=== PATIENT | male | born 1960 | race Caucasian/White ===

== ENCOUNTER 2023-02-25 14:40 | Outpatient (OUT) | payer BC, SELFPAY ==
[2023-02-25 14:55] LABS: Basophils Percent Auto 0.4 % (0.2-2.0); Eosinophils Absolute Auto 0.1 10^3/uL (0.0-0.7); Hematocrit 38.4 % (42.0-54.0); Hemoglobin 13.4 g/dL (14.0-18.0); Immature Granulocytes Abs Auto 0.02 10^3/uL (0.00-0.03); Immature Granulocytes Pct Auto 0.3 % (0.0-0.5); Lymphocytes Absolute Auto 2.6 10^3/uL (1.2-3.8); Lymphocytes Percent Auto 33.2 % (20.5-60.0); Mean Corpuscular HGB Conc 34.9 g/dL (29.9-35.2); Mean Corpuscular Hemoglobin 30.4 pg (25.9-34.0); Mean Corpuscular Volume 87.1 fL (80.0-94.0); Mean Platelet Volume 9.8 fL (9.5-13.5); Monocytes Absolute Auto 0.6 10^3/uL (0.3-0.8); Monocytes Percent Auto 7.7 % (1.7-12.0); Neutrophils Absolute Auto 4.5 10^3/uL (1.4-6.5); Neutrophils Percent Auto 57.4 % (43.0-75.0); Platelet Count 202 10^3/uL (150-450); Red Blood Count 4.41 10^6/uL (4.70-6.10); Red Cell Distribution Width 13.2 % (11.0-15.0); White Blood Count 7.9 10^3/uL (4.0-11.0)
[2023-02-25 15:13] LABS: Alanine Aminotransferase 26 U/L (16-63); Albumin Globulin Ratio 1.4; Albumin Level 4.3 g/dL (3.4-5.0); Alkaline Phosphatase 99 U/L (46-116); Anion Gap 13.1; Aspartate Amino Transferase 18 U/L (15-37); BUN Creatinine Ratio 13.5; Bilirubin Total 0.6 mg/dL (0.2-1.0); Calcium 8.6 mg/dL (8.5-10.1); Carbon Dioxide 29.2 mmol/L (21.0-32.0); Chloride 105 mmol/L (98-107); Estimated GFR (African America >60 (>=60); Estimated GFR (Non-African Ame 50 (>=60); Glucose 93 mg/dL (74-106); Potassium 4.3 mmol/L (3.5-5.1); Sodium 143 mmol/L (136-145); Total Protein 7.3 g/dL (6.4-8.2)
[2023-02-25 15:32] LABS: Erythrocyte Sedimentation Rate 10 mm/hr (<=20)
== END 2023-02-25 14:41 | disposition home or self-care (01) ==
PROVIDERS: PCP Family Medicine
DX: M05.79 Rheumatoid arthritis with rheumatoid factor of multiple sites without organ or systems involvement (principal); M15.0 Primary generalized (osteo)arthritis; Z79.899 Other long term (current) drug therapy
CPT/HCPCS: 36415; 80053; 85025; 85652

== ENCOUNTER 2023-03-01 14:40 | Outpatient (OUT) | payer BC, SELFPAY ==
--- NOTE | 2023-03-01 14:48 | XR_ITS ---
The [address] [address] Patient Name: DARLEEN GOODMAN MRN: [id number] date: 1960 Sex: M Assigned Patient Location: [facility] Current Patient Location: Accession/Order Number: [id number] Exam Date: 03/01/2023 14:58 Report Date: 03/02/2023 05:18 At the request of: NON-STAFF PHYSICIAN Procedure: XR knee LT 4V PROCEDURE: XR knee LT 4V HISTORY: Knee Pain ; chronic left knee pain; prior knee surgery COMPARISON: XR knee left 07/29/2018 FINDINGS: BONES:Small degenerative osteophytes along the articular margins of all 3 compartments. No fracture, dislocation, or significant joint space narrowing. SOFT TISSUES:Calcium deposition within the lateral meniscus. Small focus of heterotopic bone formation cephalad to the patella; likely sequela of remote injury. EFFUSION:None visible. OTHER: Negative. XR/XR knee LT 4V IMPRESSION: 1. No acute bone abnormality. 2. Stable mild-moderate degenerative joint disease. Electronically authenticated by: ZHANNA ARMENDARIZ Date: 03/02/2023 05:18
== END 2023-03-01 14:41 | disposition home or self-care (01) ==
LOC: RAD 14:41
PROVIDERS: PCP Family Medicine
DX: M25.562 Pain in left knee (principal)
CPT/HCPCS: 73564

== ENCOUNTER 2023-04-21 14:37 | Outpatient (OUT) | payer BC, SELFPAY ==
[2023-04-21 15:03] LABS: Basophils Percent Auto 0.4 % (0.2-2.0); Eosinophils Absolute Auto 0.1 10^3/uL (0.0-0.7); Eosinophils Percent Auto 1.4 % (0.9-7.0); Hemoglobin 13.1 g/dL (14.0-18.0); Immature Granulocytes Abs Auto 0.02 10^3/uL (0.00-0.03); Immature Granulocytes Pct Auto 0.3 % (0.0-0.5); Lymphocytes Absolute Auto 2.6 10^3/uL (1.2-3.8); Lymphocytes Percent Auto 36.3 % (20.5-60.0); Mean Corpuscular HGB Conc 33.6 g/dL (29.9-35.2); Mean Corpuscular Hemoglobin 30.2 pg (25.9-34.0); Mean Corpuscular Volume 89.9 fL (80.0-94.0); Mean Platelet Volume 10.2 fL (9.5-13.5); Monocytes Absolute Auto 0.7 10^3/uL (0.3-0.8); Neutrophils Absolute Auto 3.8 10^3/uL (1.4-6.5); Neutrophils Percent Auto 52.6 % (43.0-75.0); Platelet Count 207 10^3/uL (150-450); Red Blood Count 4.34 10^6/uL (4.70-6.10); Red Cell Distribution Width 13.3 % (11.0-15.0); White Blood Count 7.2 10^3/uL (4.0-11.0)
[2023-04-21 15:15] LABS: Alanine Aminotransferase 26 U/L (16-63); Albumin Globulin Ratio 1.2; Albumin Level 4.1 g/dL (3.4-5.0); Alkaline Phosphatase 102 U/L (46-116); Anion Gap 12.5; Aspartate Amino Transferase 19 U/L (15-37); BUN Creatinine Ratio 17.7; Bilirubin Total 0.4 mg/dL (0.2-1.0); Calcium 9.1 mg/dL (8.5-10.1); Carbon Dioxide 27.8 mmol/L (21.0-32.0); Chloride 102 mmol/L (98-107); Estimated GFR (African America >60 (>=60); Estimated GFR (Non-African Ame 55 (>=60); Globulin 3.3 g/dL; Glucose 78 mg/dL (74-106); Potassium 4.3 mmol/L (3.5-5.1); Sodium 138 mmol/L (136-145); Total Protein 7.4 g/dL (6.4-8.2)
[2023-04-21 15:18] LABS: Erythrocyte Sedimentation Rate 22 mm/hr (<=20)
== END 2023-04-21 14:38 | disposition home or self-care (01) ==
PROVIDERS: PCP Family Medicine
DX: M05.79 Rheumatoid arthritis with rheumatoid factor of multiple sites without organ or systems involvement (principal); M15.0 Primary generalized (osteo)arthritis; Z79.899 Other long term (current) drug therapy
CPT/HCPCS: 36415; 80053; 85025; 85652

== ENCOUNTER 2023-10-04 14:41 | Outpatient (OUT) | payer OTHER, SELFPAY ==
[2023-10-04 15:08] LABS: Basophils Percent Auto 0.3 % (0.2-2.0); Eosinophils Absolute Auto 0.1 10^3/uL (0.0-0.7); Eosinophils Percent Auto 0.8 % (0.9-7.0); Hematocrit 41.5 % (42.0-54.0); Hemoglobin 13.8 g/dL (14.0-18.0); Immature Granulocytes Abs Auto 0.02 10^3/uL (0.00-0.03); Immature Granulocytes Pct Auto 0.2 % (0.0-0.5); Lymphocytes Absolute Auto 2.7 10^3/uL (1.2-3.8); Lymphocytes Percent Auto 29.4 % (20.5-60.0); Mean Corpuscular HGB Conc 33.3 g/dL (29.9-35.2); Mean Corpuscular Hemoglobin 29.7 pg (25.9-34.0); Mean Corpuscular Volume 89.4 fL (80.0-94.0); Monocytes Absolute Auto 0.7 10^3/uL (0.3-0.8); Monocytes Percent Auto 7.5 % (1.7-12.0); Neutrophils Absolute Auto 5.7 10^3/uL (1.4-6.5); Neutrophils Percent Auto 61.8 % (43.0-75.0); Platelet Count 228 10^3/uL (150-450); Red Blood Count 4.64 10^6/uL (4.70-6.10); Red Cell Distribution Width 13.3 % (11.0-15.0); White Blood Count 9.2 10^3/uL (4.0-11.0)
[2023-10-04 15:14] LABS: Erythrocyte Sedimentation Rate 9 mm/hr (<=20)
[2023-10-04 15:30] LABS: Alanine Aminotransferase 36 U/L (16-63); Albumin Globulin Ratio 1.3; Albumin Level 4.2 g/dL (3.4-5.0); Alkaline Phosphatase 92 U/L (46-116); Anion Gap 12.3; Aspartate Amino Transferase 22 U/L (15-37); BUN Creatinine Ratio 13.3; Bilirubin Total 0.6 mg/dL (0.2-1.0); Calcium 8.9 mg/dL (8.5-10.1); Chloride 102 mmol/L (98-107); Estimated GFR (African America 57 (>=60); Estimated GFR (Non-African Ame 47 (>=60); Globulin 3.2 g/dL; Glucose 88 mg/dL (74-106); Potassium 4.3 mmol/L (3.5-5.1); Sodium 138 mmol/L (136-145); Total Protein 7.4 g/dL (6.4-8.2)
== END 2023-10-04 14:42 | disposition home or self-care (01) ==
LOC: LAB 14:43
PROVIDERS: PCP Family Medicine; Visit Provider Internal Medicine Rheumatology
DX: M05.79 Rheumatoid arthritis with rheumatoid factor of multiple sites without organ or systems involvement (principal); M15.0 Primary generalized (osteo)arthritis; Z79.899 Other long term (current) drug therapy
CPT/HCPCS: 36415; 80053; 85025; 85652

== ENCOUNTER 2023-11-24 06:56 | Outpatient (OUT) | payer OTHER, SELFPAY ==
[2023-11-24 07:43] LABS: Basophils Percent Auto 0.2 % (0.2-2.0); Eosinophils Absolute Auto 0.1 10^3/uL (0.0-0.7); Hematocrit 40.6 % (42.0-54.0); Hemoglobin 13.6 g/dL (14.0-18.0); Immature Granulocytes Abs Auto 0.04 10^3/uL (0.00-0.03); Immature Granulocytes Pct Auto 0.5 % (0.0-0.5); Lymphocytes Absolute Auto 2.5 10^3/uL (1.2-3.8); Mean Corpuscular HGB Conc 33.5 g/dL (29.9-35.2); Mean Corpuscular Hemoglobin 30.2 pg (25.9-34.0); Mean Platelet Volume 10.3 fL (9.5-13.5); Monocytes Absolute Auto 0.7 10^3/uL (0.3-0.8); Monocytes Percent Auto 7.9 % (1.7-12.0); Neutrophils Absolute Auto 5.1 10^3/uL (1.4-6.5); Neutrophils Percent Auto 60.4 % (43.0-75.0); Platelet Count 198 10^3/uL (150-450); Red Blood Count 4.51 10^6/uL (4.70-6.10); Red Cell Distribution Width 13.4 % (11.0-15.0); White Blood Count 8.4 10^3/uL (4.0-11.0)
[2023-11-24 07:50] LABS: Alanine Aminotransferase 36 U/L (16-63); Albumin Globulin Ratio 1.1; Albumin Level 3.9 g/dL (3.4-5.0); Alkaline Phosphatase 99 U/L (46-116); Anion Gap 13.4; Aspartate Amino Transferase 22 U/L (15-37); BUN Creatinine Ratio 16.5; Bilirubin Total 0.8 mg/dL (0.2-1.0); Calcium 9.3 mg/dL (8.5-10.1); Carbon Dioxide 28.2 mmol/L (21.0-32.0); Chloride 103 mmol/L (98-107); Chol HDL Ratio 2.6; Cholesterol 98 mg/dL (<=200); Estimated GFR (African America >60 (>=60); Estimated GFR (Non-African Ame >60 (>=60); Globulin 3.4 g/dL; Glucose 90 mg/dL (74-106); HDL Cholesterol 37 mg/dL (40-60); Potassium 4.6 mmol/L (3.5-5.1); Sodium 140 mmol/L (136-145); Total Protein 7.3 g/dL (6.4-8.2); Triglycerides 105 mg/dL (<=150)
[2023-11-24 08:07] LABS: Prostate Specific Antigen Dx 1.08 ng/mL (<=4.00)
== END 2023-11-24 06:57 | disposition home or self-care (01) ==
LOC: LAB 06:58
PROVIDERS: PCP Family Medicine; Visit Provider Family Medicine
DX: Z00.00 Encounter for general adult medical examination without abnormal findings (principal); E78.5 Hyperlipidemia, unspecified; R73.09 Other abnormal glucose; I10 Essential (primary) hypertension; R35.1 Nocturia
CPT/HCPCS: 36415; 80053; 80061; 84153; 85025

== ENCOUNTER 2024-04-25 09:59 | Outpatient (OUT) | payer OTHER, SELFPAY ==
--- OUTSIDE RECORDS SUMMARY | 2024-04-25 10:16 | XMS_ITS | CCD ---
Author Organization [facility] CliniSyut Care Team Providers Care Power Generating Plant Operator Name Role Phone Shashank Head Unavailable Cassi Willams Unavailable OCTAVIO, DR LITTLE Admitting Unavailable OCTAVIO, DR LITTLE Attending Unavailable ULISES, DR REED Primary Care Unavailable OCTAVIO, DR LITTLE Consulting Unavailable ULISES, DR REED Primary Care Unavailable NGHIA, DR LAMINE Croft Admitting Unavailable NGHIA, DR LAMINE Croft Attending Unavailable AGRAWAL, DR LAMINE Croft Consulting Unavailable HEATHER, KATIE Consulting Unavailable MISC, DR ROBBINS Admitting Unavailable MISC, DR ROBBINS Attending Unavailable ULISES, DR REED Primary Care Unavailable MISC, DR ROBBINS Consulting Unavailable OCTAVIO, DR LITTLE Admitting Unavailable OCTAVIO, DR LITTLE Attending Unavailable ULISES, DR REED Primary Care Unavailable OCTAVIO, DR LITTLE Consulting Unavailable OCTAVIO, DR LITTLE Admitting Unavailable CUNNINGHAM, DR LITTLE Attending Unavailable ULISES, DR REED Primary Care Unavailable OCTAVIO, DR LITTLE Consulting Unavailable MD Chino Moses Attending Unavailab MD Chino Lockhart Admitting Unavailab le ULISES, RUGEN M Primary Care Unavailable LEEANNAJEREMIAS TINOCO Referring Unavailable ULISES, RUGEN M Primary Care Unavailable LEEANNAJEREMIAS Attending Unavailable JEREMIAS DURÁN Referring Unavailable ULISES, RUGEN M Primary Care Unavailable LEEANNAJEREMIAS Referring Unavailable ULISES, RUGEN M Primary Care Unavailable LEEANNAJEREMIAS TINOCO Attending Unavailable JEREMIAS DURÁN Referring Unavailable ULISES, RUGEN M Primary Care Unavailable LEEANNAJEREMIAS Admitting Unavailable JEREMIAS DURÁN Attending Unavailable JEREMIAS DURÁN Referring Unavailable PASQUALE VALDIVIA Attending Unavailable ULISES, RUGEN M Primary Care Unavailable TIM MARTINEZ Attending Unavailable TIM MARTINEZ Referring Unavailable TIM MARTINEZ Attending Unavailable TIM MARTINEZ Attending Unavailable TIM MARTINEZ Referring Unavailable JEREMIAS DURÁN Attending Unavailable JEREMIAS DURÁN Attending Unavailable DEREK MONTGOMERY Attending Unavailable DEREK MONTGOMERY Attending Unavailable SIMONE CORADO Attending Unavailable JEREMIAS DURÁN Attending Unavailable Allergies Allergy Classification Reported Allergen(s) Allergy Type Date of Onset Reaction(s) Facility (1 source) No Known Medication Allergies; Translations: [No Known Medication Allergies] Propensity to adverse reactions to drug (disorder) [facility] Repository Medications Current Medications Medication Drug Class(es) Dates Sig (Normalized) Sig (Original) ascorbic acid 4700 mg / polyethylene glycol 3350 011457 mg / potassium chloride 1015 mg / sodium ascorbate 5900 mg / sodium chloride 2690 mg / sodium sulfate 7500 mg powder for oral solution (2 sources) Osmotic Laxative, Vitamin C Start: 4 Aspirin (6 sources) Platelet Aggregation Inhibitor, Nonsteroidal Anti-inflammatory Drug Aspirin Active atorvastatin 40 mg oral tablet (6 sources) HMG-CoA Reductase Inhibitor take 1 tablet by mouth every twenty-four hours Lipitor 40 MG 1 cap(s) orally qd Active benzonatate 100 mg oral capsule (2 sources) Non-narcotic Antitussive Start: 2 take 1 capsule by mouth every eight hours Tessalon Perles 100 MG 1 capsule as needed Orally Three times a day for 7 days Jun, Active clopidogrel 75 mg oral tablet (6 sources) P2Y12 Platelet Inhibitor take 1 tablet by mouth every twenty-four hours Plavix 75 MG 1 tablet Orally Once a day Active Hydroxychloroquine (4 sources) Antimalarial, Antirheumatic Agent Hydroxychloroquine Sulfate Active methylPREDNISolone 4 mg oral tablet (3 sources) Corticosteroid Start: 2 methylPREDNISolone 4 MG as directed Orally for daily dose take half with breakfast, half with dinner for 6 days PRN Jun, Active Metoprolol (6 sources) beta-Adrenergic Alondra Metoprolol Succinate Active omeprazole 40 mg delayed release oral capsule (1 source) Proton Pump Inhibitor Start: 3 Omeprazole 40 MG 1 capsule 30 minutes before morning meal and evening meal Orally twice a day for 30 days Oct, Active pantoprazole 40 mg delayed release oral tablet (6 sources) Proton Pump Inhibitor take 1 tablet by mouth every twelve hours Pantoprazole Sodium 40 MG 1 cap(s) orally TWICE A DAY for 30 days Active take 1 tablet by darnell th every twenty-four hours Pantoprazole Sodium 40 MG 1 cap(s) orall y qd Active rOPINIRole (6 sources) Nonergot Dopamine Agonist Requip Active Problems Active Problems Problem Classification Problem Date Documented Date Episodic/Chronic Abdominal pain (7 sources) Abdominal pain; Translations: [Unspecified abdominal pain] Onset: 01-28-20 Resolved : 01-28-20 Episodic Chronic kidney disease (1 source) Chronic kidney disease; Translations: [Chronic kidney disease, stage 3a] Onset: 11-24-19 Coronary atherosclerosis and other heart disease (3 sources) Atherosclerotic heart disease of [place] coronary artery without angina pectoris; Translations: [Old myocardial infarction] Onset: 03-30-20 Chronic Disorders of lipid metabolism (1 source) Pure hypercholesterolemia, unspecified; Translations: [PURE HYPERCHOLESTEROLEMIA UNSPEC] Onset: 03-30-20 Chronic Esophageal disorders (2 sources) Gastroesophageal reflux disease; Translations: [Gastro-esophageal reflux disease without esophagitis] Chronic Essential hypertension (2 sources) Essential (primary) hypertension; Translations: [ESSENTIAL PRIMARY HYPERTENSION] Onset: 03-30-20 Chronic Influenza (1 source) Influenza due to other identified influenza virus with other respiratory manifestations Episodic Mood disorders (1 source) Major depressive disorder, single episode, unspecified; Translations: [KYLER DEPRESS D/O SINGLE EPIS UNS] Onset: 03-30-20 Chronic Osteoarthritis (2 sources) Primary generalized (osteo)arthritis; Translations: [Unspecified osteoarthritis, unspecified site] Onset: 06-26-20 Chronic Other aftercare (1 source) Other watermaster (current) drug therapy; Translations: [OTH VP BUSINESS DEVELOPMENT CURRENT DRUG THERAPY] Onset: 10-30-19 23 Episodic Other disorders of stomach and duodenum (4 sources) Indigestion; Translations: [Functional dyspepsia] Episodic Other disorders of stomach and duodenum (3 sources) Functional dyspepsia Episodic Other gastrointestinal disorders (2 sources) Swollen abdomen; Translations: [Abdominal distension (gaseous)] Episodic Other gastrointestinal disorders (6 sources) Epigastric fullness; Translations: [Other specified symptoms and signs involving the digestive system and abdomen] Episodic Other gastrointestinal disorders (4 sources) Flatulence, eructation and gas pain; Translations: [Abdominal distension (gaseous)] Episodic Residual codes; unclassified (6 sources) Early satiety; Translations: [Early satiety] Episodic Rheumatoid arthritis and related disease (8 sources) Rheumatoid arthritis with rheumatoid factor of multiple sites without organ or systems involvement; Translations: [Rheumatoid arthritis, unspecified] Onset: 06-21-20 Chronic Unclassified (1 source) meniscal tear Onset: 12-21-19 Past or Other Problems Problem Classification Problem Date Documented Da te Episodic/Chronic Calculus of urinary tract (1 source) Personal history of urinary calculi; Translations: [PERSONAL HISTORY OF URINARY CALCULI] Onset: 03-30-2022 Episodic Disorders of teeth and jaw (1 source) Periapical abscess without sinus; Translations: [PERIAPICAL ABSCESS WITHOUT SINUS] Onset: 03-30-2022 Episodic Other aftercare (1 source) alf (current) use of aspirin; Translations: [DETENTION CURRENT USE OF ASPIRIN] Onset: 03-30-2022 Episodic Other gastrointestinal disorders (1 source) Abdominal distension (gaseous) Onset: 01-27-2022 Resolved: 01-27-2022 Episodic Other gastrointestinal disorders (1 source) Other specified symptoms and signs involving the digestive system and abdomen Onset: 01-27-2022 Resolved: 01-27-2022 Episodic Other skin disorders (3 sources) Localized swelling, mass and lump, head; Translations: [LOCALIZED SWELLING MASS AND LUMP HEAD] Onset: 03-27-2022 Episodic Residual codes; unclassified (1 source) Early satiety Onset: 01-27-2022 Resolved: 01-27-2022 Episodic Screening and history of mental health and substance abuse codes (1 source) Personal history of nicotine dependence; Translations: [PERSONAL HISTORY OF NICOTINE DEPEND] Onset: 03-30-2022 Episodic Unclassified (1 source) Cough R05.9 Results Test Name Value Interpretation Reference Range Facility BASIC METABOLIC PANLon 11-23 Anion gap [Moles/Vol] 8 mmol/L Normal 5-15 [facility] Comment on above: Performed By: #### P INR, 07683-7 #### [facility] ([id number]) [address] [place] [address], [place] [address] #### 718-7, BMP #### [facility] ([id number]) [address] [place] [address], [address] [place] [address] Calcium [Mass/Vol] 9.4 mg/dL Normal 8.5-10.5 [facility] Comment on above: Performed By: #### P INR, 38285-9 #### [facility] ([id number]) [address] [place] [address] #### 718-7, BMP #### [facility] ([id number]) [address], [address] [place] [address] Chloride [Moles/Vol] 102 mmol/L Normal 98-109 [facility] Comment on above: Performed By: #### P INR, 25882-5 #### [facility] ([id number]) [address] [place] [address] #### 718-7, BMP #### [facility] ([id number]) [address], [address] [place] [address] CO2 [Moles/Vol] 29 mmol/L Normal 22-32 [facility] Comment on above: Performed By: #### P INR, 34911-0 #### [facility] ([id number]) [address] [place] [address] #### 718-7, BMP #### [facility] ([id number]) [address], [address] [place] [address] Creatinine [Mass/Vol] 1.17 mg/dL Normal 0.60-1.30 [facility] Comment on above: Result Comment: METH OD TRACEABLE TO IDMS STANDARD Performed By: #### P INR, 72867-8 #### [facility] ([id number]) [address] [place] [address] #### 718-7, BMP #### [facility] ([id number]) [address], [address] [place] [address] GFR/1.73 sq M.predicted among non-blacks MDRD (S/P/Bld) [Vol rate/Area] 69 mL/min/{1.73_m2} Normal >59 [facility] Comment on above: Result Comment: Reported eGFR is based on the CKD-EPI 2020 equation that does not use a race coefficient. Performed By: #### P INR, 78272-4 #### [facility] ([id number]) [address] [place] [address] #### 718-7, BMP #### [facility] ([id number]) [address], [address] [place] [address] Glucose [Mass/Vol] 92 mg/dL Normal 65-99 [facility] Comment on above: Performed By: #### P INR, 80740-6 #### [facility] ([id number]) [address] [place] [address] #### 718-7, BMP #### [facility] ([id number]) [address], [address] [place] [address] Potassium [Moles/Vol] 4.1 mmol/L Normal 3.5-5.0 [facility] Comment on above: Performed By: #### P INR, 59985-8 #### [facility] ([id number]) [address] [place] [address] #### 718-7, BMP #### [facility] ([id number]) [address], [address] [place] [address] Sodium [Moles/Vol] 139 mmol/L Normal 134-146 [facility] Comment on above: Performed By: #### P INR, 98967-0 #### [facility] ([id number]) [address] [place] [address] #### 718-7, BMP #### [facility] ([id number]) [address], [address] [place] [address] Urea nitrogen [Mass/Vol] 24 mg/dL Normal 5-27 [facility] Comment on above: Performed By: #### P INR, 70943-5 #### [facility] ([id number]) [address] [place] [address] #### 718-7, BMP #### [facility] ([id number]) [address], [address] [place] [address] HEMOGLOBINon 11-24-2023 Hemoglobin (Bld) [Mass/Vol] 14.0 g/dL Normal 13.0-17.0 [facility] Comment on above: Performed By: #### P INR, 37986-7 #### [facility] ([id number]) [address] [place] [address] #### 718-7, BMP #### [facility] ([id number]) [address], [address] [place] [address] PROTIME AND INRon 11-24-2023 INR Coag (PPP) [Relative time] 1.0 {INR} Normal 0.8-1.1 [facility] Comment on above: Performed By: #### P INR, 62426-5 #### [facility] ([id number]) [address] [place] [address] #### 718-7, BMP #### [facility] ([id number]) [address], [address] [place] [address] PT Coag (PPP) [Time] 11.5 s Normal 9.8-13.2 [facility] Comment on above: Result Comment: NEW REFERENCE RANGE Performed By: #### P INR, 79308-6 #### [facility] ([id number]) [address] [place] [address] #### 718-7, BMP #### [facility] ([id number]) [address], [address] [place] [address] XR CHEST 2 VWSon 11-24-2023 XR CHEST 2 VWS XR CHEST 2 VWS History: [Hypertension. Preoperative] Frontal and lateral chest radiographs demonstrate [that the heart, mediastinum, bryn, and lungs are grossly unremarkable. There is no pneumothorax or obvious pleural effusion.] Impression: [Unremarkable chest radiographs, unchanged since 06/21/2016.] Finalized by Stuart Gaitan MD on 11/24/2023 5:33 PM Normal [facility] aPTT Coag (PPP) [Time]on aPTT Coag (Bld) [Time] 34 s Normal 26-37 [facility] Comment on above: Result Comment: NEW REFERENCE RANGE Performed By: #### P INR, 04053-8 #### [facility] ([id number]) [address] [place] [address], [place] [address] #### 718-7, BMP #### [facility] ([id number]) [address], [address] [place] [address] [facility]NEE LEFT WO IV CONTRAST Exam: MR KNEE LEFT WO IV CONTRAST History: Knee pain. History of medial meniscal repair in 1972. Technique: Multiplanar multisequence MRI of the knee was performed without contrast. Comparison: Radiographs September 27, 2023 Findings: Quadriceps and patellar tendons are intact. Small joint effusion. Thickening and hyperintense intrasubstance signal of the anterior root ligament and posterior cruciate ligament compatible with mild mucoid degeneration. The medial collateral ligament, lateral collateral ligament, and popliteus are intact. Diminutive size of the body of the medial meniscus and abnormal signal throughout the medial meniscus compatible with postsurgical changes of partial meniscectomy and complex tearing. Horizontal tear of the body through posterior horn of the lateral meniscus. Diffuse cartilage loss of the medial compartment with several high-grade partial-thickness cartilage defects. Tiny full-thickness cartilage defects of the outer medial tibial plateau with mild subcortical bone marrow edema. Diffuse cartilage abnormality of the patella including of areas of full-thickness cartilage loss resulting in subcortical cyst formation and subcortical bone marrow edema of the median patellar ridge and lateral patellar facet. Popliteal fossa structures are intact. No Solis cyst. IMPRESSION: Complex tearing of the medial meniscus. Horizontal tear of the body through posterior horn of the lateral meniscus. Osteoarthritis most significant involving the patellofemoral compartment. ELECTRONICALLY SIGNED BY: Darleen Haney, DO Normal Not Available Comment on above: Order Comment: MRI L T knee w/o at [facility]. Orbits if needed. Please contact pt to schedule. Coding Summaryon 01-13-2023 Coding Summary HTMLBase 64 MogarvwbAXe1hOf+PGhl YWQ+EW1WMMGcN15xkOXw nT7cX3PBHEzXZutxXXBT CZyZCyVeuiEaCS0srPLs ZXJu IC8+AU9gFIYsGjtgkZRg k5L4tDC0U33rsj2sUSgp sKL8FIRySgFlatzju6of oBd7CTabNuobVoGr WUMpwD97DMK4kC40Pm78 xHRgnRPgx0jwzUg4MgFy KNDxRLL6hIyqGQtgh5Ol VHGjM72pfUNol0G8 IGNvbGxhcHNlOyBlbXB0 zB0yHUfczvlvb1wmdcqk Owd1fs93eNMsn5Y0lXN8 B4NtloW7NNSamSXq PtzyfAKVjD7jnamgd3mj ueknXyRrESZyKOz7AEk6 FBUkxRbmSjCmUB38CVP7 EYHwwbFsA1SuDIAz rIzdFtZ1q1M2Lt5DU4BJ PotsN9GQPWLQSSrddRV+ UI44pt56H4HlQptvBkz2 GJTbDJY8uIL2zJ3w TWQrZUmqp5T9eUO5Z1Gy lmCybi3gw3arIRHwJIdy T62twUCnf2V0CXKuhHB0 WOJebDaoRwKkxA03 Oyc+NRUxcMclt0ZmBrfz q7psj4lnkUl7RbyeFCSs qkHfeJjtPJS4p0TlGh9g PGEnoLD2gDP9mS9z KkDkBsZ0VJpiZ910JwIs gFLoXbroJ89kZ7IdoFN+ WMNgMgu5PRNgsGxeYQ2o Q2OfSGGrtvydjJFl wEqrEZ6xLXDrusigMHVw gE0oJUHdJ2t6MiOsNfW5 DRolV9WlRZHxlsojYi77 iS7gBsCuJtK7STse D7HzyjZ8WQXpxXBoBSyp WDS5F42pt7E0LZTiLJGe BBL3wQB4xQ7iwBrflxqx bGVmdDsgdmVydGlj AKwtCCesF476LXTrqCqy PkNvZGluZyBEYXRlOiAg MDYvMjkvMjAyMzwvdGQ+ ZKVeUKQ0nHwlTJTa iXYrIQacIk8ggCqesIhu VO0zWEQangcbYYCyfS6u KZRxtFAvpNhxWJ0sUCVo sumxy818WrUlHMS4 KQRxnZNlV6WewG7pVqJw LGRtJBRkC4KtnWEvIVjx R875RAgtUkJ7GYKhmgJl D4FtDAPybHzyXdJ2 z8R3Df4Vs8LwkffyP1Nj mKYzXyOjIhhnFXc0H7Ab PjwvdHI+MH47YMJuVP75 NLx7ASW4aFykXXuu AXVdW5NfqC6oDvVgRTWm ZGRkOyc+PHRhYmxlIHdp ZHRoPScxMDAlJyBzdHls ZG5fRh9eDTPqKIQb rSbkmKGbToCpe2esGYOv XPizRU4gcSgoW0OwhWN6 FNEhk6n9Zc11G05sE1Iz dXA+HWOsgYH2qGQ5 tF0nZoNvWnI4VPepI892 DyVmxBEyNccqv1ogy0lm wQz1ZsB4KAYsxyOhmByr GRW8p5DcVn78U91l IHdpZHRoPSIxNSUiIHZh zYdczu0scP5hBa0+PGNv vGH5nYT1rF6cYaPyMtQ5 IVbjK748IoFgtLAy Awcft1kvw9ldvYw4TeBm MEKfeeWmzSehQBL6e4Zd By03Q2ZtjCwuj5HaFvk2 wi31tBXak2C5uEY5 X6ZhDOOflcyzcJUwwSdc GY6yNKHcxtucMABajD6s KIOyD2r3FjIeTxM4QIxw O7SshgU3ESJzbEMq JZOhgXLOaB6xrgjvj2vt myizChKeYDZwAGr2YSv6 RUNnrVvhRvPiBLU5PqA0 XEL0yUPrtC9khCqp olzgtQ9wOsh+QDJ7jBMo jWLNIB2jMdlifRP+PHRk YBF9rLewGHbqNQZdzY0v YOXaV7h8CdOtWnF1 RMzjV1NxyxB6AVOerZEi YXEnqMMRuB4brmoab3vr vkeaGnGtWVNaXLb4WEq3 LWFsaWduOiBsZWZ0 MtS4JYW2sKGthW6teNxa lialrD0jAgi+QmlydGgg PSY2GYy6R5ZoVle3EBHn bWxzFQ6acQMqHWzt Cy9mkFuowQvdMR4iSROm qbhyy943FdJxo1jmJYCx kZJdGSmbCDK8M25ll0K9 XGWjNXIpHWX5wYW8 vX9fpTuekymaqQCueBai adCyuTvzFCrnGJvzL711 HARecUxiEdDdFZs4K6Bt Imn6IBOafDbeFI9a qGQbQVorTe8luJjubCpb LA5hVJHorycfz040WoFg z8fhDSCkmKYuPDigZMK6 U73ar7T0BSCtGHCd OQQ3gKX7qB1zaDnlytbd bGVmdDsgdmVydGljYWwt LKjlN181PYDozBalIqAb rFz9W8ChUgu6NSVe uWgaAO8fgICxSGotAy3y vBwdwUhqBZ9aSVLlzlwc d932QaTiw2jeYEEzeGTm UAlfIZM9F81ya1W4 EAKaTRYiLIP9hAS6pZ8h bGlnbjogbGVmdDsgdmVy hRqrAIfpPAxpU045UBPn cDsnPlBhdGllbnQg CDzgYYo3P3SbJuhmtMM+ FG52GFSyAW03wPDdpTAp v6xaoRr6YuAnMKZtYUW1 fAojTMolw3CnJLDx X65bmCCfq1H8IIBahPgk jIYwVwTmzIH8qU6lKPnv ajowy1ykkdsqNqpkc1hx hw08kN36B41ePPpd ZHRoPSIzMCUiIHZhbGln ln4iaQ6hBi7+PGNvbCB3 jPF9iE6yUWEsJyQ7XKhw C886SqOdaEQtJllf u8ggc7dehOf5PoU8FCUy rxNkaPmuLHV6b3UgFr20 F09kLYgzGRQnMPFmPDVr BQFkiVombo0ruO3k Ii8+UBVydME0iBH7aV2x YwQlHeR1PKmwH960QlLz cNJzWnrfR38fX3BdsOW+ KRTbNaf5AKRfmAyv GN9taMMgVHpqAl7xYEP9 AtMgMjJkBBabG4QmEJQh sfhulvmglYH6KMNnOWRf jA42Hj6baWvwPFMy uKRMdA3wvdzyz4atpxxl WbXaNTMhGSz5YCc5CKFn fPboVlNrNIB3RbK4NKV9 hJKbzR3nsCwlrgtk wA6rF8AoXUCvpaepBi11 aQ8lBqFnFcD1ZGpiTsd+ HyAQPatGF6JlZoLhGHBI MmYANOTYRP14NC71 zGLgl9X0fAK0S4HjLYGq jvdzguqwwAH8OKUkAGFk xV18vCFqYHduBe6kt0B7 a719ELEhIVAjcS65 Hg9zkLcyEJZzqHMGnD0c mzyfe6etiducJaHdOYRe AFd0LZb0YCOdhUmjVwEz YEP1FqO7SYI6hGSc cJ9beKnozfstaT0oJac+ DXLeGKqgQAv6DIggcZS+ QKWxYAF1zUtjQMsmMCDi rN9lQIDtT5h2OrPb VqY2ZQvcD4QrEIQiwcqn Sf95aM0kBbPmNnI7BAft P2AuyhI2XWZxoBZhOFtz BIP5S58go3I3IWXs ZGHwSIM6uRG1xE8lsFiy bjogbGVmdDsgdmVydGlj YWxjRKikA791SKTunDdz FfH1XTsbPXYyDM85 ZM52qWNfi7S6vZD6F7Lx DFMxtoaqsujedZO0PLJg OVIrbY19qUKjFBwvSv1z e4D4l431RKYfZAMj fC31Ob2nsQtaGGTinNSS jP4akyugk2ekjqfvUbYz BQUeCMn6BFu9VXZdxSix SrQfBXT3ElM7TOS7 xFPzyB3abQiqrgezkV2p Oyc+TUFMRTwvdGQ+PHRk FXS7dEwxYOhiHLEqdI5j EXUoC8g8XaUfMlS4 EJzpC9YzPATfetdsOq14 eW7aYaAnGjO5PEfdH5Fm jwN7NHNvwHCqXPtoQDK8 O52yb1C6HAQtFEWs FXM1yKH9bQ2vpAugjtkf bGVmdDsgdmVydGljYWwt NCbhA003QEMszKedItRo HGRyZB5xcSygsCW+ LR27be35U2BkYbztMdh9 EAZkLXA3hMS9lB1pMRBy JTfrx6B6zNY6Y1MwhnJx lu0oc6gkJOOiGGfb L76gmDXcw5V2FOBtcZL1 EPDxtBlwJxLmmI93Bgc+ XFBctEpfe9QqEbcco9kw q2vetKp7VvSlHWOu onUmlBzqXWQ7b4QiVi32 A93qIOyiRNLrJDZfUAUu NLRoxFdqyf2qhW3dXk5+ XUPbaZJ4zCF3xO9u TeKeTtO9YYuqH643XfYz qWLxTormo7vue4gmoDt8 IjIwJSIgdmFsaWduPSJ0 z9IkPq64W3RhlDtd q2MdJvn5bt65fSUzk2S2 fXS1L1IsWXXnpkweyFJo vBjgNA6yNSLgclofUVGu cR3aTTKaC8t4FiXb WyQ1OYaeT2XglnC8GAHx nUHbCAFsyPBAjD3ifmnk m6gfugntVbZrDZYqCKo1 DKr5MCYeyGnqMgQl EPL3GfB9EHO9yFQbnV4v vLzhnkaxaF7tTdl+UGh5 r8cxzSArAF0sdPB1QX36 OS53oZUvw3I2bEE3 N2PhQQTlbbheallnlCJ3 VNQuJGRneD79Ng5dqMqr Ir2cSCPmMEM7AKEtiNYx J9GscS2bDwEgLJLh KRMwG3RhgUEbNNmoX225 EYckViS4JAYapnGgS3Wl MVJofSftVpQ1o5V9Lu3P MO99QS88ON28kGSo s2Z3nGC8Y0SgUZKeaptk xkcgpME5VUAdFEPyfK02 Lf1ejTueCz7cLLLlOEM5 UYWdeSYnH0EadT6j ErBrLDXcJPVwO2VxiZGw EZveA630ZVfmYlD7MPId nsSoC7VkEEUwmSmbQcL5 c9M4Tw4RBe67WJ66 UP23cXVro5I9dOE1N9Ys MVNlmgdndxxrxBJ6BAVu EEJbqX88Mc2vcWnrYe2l FMWuPOO2RIYmmTGt A2DceN0lIlXiOKHpAIWa U6GqxPZyIZrjT408RDea QrB8UKHfkfVyD2MoDXZb qBpzYcN5r9A6Fs8N NVpacsk5L5IfGozkiWV+ PL01PEUpPP93dKYrtFTe u8phaBy4JoUyTVMzZLK2 uWijOQjoo7FmNZWn Y29 (more content not included)... Normal [facility] C Urineon 01-10-2023 C Urine Urine Culture ordered as a result of parameters set on specific urine dip and urine microsopic results. <10,000 cfu/ml Normal [facility] Comment on above: Performed By: #### 1 [id number], [id number] #### [facility] (DEFAULT) [address] [place] [address] .Auto Diff 1on 01-08-2023 Auto [place] % 3 % Normal -12 [facility] Comment on above: Performed By: #### 1 [id number], [id number], [id number], [id number], [id number] ####[facility] (DEFAULT)[address] [place] [address] 25692 Baso Abs# 0.1 x10 Normal 0.0-0.2 [facility] Comment on above: Performed By: #### 1 [id number], [id number], [id number], [id number], [id number] ####[facility] (DEFAULT)[address] [place] [address] 69361 Basophils/100 WBC (Bld) 0.7 % Normal 0.2-2.0 [facility] Comment on above: Performed By: #### 1 [id number], [id number], [id number], [id number], [id number] ####[facility] (DEFAULT)[address] [place] [address] 60162 Eos Abs# 0.0 x10 Normal 0.0-0.4 [facility] Comment on above: Performed By: #### 1 [id number], [id number], [id number], [id number], [id number] ####[facility] (DEFAULT)[address] [place] [address] 58519 Eosinophils/100 WBC (Bld) 0.2 % Low 0.9-4.0 [facility] Comment on above: Performed By: #### 1 [id number], [id number], [id number], [id number], [id number] ####[facility] (DEFAULT)[address] [place] [address] 80832 Lymph Abs# 1.1 x10 Low 1.3-2.9 [facility] Comment on above: Performed By: #### 1 [id number], [id number], [id number], [id number], [id number] ####[facility] (DEFAULT)[address] [place] [address] 22683 Lymphocytes/100 WBC (Bld) 9 % Low 14-48 [facility] Comment on above: Performed By: #### 1 [id number], [id number], [id number], [id number], [id number] ####[facility] (DEFAULT)[address] [place] [address]1594 [place] Abs# 0.4 x10 Normal 0.0-0.8 [facility] Comment on above: Performed By: #### 1 [id number], [id number], [id number], [id number], [id number] ####[facility] (DEFAULT)[address] [place] [address] 67687 Neut Abs# 11.1 x10 High 1.5-9.2 [facility] Comment on above: Performed By: #### 1 [id number], [id number], [id number], [id number], [id number] ####[facility] (DEFAULT)[address] [place] [address] Neutrophils/100 WBC (Bld) 87 % Normal 44-88 [facility] Comment on above: Performed By: #### 1 [id number], [id number], [id number], [id number], [id number] ####[facility] (DEFAULT)[address] [place] [address] CBC w/ Auto Diffon 3 Erythrocyte distribution width (RBC) [Ratio] 13.4 % Normal 11.5-15.0 [facility] Comment on above: Performed By: #### 1 [id number], [id number], [id number], 2304030, [id number] ####[facility] (DEFAULT)[address] [place] [address] Hematocrit (Bld) [Volume fraction] 41.4 % Normal 34.8-51.9 [facility] Comment on above: Performed By: #### 1 [id number], [id number], [id number], 8247910, 5383447 ####[facility] (DEFAULT)[address] [place] [address] Hemoglobin (Bld) [Mass/Vol] 14.2 g/dL Normal 11.8-17.7 [facility] Comment on above: Performed By: #### 1 [id number], [id number], [id number], [id number], [id number] ####[facility] (DEFAULT)[address] [place] [address] Man Diff? Auto Invalid Interpretation Code [facility] Comment on above: Performed By: #### 1 [id number], [id number], [id number], [id number], [id number] ####[facility] (DEFAULT)[address] [place] [address] MCH (RBC) [Entitic mass] 30 pg Normal 24-34 [facility] Comment on above: Performed By: #### 1 [id number], [id number], [id number], 6599644, 4795335 ####[facility] (DEFAULT)[address] [place] [address]51 MCHC (RBC) [Mass/Vol] 34 g/dL Normal 26-37 [facility] Comment on above: Performed By: #### 1 [id number], [id number], [id number], 3525356, 8234764 ####[facility] (DEFAULT)[address] [place] [address] MCV (RBC) [Entitic vol] 88 fL Normal 81-100 [facility] Comment on above: Performed By: #### 1 [id number], [id number], [id number], 0898957, 9485408 ####[facility] (DEFAULT)[address] [place] [address] Platelet 182 x10 Normal 138-427 [facility] Comment on above: Performed By: #### 1 [id number], [id number], [id number], 3081278, 4312692 ####[facility] (DEFAULT)[address] [place] [address] Platelet mean volume (Bld) [Entitic vol] 8.5 fL Normal 6.3-10.2 [facility] Comment on above: Performed By: #### 1 [id number], [id number], [id number], 8018780, 6237580 ####[facility] (DEFAULT)[address] [place] [address] RBC 4.69 x10 Normal 3.70-5.30 [facility] Comment on above: Performed By: #### 1 [id number], [id number], [id number], 8071207, 2593358 ####[facility] (DEFAULT)[address] [place] [address] WBC 12.7 x10 High 3.5-10.5 [facility] Comment on above: Performed By: #### 1 [id number], [id number], [id number], 7126435, 6576877 ####[facility] (DEFAULT)[address] [place] [address] CMP Standardon 01-08-2023 eGFR Non AA 55 mL/min/1.73m2 Invalid Interpretation Code [facility] Comment on above: Performed By: #### 1 [id number], [id number], [id number], 9539489, 8424662 ####[facility] (DEFAULT)[address] [place] [address]47[address] eGFR AA >60 Invalid Interpretation Code [facility] Comment on above: Performed By: #### 1 [id number], [id number], [id number], 4625264, 7104061 ####[facility] (DEFAULT)[address] [place] [address] Albumin [Mass/Vol] 4.5 g/dL Normal 3.5-5.0 [facility] Comment on above: Performed By: #### 1 8052686, [id number], [id number], 0910918, 8763507 ####[facility] (DEFAULT)[address] [place] [address]89 Albumin/Globulin [Mass ratio] 1.5 {ratio} Normal 1.4-2.6 [facility] Comment on above: Performed By: #### 1 6602348, [id number], [id number], 9241355, 2400897 ####[facility] (DEFAULT)[address] [place] [address]8867 Alk Phos 81 IU/L Normal 32-91 [facility] Comment on above: Performed By: #### 1 [id number], [id number], [id number], 6620587, 5749109 ####[facility] (DEFAULT)[address] [place] [address]15 ALT [Catalytic activity/Vol] 21.0 U/L Normal 17.0-63.0 [facility] Comment on above: Performed By: #### 1 3354253, [id number], [id number], 9363618, 3957908 ####[facility] (DEFAULT)[address] [place] [address] Anion gap [Moles/Vol] 16.6 mmol/L Normal 5.0-19.0 [facility] Comment on above: Performed By: #### 1 7377813, [id number], [id number], 0371641, 2874787 ####[facility] (DEFAULT)[address] [place] [address] 01066 AST [Catalytic activity/Vol] 23 U/L Normal 15-41 [facility] Comment on above: Performed By: #### 1 6530905, 7208321532, 4951429364, 4235194, 4608736 ####[facility] (DEFAULT)[address] [place] [address] Bili Total 0.9 mg/dL Normal 0.3-1.2 [facility] Comment on above: Performed By: #### 1 5214478, [id number], 5957948214, 3338652, 0262894 ####[facility] (DEFAULT)[address] [place] [address]4555 Calcium [Mass/Vol] 9.6 mg/dL Normal 8.9-10.3 [facility] Comment on above: Performed By: #### 1 2356760, [id number], 7727701607, 6102910, 8460701 ####[facility] (DEFAULT)[address] [place] [address]95 Chloride [Moles/Vol] 103 mmol/L Normal 101-111 [facility] Comment on above: Performed By: #### 1 4322697, [id number], 6199752773, 2250598, 7014815 ####[facility] (DEFAULT)[address] [place] [address] 43193 CO2 [Moles/Vol] 26 mmol/L Normal 21-32 [facility] Comment on above: Performed By: #### 1 5671888, [id number], 0110849892, 0500226, 1492854 ####[facility] (DEFAULT)[address] [place] [address]696 Creatinine [Mass/Vol] 1.30 mg/dL Normal 0.90-1.30 [facility] Comment on above: Performed By: #### 1 2742075, 8136615341, 1093135678, 0113185, 3494835 ####[facility] (DEFAULT)[address] [place] [address] 15537 Globulin (S) [Mass/Vol] 2.9 g/dL Normal 1.5-4.3 [facility] Comment on above: Performed By: #### 1 2227553, 5339573741, 1288586508, 4065502, 2727612 ####[facility] (DEFAULT)[address] [place] [address]5734 Glucose [Mass/Vol] 115.0 mg/dL Normal 74.0-118.0 [facility] Comment on above: Performed By: #### 1 6326082, [id number], 3163513153, 2945961, 9517831 ####[facility] (DEFAULT)[address] [place] [address] 84448 Osmolality 283 mOsm/L Invalid Interpretation Code [facility] Comment on above: Performed By: #### 1 6828205, [id number], 5453183490, 1527737, 7817484 ####[facility] (DEFAULT)[address] [place] [address]3838 Potassium [Moles/Vol] 4.6 mmol/L Normal 3.6-5.1 [facility] Comment on above: Performed By: #### 1 6368561, [id number], 9802574302, 2253642, 0187363 ####[facility] (DEFAULT)[address] [place] [address] 95180 Protein [Mass/Vol] 7.4 g/dL Normal 6.5-8.1 [facility] Comment on above: Performed By: #### 1 4467592, 5896157174, 4204409933, 6367400, 9907128 ####[facility] (DEFAULT)[address] [place] [address] 57231 Sodium [Moles/Vol] 141.0 mmol/L Normal 136.0-144.0 [facility] Comment on above: Performed By: #### 1 4834099, 1108976266, 4747360357, 9940273, 0131012 ####[facility] (DEFAULT)[address] [place] [address] 85496 Urea nitrogen [Mass/Vol] 16 mg/dL Normal 8-26 [facility] Comment on above: Performed By: #### 1 7313750, [id number], 5022011130, 3121458, 6891536 ####[facility] (DEFAULT)[address] [place] [address] Urea nitrogen/Creatini ne [Mass ratio] 12.3 mg/mg Normal 4.6-16.2 [facility] Comment on above: Performed By: #### 1 8786382, 3198524439, 5741756293, 2690392, 7384343 ####[facility] (DEFAULT)[address] [place] [address] CT Abdomen/Pelvis w/o Contra ston 01-08-2023 CT Abdomen/Pelvis w/o Contrast _CLINICAL HISTORY: Abdominal and flank pain COMPARISON: [date] TECHNIQUE: CT image of the abdomen and pelvis were obtained and formatted as contiguous axial images from the domes of the diaphragm to the symphysis pubis. Sagittal and coronal reconstructions were also obtained. FINDINGS: Lungs: Lung bases are clear. Liver: [Normal in size, shape, and attenuation.] Bile ducts: [Normal in caliber.] Gallbladder: Surgically absent. Pancreas: [Normal without masses, cysts, ductal dilation or calcification.] Spleen: [Normal in size without masses or calcifications.] [No splenules.] Kidneys: [Normal in size.] Right kidney shows calculi in mid pole measuring up to 2 mm. Mild right pelvocaliectasis. Mild right perinephric fat stranding. Left kidney shows calculi in mid and lower pole, largest measuring 5 mm. No left pelvocaliectasis. Mild left perinephric fat stranding. Adrenals: [Normal] Small bowel: [Normal in caliber.] Appendix: [Normal] Colon: [Normal in caliber.] Remote sigmoid colon resection. Peritoneum: [No ascites, free air, or fluid collections.] Vessels: [Aorta normal in course and caliber.] Lymph nodes: Retroperitoneal: [No enlarged retroperitoneal lymph nodes.] Mesenteric: [No enlarged mesenteric lymph nodes.] Pelvic: [No enlarged pelvic nodes.] Ureters: Mild dilatation right ureter to level of right ureterovesical junction where 2.2 mm calculus is identified. Left ureter normal in course and caliber no left ureteral calcification. Bladder: [No wall thickening.] Partially decompressed. Prostate: Enlarged with transverse diameter 5.7 cm Abdominal wall: [1.8 cm fat-containing periumbilical anterior abdominal wall defect. Bones: [No bone lesions.] [No degenerative changes.] [No postoperative changes.] Impression: Right renal calculi with mild right hydronephrosis and right hydroureter, with 2.2 mm calculus right ureterovesical junction. Nonobstructing left renal calculi. Cholecystectomy. Remote sigmoid colon resection. All CT scans at this facility's dose modulation,iterative reconstruction, and/or weight-based dosing when appropriate to reduce radiation dose to as low as reasonably achievable. Final Signed (Electronic Signature): Chapito Mckeon MD 01/08/23 11:11 a Technologist: BAO Logan [facility] ED Clinical Summaryon 2022 ED Clinical Summary [facility] - Emergency Department [address] [place], [place] [id number] ED Clinical Summary PERSON INFORMATION Name: DARLEEN GOODMAN Age: 63 Years Sex: MALE : 1960 MRN: Acct#: Visit Reason: Urinary retention; Flank pain; Nausea and vomiting; VOMITING, ABD PAIN Arrival: 01/08/2023 09:11:18 Discharge: 01/08/2023 12:38:00 LOS: 000 03:27 Check In: 01/08/2023 09:11:18 Checkout:01/08/2023 12:38:00 Address: [address] [place] [address] PCP: DEREK MONTGOMERY MD PROVIDER INFORMATION Provider Role Assigned Unassigned Chino Moses ED Provider 01/08/2023 09:13:34 Ramon Ayon RN ED Nurse 01/08/2023 09:14:56 VITALS INFORMATION Vital Sign Triage Latest Temperature Tympanic Temperature Temporal Artery Pulse Rate 52 bpm 51 bpm O2 Sat 100 % 94 % Respiratory Rate 22 br/min 16 br/min Blood Pressure /77 mmHg /77 mmHg MEDICAL INFORMATION Medications Given: Medication Dose Route Sodium Chloride 0.9% intravenous solution 1,000 mL 1000 mL Initial Volume 500 mL/hr IV Left Lower Arm ondansetron (!-Zofran) 4 mg IV Push HYDROmorphone (Dilaudid) 1 mg IV Push ketorolac 30 mg IV Push HYDROmorphone (Dilaudid) 0.5 mg IV Push Allergy Information: No Known Medication Allergies PHYSICIAN DOCUMENTATION DISCHARGE INFORMATION: Discharge Disposition: Home Discharge Location: Home PATIENT EDUCATION INFORMATION Instructions: Kidney Stones, Ooqe-sj-Byud Follow-Up: With: Address: When: Roland Carrington [address] [place] [address] [place] [address] Business (1) Within 3 to 5 days With: Address: When: DEREK MONTGOMERY [address] [place] [address] [place], [place] [id number] Business (1) Within 3 to 5 days DIAGNOSIS: Ureteral calculus, right Patient Understands: Yes - Patient/family/careg iver verbalizes understanding of instructions given Comment: [facility] ED Note - Physicianon 2022 ED Note - Physician Patient: DARLEEN GODOMAN Jr Age: 63 years Sex: MALE : 1960 Associated Diagnoses: Ureteral calculus, right Author: Chino Moses Basic Information Time seen: Date & time 01/08/2023 09:20:00. History of Present Illness Patient presents with right flank pain that migrates to his right lower abdomen. Onset of his symptoms were within the last couple hours. He notes some mild nausea. Denies chest pain or shortness of breath. Does note a remote history of kidney stones. Denies any fever or chills. Notes some urinary retention. Review of Systems Constitutional symptoms: No fever, no chills. Respiratory symptoms: No shortness of breath, no cough. Cardiovascular symptoms: No chest pain, no palpitations. Gastrointestinal symptoms: Abdominal pain, severe, right flank. Genitourinary symptoms: Mild urinary retention, No dysuria, Allergy/immunologic symptoms: No recurrent infections, no impaired immunity. Health Status Allergies: No active allergies have been recorded.. Past Medical/ Family/ Social History Medical history: No active or resolved past medical history items have been selected or recorded.. Surgical history: No active procedure history items have been selected or recorded.. Family history: No family history items have been selected or recorded.. Social history: Social & Psychosocial Habits No Data Available . Problem list: No qualifying data available . Physical Examination General: Alert, moderate distress. Cardiovascular: Regular rate and rhythm, Normal peripheral perfusion. Respiratory: Lungs are clear to auscultation, respirations are non-labored. Gastrointestinal: Soft, Right flank pain. No rebound tenderness to the abdomen otherwise. Genitourinary: No tenderness, normal external genitalia. Back: Nontender, Normal range of motion, Normal alignment, no step-offs. Neurological: Alert and oriented to person, place, time, and situation, No focal neurological deficit observed. Psychiatric: Cooperative, appropriate mood & affect. Medical Decision Making Orders On arrival the patient came in he appeared to be in moderate to severe distress. He noted right flank pain with some migration to the right lower abdomen. Did note some nausea. His vital signs were stable he was slightly hypertensive. EKG at the bedside did not show any acute ST elevation, or axis deviation to suggest an acute RI. An IV was started saline bolus was provided. Patient was given a milligram of Dilaudid, and 4 mg of Zofran. He had some mild improvement in his pain around 7 out of 10. He was given 30 mg of Toradol for his pain and his pain did improve significantly. Labs were reviewed there is no significant metabolic derangement no significant renal compromise. Urinalysis showed trace leukocytes but no other identifiers that would suggest UTI. CT of the abdomen and pelvis without contrast did show a 2.2 mm calculus at the right ureterovesical junction with some mild right hydronephrosis. There was a nonobstructing left renal calculi. Patient was provided some additional Dilaudid 0.5 mg IV and his pain improved he was monitored for any secondary issues none developed. The patient has access to a urologist in the [facility] and I recommended further follow-up with him. I will provide the patient [place], and Flomax. I recommended that he strain his urine. Care instructions were discussed with the patient prior to discharge and he voiced understanding. Impression and Plan Diagnosis Ureteral calculus, right ([id number] N20.1, Discharge, Medical) Plan Condition: Improved. Disposition: Discharged: Time 01/08/2023 12:03:00, to home. Prescriptions: Launch prescriptions Pharmacy: acetaminophen-hydroc odone 300 mg-5 mg oral tablet (Discontinue): 1 tab(s), PO, q6hr, PRN: for pain, 12 tab(s), 0 Refill(s) acetaminophen-hydroc odone 325 mg-5 mg oral tablet (Prescribe): 1 tab(s), PO, q6hr, PRN: as needed for pain, 12 tab(s), 0 Refill(s), Launch Meds List Medications reviewed.. Patient was given the following educational materials: Kidney Stones, Ilxt-ph-Faec, Kidney Stones, Heqf-ow-Wwtp. Follow up with: DEREK MONTGOMERY Within 3 to 5 days; Roland Carrington Within 3 to 5 days. Counseled: Patient, Regarding diagnosis, Regarding diagnostic results, Regarding treatment plan, Regarding prescription, Patient indicated understanding of instructions. [Electronically Signed on: 01/08/2023 15:13 EDT] Chino Moses MD [Verified on: 01/08/2023 15:13 EDT] Chino Moses MD Normal [facility] ED Patient Summaryon 023 ED Patient Summary [facility] - Emergency Department [address] [place], [place] [id number] PATIENT DISCHARGE INSTRUCTIONS Patient Information Name: DARLEEN GOODMAN Age: 63 Years Date of : 1960 Reason For Visit: Urinary retention; Flank pain; Nausea and vomiting; VOMITING, ABD PAIN Arrival Time: 01/08/2023 09:11:18 Primary Care Physician: DEREK MONTGOMERY MD Attending Physician: Chino Moses Comment: Visit Diagnosis: Diagnoses This Visit Flank pain ([id number]) Nausea and vomiting ([id number]) Ureteral calculus, right (N20.1) Urinary retention ([id number]) The Pharmacy at [facility] is open Tuesday through Tuesday from 9A to 6P and Tuesday and Tuesday from 9A to 5P Prescription Information: If you have been given a prescription for narcotics, seek immediate medical attention if you have any difficulty breathing or any sudden status changes such as confusion and sleepiness. If you or anyone you know is experiencing suicidal thoughts, mental health, alcohol and/or drug addiction problems; contact the [facility] 07/02 Crisis Hotline -Text 4HOPE to 283070. If you received any narcotics, sedation, or any other medication that causes drowsiness for the next 24 hours, unless otherwise directed: ? Do not drive a car. ? Do not operate machinery such as power tools, lawn mowers, drills, sewing machines, or stoves ? Avoid alcoholic beverages and drugs for allergies, nerves, or sleep ? Do not make important personal or business decisions or sign any legal documents With: Address: When: Roland Carrington [address] [place] [address] Business (1) Within 3 to 5 days With: Address: When: DEREK MONTGOMERY [address] [place] [address] Business (1) Within 3 to 5 days Medication Information: The exam and treatment you received today in the [facility] Emergency Department were for an urgent problem and are not intended as complete care. It is important for you to follow up with a doctor, nurse practitioner, or physician?s delivery driver assistant for ongoing care. If your symptoms become worse or you do not improve as expected and you are unable to reach your usual health care provider, you should return to the Emergency Department, we are available 24 hours a day. For those patients who have received Radiology results, the interpretation of your X-ray as given to you by our Emergency Department physician is only a preliminary report. The Radiologist will review your films and if there is a change in the diagnosis you will be notified by phone. Please make sure you have provided a working phone number so we can reach you if necessary. In the event that you had a lab culture while you were a patient in the Emergency Department, you will be notified by phone if there is a need to change your antibiotic. Please make sure you have provided a working phone number so we can reach you if necessary. [facility] Emergency Department has provided you with a complete list of medications post discharge. Please inform your machine bander and cellophaner/provider of your visit and for further instruction on these medications. Any specific questions regarding your chronic medications and dosages should be discussed with your primary care physician(s) and/or pharmacist. New Medications [id number], [address] [place], [place] [id number], [phone] acetaminophen-hydroc odone (acetaminophen-hydro codone 300 mg-5 mg oral tablet) 1 tab(s) Oral Every 6 hours as needed for pain. Refills: 0. tamsulosin (Flomax 0.4 mg oral capsule) 1 cap(s) Oral every day. Refills: 0. No Longer Take the Following Medications traMADol 25 Milligram. Additional medications on your home medication list not specifically addressed. Please contact the ordering physician if you have questions about these medications. aspirin (Aspirin 81 Chewtab) 81 Milligram every day. atorvastatin (atorvastatin 40 mg oral tablet) 1 tab(s) Oral every day. clopidogrel (clopidogrel 75 mg oral tablet) 1 tab(s) Oral every day. hydroxychloroquine (hydroxychloroquine 200 mg oral tablet) 2 tab(s) Oral every day. metoprolol (Metoprolol Tartrate 50 mg oral tablet) 1 tab(s) Oral 2 times a day. omeprazole (omeprazole 40 mg oral delayed release capsule) 1 cap(s) Oral every day. rOPINIRole (rOPINIRole 0.5 mg oral tablet) 1 tab(s) Oral 3 times a day. Visit Information Allergies: Substance Reaction Symptoms Type Comments No Known Medication Allergies Drug Vital Signs: Vitals and Measurements this Visit (last charted value for your 01/08/2023 visit) Vital Signs This Visit Temperature Oral: 36.8 DegC Peripheral Pulse Rate: 51 bpm Respiratory Rate: 16 br/min Systolic Blood Pressure: 129 mmHg Diastolic Blood Pressure: 70 mmHg SpO2: 94 % Oxygen Therapy: Room air Measurements This Visit Height/Length (more content not included)... Normal [facility] Extra Blueon 01-08-2023 Tube Collected Yes Invalid Interpretation Code [facility] Comment on above: Performed By: #### 1 [id number], [id number] ####[facility] (DEFAULT)[address] [place] [address] Lipaseon 01-08-2023 Lipase Level 33.0 IU/L Normal 22.0-51.0 [facility] Comment on above: Performed By: #### 1 [id number], [id number], [id number], 4446723, [id number] ####[facility] (DEFAULT)[address] [place] [address] Progress Note - Nurseon 12-17 Progress Note - Nurse Patient arrives to ER with complaint of right sided flank pain. Rates pain 04/26. Believes he has a kidney stone [Electronically Signed on: 01/08/2023 09:51 EDT] Ramon Ayon RN [Verified on: 01/08/2023 09:51 EDT] Ramon Ayon RN Normal [facility] TnI HSon 01-08-2023 Troponin I High Sensitivity 5.0 pg/mL Normal <=20.0 [facility] Comment on above: Performed By: #### 1 [id number], [id number], [id number], 5359988, [id number] ####[facility] (DEFAULT)[address] [place] [address]30[address] UA Xneyt6vi 01-08-2023 UA Bacteria Trace [facility] Comment on above: Order Comment: Urina lysis Microscopic order added on by [employer] Expert Rules system. Performed By: #### 1 [id number], [id number], [id number] #### [facility] (DEFAULT) [address] [place] [address] UA RBC 5-10 Normal [facility] Comment on above: Order Comment: Urina lysis Microscopic order added on by [employer] Expert Rules system. Performed By: #### 1 [id number], [id number], [id number] #### [facility] (DEFAULT) [address] [place] [address] UA Squam Epi Few Normal [facility] Comment on above: Order Comment: Urina lysis Microscopic order added on by [employer] Expert Rules system. Performed By: #### 1 [id number], [id number], [id number] #### [facility] (DEFAULT) [address] [place] [address] UA WBC 3-5 [facility] Comment on above: Order Comment: Urina lysis Microscopic order added on by [employer] Expert Rules system. Performed By: #### 1 [id number], [id number], [id number] #### [facility] (DEFAULT) [address] [place] [address] UA w Culture if Ind Standard on 01-08-2023 Breakpoint UA [facility] Comment on above: Performed By: #### 1 [id number], [id number], [id number] #### [facility] (DEFAULT) [address] [place] [address] Color (U) Yellow [facility] Comment on above: Performed By: #### 1 [id number], [id number], [id number] #### [facility] (DEFAULT) [address] [place] [address] Culture? Indicated Invalid Interpretation Code [facility] Comment on above: Result Comment: Resu lt created by rule GL_MAGR_ADD_UA_CULT Result created by rule GL_MAGR_ADD_UA_CULT Result created by rule GL_MAGR_ADD_UA_CULT1 Result created by rule GL_MAGR_ADD_UA_CULT Performed By: #### 1 [id number], [id number], [id number] #### [facility] (DEFAULT) [address] [place] [address] Glucose (U) [Mass/Vol] Negative [facility] Comment on above: Performed By: #### 1 [id number] #### [facility] (DEFAULT) [address] [place] [address] Ketones Ql (U) Negative [facility] Comment on above: Performed By: #### 1 [id number] #### [facility] (DEFAULT) [address] [place] [address] Micro? Indicated Invalid Interpretation Code [facility] Comment on above: Result Comment: Resu lt created by rule GL_MAGR_ADD_UA_MICRO Performed By: #### 1 [id number] #### [facility] (DEFAULT) [address] [place] [address] UA Bilirubin Negative Normal [facility] Comment on above: Performed By: #### 1 [id number] #### [facility] (DEFAULT) [address] [place] [address] UA Blood MODERATE Abnormal NEGATIVE [facility] Comment on above: Performed By: #### 1 [id number] #### [facility] (DEFAULT) [address] [place] [address] UA Clarity CLEAR Normal CLEAR [facility] Comment on above: Performed By: #### 1 [id number] #### [facility] (DEFAULT) [address] [place] [address] UA Leuk Est Negative Normal NEGATIVE [facility] Comment on above: Performed By: #### 1 [id number], [id number] #### [facility] (DEFAULT) [address] [place] [address]182 UA Nitrite Negative Normal NEGATIVE [facility] Comment on above: Performed By: #### 1 [id number] #### [facility] (DEFAULT) [address] [place] [address] 80084 UA pH 7.0 Normal 5-8 [facility] Comment on above: Performed By: #### 1 [id number] #### [facility] (DEFAULT) [address] [place] [address]8867 UA Protein TRACE Abnormal NEGATIVE [facility] Comment on above: Performed By: #### 1 [id number] #### [facility] (DEFAULT) [address] [place] [address]8023 UA Spec Grav 1.025 Normal 1.001-1.035 [facility] Comment on above: Performed By: #### 1 [id number] #### [facility] (DEFAULT) [address] [place] [address] UA Urobilinogen 0.2 mg/dL Normal 0.2-1.0 [facility] Comment on above: Performed By: #### 1 [id number] #### [facility] (DEFAULT) [address] [place] [address] Urine Source Clean Catch Normal [facility] Comment on above: Performed By: #### 1 [id number], [id number] #### [facility] (DEFAULT) [address] [place] [address] CBC AUTO DIFFon 10-21-2022 BASO # 0.0 103/ul Normal 0.0-0.1 [facility] Comment on above: Performed By: #### C BC #### [facility] [address] [place] [address] Dr. Irma Erazo Basophils/100 WBC (Bld) 0.2 % Normal 0.2-2.0 [facility] Comment on above: Performed By: #### C BC #### [facility] [address] [place] [address] Dr. Irma Erazo EO # 0.1 103/ul Normal 0.0-0.7 [facility] Comment on above: Performed By: #### C BC #### [facility] [address] [place] [address] Dr. Irma Erazo Eosinophils/100 WBC (Bld) 0.7 % Critically low 0.9-7.0 [facility] Comment on above: Performed By: #### C BC #### [facility] [address] [place] [address] Dr. Irma Erazo Erythrocyte distribution width (RBC) [Ratio] 13.5 % Normal 11.0-15.0 [facility] Comment on above: Performed By: #### C BC #### [facility] [address] [place] [address] Dr. Irma Erazo Hematocrit (Bld) [Volume fraction] 39.6 % Critically low 42.0-54.0 [facility] Comment on above: Performed By: #### C BC #### [facility] [address] [place] [address] Dr. Irma Erazo Hemoglobin (Bld) [Mass/Vol] 13.6 g/dL Critically low 14.0-18.0 [facility] Comment on above: Performed By: #### C BC #### [facility] [address] [place] [address] Dr. Irma Erazo IG # 0.04 10e3/ul Critically high 0.00-0.03 [facility] Comment on above: Performed By: #### C BC #### [facility] [address] [place] [address] Dr. Irma Erazo IG % 0.4 % Normal 0.0-0.5 [facility] Comment on above: Performed By: #### C BC #### [facility] [address] [place] [address] Dr. Irma Erazo LYMPH # 2.5 103/ul Normal 1.2-3.8 [facility] Comment on above: Performed By: #### C BC #### [facility] [address] [place] [address] Dr. Irma Erazo Lymphocytes/100 WBC (Bld) 25.9 % Normal 20.5-60.0 [facility] Comment on above: Performed By: #### C BC #### [facility] [address] [place] [address] Dr. Irma Erazo MANUAL DIFF REQ NO Normal [facility] Comment on above: Performed By: #### C BC #### [facility] [address] [place] [address] Dr. Irma Erazo MCH (RBC) [Entitic mass] 30.2 pg Normal 25.9-34.0 [facility] Comment on above: Performed By: #### C BC #### [facility] [address] [place] [address] Dr. Irma Erazo MCHC (RBC) [Mass/Vol] 34.3 g/dL Normal 29.9-35.2 [facility] Comment on above: Performed By: #### C BC #### [facility] [address] [place] [address] Dr. Irma Erazo MCV (RBC) [Entitic vol] 88.0 fL Normal 80.0-94.0 [facility] Comment on above: Performed By: #### C BC #### [facility] [address] [place] [address] Dr. Irma Erazo MONO # 0.7 103/ul Normal 0.3-0.8 [facility] Comment on above: Performed By: #### C BC #### [facility] [address] [place] [address] Dr. Irma Erazo Monocytes/100 WBC (Bld) 7.1 % Normal 1.7-12.0 [facility] Comment on above: Performed By: #### C BC #### [facility] [address] [place] [address] Dr. Irma Erazo NEUT # 6.3 103/ul Normal 1.4-6.5 [facility] Comment on above: Performed By: #### C BC #### [facility] [address] [place] [address] Dr. Irma Erazo Neutrophils/100 WBC (Bld) 65.7 % Normal 43.0-75.0 [facility] Comment on above: Performed By: #### C BC #### [facility] [address] [place] [address] Dr. Irma Erazo Platelet mean volume (Bld) [Entitic vol] 10.2 fL Normal 9.5-13.5 [facility] Comment on above: Performed By: #### C BC #### [facility] [address] [place] [address] Dr. Irma Erazo PLT 201 103/ul Normal 150-450 [facility] Comment on above: Performed By: #### C BC #### [facility] [address] [place] [address] Dr. Irma Erazo RBC 4.50 106/ul Critically low 4.70-6.10 [facility] Comment on above: Performed By: #### C BC #### [facility] [address] [place] [address] Dr. Irma Erazo WBC 9.6 103/ul Normal 4.0-11.0 [facility] Comment on above: Performed By: #### C BC #### [facility] [address] [place] [address] Dr. Irma Erazo PROF 14(COMP METB)on 023 Albumin [Mass/Vol] 4.2 g/dL Normal 3.4-5.0 [facility] Comment on above: Performed By: #### S EDR #### [facility] [address] [place] [address] Dr. Irma Erazo Albumin/Globulin [Mass ratio] 1.3 {ratio} Normal [facility] Comment on above: Performed By: #### S EDR #### [facility] [address] [place] [address] Dr. Irma Erazo ALP [Catalytic activity/Vol] 87 U/L Normal 46-116 [facility] Comment on above: Performed By: #### S EDR #### [facility] [address] [place] [address] Dr. Irma Erazo ALT [Catalytic activity/Vol] 29 U/L Normal 16-63 [facility] Comment on above: Performed By: #### S EDR #### [facility] [address] [place] [address] Dr. Irma Erazo Anion gap [Moles/Vol] 9.8 mmol/L Normal [facility] Comment on above: Performed By: #### S EDR #### [facility] [address] [place] [address] Dr. Irma Erazo AST [Catalytic activity/Vol] 18 U/L Normal 15-37 [facility] Comment on above: Performed By: #### S EDR #### [facility] [address] [place] [address] Dr. Irma Erazo Bilirubin [Mass/Vol] 0.9 mg/dL Normal 0.2-1.0 [facility] Comment on above: Performed By: #### S EDR #### [facility] [address] [address] [address] Irma Erazo Calcium [Mass/Vol] 9.0 mg/dL Normal 8.5-10.1 [facility] Comment on above: Performed By: #### S EDR #### [facility] [address] [address] [address] Irma Erazo Chloride [Moles/Vol] 105 mmol/L Normal 98-107 [facility] Comment on above: Performed By: #### S EDR #### [facility] [address] [address] [address] Irma Erazo CO2 [Moles/Vol] 27.7 mmol/L Normal 21.0-32.0 [facility] Comment on above: Performed By: #### S EDR #### [facility] [address] [place] [address] Dr. Irma Erazo Creatinine [Mass/Vol] 1.22 mg/dL Normal 0.70-1.30 [facility] Comment on above: Performed By: #### S EDR #### [facility] [address] [address] [address] Iram Erazo EGFR-AF MOSOTHO >60 Normal >=60 [facility] Comment on above: Performed By: #### S EDR #### [facility] [address] [address] [address] Irma Erazo EGFR-NON AF MOSOTHO 60 mL/min/1.73m2 Normal >=60 [facility] Comment on above: Performed By: #### S EDR #### [facility] [address] [address] [address] Irma Erazo Globulin (S) [Mass/Vol] 3.3 g/dL Normal [facility] Comment on above: Performed By: #### S EDR #### [facility] [address] [address] [address] Irma Erazo Glucose [Mass/Vol] 116 mg/dL Critically high 74-106 [facility] Comment on above: Performed By: #### S EDR #### [facility] [address] [address] [address] Irma Erazo Potassium [Moles/Vol] 4.5 mmol/L Normal 3.5-5.1 [facility] Comment on above: Performed By: #### S EDR #### [facility] [address] [address] [address] Irma Erazo Protein [Mass/Vol] 7.5 g/dL Normal 6.4-8.2 [facility] Comment on above: Performed By: #### S EDR #### [facility] [address] [address] [address] Irma Erazo Sodium [Moles/Vol] 138 mmol/L Normal 136-145 [facility] Comment on above: Performed By: #### S EDR #### [facility] [address] [place] [address] Dr. Irma Erazo Urea nitrogen [Mass/Vol] 20.0 mg/dL Critically high 7.0-18.0 [facility] Comment on above: Performed By: #### S EDR #### [facility] [address] [address] [address] Irma Erazo Urea nitrogen/Creatini ne [Mass ratio] 16.4 mg/mg Normal [facility] Comment on above: Performed By: #### S EDR #### [facility] [address] [address] [address] Irma Erazo SED RATE [facility] 2022 SED RATE 6 mm/hr Normal <=20 [facility] Comment on above: Performed By: #### S EDR #### [facility] [address] [address] [address] Irma Erazo COVID/FLU/RSV RT-PCRon 07-16 SARS-CoV-2 (COVID-19) RNA LUCIEN+probe Ql (Unsp spec) Negative [employer] Other COVID/FLU/RSV RT-PCR Positive [employer] Other COVID/FLU/RSV RT-PCR Negative [employer] Other CBC AUTO DIFFon 06-21-2022 BASO # 0.1 103/ul Normal 0.0-0.1 [facility] Comment on above: Performed By: #### C BC #### [facility] [address] [address] [address] Irma Erazo Basophils/100 WBC (Bld) 0.6 % Normal 0.2-2.0 [facility] Comment on above: Performed By: #### C BC #### [facility] [address] [address] [address] Irma Erazo EO # 0.1 103/ul Normal 0.0-0.7 [facility] Comment on above: Performed By: #### C BC #### [facility] [address] [place] [address] Dr. Irma Erazo Eosinophils/100 WBC (Bld) 0.7 % Critically low 0.9-7.0 [facility] Comment on above: Performed By: #### C BC #### [facility] [address] [place] [address] Dr. Irma Erazo Erythrocyte distribution width (RBC) [Ratio] 13.4 % Normal 11.0-15.0 [facility] Comment on above: Performed By: #### C BC #### [facility] [address] [place] [address] Dr. Irma Erazo Hematocrit (Bld) [Volume fraction] 39.2 % Critically low 42.0-54.0 [facility] Comment on above: Performed By: #### C BC #### [facility] [address] [place] [address] Dr. Irma Erazo Hemoglobin (Bld) [Mass/Vol] 13.8 g/dL Critically low 14.0-18.0 [facility] Comment on above: Performed By: #### C BC #### [facility] [address] [place] [address] Dr. Irma Erazo IG # 0.03 10e3/ul Normal 0.00-0.03 [facility] Comment on above: Performed By: #### C BC #### [facility] [address] [place] [address] Dr. Irma Erazo IG % 0.3 % Normal 0.0-0.5 [facility] Comment on above: Performed By: #### C BC #### [facility] [address] [place] [address] Dr. Irma Erazo LYMPH # 2.4 103/ul Normal 1.2-3.8 [facility] Comment on above: Performed By: #### C BC #### [facility] [address] [place] [address] Dr. Irma Erazo Lymphocytes/100 WBC (Bld) 27.5 % Normal 20.5-60.0 [facility] Comment on above: Performed By: #### C BC #### [facility] [address] [place] [address] Dr. Irma Erazo MANUAL DIFF REQ NO Normal [facility] Comment on above: Performed By: #### C BC #### [facility] [address] [place] [address] Dr. Irma Erazo MCH (RBC) [Entitic mass] 30.6 pg Normal 25.9-34.0 [facility] Comment on above: Performed By: #### C BC #### [facility] [address] [place] [address] Dr. Irma Erazo MCHC (RBC) [Mass/Vol] 35.2 g/dL Normal 29.9-35.2 [facility] Comment on above: Performed By: #### C BC #### [facility] [address] [place] [address] Dr. Irma Erazo MCV (RBC) [Entitic vol] 86.9 fL Normal 80.0-94.0 [facility] Comment on above: Performed By: #### C BC #### [facility] [address] [place] [address] Dr. Irma Erazo MONO # 0.6 103/ul Normal 0.3-0.8 [facility] Comment on above: Performed By: #### C BC #### [facility] [address] [place], [place] [id number] Dr. Irma Erazo Monocytes/100 WBC (Bld) 7.2 % Normal 1.7-12.0 [facility] Comment on above: Performed By: #### C BC #### [facility] [address] [place] [address] Dr. Irma Erazo NEUT # 5.6 103/ul Normal 1.4-6.5 [facility] Comment on above: Performed By: #### C BC #### [facility] [address] [place] [address] Dr. Irma Erazo Neutrophils/100 WBC (Bld) 63.7 % Normal 43.0-75.0 [facility] Comment on above: Performed By: #### C BC #### [facility] [address] [place] [address] Dr. Irma Erazo Platelet mean volume (Bld) [Entitic vol] 10.0 fL Normal 9.5-13.5 [facility] Comment on above: Performed By: #### C BC #### [facility] [address] [place] [address] Dr. Irma Erazo PLT 211 103/ul Normal 150-450 [facility] Comment on above: Performed By: #### C BC #### [facility] [address] [place] [address] Dr. Irma Erazo RBC 4.51 106/ul Critically low 4.70-6.10 [facility] Comment on above: Performed By: #### C BC #### [facility] [address] [place] [address] Dr. Irma Erazo WBC 8.8 103/ul Normal 4.0-11.0 [facility] Comment on above: Performed By: #### C BC #### [facility] [address] [place] [address] Dr. Irma Erazo PROF 14(COMP METB)on 022 Albumin [Mass/Vol] 4.0 g/dL Normal 3.4-5.0 [facility] Comment on above: Performed By: #### S EDR #### [facility] [address] [place], [place] [id number] Dr. Irma Erazo Albumin/Globulin [Mass ratio] 1.2 {ratio} Normal [facility] Comment on above: Performed By: #### S EDR #### [facility] [address] [place] [address] Dr. Irma Erazo ALP [Catalytic activity/Vol] 96 U/L Normal 46-116 [facility] Comment on above: Performed By: #### S EDR #### [facility] [address] [place] [address] Dr. Irma Erazo ALT [Catalytic activity/Vol] 22 U/L Normal 16-63 [facility] Comment on above: Performed By: #### S EDR #### [facility] [address] [place] [address] Dr. Irma Erazo Anion gap [Moles/Vol] 12.1 mmol/L Normal [facility] Comment on above: Performed By: #### S EDR #### [facility] [address] [place] [address] Dr. Irma Erazo AST [Catalytic activity/Vol] 15 U/L Normal 15-37 [facility] Comment on above: Performed By: #### S EDR #### [facility] [address] [place] [address] Dr. Irma Erazo Bilirubin [Mass/Vol] 0.3 mg/dL Normal 0.2-1.0 [facility] Comment on above: Performed By: #### S EDR #### [facility] [address] [place] [address] Dr. Irma Erazo Calcium [Mass/Vol] 8.7 mg/dL Normal 8.5-10.1 [facility] Comment on above: Performed By: #### S EDR #### [facility] [address] [place] [address] Dr. Irma Erazo Chloride [Moles/Vol] 105 mmol/L Normal 98-107 [facility] Comment on above: Performed By: #### S EDR #### [facility] [address] [place] [address] Dr. Irma Erazo CO2 [Moles/Vol] 26.2 mmol/L Normal 21.0-32.0 [facility] Comment on above: Performed By: #### S EDR #### [facility] [address] [place] [address] Dr. Irma Erazo Creatinine [Mass/Vol] 1.26 mg/dL Normal 0.70-1.30 [facility] Comment on above: Performed By: #### S EDR #### [facility] [address] [address] [address] Irma Erazo EGFR-AF MOSOTHO >60 Normal >=60 [facility] Comment on above: Performed By: #### S EDR #### [facility] [address] [address] [address] Irma Erazo EGFR-NON AF MOSOTHO 58 mL/min/1.73m2 Critically low >=60 [facility] Comment on above: Performed By: #### S EDR #### [facility] [address] [place] [address] Dr. Irma Erazo Globulin (S) [Mass/Vol] 3.3 g/dL Normal [facility] Comment on above: Performed By: #### S EDR #### [facility] [address] [place] [address] Dr. Irma rEazo Glucose [Mass/Vol] 93 mg/dL Normal 74-106 [facility] Comment on above: Performed By: #### S EDR #### [facility] [address] [place] [address] Dr. Irma Erazo Potassium [Moles/Vol] 4.3 mmol/L Normal 3.5-5.1 [facility] Comment on above: Performed By: #### S EDR #### [facility] [address] [place] [address] Dr. Irma Erazo Protein [Mass/Vol] 7.3 g/dL Normal 6.4-8.2 [facility] Comment on above: Performed By: #### S EDR #### [facility] [address] [place] [address] Dr. Irma Erazo Sodium [Moles/Vol] 139 mmol/L Normal 136-145 [facility] Comment on above: Performed By: #### S EDR #### [facility] [address] [place] [address] Dr. Irma Erazo Urea nitrogen [Mass/Vol] 17.0 mg/dL Normal 7.0-18.0 [facility] Comment on above: Performed By: #### S EDR #### [facility] [address] [place] [address] Dr. Irma Erazo Urea nitrogen/Creatini ne [Mass ratio] 13.5 mg/mg Normal [facility] Comment on above: Performed By: #### S EDR #### [facility] [address] [place] [address] Dr. Irma Erazo [facility] SED RATE 15 mm/hr Normal <=20 [facility] Comment on above: Performed By: #### S EDR #### [facility] [address] [place] [address] Dr. Irma Erazo AMYLASEon 03-27-2022 Amylase [Catalytic activity/Vol] 72 U/L Normal 25-115 [facility] Comment on above: Performed By: #### S EDR #### [facility] [address] [place] [address] Dr. Irma Erazo CBC AUTO DIFFon 03-27-2022 BASO # 0.0 103/ul Normal 0.0-0.1 [facility] Comment on above: Performed By: #### C BC #### [facility] [address] [place] [address] Dr. Irma Erazo Basophils/100 WBC (Bld) 0.2 % Normal 0.2-2.0 [facility] Comment on above: Performed By: #### C BC #### [facility] [address] [place] [address] Dr. Irma Erazo EO # 0.1 103/ul Normal 0.0-0.7 [facility] Comment on above: Performed By: #### C BC #### [facility] [address] [place] [address] Dr. Irma Erazo Eosinophils/100 WBC (Bld) 0.7 % Critically low 0.9-7.0 [facility] Comment on above: Performed By: #### C BC #### [facility] [address] [place] [address] Dr. Irma Erazo Erythrocyte distribution width (RBC) [Ratio] 13.1 % Normal 11.0-15.0 [facility] Comment on above: Performed By: #### C BC #### [facility] [address] [place] [address] Dr. Irma Erazo Hematocrit (Bld) [Volume fraction] 40.7 % Critically low 42.0-54.0 [facility] Comment on above: Performed By: #### C BC #### [facility] [address] [place] [address] Dr. Irma Erazo Hemoglobin (Bld) [Mass/Vol] 13.8 g/dL Critically low 14.0-18.0 [facility] Comment on above: Performed By: #### C BC #### [facility] [address] [place] [address] Dr. Irma Erazo IG # 0.04 10e3/ul Critically high 0.00-0.03 [facility] Comment on above: Performed By: #### C BC #### [facility] [address] [place] [address] Dr. Irma Erazo IG % 0.3 % Normal 0.0-0.5 [facility] Comment on above: Performed By: #### C BC #### [facility] [address] [place] [address] Dr. Irma Erazo LYMPH # 2.0 103/ul Normal 1.2-3.8 [facility] Comment on above: Performed By: #### C BC #### [facility] [address] [place] [address] Dr. Irma Erazo Lymphocytes/100 WBC (Bld) 16.0 % Critically low 20.5-60.0 [facility] Comment on above: Performed By: #### C BC #### [facility] [address] [place] [address] Dr. Irma Earzo MANUAL DIFF REQ NO Normal [facility] Comment on above: Performed By: #### C BC #### [facility] [address] [place] [address] Dr. Irma Erazo MCH (RBC) [Entitic mass] 29.9 pg Normal 25.9-34.0 [facility] Comment on above: Performed By: #### C BC #### [facility] [address] [place] [address] Dr. Irma Erazo MCHC (RBC) [Mass/Vol] 33.9 g/dL Normal 29.9-35.2 [facility] Comment on above: Performed By: #### C BC #### [facility] [address] [place] [address] Dr. Irma Erazo MCV (RBC) [Entitic vol] 88.3 fL Normal 80.0-94.0 [facility] Comment on above: Performed By: #### C BC #### [facility] [address] [place] [address] Dr. Irma rEazo MONO # 0.7 103/ul Normal 0.3-0.8 [facility] Comment on above: Performed By: #### C BC #### [facility] [address] [place] [address] Dr. Irma Erazo Monocytes/100 WBC (Bld) 6.0 % Normal 1.7-12.0 [facility] Comment on above: Performed By: #### C BC #### [facility] [address] [place] [address] Dr. Irma [place]o NEUT # 9.5 103/ul Critically high 1.4-6.5 [facility] Comment on above: Performed By: #### C BC #### [facility] [address] [place] [address] Dr. Irma Erazo Neutrophils/100 WBC (Bld) 76.8 % Critically high 43.0-75.0 [facility] Comment on above: Performed By: #### C BC #### [facility] [address] [place] [address] Dr. Irma Erazo Platelet mean volume (Bld) [Entitic vol] 9.8 fL Normal 9.5-13.5 [facility] Comment on above: Performed By: #### C BC #### [facility] [address] [place], [place] [address] Dr. Irma Erazo PLT 211 103/ul Normal 150-450 [facility] Comment on above: Performed By: #### C BC #### [facility] [address] [place], [place] [address] Dr. Irma Erazo RBC 4.61 106/ul Critically low 4.70-6.10 [facility] Comment on above: Performed By: #### C BC #### [facility] [address] [place], [place] [address] Dr. Irma Erazo WBC 12.3 103/ul Critically high 4.0-11.0 [facility] Comment on above: Performed By: #### C BC #### [facility] [address] [place], [place] [address] FACIAL BONES W CONon 03-18 CT FACIAL BONES W CON EXAMINATION: CT FACIAL BONES W CON CLINICAL INDICATION: Facial swelling. TECHNIQUE: Axial CT images of the maxillofacial bones were obtained. Images were then reconstructed in the coronal plane using source data. There was no intravenous contrast administered. Automated dose lowering techniques and/or adjustment according to patient size were utilized for this examination. COMPARISON: None at the time of this dictation. FINDINGS: The presence of dental amalgam causes streak artifact that obscures portions of the mandible and maxilla and the soft tissues of the oral cavity and oropharynx thus limiting evaluation in these regions. There is moderate soft tissue swelling and edema with thickening of the right platysma muscle noted along the right mandibular region. There is a periapical lucency noted overlying the right mandibular arch involving the posterior molars measuring 6.8 mm. There is a focal cortical dehiscence anteriorly measuring approximately 2 mm. Anterior to the focal cortical dehiscence there is a 4 x 11 mm small subperiosteal abscess visualized. There are no acute fractures of the maxillofacial bones, mandible, or imaged portions of the skull base and temporal bones. There is no mandibular subluxation or dislocation. The paranasal sinuses, mastoid air cells, and middle ear cavities are clear. Imaged portions of the brain show no evidence for pathologic enhancement. IMPRESSION: 1. Periapical lucency noted overlying the right mandibular arch involving the posterior molars measuring 6.8 mm. There is a focal cortical dehiscence noted anteriorly measuring approximately 2 mm with a small subperiosteal abscess visualized measuring 4 x 11 mm. Moderate soft tissue swelling and edema visualized with thickening of the right platysma muscle along the right mandibular region. 2. No acute maxillofacial fracture visualized. Electronically authenticated by: KATIE ROMERO Date: 2022-03-27 05:39 Normal [facility] CULTURE BLOODon 03-27-2022 Microscopic examination of blood, culture Culture Observations: NO GROWTH AT 5 DAYS. Normal [facility] Comment on above: Performed By: #### S EDR #### [facility] [address] [place] [address] Dr. Irma Erazo Microscopic examination of blood, culture Culture Observations: NO GROWTH AT 5 DAYS. Normal [facility] Comment on above: Performed By: #### S EDR #### [facility] [address] [place] [address] Dr. Irma Erazo PROF 14(COMP METB)on 022 Albumin [Mass/Vol] 4.2 g/dL Normal 3.4-5.0 [facility] Comment on above: Performed By: #### C MP #### [facility] [address] [place] [address] Dr. Irma Erazo Albumin/Globulin [Mass ratio] 1.2 {ratio} Normal [facility] Comment on above: Performed By: #### C MP #### [facility] [address] [place] [address] Dr. Irma Erazo ALP [Catalytic activity/Vol] 110 U/L Normal 46-116 [facility] Comment on above: Performed By: #### C MP #### [facility] [address] [place] [address] Dr. Irma Erazo ALT [Catalytic activity/Vol] 31 U/L Normal 16-63 [facility] Comment on above: Performed By: #### C MP #### [facility] [address] [place] [address] Dr. Irma Erazo Anion gap [Moles/Vol] 9.7 mmol/L Normal [facility] Comment on above: Performed By: #### C MP #### [facility] [address] [place] [address] Dr. Irma Erazo AST [Catalytic activity/Vol] 17 U/L Normal 15-37 [facility] Comment on above: Performed By: #### C MP #### [facility] [address] [place] [address] [address] Irma Erazo Bilirubin [Mass/Vol] 0.6 mg/dL Normal 0.2-1.0 [facility] Comment on above: Performed By: #### C MP #### [facility] [address] [place] [address] [address] Irma Erazo Calcium [Mass/Vol] 8.8 mg/dL Normal 8.5-10.1 [facility] Comment on above: Performed By: #### C MP #### [facility] [address] [place] [address] Dr. Irma Erazo Chloride [Moles/Vol] 103 mmol/L Normal 98-107 [facility] Comment on above: Performed By: #### C MP #### [facility] [address] [place] [address] [address] Irma Erazo CO2 [Moles/Vol] 25.4 mmol/L Normal 21.0-32.0 [facility] Comment on above: Performed By: #### C MP #### [facility] [address] [place] [address] [address] Irma Erazo Creatinine [Mass/Vol] 1.29 mg/dL Normal 0.70-1.30 [facility] Comment on above: Performed By: #### C MP #### [facility] [address] [place] [address] [address] Irma Erazo EGFR-AF MOSOTHO >60 Normal >=60 [facility] Comment on above: Performed By: #### C MP #### [facility] [address] [place] [address] Dr. Irma Erazo EGFR-NON AF MOSOTHO 56 mL/min/1.73m2 Critically low >=60 [facility] Comment on above: Performed By: #### C MP #### [facility] [address] [place] [address] [address] Irma Erazo Globulin (S) [Mass/Vol] 3.4 g/dL Normal [facility] Comment on above: Performed By: #### C MP #### [facility] [address] [address] [address] Irma Erazo Glucose [Mass/Vol] 119 mg/dL Critically high 74-106 [facility] Comment on above: Performed By: #### C MP #### [facility] [address] [address] [address] Irma Erazo Potassium [Moles/Vol] 4.1 mmol/L Normal 3.5-5.1 [facility] Comment on above: Performed By: #### C MP #### [facility] [address] [place] [address] Dr. Irma Erazo Protein [Mass/Vol] 7.6 g/dL Normal 6.4-8.2 [facility] Comment on above: Performed By: #### C MP #### [facility] [address] [place] [address] Dr. Irma Erazo Sodium [Moles/Vol] 134 mmol/L Critically low 136-145 [facility] Comment on above: Performed By: #### C MP #### [facility] [address] [place] [address] Dr. Irma Erazo Urea nitrogen [Mass/Vol] 15.0 mg/dL Normal 7.0-18.0 [facility] Comment on above: Performed By: #### C MP #### [facility] [address] [place] [address] Dr. Irma Erazo Urea nitrogen/Creatini ne [Mass ratio] 11.6 mg/mg Normal [facility] Comment on above: Performed By: #### C MP #### [facility] [address] [place] [address] Dr. Irma Erazo CBC AUTO DIFFon 02-19-2022 BASO # 0.0 103/ul Normal 0.0-0.1 [facility] Comment on above: Performed By: #### C BC #### [facility] [address] [place] [address] [address] rIma Erazo Basophils/100 WBC (Bld) 0.3 % Normal 0.2-2.0 [facility] Comment on above: Performed By: #### C BC #### [facility] [address] [place] [address] Dr. Irma Erazo EO # 0.1 103/ul Normal 0.0-0.7 [facility] Comment on above: Performed By: #### C BC #### [facility] [address] [place] [address] Dr. Irma Erazo Eosinophils/100 WBC (Bld) 0.5 % Critically low 0.9-7.0 [facility] Comment on above: Performed By: #### C BC #### [facility] [address] [place] [address] Dr. Irma Erazo Erythrocyte distribution width (RBC) [Ratio] 13.2 % Normal 11.0-15.0 [facility] Comment on above: Performed By: #### C BC #### [facility] [address] [place] [address] Dr. Irma Erazo Hematocrit (Bld) [Volume fraction] 41.4 % Critically low 42.0-54.0 [facility] Comment on above: Performed By: #### C BC #### [facility] [address] [place] [address] Dr. Irma Erazo Hemoglobin (Bld) [Mass/Vol] 14.3 g/dL Normal 14.0-18.0 [facility] Comment on above: Performed By: #### C BC #### [facility] [address] [place] [address] Dr. Irma Erazo IG # 0.05 10e3/ul Critically high 0.00-0.03 [facility] Comment on above: Performed By: #### C BC #### [facility] [address] [place] [address] Dr. Irma Erazo IG % 0.4 % Normal 0.0-0.5 [facility] Comment on above: Performed By: #### C BC #### [facility] [address] [place] [address] Dr. Irma Erazo LYMPH # 2.4 103/ul Normal 1.2-3.8 [facility] Comment on above: Performed By: #### C BC #### [facility] [address] [place] [address] Dr. Irma Erazo Lymphocytes/100 WBC (Bld) 18.6 % Critically low 20.5-60.0 [facility] Comment on above: Performed By: #### C BC #### [facility] [address] [place] [address] Dr. Irma Erazo MANUAL DIFF REQ NO Normal [facility] Comment on above: Performed By: #### C BC #### [facility] [address] [place] [address] Dr. Iram Erazo MCH (RBC) [Entitic mass] 30.4 pg Normal 25.9-34.0 [facility] Comment on above: Performed By: #### C BC #### [facility] [address] [place] [address] Dr. Irma Erazo MCHC (RBC) [Mass/Vol] 34.5 g/dL Normal 29.9-35.2 [facility] Comment on above: Performed By: #### C BC #### [facility] [address] [place] [address] Dr. Irma Erazo MCV (RBC) [Entitic vol] 88.1 fL Normal 80.0-94.0 [facility] Comment on above: Performed By: #### C BC #### [facility] [address] [place] [address] Dr. Irma Erazo MONO # 1.2 103/ul Critically high 0.3-0.8 [facility] Comment on above: Performed By: #### C BC #### [facility] [address] [place] [address] Dr. Irma Erazo Monocytes/100 WBC (Bld) 9.3 % Normal 1.7-12.0 [facility] Comment on above: Performed By: #### C BC #### [facility] [address] [place] [address] [address] Irma Erazo NEUT # 9.0 103/ul Critically high 1.4-6.5 [facility] Comment on above: Performed By: #### C BC #### [facility] [address] [address] [address] Irma Erazo Neutrophils/100 WBC (Bld) 70.9 % Normal 43.0-75.0 [facility] Comment on above: Performed By: #### C BC #### [facility] [address] [address] [address] Irma Erazo Platelet mean volume (Bld) [Entitic vol] 9.6 fL Normal 9.5-13.5 [facility] Comment on above: Performed By: #### C BC #### [facility] [address] [place] [address] Dr. Irma Erazo PLT 233 103/ul Normal 150-450 [facility] Comment on above: Performed By: #### C BC #### [facility] [address] [address] [address] Irma Erazo RBC 4.70 106/ul Normal 4.70-6.10 [facility] Comment on above: Performed By: #### C BC #### [facility] [address] [address] [address] Irma Erazo WBC 12.8 103/ul Critically high 4.0-11.0 [facility] Comment on above: Performed By: #### C BC #### [facility] [address] [address] [address] Irma Erazo PROF 14(COMP METB)on 022 Albumin [Mass/Vol] 3.8 g/dL Normal 3.4-5.0 [facility] Comment on above: Performed By: #### C MP #### [facility] [address] [place] [address] Dr. Irma Erazo Albumin/Globulin [Mass ratio] 1.0 {ratio} Normal [facility] Comment on above: Performed By: #### C MP #### [facility] [address] [address] [address] Irma Erazo ALP [Catalytic activity/Vol] 132 U/L Critically high 46-116 [facility] Comment on above: Performed By: #### C MP #### [facility] [address] [place] [address] Dr. Irma Erazo ALT [Catalytic activity/Vol] 26 U/L Normal 16-63 [facility] Comment on above: Performed By: #### C MP #### [facility] [address] [place] [address] Dr. Irma Erazo Anion gap [Moles/Vol] 12.2 mmol/L Normal [facility] Comment on above: Performed By: #### C MP #### [facility] [address] [place] [address] Dr. Irma Erazo AST [Catalytic activity/Vol] 16 U/L Normal 15-37 [facility] Comment on above: Performed By: #### C MP #### [facility] [address] [place] [address] Dr. Irma Erazo Bilirubin [Mass/Vol] 0.7 mg/dL Normal 0.2-1.0 [facility] Comment on above: Performed By: #### C MP #### [facility] [address] [place] [address] Dr. Irma Erazo Calcium [Mass/Vol] 9.1 mg/dL Normal 8.5-10.1 [facility] Comment on above: Performed By: #### C MP #### [facility] [address] [place] [address] Dr. Irma Erazo Chloride [Moles/Vol] 102 mmol/L Normal 98-107 [facility] Comment on above: Performed By: #### C MP #### [facility] [address] [place] [address] Dr. Irma Erazo CO2 [Moles/Vol] 29.6 mmol/L Normal 21.0-32.0 [facility] Comment on above: Performed By: #### C MP #### [facility] [address] [place] [address] Dr. Irma Erazo Creatinine [Mass/Vol] 1.44 mg/dL Critically high 0.70-1.30 [facility] Comment on above: Performed By: #### C MP #### [facility] [address] [address] [address] Irma Erazo EGFR-AF MOSOTHO 60 mL/min/1.73m2 Normal >=60 [facility] Comment on above: Performed By: #### C MP #### [facility] [address] [address] [address] Irma Erazo EGFR-NON AF MOSOTHO 49 mL/min/1.73m2 Critically low >=60 [facility] Comment on above: Performed By: #### C MP #### [facility] [address] [place] [address] Dr. Irma Erazo Globulin (S) [Mass/Vol] 3.9 g/dL Normal [facility] Comment on above: Performed By: #### C MP #### [facility] [address] [address] [address] Irma Erazo Glucose [Mass/Vol] 81 mg/dL Normal 74-106 [facility] Comment on above: Performed By: #### C MP #### [facility] [address] [address] [address] Irma Erazo Potassium [Moles/Vol] 4.8 mmol/L Normal 3.5-5.1 [facility] Comment on above: Performed By: #### C MP #### [facility] [address] [address] [address] Irma Erazo Protein [Mass/Vol] 7.7 g/dL Normal 6.4-8.2 [facility] Comment on above: Performed By: #### C MP #### [facility] [address] [address] [address] Iram Erazo Sodium [Moles/Vol] 139 mmol/L Normal 136-145 [facility] Comment on above: Performed By: #### C MP #### [facility] [address] [address] [address] Irma Erazo Urea nitrogen [Mass/Vol] 19.0 mg/dL Critically high 7.0-18.0 [facility] Comment on above: Performed By: #### C MP #### [facility] [address] [place] [address] Dr. Irma Erazo Urea nitrogen/Creatini ne [Mass ratio] 13.2 mg/mg Normal [facility] Comment on above: Performed By: #### C MP #### [facility] [address] [address] [address] Irma Erazo SED RATE [facility] 2021 SED RATE 35 mm/hr Critically high <=20 [facility] Comment on above: Performed By: #### S EDR #### [facility] [address] [place] [address] Dr. Irma Irvin 02-11-2022 L Specimen: [id number] Received: 02/11/22 Status: SILVANO Ramirez Num: [id number] Spec Type: Surgical Subm Dr: Shashank Head MD Tissues: A Small Intestine - Biopsy/Polyp (SMALL BOWEL BX) Procedures: HE Stain/2, Gross/Micro L4 Age/ Patient Sex Location Account Attending Physician Darleen Goodman JR /M [id number] Shashank Head MD SPEC NUM: [id number] RECD: 02/11/22 STATUS: SILVANO RAMIREZ NUM: [id number] AUBRIE: 02/11/[address] [facility] [address]: Shashank Head MD ENTERED: 02/11/[address] [facility] [address]: YISEL TYPE: Surgical DEPT: S ENTERED BY: [id number] RECV BY: [id number] ORDERED: HE Stain/2, Gross/Micro L4 ORDERED: HE Stain/2, Gross/Micro L4 Pathological Diagnosis Small intestine, biopsy: - Small intestinal mucosa showing no specific pathologic changes - Preserved villous and crypt architecture - Negative for active inflammation Clinical Information Abdominal pain, rule out celiac Gross Description Received in 10% neutral buffered formalin, labeled with the patient's name, number and small bowel biopsy, rule out celiac are two fragments of soft tissue each measuring 0.3 cm. Entirely submitted in one cassette labeled A1. (LG/JS) Microscopic Description Two glass slides with H E stained material have been examined. The microscopic findings support the above pathologic diagnosis. [id number] Specimen: [id number] Received: 02/11/22 Status: SILVANO Ramirez Num: [id number] Spec Type: Surgical Subm Dr: Shashank Head MD Tissues: A Small Intestine - Biopsy/Polyp (SMALL BOWEL BX) Procedures: HE Stain/2, Gross/Micro L4 Patient: Darleen Goodman JR [id number] (Continued) Signed (signature on file) Adeline Hennessy MD 02/12/221851 Normal [facility] COVID[facility]19 [facility] [place] SARS-CoV-2 (COVID-19) RNA LUCIEN+probe Ql (Unsp spec) Negative Normal Negative [facility] Comment on above: Order Comment: Healt hcare Worker?: N Result Comment: Testing for SARS-CoV-2 by RT-PCR This test was developed and its performance characteristics determined by [employer] and validated at the [facility]. This test has not been FDA cleared or approved. This test has been authorized by FDA under an Emergency Use Authorization (EUA). This test has been validated in accordance with the FDA's Guidance Document (Policy for Diagnostics Testing in Laboratories Certified to Perform High Complexity Testing under CLIA prior to Emergency Use Authorization for Coronavirus Disease-2019 during the Public Health Emergency) issued on October 18, 2019. This test is only authorized for the duration of time the declaration that circumstances exist justifying the authorization of the emergency use of in vitro diagnostic tests for detection of SARS-CoV-2 virus and/or diagnosis of COVID-19 infection under section 564(b)(1) of the Act, 21 U.S.C. 360bbb-3(b)(1), unless the authorization is terminated or revoked sooner. PERFORMED BY: [place] [address] PATHOLOGIST WIRE M[employer] KNITTER ADELINE HENNESSY M.D. Performed By: #### C OVID 19 [facility] #### [address] CBC AUTO DIFFon 12-18-2021 BASO # 0.0 103/ul Normal 0.0-0.1 [facility] Comment on above: Performed By: #### S EDR #### [facility] [address] [place] [address] Dr. Irma Erazo Basophils/100 WBC (Bld) 0.4 % Normal 0.2-2.0 [facility] Comment on above: Performed By: #### S EDR #### [facility] [address] [place] [address] Dr. Irma Erazo EO # 0.1 103/ul Normal 0.0-0.7 [facility] Comment on above: Performed By: #### S EDR #### [facility] [address] [place] [address] Dr. Irma Erazo Eosinophils/100 WBC (Bld) 1.3 % Normal 0.9-7.0 [facility] Comment on above: Performed By: #### S EDR #### [facility] [address] [place] [address] Dr. Irma Erazo Erythrocyte distribution width (RBC) [Ratio] 13.6 % Normal 11.0-15.0 [facility] Comment on above: Performed By: #### S EDR #### [facility] [address] [place] [address] Dr. Irma Erazo Hematocrit (Bld) [Volume fraction] 39.3 % Critically low 42.0-54.0 [facility] Comment on above: Performed By: #### S EDR #### [facility] [address] [place] [address] Dr. Irma Erazo Hemoglobin (Bld) [Mass/Vol] 13.5 g/dL Critically low 14.0-18.0 [facility] Comment on above: Performed By: #### S EDR #### [facility] [address] [place] [address] Dr. Irma Erazo IG # 0.01 10e3/ul Normal 0.00-0.03 [facility] Comment on above: Performed By: #### S EDR #### [facility] [address] [place] [address] Dr. Irma Erazo IG % 0.1 % Normal 0.0-0.5 [facility] Comment on above: Performed By: #### S EDR #### [facility] [address] [place] [address] Dr. Irma Erazo LYMPH # 2.5 103/ul Normal 1.2-3.8 [facility] Comment on above: Performed By: #### S EDR #### [facility] [address] [place] [address] Dr. Irma Erazo Lymphocytes/100 WBC (Bld) 31.1 % Normal 20.5-60.0 [facility] Comment on above: Performed By: #### S EDR #### [facility] [address] [place] [address] Dr. Irma Erazo MANUAL DIFF REQ NO Normal [facility] Comment on above: Performed By: #### S EDR #### [facility] [address] [place] [address] Dr. Irma Erazo MCH (RBC) [Entitic mass] 30.3 pg Normal 25.9-34.0 [facility] Comment on above: Performed By: #### S EDR #### [facility] [address] [place] [address] Dr. Irma Erazo MCHC (RBC) [Mass/Vol] 34.4 g/dL Normal 29.9-35.2 [facility] Comment on above: Performed By: #### S EDR #### [facility] [address] [place] [address] Dr. Irma Erazo MCV (RBC) [Entitic vol] 88.3 fL Normal 80.0-94.0 [facility] Comment on above: Performed By: #### S EDR #### [facility] [address] [place] [address] Dr. Irma Erazo MONO # 0.7 103/ul Normal 0.3-0.8 [facility] Comment on above: Performed By: #### S EDR #### [facility] [address] [place] [address] Dr. Irma Erazo Monocytes/100 WBC (Bld) 8.7 % Normal 1.7-12.0 [facility] Comment on above: Performed By: #### S EDR #### [facility] [address] [place] [address] Dr. Irma Erazo NEUT # 4.6 103/ul Normal 1.4-6.5 [facility] Comment on above: Performed By: #### S EDR #### [facility] [address] [place] [address] Dr. Irma Erazo Neutrophils/100 WBC (Bld) 58.4 % Normal 43.0-75.0 [facility] Comment on above: Performed By: #### S EDR #### [facility] [address] [place] [address] Dr. Irma Erazo Platelet mean volume (Bld) [Entitic vol] 10.3 fL Normal 9.5-13.5 [facility] Comment on above: Performed By: #### S EDR #### [facility] [address] [place] [address] Dr. Irma Erazo PLT 175 103/ul Normal 150-450 [facility] Comment on above: Performed By: #### S EDR #### [facility] [address] [address] [address] Irma Erazo RBC 4.45 106/ul Critically low 4.70-6.10 [facility] Comment on above: Performed By: #### S EDR #### [facility] [address] [address] [address] Irma Erazo WBC 7.9 103/ul Normal 4.0-11.0 [facility] Comment on above: Performed By: #### S EDR #### [facility] [address] [address] [address] Irma Erazo PROF 14(COMP METB)on 022 Albumin [Mass/Vol] 4.2 g/dL Normal 3.4-5.0 [facility] Comment on above: Performed By: #### C MP #### [facility] [address] [place] [address] Dr. Irma Erazo Albumin/Globulin [Mass ratio] 1.3 {ratio} Normal [facility] Comment on above: Performed By: #### C MP #### [facility] [address] [address] [address] Irma Erazo ALP [Catalytic activity/Vol] 85 U/L Normal 46-116 [facility] Comment on above: Performed By: #### C MP #### [facility] [address] [address] [address] Irma Erazo ALT [Catalytic activity/Vol] 36 U/L Normal 16-63 [facility] Comment on above: Performed By: #### C MP #### [facility] [address] [address] [address] Irma Erazo Anion gap [Moles/Vol] 11.0 mmol/L Normal [facility] Comment on above: Performed By: #### C MP #### [facility] [address] [place] [address] Dr. Irma Erazo AST [Catalytic activity/Vol] 21 U/L Normal 15-37 [facility] Comment on above: Performed By: #### C MP #### [facility] [address] [address] [address] Irma Erazo Bilirubin [Mass/Vol] 0.8 mg/dL Normal 0.2-1.0 [facility] Comment on above: Performed By: #### C MP #### [facility] [address] [address] [address] Irma Erazo Calcium [Mass/Vol] 8.8 mg/dL Normal 8.5-10.1 [facility] Comment on above: Performed By: #### C MP #### [facility] [address] [address] [address] Irma Erazo Chloride [Moles/Vol] 103 mmol/L Normal 98-107 [facility] Comment on above: Performed By: #### C MP #### [facility] [address] [address] [address] Irma Erazo CO2 [Moles/Vol] 28.6 mmol/L Normal 21.0-32.0 [facility] Comment on above: Performed By: #### C MP #### [facility] [address] [address] [address] Irma Erazo Creatinine [Mass/Vol] 1.47 mg/dL Critically high 0.70-1.30 [facility] Comment on above: Performed By: #### C MP #### [facility] [address] [address] [address] Irma Erazo EGFR-AF MOSOTHO 59 mL/min/1.73m2 Critically low >=60 [facility] Comment on above: Performed By: #### C MP #### [facility] [address] [address] [address] Irma Erazo EGFR-NON AF [place]OT[place] 48 mL/min/1.73m2 Critically low >=60 [facility] Comment on above: Performed By: #### C MP #### [facility] [address] [address] [address] Irma Erazo Globulin (S) [Mass/Vol] 3.2 g/dL Normal [facility] Comment on above: Performed By: #### C MP #### [facility] [address] [address] [address] Irma Erazo Glucose [Mass/Vol] 101 mg/dL Normal 74-106 [facility] Comment on above: Performed By: #### C MP #### [facility] [address] [address] [address] Irma Erazo Potassium [Moles/Vol] 4.6 mmol/L Normal 3.5-5.1 [facility] Comment on above: Performed By: #### C MP #### [facility] [address] [address] [address] Irma Erazo Protein [Mass/Vol] 7.4 g/dL Normal 6.4-8.2 [facility] Comment on above: Performed By: #### C MP #### [facility] [address] [address] [address] Irma Erazo Sodium [Moles/Vol] 138 mmol/L Normal 136-145 [facility] Comment on above: Performed By: #### C MP #### [facility] [address] [address] [address] Irma Erazo Urea nitrogen [Mass/Vol] 20.0 mg/dL Critically high 7.0-18.0 [facility] Comment on above: Performed By: #### C MP #### [facility] [address] [address] [address] Irma Erazo Urea nitrogen/Creatini ne [Mass ratio] 13.6 mg/mg Normal [facility] Comment on above: Performed By: #### C MP #### [facility] [address] [address] [address] [facility] 2 mm/hr Normal <=20 [facility] Comment on above: Performed By: #### S EDR #### [facility] [address] [address] [address] Irma Erazo XR Abdomen 2 Viewson 022 XR Abdomen 2 Views HISTORY: Chronic bloating, lower quadrant/abdominal pain FINDINGS: Moderate proximal ascending colon stool. Air filled non-distended small and large bowel throughout the remainder of the abdomen and pelvis. No mass effect or free air. No biliary stones. Bilateral pelvic densities, presumed surgical clips and left low hemipelvic phleboliths. IMPRESSION: 1. Ascending colon stool, no obstruction. If symptoms persist following appropriate medical management, CT imaging maybe of assistance. Report reported and signed by Alonzo Navas on 10/19/2021 0832 Normal [facility] [employer] [facility] Specialist Vital Signs Date Time Vital Sign Value Performing Clinician Facility 10-21-2022 15:30-0400 Body height 170.18 cm Shashank Head Other [facility] Other 10-21-2022 15:30-0400 Body mass index (BMI) [Ratio] 28.35 kg/m2 Shashank Head Other [facility] Other 10-21-2022 15:30-0400 Body weight 82.1 kg Shashank Head Other [facility] Other 10-21-2022 15:30-0400 Diastolic blood pressure 76 mm[Hg] Shashank Head Other [facility] Other 10-21-2022 15:30-0400 Systolic blood pressure 134 mm[Hg] Shashank Head Other [facility] Other 07-16-2022 16:00-0500 Body height 170.18 cm Cassi Willams Other [facility] Other 07-16-2022 16:00-0500 Body mass index (BMI) [Ratio] 28.19 kg/m2 Cassi Willams Other [facility] Other 07-16-2022 16:00-0500 Body temperature 97.8 [degF] Cassi Willams Other [facility] Other 07-16-2022 16:00-0500 Body weight 81.65 kg Cassi Willams Other [facility] Other 07-16-2022 16:00-0500 Respiratory rate 18 /min Cassi Willams Other [facility] Other 07-16-2022 16:00-0500 SaO2% (BldA) [Mass fraction] 98 % Cassi Willams Other [facility] Other 04-21-2022 16:30-0400 Body weight 81.65 kg Shashank Head Other [facility] Other 01-27-2022 16:00-0400 Body weight 84.82 kg Shashank Ditty Other [facility] Other Encounters Encounter Date Encounter Type Care Provider Facility Start: 01-03-2024 End: 01-03-2024 ambulatory JEREMIAS Villatoro LEEANNA Not Available Start: 12-26-2023 End: 12-26-2023 ambulatory SIMONE CORADO Not Available Start: 12-21-2023 End: 12-21-2023 Evaluation and management of inpatient PASQUALE Dunham [facility] Start: 12-21-2023 End: 12-21-2023 Evaluation and management of inpatient [facility] Start: 12-01-2023 End: 12-01-2023 ambulatory RUGZARI M ULISES Not Available Start: 11-24-2023 End: 11-24-2023 ambulatory [facility] Start: 11-24-2023 Encounter for other preprocedural examination [facility] Start: 11-22-2023 End: 11-22-2023 ambulatory RUGEN M ULISES Not Available Start: 11-08-2023 End: 11-08-2023 ambulatory JEREMIAS DURÁN Not Available Start: 10-31-2023 End: 10-31-2023 ambulatory TIM Oneal MATRINEZ Not Available Start: 10-25-2023 End: 10-25-2023 ambulatory TIM Oneal JUAN Not Available Start: 10-11-2023 End: 10-11-2023 ambulatory TIM Oneal MARTINEZ Not Available Start: 09-27-2023 End: 09-27-2023 ambulatory TIM Oneal MARTINEZ Not Available Start: 01-08-2023 End: 01-08-2023 Emergency department patient visit MD Chino Moses Facility:[facility] Start: 10-21-2022 Patient encounter procedure Shashank Head [facility] Start: 10-21-2022 End: 10-22-[address] ROBBINS [facility] Other Start: 09-14-2022 End: 09-14-2022 ambulatory Shashank Head Other [facility] Other Start: 09-14-2022 Telephone encounter Shashank Head [facility] Start: 07-16-2022 End: 07-16-2022 ambulatory Cassi Willams Other [facility] Other Start: 07-16-2022 Office outpatient vi sit 25 minutes Cassi Willams [facility] Start: 06-21-2022 End: 06-22-[address] SIDNEY CUNNINGHAM Facility:[facility] Start: 04-21-2022 End: 04-21-2022 ambulatory Shashank Head Other [facility] Other Start: 04-21-2022 Patient encounter procedure Shashank Head [facility] Start: 03-27-2022 End: 03-27-[address] DEREK MONTGOMERY Facility:[facility] Start: 02-19-2022 End: 02-20-[address] SIDNEY CUNNINGHAM Facility:[facility] Start: 02-11-2022 End: 02-11-2022 ambulatory Shashank Head Other [facility] Other Start: 02-11-2022 Telephone encounter Shashank Head [facility] Start: 01-27-2022 End: 01-27-2022 ambulatory Shashank Head Other [facility] Other Start: 01-27-2022 [facility] visit new patient Shashank Head [facility] Start: 12-18-2021 End: 12-19-[address] SIDNEY CUNNINGHAM Facility: Payers Date Payer Category Payer Medicare [id number] 1961 [facility] [id number] 1960 Unknown [id number] 2.16.84 0.1.606908.3.579.2.593 1960 Unknown [id number] 2.16.84 0.1.565456.3.579.2.593 1958 Unknown [id number] 2.16.84 0.1.181404.3.579.2.593 1958 Unknown [id number] 2.16.84 0.1.747523.3.579.2.593 1958 Unknown [id number] 2.16.84 0.1.602191.3.579.2.593 1958 Unknown [id number] 2.16.8 40.1.856050.3.579.2.718 1958 Unknown [id number] 2.16.8 40.1.153375.3.579.2.1286 1958 Unknown [id number] 2.16.8 40.1.069064.3.579.2.1286 1958 Unknown [id number] 2.16.8 40.1.255028.3.579.2.1286 1958 Unknown [id number] 2.16.8 40.1.092570.3.579.2.1286 1958 Unknown [id number] 2.16.8 40.1.943961.3.579.2.1286 1958 Unknown [id number] 2.16.8 40.1.589884.3.579.2.1286 1958 Unknown [id number] 2.16.8 40.1.168077.3.579.2.1286 1958 Unknown [id number] 2.16.84 0.1.904491.3.579.2.1259 1958 Unknown [id number] 2.16.84 0.1.163706.3.579.2.1258 1958 Unknown [id number] 2.16.84 0.1.735768.3.579.2.9 1958 Unknown [id number] 2.16.84 0.1.367129.3.579.2.1258 1958 Unknown [id number] 2.16.84 0.1.247888.3.579.2.1259 1958 Unknown [id number] 2.16.84 0.1.637390.3.579.2.1258 1958 Unknown [id number] 2.16.84 0.1.121864.3.579.2.1259 1958 Unknown [id number] 2.16.84 0.1.310396.3.579.2.125 1958 Unknown [id number] 2.16.84 0.1.722376.3.579.2.1259 1958 Unknown [id number] 2.16.84 0.1.325336.3.579.2.1258 1958 Unknown [id number] 2.16.84 0.1.797777.3.579.2.1259 Blue Cross Blue Shield [id number] 2.16.840.1.764782.19 Social History Date Type Detail Facility Sex Assigned At [facility] Other Clinical Notes 11-04-2021 to 01-08-2023 Note Date & Type Note Facility 01-08-2023 Note Education Materials Urology Kidney Stones Kidney stones are rock-like masses that form inside of the kidneys. Kidneys are organs that make pee (urine). A kidney stone may move into other parts of the urinary tract, including: ? The tubes that connect the kidneys to the bladder (ureters). ? The bladder. ? The tube that carries urine out of the body (urethra). Kidney stones can cause very bad pain and can block the flow of pee. The stone usually leaves your body (passes) through your pee. You may need to have a doctor take out the stone. What are the causes? Kidney stones may be caused by: ? A condition in which certain glands make too much parathyroid hormone (primary hyperparathyroidism). ? A buildup of a type of crystals in the bladder made of a chemical called uric acid. The body makes uric acid when you eat certain foods. ? Narrowing (stricture) of one or both of the ureters. ? A kidney blockage that you were born with. ? Past surgery on the kidney or the ureters, such as gastric bypass surgery. What increases the risk? You are more likely to develop this condition if: ? You have had a kidney stone in the past. ? You have a family history of kidney stones. ? You do not drink enough water. ? You eat a diet that is high in protein, salt (sodium), or sugar. ? You are overweight or very overweight (obese). What are the signs or symptoms? Symptoms of a kidney stone may include: ? Pain in the side of the belly, right below the ribs (flank pain). Pain usually spreads (radiates) to the groin. ? Needing to pee often or right away (urgently). ? Pain when going pee (urinating). ? Blood in your pee (hematuria). ? Feeling like you may vomit (nauseous). ? Vomiting. ? Fever and chills. How is this treated? Treatment depends on the size, location, and makeup of the kidney stones. The stones will often pass out of the body through peeing. You may need to: ? Drink more fluid to help pass the stone. In some cases, you may be given fluids through an IV tube put into one of your veins at the hospital. ? Take medicine for pain. ? Make changes in your diet to help keep kidney stones from coming back. Sometimes, medical procedures are needed to remove a kidney stone. This may involve: ? A procedure to break up kidney stones using a beam of light (laser) or shock waves. ? Surgery to remove the kidney stones. Follow these instructions at home: Medicines ? Take [id number] and prescription medicines only as told by your doctor. ? Ask your doctor if the medicine prescribed to you requires you to avoid driving or using heavy machinery. Eating and drinking ? Drink enough fluid to keep your pee pale yellow. You may be told to drink at least 8?10 glasses of water each day. This will help you pass the stone. ? If told by your doctor, change your diet. This may include: ? Limiting how much salt you eat. ? Eating more fruits and vegetables. ? Limiting how much meat, poultry, fish, and eggs you eat. ? Follow instructions from your doctor about eating or drinking restrictions. General instructions ? Collect pee samples as told by your doctor. You may need to collect a pee sample: ? 24 hours after a stone comes out. ? 8?12 weeks after a stone comes out, and every 6?12 months after that. ? Strain your pee every time you pee (urinate), for as long as told. Use the strainer that your doctor recommends. ? Do not throw out the stone. Keep it so that it can be tested by your doctor. ? Keep all follow-up visits as told by your doctor. This is important. You may need follow-up tests. How is this prevented? To prevent another kidney stone: ? Drink enough fluid to keep your pee pale yellow. This is the best way to prevent kidney stones. ? Eat healthy foods. ? Avoid certain foods as told by your doctor. You may be told to eat less protein. ? Stay at a healthy weight. Where to find more information ? National Kidney Foundation (NKF): www.kidney.org ? U[employer] Care [employer] (UCF): www.urologyhealth.org Contact a doctor if: ? You have pain that gets worse or does not get better with medicine. Get help right away if: ? You have a fever or chills. ? You get very bad pain. ? You get new pain in your belly (abdomen). ? You pass out (faint). ? You cannot pee. Summary ? Kidney stones are rock-like masses that form inside of the kidneys. ? Kidney stones can cause very bad pain and can block the flow of pee. ? The stones will often pass out of the body through peeing. ? Drink enough fluid to keep your pee pale yellow. This information is not intended to replace advice given to you by your health care provider. Make sure you discuss any questions you have with your health care provider. Document Revised: 03/08/2022 Document Reviewed: 03/08/2022 [employer] Patient Education ? 2022 [employer]. [facility] 10-21-2022 Evaluation note Encounter Date Diagnosis Assessment Notes Oct, Dyspepsia (ICD-10 - K30) Oct, GERD (gastroesopha geal reflux disease) (ICD-10 - K21.9) Stop Pantoprazole Start Omeprazole 40mg twice daily, 30 min ac Follow up 3 months [facility] Other 02-28-2023 Evaluation note* Encounter Date Diagnosis Assessment Notes Treatment Notes Treatment Clinical Notes Aug, Dyspepsia (ICD-10 - K30) [facility] Other 12-30-2022 Evaluation note* Encounter Date Diagnosis Assessment Notes Treatment Notes Treatment Clinical Notes Jun, Cough (ICD-10 - R05.9) Jun, Influenza A (ICD-10 - J10.1) Advised patient that Influenza A PCR test was positive, COVID/Influenza B/RSV PCR test negative. Will send in rx of steroid and Tessalon Perles to use as directed. Patient out of window for Tamiflu medication. Encouraged supportive care, including Tylenol as needed for body aches/fever, increase fluids and rest, use of cool mist humidifier. Follow-up with PCP to advise of positive result and further management need. Advised to stay home from work/activities until fever free for 24 hours without use of antipyretic. Immediate eval if respiratory distress, SOB, difficulty breathing, severe headache and neck pain/stiffness, rash, abdominal pain, N/V, poor PO intake, dehydration, lethargy, or if any new or concerning symptoms arise. Patient verbalizes understanding and is agreeable to treatment plan. Patient left in stable condition [facility] Other 10-05-2022 Evaluation note* Encounter Date Diagnosis Assessment Notes Treatment Notes Treatment Clinical Notes Apr, Dyspepsia (ICD-10 - K30) PATIENT STATES HE IS DOING WELL AT THIS TIME. WE WILL CONTINUE ON THE MEDICATION AT THIS TIME. [facility] Other 07-13-2022 Evaluation note* Encounter Date Diagnosis Assessment Notes Treatment Notes Treatment Clinical Notes Jan, Abdominal pain (ICD-10 - R10.9) Jan, Bloating (ICD-10 - R14.0) WILL PROCEED WITH EGD AT THIS TIME. Jan, Abdominal fullness (ICD-10 - R19.8) IS NOT ABLE TO EAT A LOT DUE TO BLOATING FEELING. Jan, Early satiety (ICD-10 - R68.81) [facility] Other 04-20-2022 NoteHISTORY: Abdominal pain, bloating, constipation, diarrhea PROCEDURE: [employer]. Following oral contrast administration, pre and post-intravenous contrast helical images, 5 mm slice thickness, were performed through the abdomen and pelvis. Delayed imaging through the kidneys was also performed. 100 cc of Isovue 300 was administered. FINDINGS: Diffuse hepatic fatty infiltration. Smooth hepatic contour. Normal size. No intrahepatic mass or biliary ductal dilatation. Cholecystectomy clips. Normal pancreas. No mass or inflammation. Unremarkable lung bases. Normal gastric volume, no obvious ulceration or neighboring inflammation. Normal splenic volume. Unremarkable adrenal glands. Unremarkable kidneys, collecting systems and bladder. Normal volume of colon stool. Proximal sigmoid surgical material. No neighboring mass or inflammation. Mild proximal descending colon diverticulosis. No aortic aneurysm. Prominent common iliac arterial calcifications, multifocal stenosis suggested. IMPRESSION: 1. No intra abdominal inflammation. 2. Diffuse hepatic fatty infiltration. Report reported and signed by Alonzo Navas on 11/04/2021 [id number] SpecialistEvaluation noteNo InformationN[employer] Other [employer] general Narrative - Reported* Type Description Date Surgical History colon resection Surgical History gall bladder [facility] Other History general Narrative - Reported* Type Description Date Medical History Hypertension Medical History myocardial infarction multiple Surgical History colon resection Surgical History gall bladder Surgical History heart stent Surgical History heart catheterization [facility] Other Reason for visit NarrativePATIENT HERE AT THE REQUEST OF DR. MONTGOMERY FOR EVALUATION & TREATMENT OF ABDOMINAL PAIN, Abdominalxray and CT obtained from [facility] and scanned in chart., PATIENT STATES THAT HE HAS HAD THIS FOR ALONG TIME AND SEEMS FROM TIME TO TAKE FOOD IN TO WHEN IT LEAVES NOT RIGHT. PATIENT DOES HAVE BLOATING, FEELS LIKE FOOD SITS IN ESOPHAGUS. PATIENT STOOLS ALTERNATE FROM HARD STOOLS TO DIARRHEA.[facility] Other Summary Purpose Family History No Family History Records FoundNo Family History Records FoundNo Family History Records FoundNo Family History Records FoundNo Family History Records FoundNo Family History Records Found Advance Directives No Advanced Directives Records FoundNo Advanced Directives Records FoundNo Advanced Directives Records FoundNo Advanced Directives Records FoundNo Advanced Directives Records FoundNo Advanced Directives Records Found Additional Source Comments (unrecognized sect ion and content) No Status Records FoundNo Status Records FoundNo Status Records FoundNo Status Records FoundNo Status Records FoundNo Status Records Found INFORMATION SOURCE (unrecogn ized section and content) DATE CREATED AUTHOR 11/06/2021 [facility] dical Specialist DATE CREATED AUTHOR AUTHOR'S ORGANIZ ATION 02/18/2022 [facility] DATE CREATED AUTHOR AUTHOR'S ORGANIZ ATION 10/30/2022 [facility] DATE CREATED AUTHOR AUTHOR'S ORGANIZ ATION 02/19/2023 [facility] DATE CREATED AUTHOR AUTHOR'S ORGANIZ ATION 12/22/2023 [facility] DATE CREATED AUTHOR AUTHOR'S ORGANIZ ATION 01/04/2024 [facility] dical Specialists EPIC REASON FOR VISIT (unrecogniz ed section and content) 10-12 week follow upPT HERE FOR 10-12 WEEK FOLLOW UP EGD., PATIENT STATES HE DOES HAVE A LITTLE BLOATING BUT NOT LIKE IT WAS PATIENT STATES THE INCREASE OF 2 A DAY PANTOPRAZOLE HAS SEEMED TO HELP.SORE THRAOT COUGH CONGESTIONRefillsPATIENT HERE FOR 6 MONTH FOLLOW UP FOR RECORDS PERTAINING TO PATIENTS WHO ARE OR HAVE BEEN ENROLLED IN A CHEMICAL DEPENDENCY/SUBSTANCEABUSE PROGRAM, SOME INFORMATION MAY BE OMITTED. This clinical summary was aggregated from multiple sources. Caution should be exercised in using it in the provision of clinical care. This summary normalizes information from multiple sources, and as a consequence, information in this document may materially change the coding, format and clinical context of patient data. In addition, data may be omitted in some cases. CLINICAL DECISIONS SHOULD BE BASED ON THE PRIMARY CLINICAL RECORDS. [facility] [facility]. provides no warranty or guarantee of the accuracy or completeness of information in this document.
[2024-04-25 10:25] LABS: Basophils Percent Auto 0.4 % (0.2-2.0); Eosinophils Absolute Auto 0.1 10^3/uL (0.0-0.7); Eosinophils Percent Auto 0.8 % (0.9-7.0); Hematocrit 41.5 % (42.0-54.0); Immature Granulocytes Abs Auto 0.04 10^3/uL (0.00-0.03); Immature Granulocytes Pct Auto 0.5 % (0.0-0.5); Lymphocytes Absolute Auto 1.8 10^3/uL (1.2-3.8); Lymphocytes Percent Auto 24.5 % (20.5-60.0); Mean Corpuscular HGB Conc 33.7 g/dL (29.9-35.2); Mean Corpuscular Hemoglobin 30.1 pg (25.9-34.0); Mean Corpuscular Volume 89.2 fL (80.0-94.0); Mean Platelet Volume 9.6 fL (9.5-13.5); Monocytes Absolute Auto 0.6 10^3/uL (0.3-0.8); Monocytes Percent Auto 8.4 % (1.7-12.0); Neutrophils Absolute Auto 4.8 10^3/uL (1.4-6.5); Neutrophils Percent Auto 65.4 % (43.0-75.0); Platelet Count 242 10^3/uL (150-450); Red Blood Count 4.65 10^6/uL (4.70-6.10); Red Cell Distribution Width 13.2 % (11.0-15.0); White Blood Count 7.3 10^3/uL (4.0-11.0)
[2024-04-25 10:52] LABS: Alanine Aminotransferase 36 U/L (16-63); Albumin Level 3.6 g/dL (3.4-5.0); Alkaline Phosphatase 127 U/L (46-116); Anion Gap 11.3; Aspartate Amino Transferase 20 U/L (15-37); BUN Creatinine Ratio 8.4; Bilirubin Total 0.5 mg/dL (0.2-1.0); Calcium 9.4 mg/dL (8.5-10.1); Carbon Dioxide 26.5 mmol/L (21.0-32.0); Chloride 102 mmol/L (98-107); Estimated GFR (African America 60 (>=60 mL/min/1.73m^2); Estimated GFR (Non-African Ame 49 (>=60 mL/min/1.73m^2); Globulin 3.5 g/dL; Glucose 90 mg/dL (74-106); Potassium 4.8 mmol/L (3.5-5.1); Sodium 135 mmol/L (136-145); Total Protein 7.1 g/dL (6.4-8.2)
== END 2024-04-25 10:00 | disposition home or self-care (01) ==
LOC: LAB 10:01
PROVIDERS: PCP Family Medicine; Visit Provider Internal Medicine Rheumatology
DX: M05.79 Rheumatoid arthritis with rheumatoid factor of multiple sites without organ or systems involvement (principal); M15.0 Primary generalized (osteo)arthritis; Z79.899 Other long term (current) drug therapy
CPT/HCPCS: 36415; 80053; 85025; 85652

== ENCOUNTER 2024-10-01 09:58 | Outpatient (OUT) | payer OTHER, SELFPAY ==
[2024-10-01 10:23] LABS: Basophils Percent Auto 0.4 % (0.2-2.0); Eosinophils Absolute Auto 0.2 10^3/uL (0.0-0.7); Eosinophils Percent Auto 1.9 % (0.9-7.0); Hematocrit 43.3 % (42.0-54.0); Immature Granulocytes Abs Auto 0.02 10^3/uL (0.00-0.03); Immature Granulocytes Pct Auto 0.2 % (0.0-0.5); Lymphocytes Absolute Auto 2.3 10^3/uL (1.2-3.8); Lymphocytes Percent Auto 28.6 % (20.5-60.0); Mean Corpuscular HGB Conc 34.6 g/dL (29.9-35.2); Mean Corpuscular Volume 86.6 fL (80.0-94.0); Mean Platelet Volume 9.6 fL (9.5-13.5); Monocytes Absolute Auto 0.6 10^3/uL (0.3-0.8); Monocytes Percent Auto 6.8 % (1.7-12.0); Neutrophils Percent Auto 62.1 % (43.0-75.0); Platelet Count 221 10^3/uL (150-450); Red Cell Distribution Width 13.5 % (11.0-15.0); White Blood Count 8.1 10^3/uL (4.0-11.0)
--- OUTSIDE RECORDS SUMMARY | 2024-10-01 10:25 | XMS_ITS | CCD ---
Author Organization [facility] CliniSywy Care Team Providers Care Physician Office Rep Name Role Phone Shashank Head Unavailable Cassi [...] LITTLE Consulting Unavailable MD Chino Moses Attending UnavailMD Chino Cortez Admitting Unavailab jcarlos ULISES, RUGEN M Primary Care Unavailable LEEANNAJEREMIAS Referring Unavailable ULISES, RUGEN M Primary Care Unavailable LEEANNAJEREMIAS Attending Unavailable JEREMIAS LAU Referring Unavailable ULISES, RUGEN M Primary Care Unavailable LEEANNAJEREMIAS Referring Unavailable ULISES, RUGEN M Primary Care Unavailable LEEANNAJEREMIAS Attending Unavailable JEREMIAS LAU Referring Unavailable ULISES, RUGEN M Primary Care Unavailable LEEANNAJEREMIAS Admitting Unavailable JEREMIAS LAU Attending Unavailable JEREMIAS LAU Referring Unavailable PASQUALE VALDIVIA Attending Unavailable ULISES, RUGEN M Primary Care Unavailable TIM MARTINEZ Attending Unavailable TIM MARTINEZ Referring Unavailable TIM MARTINEZ Attending Unavailable TIM MARTINEZ Attending Unavailable TIM MARTINEZ Referring Unavailable JEREMIAS LAU Attending Unavailable JEREMIAS LAU Attending Unavailable WALDO MONTGOMERY Attending Unavailable WALDO MONTGOMERY Attending Unavailable SIMONE CORADO Attending Unavailable JEREMIAS LAU Attending Unavailable Waldo Montgomery MD Primary Care Provider [phone] Waldo Montgomery MD Unavailable Shashank Head Attending Unavailable Shashank Head Admitting Unavailable Waldo Montgomery Primary Care Unavailable Waldo Montgomery MD Primary Care Provider Allergies Allergy Classification Reported Allergen(s) Allergy Type Date of Onset Reaction(s) Facility (1 source) No Known Medication Allergies; Translations: [No Known Medication Allergies] Propensity to adverse reactions to drug (disorder) Repository Medications Current Medications Medication Drug Class(es) Dates Sig (Normalized) Sig (Original) ascorbic acid 4700 mg / polyethylene glycol 3350 [id number] mg / potassium chloride 1015 mg / sodium ascorbate 5900 mg / sodium chloride 2690 mg / sodium sulfate 7500 mg powder for oral solution (2 sources) Osmotic Laxative, Vitamin C Start: 05-22-2014 aspirin 325 mg oral tablet (8 sources) Platelet Aggregation Inhibitor, Nonsteroidal Anti-inflammatory Drug aspirin 325 MG tablet 1 (one) time each day at the same time Active take 1 tablet by mouth in the mo rning aspirin 325 mg EC tablet Take 1 tablet (325 mg total) by mouth in the morning. Active Aspirin Active atorvastatin 40 mg oral tablet (8 sources) HMG-CoA Reductase Inhibitor Start: 08-23-2023 take 1 tablet by mouth once daily atorvastatin (Lipitor) 40 MG tablet Indications: Essential hypertension (CMS/HCC) take 1 tablet by mouth once daily 100 tablet 3 08/23/2023 Active benzonatate 100 mg oral capsule (2 sources) Non-narcotic Antitussive Start: 07-16-2022 take 1 capsule by mouth every eight hours Tessalon Perles 100 MG 1 capsule as needed Orally Three times a day for 7 days Jun, Active clopidogrel 75 mg oral tablet (8 sources) P2Y12 Platelet Inhibitor Start: 03-13-2024 take 1 tablet by mouth once daily clopidogrel (Plavix) 75 MG tablet Indications: Hyperlipidemia, unspecified hyperlipidemia type (CMS/HCC) Take 1 tablet (75 mg) by mouth Daily 100 tablet 3 03/13/2024 Active take 1 tablet by mouth in the mo rning clopidogreL (PLAVIX) 75 mg tablet Take 1 tablet (75 mg total) by mouth in the morning. Active colchicine 0.6 mg oral tablet (1 source) Start: 12-26-2023 End: 12-25-2024 take 2 tablets by mouth once, then take 1 tablet by mouth every hour colchicine 0.6 MG tablet Indications: Acute gout of left knee, unspecified cause 1.2mg po once then 0.6 mg 1 hour later 3 tablet 12/26/2023 12/25/2024 Active hydroxychloroquine sulfate 200 mg oral tablet (6 sources) Antimalarial, Antirheumatic Agent Start: 03-13-2024 take 1 tablet by mouth in the morning hydroxychloroquine (Plaquenil) 200 MG tablet Indications: Hyperlipidemia, unspecified hyperlipidemia type (CMS/HCC) Take 1 tablet (200 mg) by mouth in the morning and 1 tablet (200 mg) before bedtime. 90 tablet 1 03/13/2024 Active take 1 tablet by darnell th in the morning, then take 1 tablet by mouth at bedtime hydroxychloroquine (PLAQUENIL) 200 mg ta blet Take 1 tablet (200 mg total) by mouth in the morning and 1 tablet (200 mg total) before bedtime. Active Hydroxychloroqui ne Sulfate Active methylPREDNISolone 4 mg oral tablet (3 sources) Corticosteroid Start: 07-16-2022 methylPREDNISolone 4 MG as directed Orally for daily dose take half with breakfast, half with dinner for 6 days PRN Jun, Active metoprolol tartrate 50 mg oral tablet (8 sources) beta-Adrenergic Alondra Start: 04-20-2023 take 1 tablet by mouth in the morning metoprolol tartrate (Lopressor) 50 MG tablet Indications: Essential hypertension (CMS/HCC) Take 1 tablet (50 mg) by mouth in the morning and 1 tablet (50 mg) before bedtime. Take with food.. 200 tablet 3 04/20/2023 Active Metoprolol Succi nena Active omeprazole 40 mg delayed release oral capsule (3 sources) Proton Pump Inhibitor Start: 10-21-2022 Omeprazo le 40 MG 1 capsule 30 minutes before morning meal and evening meal Orally twice a day for 30 days Oct, Active omeprazole (PriL OSEC) [address] capsule 1 (one) time if needed Active omeprazole (PriL OSEC) 20 mg capsule Take 1 capsule (20 mg total) by mouth as needed. Active pantoprazole 40 mg delayed release oral tablet (6 sources) Proton Pump Inhibitor take 1 tablet by mouth every twelve hours Pantoprazole Sodium 40 MG 1 cap(s) orally TWICE A DAY for 30 days Active take 1 tablet by darnell th every twenty-four hours Pantoprazole Sodium 40 MG 1 cap(s) orall y qd Active predniSONE 5 mg oral tablet (2 sources) Start: 02-23-2023 take 1-2 tablets by mouth once daily predniSONE (Deltasone) 5 MG tablet TAKE 1 TO 2 TABLETS BY MOUTH ONCE DAILY IF NEEDED FOR RA FLARE 02/23/2023 Active rOPINIRole 0.5 mg oral tablet (8 sources) Nonergot Dopamine Agonist Start: 12-09-2023 rOPINIRole (Requip) 0.5 MG tablet Indications: Restless Leg Syndrome Take 1-2 tablets (0.5-1 mg) by mouth See administration instructions Take 1 tablet every morning and 1-2 tablets at bedtime 90 tablet 5 12/09/2023 Active take 2 tablets by mouth once george ly rOPINIRole (REQUIP) 5 mg tablet Take 2 tablets (10 mg total) by mouth nightly. Active Requip Active Problems Active Problems Problem Classification Problem Date Documented Da te Episodic/Chronic Abdominal pain (7 sources) Abdominal pain; Translations: [Unspecified abdominal pain] Onset: 2 Resolved: 2 Episodic Chronic kidney disease (2 sources) Chronic kidney disease stage 3A ; Translations: [Chronic kidney disease, stage 3a (HCC)] Onset: 3 11-22-2023 Chronic Chronic kidney disease (1 source) Chronic kidney disease; Translations: [Chronic kidney disease, stage 3a] Onset: 4 Coronary atherosclerosis and other heart disease (6 sources) Atherosclerotic heart disease of [place] coronary artery without angina pectoris; Translations: [Old myocardial infarction] Onset: 2 02-16-2023 Chronic Deficiency and other anemia (1 source) Anemia of chronic disease; Translations: [Anemia in other chronic diseases classified elsewhere] Onset: 3 02-16-2023 Chronic Disorders of lipid metabolism (2 sources) Pure hypercholesterolemia, unspecified; Translations: [Hyperlipidemia] Onset: 2 02-16-2023 Chronic Esophageal disorders (2 sources) Gastroesophageal reflux disease; Translations: [Gastro-esophageal reflux disease without esophagitis] Chronic Essential hypertension (4 sources) Essential (primary) hypertension; Translations: [Benign essential hypertension] Onset: 2 11-22-2023 Chronic Hypertension with complications and secondary hypertension (1 source) Hypertensive urgency ; Translations: [Hypertensive urgency] Onset: 3 02-16-2023 Chronic Influenza (1 source) Influenza due to other identified influenza virus with other respiratory manifestations Episodic Joint disorders and dislocations; trauma-related (1 source) Articular cartilage disorder of shoulder region; Translations: [Other articular cartilage disorders, right shoulder] Onset: 3 02-16-2023 Chronic Mood disorders (1 source) Major depressive disorder, single episode, unspecified; Translations: [KYLER DEPRESS D/O SINGLE EPIS UNS] Onset: 2 Chronic Osteoarthritis (2 sources) Primary generalized (osteo)arthritis; Translations: [Unspecified osteoarthritis, unspecified site] Onset: 2 Chronic Other aftercare (1 source) Other termite technician (current) drug therapy; Translations: [OTH [facility] CURRENT DRUG THERAPY] Onset: 3 Episodic Other disorders of stomach and duodenum [...] gas pain; Translations: [Abdominal distension (gaseous)] Episodic Other hereditary and degenerative nervous system conditions (1 source) Restless legs; Translations: [Restless legs syndrome] Onset: 3 02-16-2023 Chronic Other screening for suspected conditions (not mental disorders or infectious disease) (1 source) Encounter for screening for malignant neoplasm of colon; Translations: [Encounter for screening for malignant neoplasm of colon] Onset: 4 Episodic Residual codes; unclassified (6 sources) Early satiety; Translations: [Early satiety] Episodic Rheumatoid arthritis and related disease (10 sources) Rheumatoid arthritis with rheumatoid factor of multiple sites without organ or systems involvement; Translations: [Rheumatoid arthritis, unspecified] Onset: 2 Chronic Unclassified (1 source) meniscal tear Onset: 4 Past or Other Problems Problem Classification Problem Date Documented Da te Episodic/Chronic Calculus of urinary tract (1 source) Personal history of urinary calculi; Translations: [PERSONAL HISTORY OF URINARY CALCULI] Onset: 03-30-2022 Episodic Disorders of teeth and jaw (1 source) Periapical abscess without sinus; Translations: [PERIAPICAL ABSCESS WITHOUT SINUS] Onset: 03-30-2022 Episodic Other aftercare (1 source) skilled nursing (current) use of aspirin; Translations: [ALUMINUM SIDING INSTALLER CURRENT USE OF ASPIRIN] Onset: 03-30-2022 Episodic Other connective tissue disease (1 source) Tear of right rotator cuff; Translations: [Unspecified rotator cuff tear or rupture of right shoulder, not specified as traumatic] Onset: 02-16-2023 02-16-2023 Episodic Other connective tissue disease (1 source) Muscle pain; Translations: [Myalgia, unspecified site] Onset: 04-27-2023 04-27-2023 Episodic Other gastrointestinal disorders (1 source) Abdominal [...] Test Name Value Interpretation Reference Range Facility Drug Screen,Urineon 06-27-20 Amphetamine Screen,Urine Negative Normal Negative [facility] Comment on above: Performed By: #### U RDS #### [address] Barbiturate Screen,Urine Negative Normal Negative [facility] Comment on above: Performed By: #### U RDS #### [address] Benzodiazepines Screen,Urine Negative Normal Negative [facility] Comment on above: Performed By: #### U RDS #### [address] Cannabinoid Screen,Urine Positive High Negative [facility] Comment on above: Result Comment: Thes e are unconfirmed results and should not be used for legal purposes. Drug Cut-Off Concentration: AMPH 1000 ng/mL JOSÉ 200 ng/mL CHRISTIANO 200 ng/mL COCM 300 ng/mL OP 300 ng/mL PCP 25 ng/mL THC 20 ng/mL PERFORMED BY: [place] [address] PATHOLOGIST UPPER CUTTER MACHINE DEMARIO ESCOBEDO M.D. Performed By: #### U RDS #### [address] Cocaine Screen,Urine Negative Normal Negative [facility] Comment on above: Performed By: #### U RDS #### [address] Opiate Screen,Urine Negative Normal Negative [facility] Comment on above: Performed By: #### U RDS #### [address] Phencyclidine Screen,Urine Negative Normal Negative [facility] Comment on above: Performed By: #### U RDS #### [address] ALL CBC WITH AUTO DIFFon BASOPHILS ABSOLUTE AUTO 0.0 [facility] Basophils/100 WBC (Bld) 0.4 % 0.2 - 2.0 % [facility] Eosinophils/100 WBC (Bld) 0.8 % Low 0.9 - 7.0 % [facility] Erythrocyte distribution width (RBC) [Ratio] 13.2 % 11.0 - 15.0 % [facility] Hematocrit (Bld) [Volume fraction] 41.5 % Low 42.0 - 54.0 % [facility] Hemoglobin (Bld) [Mass/Vol] 14.0 g/dL 14.0 - 18.0 g/dL [facility] IMMATURE GRANULOCYTES ABS AUTO 0.04 High [facility] Immature granulocytes/100 WBC (Bld) 0.5 % 0.0 - 0.5 % [facility] Interpretation and review of laboratory results [facility] LYMPHOCYTES ABSOLUTE AUTO 1.8 [facility] Lymphocytes/100 WBC (Bld) 24.5 % 20.5 - 60.0 % [facility] MCH (RBC) [Entitic mass] 30.1 pg 25.9 - 34.0 pg [facility] MCHC (RBC) [Mass/Vol] 33.7 g/dL 29.9 - 35.2 g/dL [facility] MCV (RBC) [Entitic vol] 89.2 fL 80.0 - 94.0 fL [facility] MONOCYTES ABSOLUTE AUTO 0.6 [facility] Monocytes/100 WBC (Bld) 8.4 % 1.7 - 12.0 % [facility] NEUTROPHILS ABSOLUTE AUTO 4.8 [facility] Neutrophils/100 WBC (Bld) 65.4 % 43.0 - 75.0 % [facility] Platelet mean volume (Bld) [Entitic vol] 9.6 fL 9.5 - 13.5 fL [facility] TBH EO # 0.1 [facility] PLT 242 [facility] TB RBC 4.65 Low [facility] TB WBC 7.3 [facility] APTTon 11-24-2023 aPTT Coag (PPP) [Time] 34 s [facility] Comment on above: NEW REFERENCE RANGE BASIC METABOLIC PANLon 11-23 Anion gap [Moles/Vol] 8 mmol/L Normal 5-15 [facility] Comment on above: Performed By: #### P INR, 19834-2 #### [facility] ([id number]) [address] [place] [address], [place] [address] #### 718-7, [facility] #### [facility] ([id number]) [address], [address] [place] [address] Calcium [Mass/Vol] 9.4 mg/dL Normal 8.5-10.5 [facility] Comment on above: Performed By: #### P INR, 43435-8 #### [facility] ([id number]) [address] [place] [address] #### 718-7, BMP #### [facility] ([id number]) [address], [address] [place] [address] Chloride [Moles/Vol] 102 mmol/L Normal 98-109 [facility] Comment on above: Performed By: #### P INR, 64107-9 #### [facility] ([id number]) [address] [place] [address] #### 718-7, BMP #### [facility] ([id number]) [address], [address] [place] [address] CO2 [Moles/Vol] 29 mmol/L Normal 22-32 [facility] Comment on above: Performed By: #### P INR, 27199-2 #### [facility] ([id number]) [address] [place] [address] #### 718-7, BMP #### [facility] ([id number]) [address], [address] [place] [address] Creatinine [Mass/Vol] 1.17 mg/dL Normal 0.60-1.30 [facility] Comment on above: Result Comment: METH OD TRACEABLE TO IDMS STANDARD Performed By: #### P INR, 88759-0 #### [facility] ([id number]) [address] [place] [address] #### 718-7, BMP #### [facility] ([id number]) [address], [address] [place] [address] GFR/1.73 sq M.predicted among non-blacks MDRD (S/P/Bld) [Vol rate/Area] 69 mL/min/{1.73_m2} Normal >59 [facility] Comment on above: Result Comment: Reported eGFR is based on the CKD-EPI 2020 equation that does not use a race coefficient. Performed By: #### P INR, 01904-4 #### [facility] ([id number]) [address] [place] [address] #### 718-7, BMP #### [facility] ([id number]) [address] [place] [address] Glucose [Mass/Vol] 92 mg/dL Normal 65-99 [facility] Comment on above: Performed By: #### P INR, 32355-2 #### [facility] ([id number]) [address] [place] [address] #### 718-7, BMP #### [facility] ([id number]) [address], [address] [place] [address] Potassium [Moles/Vol] 4.1 mmol/L Normal 3.5-5.0 [facility] Comment on above: Performed By: #### P INR, 29618-2 #### [facility] ([id number]) [address] [place] [address] #### 718-7, BMP #### [facility] ([id number]) [address], [address] [place] [address] Sodium [Moles/Vol] 139 mmol/L Normal 134-146 [facility] Comment on above: Performed By: #### P INR, 32668-0 #### [facility] ([id number]) [address] [place] [address] #### 718-7, BMP #### [facility] ([id number]) [address], [address] [place] [address] Urea nitrogen [Mass/Vol] 24 mg/dL Normal 5-27 [facility] Comment on above: Performed By: #### P INR, 71814-0 #### [facility] ([id number]) [address] [place] [address], [place] [address] #### 718-7, BMP #### [facility] ([id number]) [address] [facility] [place] [address] Basic Metabolic Panelon Anion gap [Moles/Vol] 8 mmol/L 5 - 15 mmol/L [facility] Calcium [Mass/Vol] 9.4 mg/dL 8.5 - 10. 5 mg/dL [facility] Chloride [Moles/Vol] 102 mmol/L 98 - 109 mmol/L [facility] CO2 [Moles/Vol] 29 mmol/L 22 - 32 mmol/L [facility] Creatinine [Mass/Vol] 1.17 mg/dL 0.60 - 1.30 mg/dL [facility] Comment on above: METHOD TRACEABLE TO IDOH STANDARD eGFR (CKD-EPI)non-race dependent 69 - PINF [facility] Comment on above: Reported eGFR is based on the CKD-EPI 2020 equation that does not use a race coefficient. Glucose [Mass/Vol] 92 mg/dL 65 - 99 mg/dL [facility] Potassium [Moles/Vol] 4.1 mmol/L 3.5 - 5.0 mmol/L [facility] Sodium [Moles/Vol] 139 mmol/L 134 - 146 mmol/L [facility] Urea nitrogen [Mass/Vol] 24 mg/dL 5 - 27 mg/dL [facility] ECG 12 leadon 11-24-2023 TRACEMASTERVUE [facility] HEMOGLOBINon 11-24-2023 Hemoglobin (Bld) [Mass/Vol] 14.0 g/dL Normal 13.0-17.0 [facility] Comment on above: Performed By: #### P INR, 81663-1 #### [facility] ([id number]) [address] [place] [address] #### 718-7, BMP #### [facility] ([id number]) [address], [address] [place] [address] Hemoglobinon 11-24-2023 Hemoglobin (Bld) [Mass/Vol] 14.0 g/dL 13.0 - 17.0 g/dL [facility] Hemoglobin (Bld) [Mass/Vol]o n 11-24-2023 [facility] No Panel Informationon 11-23 [facility] PROTIME AND INRon 11-24-2023 INR Coag (PPP) [Relative time] 1.0 {INR} Normal 0.8-1.1 [facility] Comment on above: Performed By: #### P INR, 56080-4 #### [facility] ([id number]) [address] [place] [address] #### 718-7, BMP #### [facility] ([id number]) [address], [address] [place] [address] PT Coag (PPP) [Time] 11.5 s Normal 9.8-13.2 [facility] Comment on above: Result Comment: NEW REFERENCE RANGE Performed By: #### P INR, 00201-5 #### [facility] ([id number]) [address] [place] [address] #### 718-7, BMP #### [facility] ([id number]) [address], [address] [place] [address] Protime & INRon 11-24-2023 INR Coag (PPP) [Relative time] 1.0 {INR} [facility] Coag (PPP) [Time] 11.5 s [facility] Comment on above: NEW REFERENCE RANGE XR CHEST 2 VWSon 11-24-2023 XR CHEST 2 VWS XR CHEST 2 VWS History: [Hypertension. Preoperative] Frontal and lateral chest radiographs demonstrate [that the heart, mediastinum, bryn, and lungs are grossly unremarkable. There is no pneumothorax or obvious pleural effusion.] Impression: [Unremarkable chest radiographs, unchanged since 06/21/2016.] 7 Finalized by Stuart Gaitan MD on 11/24/2023 5:33 PM Normal [facility] XR Chest PA and Lateralon History: [Hypertension. Preoperative] Frontal and lateral chest radiographs demonstrate [that the heart, mediastinum, bryn, and lungs are grossly unremarkable. There is no pneumothorax or obvious pleural effusion.] Impression: [Unremarkable chest radiographs, unchanged since 06/21/2016.] 7 Finalized by Stuart Gaitan MD on 11/24/2023 5:33 PM SECTRADae Wilkes MD - 11/24/2023 History: [Hypertension. Preoperative] Frontal and lateral chest radiographs demonstrate [that the heart, mediastinum, bryn, and lungs are grossly unremarkable. There is no pneumothorax or obvious pleural effusion.] Impression: [Unremarkable chest radiographs, unchanged since 06/21/2016.] 7 Finalized by Stuart Gaitan MD on 11/24/2023 5:33 PM [facility] Radiology Study observation (narrative) [facility] XR Chest PA and LateralOrder ed By: Dae Gaitan on 11-24-2023 [facility] Work Phone: aPTT Coag (PPP) [Time]on aPTT Coag (Bld) [Time] 34 s Normal 26-37 [facility] Comment on above: Result Comment: NEW REFERENCE RANGE Performed By: #### P INR, 80269-4 #### [facility] ([id number]) [address] [place] [address], [place] [address] #### 718-7, [facility] #### [facility] ([id number]) [address] [place] [address] MR KNEE LEFT WO IV CONTRASTo n 10-31-2023 MR KNEE LEFT WO IV CONTRAST [...] Comment: MRI L T knee w/o at [facility]. Orbits if needed. Please contact pt to schedule. Coding Summaryon 01-13-2023 Coding Summary HTMLBase 64 RlmjbrggVLw0iCn+PGh lYWQ+JU7QKUFkE19tiT GtkX5qT0ZARTeECyfyA LZZCOdYGsYimjUqUH8j aXNjZXJu IC8+PV1kOBUdZupowOM cd4A5yXR8G45eul5lGO leySO2UKQoZyPdrojgo 8jeyZs5CPewGixqXpKg WXToaV30ANC4xO38Aj8 2iHKxmDHvd0qezZc7Oy DjWRPcPQD9xTfaWTldu 7YcEBZyB30wtYUut7V4 IGNvbGxhcHNlOyBlbXB 3sR1oKGgcdnvwp4qnal bfQql4qb78fCUaf7Y8f GV8F6XvocD1JLTunKLb IfzjgDDBhC7lyrgig6g ggtavWdCwNAHsHFw2GN u4JGXotGtfTcTbON96B RF2RPEtfjUgF2CsOLWx cKwxNdS7h1T3Ob0UH5G AEhsjJ2ZFALJXQAfocI Q+AS13xb43W8TjKtuuP yq0BJBmICY1xPC0yB0f OZDzNSvrj9L7eXO2A1E lylMnkk0vl0efDMUjLL fmH19hcHRbf7J2XQXng CS8YXLnhSczVwNpmB20 Oyc+FGNplWgef0CoXyp uh8dpx5khhFz4KhlzLE EqenDlsIpiFXY2l3GeK w4pHOTjuSO6gQJ4eB2z SpMhNlP1EPrwD912FiF tnYLwKslxG50mV0KfsO A+BZExRjz1VWEutIzkL L3eH7VzBUMayxsteFFn fXbqSZ6oTXQyscgnDOF nzF7nJNEsB5x4FmAaZe H9FUniJ4UxLTIskfagQ v67fU0uRnIfEyA4RRgi F9LoukL2XJOejIVeGNg rHBD4W18qv0O8JMUpTD DkFXM6fRD5eG9lcCzyt jogbGVmdDsgdmVydGlj KSfyWLiiV975NNFctLa nPkNvZGluZyBEYXRlOi AgMDYvMjkvMjAyMzwvd GQ+WUYbIJO5cEnkRYMw dAJtVJgeYw0siZvweSt tJD5jZAEsqbdbFIFdaX 1kOTVatVBwnLqqOX1kD YXdtmphj089RgKiIMC6 CFGazOYsJ7UsmZ0wHsW qGIAhZLEgD9HdpYVqPV pcK121QUoiFuB4ISJmz xFfN1DcOEEgkZiiDeJ7 a1D4Ep9Um5MbkyqyY5V fiJHhOrCvWlxvYMt8G5 RkPjwvdHI+IW73STOkQ O52DRn5ZOO5aWuwPMjx GROkM3GdsG7vHcTbGXK kZGRkOyc+PHRhYmxlIH dpZHRoPScxMDAlJyBzd UqkXV7bNz4cNXZvAVFl bKwwsKDeNbTcy7fxRBR cJJejAI9enAknX5AfjQ X1CVHtx1x7Aw21C57fK 3JvdXA+QJUcdQO2tFL5 dJ7oGiZjMiX1DWyyA40 8DdPsoSNrSbeyx6wwy1 dweLe3MrY3MDOyayGfd UfaLHW9s9YtLy28Q53b IHdpZHRoPSIxNSUiIHZ vvUrylc6oqG7uDk2+PG VcfPO5uXX5zB2fPaIeB zS0JZwuH408CpHebHOn Vcatu3kto4isxHz0YaN fJEZrfpSxcPczMWJ4i1 ZaBz23Q3DaxVcsw6UnR bn2bx25iCIor2E9kPS4 R0KuZHSpgohveJBowOn eKW5sXKIsxwheKNAuoR 8fGJUxW3j4OeYfQaE3X CqgT4TxejF3IKKnuMMi YFOrgJDDxK4pagsvi7g xjjppHwVwPZZlRWi2UH d9BFLwkUguQmXyCLZ1Y sN0BMJ7ySCugU8gaOiz dxokuF3aEny+NQD6xMS aaCGTWW9pQrlrsRW+PH AbVLH6eSsyLNtsSIYtm U2rKQNdL5m9GrCgOhY4 YUueK7FaexD5PWAkqKC pMSUmxEOHdE2fsvcax2 dehvdgWoIsAHKuPVr7U Ej9RIChsOjcCxJbMDX2 XwL1ZTC5iYYacS0wrVy iovwivS4qEry+QmlydG brWTY8UFn9Q0GyEco0K SUewEusKJ2aqTFoQVzi Qt6byJcffFznNU5uLFI relnbz581UcJfy5ciEG CvqTLfWVkeGPB5R11oj 6L6SSBdPPKsMGJ9dLV7 cX3vaLsnocpibRYxoAz gdmVydGljYWwtYWxpZ2 26NTZxeLhvUfWtHMw6C 8YmFmr3JOQvkDzyMM8k eZMeJTmkWm1rtQpxqYa xHH6bSYQsdbjiw781Wr Kra4gfXZNgsKBeLJdmG DQ0N88ap8W4SGLfYGSe OBL7zKE0fJ2aeHzysii gbGVmdDsgdmVydGljYW zkPZymK849CXYlsGdvS cCiqSm6B8SaUkg0EUEy mGeuLJ5uxXFlZWupEc9 icAxbhGheGN0rVSGkih mms587QvIgu5xrZZMfa CBaBAjsJHX4Q56dg4L3 ODQbIHAkGEK3kVK7cP0 hbGlnbjogbGVmdDsgdm BcbEpzZPkoRKyfO407Z HRvcDsnPlBhdGllbnQg LEjdPUd1P1WuWnwzkHK +YE70UXNvGU35tJWuoU Ggs1jpgZq6DsUaHXRnX KA6aOhpWXxsa0ZgVDUh Q23heHWjk2H3KIEhmPx lpKRdCnHxoTM0bP8aTR rltxmei0mwsibeMprnr 0ctll16rB40M13oSOim ZHRoPSIzMCUiIHZhbGl egm9jdQ1yGh4+PGNvbC T2kCJ4uX4wIBIiOjG7I EzxQ575PfUsaOGgIgoe l8bhj6ghyFe8FqE0HXB eouRjoZavCIF2j0OqSo 67C25lXXonNFTpCMBoS MMoSALwmMlmho7puB7d Ii8+JGZprAV3qMO1eE9 mIsQvVfU5OLnxG779Zr WpjCBvTnwnE97nQ7Hxj XA+DOKyXxn6KTMswGip RV8edOJeCXtuMm0hFSN 2XmTcTzRyOQktW1GaVG WrrqjactglrDA5XEHaU WIvgS59Fy2qcQdhRAIc eRTTnT1hzquto5oesui qLzCzFDBvVDh4HYe9LH GpsKrtEjXkWLO5RkL0U FV0pQUmoQ7exPnshpki zP9yA8UtAEGyaaupRw1 9pD3cRwJxBeM2INcnHc c+MxCVDxeOO2AtDfUvN VWPIgLLTKQMNZ87AV59 pRIzg8X7uBV8M4CpWAK pvrplarptdBX1MLIvNZ SslO96iHIcUTrgUq7nx 7P8d167YPTkFBOilV26 Uo9ztXujBIJlbYESsY3 fuyvcn0bdnesuJyIdGB VvKWg2HIw3ZEDwzWvuG wDeZMS2WqI9GTJ0iJPf bF8hsMqzbkhtnK4dWwk +YQSeIRupOAl7IBxprA Q+XOIbAKU0zKvbTBbsI HJxlL2kZWSyA5y0XmVp QbA1RStaD6MhTGUdrdh iMe62gP5lWcHjZzA7ZI hbL4NnkkQ5HMSapSWkL TzuBVQ5E13ek7C2BBOm LLCkFCY8rAF0jK2qbBy nbjogbGVmdDsgdmVydG wsQSpoCAcjX694BHTqc HctKpD8XHhuQXYvQL43 OP00eRQbf2I5qPA8Q1T yENQuoowookoxrFO6ER BtTLXqkO04vAOyZSfuT x9br4O7a688YYIbTMBg dC22Gw0rgJzgJQYagYY HwV4awixmh1farifnXj YiMKAmFWe9CUi7ACEdu OwyUoPmOPE6ZzC0RGN6 vTWpwJ0vwApdjtlcmR9 wOyc+TUFMRTwvdGQ+PH QoMWK9pKoyLVklESZuy H6bTAJsZ1g4UqSzOeO8 MOtvT0KrHOMbicifMq9 4iX0dOnWhCgJ0BHwhZ3 IxurH6PTTokXPjSQhaS TV8L57yw9S3IBYqAMUi TDC1sVQ3hJ5yaTfxfve gbGVmdDsgdmVydGljYW uzNNztS428XONiiDtrB tGrULXiAW7rdLvvgDO+ AC62sa47Z1BxDpbjHsh 7IXOdFXB0kMS0kI7hAL HjRZxzt9R5mBN0P4Dsd xPpcz0cd8csBFPcYJhl M18eaJAzy9Y3BXMipZE 7OQEilRvmBgLwnA34Dh c+UGGpyPjmj2VtUfbpt 3yac4rhmGx9XwQiEVJv lvAckSanMBR8o9GcZs3 7G67jSNnoAZReVMHpKC NoQQYbyGwekk8vyB1dM i8+LNInlDW6nZF4iY0q FhSsQxY9JNqgQ350QzB woDWbDmblx5cup5tyjO x5YfHeGEOdjxIanZduL GX9w0TdDp42V2QzpAhc k3ClCes9tr26zMBzx2I 8uKW3D1CbHUBnbghwkH NcyXrzBQ7pYDKsooflQ XAzbO0aYRFaW9k0SkXi PcB8FJvgH5MdvlO6VUJ lcRXfDOHmiISZzY9yvz sio4khycrpUbEmSJQlG Pt4TLx8AWVmpIcvEhYb QAO8WmX5WVX1pRPywU4 ntSyhbrfpkV9mZml+UG s6i0jscLBmSL4gyKW5I I57PC29lMMtc6N4uMQ0 W9UyRYLnopojfefbvCY 7UAUdZAIvrT97On9xsF fwEz8mUFZgULK6XUYav LVjK1PnaJ9gNwTkBEWy GCHvK7VbbFZqLXlxW93 7HAcrEqQ3AMXediIlN8 JxXVNasDkmUdF0d6R3J i3HQB09LG85EQ29yBUh x8G4sJK4F3UmXAByjzn wbwslvUT6THWwAYUwwB 96Lj9hpOiuWi0dQBBqW BZ7CAGfaVZaC0AysG1h AnXoSBTqTPYxP7KrtMU xHVncZ313IYnyLfI2DB SrbbXrB1HlBLOekArkC kC5i8X1Dy5NNi46SW06 WC25lCQyj4P5qSU3Y7H tWPIjdkfiwkncwEC6SI WqENMzrL61Xb4kiRykU s3hABNvQKR3LPScsFLs F9BlvR8eGvLnGLVoKKR cV4GxjMDwYFcyW210TA hcEmR4SHUlkpDhB2DpZ NQinUulOlS1z1H7Ak1Z HKgmgix1I8XfNjquyVK +QU78QUKbUZ17dFDetX Fqj7taxSd3VmGdKPNeD ZY0uPrwSBplz1GxJQTb Y29 (more content not included)... [facility] C Urineon 01-10-2023 C Urine Urine Culture ordered as a result of parameters set on specific urine dip and urine microsopic results. <10,000 cfu/ml [facility] Comment on above: Performed By: #### 1 [id number], [id number], [id number] #### [facility] (DEFAULT) [address] [place] [address] .Auto Diff 01-08-2023 Auto [place] % 3 % Normal 1-12 [facility] Comment on above: Performed By: #### 1 [id number], [id number], 8509822504, 0491846, 6381679 ####[facility] (DEFAULT)[address] [place] [address] Baso Abs# 0.1 x10 Normal 0.0-0.2 [facility] Comment on above: Performed By: #### 1 5597732, 1986283095, 3805894972, 5377470, 2196607 ####[facility] (DEFAULT)[address] [place] [address] Basophils/100 WBC (Bld) 0.7 % Normal 0.2-2.0 [facility] Comment on above: Performed By: #### 1 8746033, 7022446912, 4510547648, 7260750, 9003109 ####[facility] (DEFAULT)[address] [place] [address] Eos Abs# 0.0 x10 Normal 0.0-0.4 [facility] Comment on above: Performed By: #### 1 0345772, 0873418114, 3379289970, 0410519, 5025519 ####[facility] (DEFAULT)[address] [place] [address] Eosinophils/100 WBC (Bld) 0.2 % Low 0.9-4.0 [facility] Comment on above: Performed By: #### 1 2831097, 3727209471, 2038559936, 6885531, 7115977 ####[facility] (DEFAULT)[address] [place] [address] Lymph Abs# 1.1 x10 Low 1.3-2.9 [facility] Comment on above: Performed By: #### 1 3126578, 4932440969, 4524507334, 1289743, 5078297 ####[facility] (DEFAULT)[address] [place] [address] Lymphocytes/100 WBC (Bld) 9 % Low 14-48 [facility] Comment on above: Performed By: #### 1 7134544, 6333838159, 4363851678, 1265348, 8090409 ####[facility] (DEFAULT)[address] [place] [address] [place] Abs# 0.4 x10 Normal 0.0-0.8 [facility] Comment on above: Performed By: #### 1 3215300, 0265654852, 6680211375, 3565359, 6666085 ####[facility] (DEFAULT)[address] [place] [address] Neut Abs# 11.1 x10 High 1.5-9.2 [facility] Comment on above: Performed By: #### 1 3108417, 7743340412, 8762160825, 7122777, 3072573 ####[facility] (DEFAULT)[address] [place] [address] Neutrophils/100 WBC (Bld) 87 % Normal 44-88 [facility] Comment on above: Performed By: #### 1 6676415, 7563572025, 8090823202, 6872853, 0720713 ####[facility] (DEFAULT)[address] [place] [address] CBC w/ Auto Diffon 3 Erythrocyte distribution width (RBC) [Ratio] 13.4 % Normal 11.5-15.0 [facility] Comment on above: Performed By: #### 1 9749494, 2111107025, 7828971859, 2900122, 2483340 ####[facility] (DEFAULT)[address] [place] [address] Hematocrit (Bld) [Volume fraction] 41.4 % Normal 34.8-51.9 [facility] Comment on above: Performed By: #### 1 7628997, 4170880904, 5761283395, 9267427, 4646754 ####[facility] (DEFAULT)[address] [place] [address] 61608 Hemoglobin (Bld) [Mass/Vol] 14.2 g/dL Normal 11.8-17.7 [facility] Comment on above: Performed By: #### 1 6319448, 5585917416, 0567538790, 1229329, 4328246 ####[facility] (DEFAULT)[address] [place] [address] Man Diff? Auto Invalid Interpretation Code Comment on above: Performed By: #### 1 3501988, 1979824628, 0806691203, 0868488, 1935864 ####[facility] (DEFAULT)[address] [place] [address] 26751 MCH (RBC) [Entitic mass] 30 pg Normal 24-34 [facility] Comment on above: Performed By: #### 1 3916428, 0519549490, 8438843180, 1068478, 9615604 ####[facility] (DEFAULT)[address] [place] [address] 00397 MCHC (RBC) [Mass/Vol] 34 g/dL Normal 26-37 [facility] Comment on above: Performed By: #### 1 6303322, 9519646419, 4959305993, 4434534, 4999335 ####[facility] (DEFAULT)[address] [place] [address] 66779 MCV (RBC) [Entitic vol] 88 fL Normal 81-100 [facility] Comment on above: Performed By: #### 1 7781427, 8236880481, 9907338737, 8631461, 6683801 ####[facility] (DEFAULT)[address] [place] [address] 88442 Platelet 182 x10 Normal 138-427 [facility] Comment on above: Performed By: #### 1 7219457, 6596231994, 7534082244, 6786655, 1818731 ####[facility] (DEFAULT)[address] [place] [address] 05138 Platelet mean volume (Bld) [Entitic vol] 8.5 fL Normal 6.3-10.2 [facility] Comment on above: Performed By: #### 1 4806745, 7430176621, 0117364107, 6266056, 8216560 ####[facility] (DEFAULT)[address] [place] [address] RBC 4.69 x10 Normal 3.70-5.30 [facility] Comment on above: Performed By: #### 1 6082394, 7876939834, 0004215549, 6574638, 2749922 ####[facility] (DEFAULT)[address] [place] [address] WBC 12.7 x10 High 3.5-10.5 [facility] Comment on above: Performed By: #### 1 7173002, 6790805845, 4871440428, 6542481, 1432763 ####[facility] (DEFAULT)[address] [place] [address] Standardon 01-08-2023 eGFR Non AA 55 mL/min/1.73m2 Invalid Interpretation Code Comment on above: Performed By: #### 1 5341285, 0194371230, 4525993955, 6502672, 8271323 ####[facility] (DEFAULT)[address] [place] [address] eGFR AA >60 Invalid Interpretation Code Comment on above: Performed By: #### 1 6784501, 3521563537, 0706539061, 9173456, 0787377 ####[facility] (DEFAULT)[address] [place] [address] 83973 Albumin [Mass/Vol] 4.5 g/dL Normal 3.5-5.0 [facility] Comment on above: Performed By: #### 1 3421838, 6238229853, 7310642934, 6196199, 9421808 ####[facility] (DEFAULT)[address] [place] [address] 59606 Albumin/Globulin [Mass ratio] 1.5 {ratio} Normal 1.4-2.6 [facility] Comment on above: Performed By: #### 1 1534264, 5894056273, 3959914084, 8354167, 4397072 ####[facility] (DEFAULT)[address] [place] [address] 45993 Alk Phos 81 IU/L Normal 32-91 [facility] Comment on above: Performed By: #### 1 4471204, 4368832502, 3188837302, 4743822, 3247058 ####[facility] (DEFAULT)[address] [place] [address] 22217 ALT [Catalytic activity/Vol] 21.0 U/L Normal 17.0-63.0 [facility] Comment on above: Performed By: #### 1 4244232, 8636743925, 9793534683, 7547693, 5237463 ####[facility] (DEFAULT)[address] [place] [address] 53179 Anion gap [Moles/Vol] 16.6 mmol/L Normal 5.0-19.0 [facility] Comment on above: Performed By: #### 1 4758277, 0849053760, 4220002601, 9428039, 7815225 ####[facility] (DEFAULT)[address] [place] [address] 31854 AST [Catalytic activity/Vol] 23 U/L Normal 15-41 [facility] Comment on above: Performed By: #### 1 6681112, 7676501820, 0739803370, 1171322, 4886437 ####[facility] (DEFAULT)[address] [place] [address] 17011 Bili Total 0.9 mg/dL Normal 0.3-1.2 [facility] Comment on above: Performed By: #### 1 1502393, 9779869408, 5416678597, 1996615, 6136464 ####[facility] (DEFAULT)[address] [place] [address] 33443 Calcium [Mass/Vol] 9.6 mg/dL Normal 8.9-10.3 [facility] Comment on above: Performed By: #### 1 7713392, 9857682090, 0691184949, 2792755, 3060091 ####[facility] (DEFAULT)[address] [place] [address] 16213 [place] [Moles/Vol] 103 mmol/L Normal 101-111 [facility] Comment on above: Performed By: #### 1 9504335, 9398902065, 4449531247, 6598106, 8630795 ####[facility] (DEFAULT)[address] [place] [address] 99893 CO2 [Moles/Vol] 26 mmol/L Normal 21-32 Comment on above: Performed By: #### 1 8911682, 6698527095, 9796312949, 7025966, 0546020 ####[facility] (DEFAULT)[address] [place] [address] 82490 Creatinine [Mass/Vol] 1.30 mg/dL Normal 0.90-1.30 [facility] Comment on above: Performed By: #### 1 9057250, 3189106276, 3621434835, 7501138, 2899424 ####[facility] (DEFAULT)[address] [place] [address] 16484 Globulin (S) [Mass/Vol] 2.9 g/dL Normal 1.5-4.3 [facility] Comment on above: Performed By: #### 1 6887102, 9359514633, 3097498576, 7235300, 2867601 ####[facility] (DEFAULT)[address] [place] [address] 60846 Glucose [Mass/Vol] 115.0 mg/dL Normal 74.0-118.0 [facility] Comment on above: Performed By: #### 1 4000323, 1268266422, 7725027995, 3012724, 6764807 ####[facility] (DEFAULT)[address] [place] [address] 66621 Osmolality 283 mOsm/L Invalid Interpretation Code Comment on above: Performed By: #### 1 4422636, 9515474750, 8097427779, 5220664, 2970356 ####[facility] (DEFAULT)[address] [place] [address] 91340 Potassium [Moles/Vol] 4.6 mmol/L Normal 3.6-5.1 [facility] Comment on above: Performed By: #### 1 8577733, 1950696774, 4856668124, 7417015, 1502046 ####[facility] (DEFAULT)[address] [place] [address] 01174 Protein [Mass/Vol] 7.4 g/dL Normal 6.5-8.1 [facility] Comment on above: Performed By: #### 1 5617288, 9847453214, 5094625641, 5391836, 8286589 ####[facility] (DEFAULT)[address] [place] [address] 49533 Sodium [Moles/Vol] 141.0 mmol/L Normal 136.0-144.0 [facility] Comment on above: Performed By: #### 1 3744587, 7323669898, 7899542543, 7993455, 8426692 ####[facility] (DEFAULT)[address] [place] [address] 05273 Urea nitrogen [Mass/Vol] 16 mg/dL Normal 8-26 [facility] Comment on above: Performed By: #### 1 7585624, 7244773094, 2114601445, 7140168, 1872426 ####[facility] (DEFAULT)[address] [place] [address] 67561 Urea nitrogen/Creatinine [Mass ratio] 12.3 mg/mg Normal 4.6-16.2 [facility] Comment on above: Performed By: #### 1 2883648, 6474301739, 8139375913, 9261417, 5664836 ####[facility] (DEFAULT)[address] [place] [address] Abdomen/Pelvis w/o Contra hola 01-08-2023 CT Abdomen/Pelvis w/o Contrast _CLINICAL HISTORY: [...] All CT scans at this facility's dose modulation,iterativ e reconstruction, and/or weight-based dosing when appropriate to reduce radiation dose to as low as reasonably achievable. Final Signed (Electronic Signature): Chapito Mckeon MD 01/08/23 11:11 a Technologist: [facility] ED Clinical Summaryon 2022 ED Clinical Summary - Emergency Department [address] [place] [address] ED Clinical Summary PERSON INFORMATION Name: DARLEEN GOODMAN Age: 63 Years Sex: MALE : 1960 MRN: Acct#: Visit Reason: Urinary retention; Flank pain; Nausea and vomiting; VOMITING, ABD PAIN Arrival: 01/08/2023 09:11:18 Discharge: 01/08/2023 12:38:00 LOS: 000 03:27 Check In: 01/08/2023 09:11:18 Checkout:01/08/2023 12:38:00 Address: [address] [place] [address] PCP: WALDO MONTGOMERY MD PROVIDER INFORMATION Provider Role Assigned [...] Home PATIENT EDUCATION INFORMATION Instructions: Kidney Stones, Uwif-bm-Mnvl Follow-Up: With: Address: When: Roland aCrrington [address] [place], [place] [id number] [facility] (1) Within 3 to 5 days With: Address: When: WALDO MONTGOMERY [address] [place], [place] [address] [facility] () Within 3 to 5 days DIAGNOSIS: Ureteral calculus, right Patient Understands: Yes - Patient/family/patient care secretary verbalizes understanding of instructions given Comment: [facility] ED Note - Physicianon 2022 ED Note - Physician Patient: DARLEEN GOODMAN Jr Age: 63 years Sex: MALE : [...] or axis deviation to suggest an acute PA. An IV was started saline bolus was [...] has access to a urologist in the [facility] and I recommended further follow-up with him. I will provide the patient Sophia, and Flomax. I recommended that he strain his urine. Care instructions were discussed with the patient prior to discharge and he voiced understanding. Impression and Plan Diagnosis Ureteral calculus, right ([id number] N20.1, Discharge, Medical) Plan Condition: Improved. Disposition: Discharged: Time 01/08/2023 12:03:00, to home. Prescriptions: Launch prescriptions Pharmacy: acetaminophen-hydro codone 300 mg-5 mg oral tablet (Discontinue): 1 tab(s), PO, q6hr, PRN: for pain, 12 tab(s), 0 Refill(s) acetaminophen-hydro codone 325 mg-5 mg oral tablet (Prescribe): 1 tab(s), PO, q6hr, PRN: as needed for pain, 12 tab(s), 0 Refill(s), Launch Meds List Medications reviewed.. Patient was given the following educational materials: Kidney Stones, Hhie-th-Hcsy, Kidney Stones, Syiw-an-Tgfw. Follow up with: WALDO MONTGOMERY Within 3 to 5 days; Roland Carrington Within 3 to 5 days. Counseled: Patient, Regarding diagnosis, Regarding diagnostic results, Regarding treatment plan, Regarding prescription, Patient indicated understanding of instructions. [Electronically Signed on: 01/08/2023 15:13 EDT] __ Chino Moses MD [Verified on: 01/08/2023 15:13 EDT] __ Chino Moses MD Normal ED Patient Summaryon 023 ED Patient Summary - Emergency Department [address] [place] [address] PATIENT DISCHARGE INSTRUCTIONS Patient Information Name: DARLEEN GOODMAN Age: 63 Years Date of : 1960 Reason For Visit: Urinary retention; Flank pain; Nausea and vomiting; VOMITING, ABD PAIN Arrival Time: 01/08/2023 09:11:18 Primary Care Physician: WALDO MONTGOMERY MD Attending Physician: Chino Moses Comment: Visit Diagnosis: Diagnoses This Visit Flank pain ([id number]) Nausea and vomiting ([id number]) Ureteral calculus, right (N20.1) Urinary retention ([id number]) The Pharmacy at [facility] is open Tuesday through Tuesday from 9A [...] alcohol and/or drug addiction problems; contact the [facility] 07/02 Crisis Hotline -Text [id number] [phone]. If you received any narcotics, sedation, or [...] legal documents With: Address: When: Roland Carrington [address] [place] [address] [place] [address] Business (1) Within 3 to 5 days With: Address: When: WALDO MONTGOMERY [address] [place] [address] Business (1) Within 3 to 5 days Medication Information: The exam and treatment you received today in the [facility] Emergency Department were for an urgent problem and are not intended as complete care. It is important for you to follow up with a doctor, nurse practitioner, or physician?s construction project assistant for ongoing care. If your symptoms [...] so we can reach you if necessary. Emergency Department has provided you with a complete list of medications post discharge. Please inform your primary school teacher librarian/provider of your visit and for further instruction on these medications. Any specific questions regarding your chronic medications and dosages should be discussed with your primary care physician(s) and/or pharmacist. New Medications [id number], [address] [place], [place] [id number], [phone] acetaminophen-hydro codone (acetaminophen-hydr ocodone 300 mg-5 mg oral tablet) 1 tab(s) [...] Visit Height/Length (more content not included)... Normal Extra Blueon 01-08-2023 Tube Collected Yes Invalid Interpretation Code Comment on above: Performed By: #### 1 [id number], [id number] ####[facility] (DEFAULT)[address] [place] [address] Lipaseon 01-08-2023 Lipase Level 33.0 IU/L Normal 22.0-51.0 [facility] Comment on above: Performed By: #### 1 [id number], [id number], 4426470386, 7488932, 6691068 ####[facility] (DEFAULT)[address] [place] [address] 68274 Progress Note - Nurseon 12-17 Progress Note - Nurse Patient arrives to ER with complaint of right sided flank pain. Rates pain 04/26. Believes he has a kidney stone [Electronically Signed on: 01/08/2023 09:51 EDT] __ Ramon Ayon RN [Verified on: 01/08/2023 09:51 EDT] __ Ramon Ayon RN Normal TnI HSon 01-08-2023 Troponin I High Sensitivity 5.0 pg/mL Normal <=20.0 [facility] Comment on above: Performed By: #### 1 9783968, [id number], 2397392044, 6126531, 8651553 ####[facility] (DEFAULT)[address] [place] [address] UA Iplvy9be 01-08-2023 UA Bacteria Trace Normal [facility] Comment on above: Order Comment: Urina lysis Microscopic order added on by [employer] Expert Rules system. Performed By: #### 1 [id number], 0959085, [id number] #### [facility] (DEFAULT) [address] [place] [address] UA RBC 5-10 Normal [facility] Comment on above: Order Comment: Urina lysis Microscopic order added on by [employer] system. Performed By: #### 1 [id number] #### [facility] (DEFAULT) [address] [place] [address] UA Squam Epi Few [facility] Comment on above: Order Comment: Urina lysis Microscopic order added on by [employer] system. Performed By: #### 1 [id number], [id number] #### [facility] (DEFAULT) [address] [place] [address] UA WBC 3-5 [facility] Comment on above: Order Comment: Urina lysis Microscopic order added on by [employer] Rules system. Performed By: #### 1 [id number], [id number] #### [facility] (DEFAULT) [address] [place] [address] UA w Culture if Ind Standard on 01-08-2023 Breakpoint UA [facility] Comment on above: Performed By: #### 1 [id number] #### [facility] (DEFAULT) [address] [place] [address] 41920 Color (U) Yellow [facility] Comment on above: Performed By: #### 1 [id number], [id number] #### [facility] (DEFAULT) [address] [place] [address] 92852 Culture? Indicated Invalid Interpretation Code Comment on above: Result Comment: Resu lt created by rule GL_MAGR_ADD_UA_CULT Result created by rule GL_MAGR_ADD_UA_CULT Result created by rule GL_MAGR_ADD_UA_CULT1 Result created by rule GL_MAGR_ADD_UA_CULT Performed By: #### 1 [id number] #### [facility] (DEFAULT) [address] [place] [address] 14378 Glucose (U) [Mass/Vol] Negative [facility] Comment on above: Performed By: #### 1 [id number], [id number], [id number] #### [facility] (DEFAULT) [address] [place] [address] 45977 Ketones Ql (U) Negative [facility] Comment on above: Performed By: #### 1 [id number], [id number] #### [facility] (DEFAULT) [address] [place] [address] 09728 Micro? Indicated Invalid Interpretation Code Comment on above: Result Comment: Resu lt created by rule GL_MAGR_ADD_UA_MICRO Performed By: #### 1 [id number], [id number], [id number] #### [facility] (DEFAULT) [address] [place] [address] 46244 UA Bilirubin Negative [facility] Comment on above: Performed By: #### 1 [id number], [id number], [id number] #### [facility] (DEFAULT) [address] [place] [address] 49506 UA Blood MODERATE Abnormal NEGATIVE [facility] Comment on above: Performed By: #### 1 [id number], [id number] #### [facility] (DEFAULT) [address] [place] [address]999 UA Clarity CLEAR Normal CLEAR [facility] Comment on above: Performed By: #### 1 [id number], [id number], [id number] #### [facility] (DEFAULT) [address] [place] [address] 05753 UA Leuk Est Negative Normal NEGATIVE [facility] Comment on above: Performed By: #### 1 [id number], [id number], [id number] #### [facility] (DEFAULT) [address] [place] [address] 32397 UA Nitrite Negative Normal NEGATIVE [facility] Comment on above: Performed By: #### 1 [id number], [id number], [id number] #### [facility] (DEFAULT) [address] [place] [address] 38004 UA pH 7.0 Normal 5-8 [facility] Comment on above: Performed By: #### 1 [id number] #### [facility] (DEFAULT) [address] [place] [address] [id number] UA Protein TRACE Abnormal NEGATIVE [facility] Comment on above: Performed By: #### 1 [id number] #### [facility] (DEFAULT) [address] [place] [address] [id number] UA Spec Grav 1.025 Normal 1.001-1.035 [facility] Mark nava Comment on above: Performed By: #### 1 [id number] #### [facility] (DEFAULT) [address] [place] [address] [id number] UA Urobilinogen 0.2 mg/dL Normal 0.2-1.0 Comment on above: Performed By: #### 1 [id number] #### [facility] (DEFAULT) [address] [place] [address] [id number] Urine Source Clean Catch Normal [facility] spital Comment on above: Performed By: #### 1 [id number] #### [facility] (DEFAULT) [address] [place] [address] CBC AUTO DIFFon 10-21-2022 BASO # 0.0 103/ul Normal 0.0-0.1 [facility] Comment on above: Performed By: #### C BC #### [facility] [address] [address] [address] Irma Erazo Basophils/100 WBC (Bld) 0.2 % Normal 0.2-2.0 [facility] Comment on above: Performed By: #### C BC #### [facility] [address] [address] [address] Irma Erazo EO # 0.1 103/ul Normal 0.0-0.7 [facility] Comment on above: Performed By: #### C BC #### [facility] [address] [address] [address] Irma Erazo Eosinophils/100 WBC (Bld) 0.7 % Critically low 0.9-7.0 [facility] Comment on above: Performed By: #### C BC #### [facility] [address] [address] [address] Irma Erazo Erythrocyte distribution width (RBC) [Ratio] 13.5 % Normal 11.0-15.0 [facility] Comment on above: Performed By: #### C BC #### [facility] [address] [address] [address] Irma Erazo Hematocrit (Bld) [Volume fraction] 39.6 % Critically low 42.0-54.0 [facility] Comment on above: Performed By: #### C BC #### [facility] [address] [address] [address] Irma Erazo Hemoglobin (Bld) [Mass/Vol] 13.6 g/dL Critically low 14.0-18.0 [facility] Comment on above: Performed By: #### C BC #### [facility] [address] [address] [address] Irma Erazo IG # 0.04 10e3/ul Critically high 0.00-0.03 [facility] Comment on above: Performed By: #### C BC #### [facility] [address] [place] [address] Dr. Irma Erazo IG % 0.4 % Normal 0.0-0.5 [facility] Comment on above: Performed By: #### C BC #### [facility] [address] [place] [address] Dr. Irma Erazo LYMPH # 2.5 103/ul Normal 1.2-3.8 [facility] Comment on above: Performed By: #### C BC #### [facility] [address] [place] [address] Dr. Irma Erazo Lymphocytes/100 WBC (Bld) 25.9 % Normal 20.5-60.0 [facility] Comment on above: Performed By: #### C BC #### [facility] [address] [place] [address] Dr. Irma Erazo MANUAL DIFF REQ NO Normal [facility] Comment on above: Performed By: #### C BC #### [facility] [address] [place] [address] Dr. Irma Erazo MCH (RBC) [Entitic mass] 30.2 pg Normal 25.9-34.0 [facility] Comment on above: Performed By: #### C BC #### [facility] [address] [place] [address] Dr. Irma Erazo MCHC (RBC) [Mass/Vol] 34.3 g/dL Normal 29.9-35.2 [facility] Comment on above: Performed By: #### C BC #### [facility] [address] [place] [address] Dr. Irma Erazo MCV (RBC) [Entitic vol] 88.0 fL Normal 80.0-94.0 [facility] Comment on above: Performed By: #### C BC #### [facility] [address] [place] [address] Dr. Irma Erazo MONO # 0.7 103/ul Normal 0.3-0.8 [facility] Comment on above: Performed By: #### C BC #### [facility] [address] [place] [address] Dr. Irma Erazo Monocytes/100 WBC (Bld) 7.1 % Normal 1.7-12.0 [facility] Comment on above: Performed By: #### C BC #### [facility] [address] [place] [address] Dr. Irma Erazo NEUT # 6.3 103/ul Normal 1.4-6.5 [facility] Comment on above: Performed By: #### C BC #### [facility] [address] [place] [address] Dr. Irma Erazo Neutrophils/100 WBC (Bld) 65.7 % Normal 43.0-75.0 [facility] Comment on above: Performed By: #### C BC #### [facility] [address] [place] [address] Dr. Irma Erazo Platelet mean volume (Bld) [Entitic vol] 10.2 fL Normal 9.5-13.5 [facility] Comment on above: Performed By: #### C BC #### [facility] [address] [place] [address] Dr. Irma Erazo PLT 201 103/ul Normal 150-450 [facility] Comment on above: Performed By: #### C BC #### [facility] [address] [place] [address] Dr. Irma Erazo RBC 4.50 106/ul Critically low 4.70-6.10 [facility] Comment on above: Performed By: #### C BC #### [facility] [address] [place] [address] Dr. Irma Erazo WBC 9.6 103/ul Normal 4.0-11.0 [facility] Comment on above: Performed By: #### C BC #### [facility] [address] [place] [address] Dr. Irma Erazo PROF 14(COMP METB)on 023 Albumin [Mass/Vol] 4.2 g/dL Normal 3.4-5.0 [facility] Comment on above: Performed By: #### S EDR #### [facility] [address] [address] [address] Irma Erazo Albumin/Globulin [Mass ratio] 1.3 {ratio} Normal [facility] Comment on above: Performed By: #### S EDR #### [facility] [address] [address] [address] Irma Erazo ALP [Catalytic activity/Vol] 87 U/L Normal 46-116 [facility] Comment on above: Performed By: #### S EDR #### [facility] [address] [address] [address] Irma Erazo ALT [Catalytic activity/Vol] 29 U/L Normal 16-63 [facility] Comment on above: Performed By: #### S EDR #### [facility] [address] [place] [address] Dr. Irma Erazo Anion gap [Moles/Vol] 9.8 mmol/L Normal [facility] Comment on above: Performed By: #### S EDR #### [facility] [address] [place] [address] Dr. Irma Erazo AST [Catalytic activity/Vol] 18 U/L Normal 15-37 [facility] Comment on above: Performed By: #### S EDR #### [facility] [address] [place] [address] Dr. Irma Erazo Bilirubin [Mass/Vol] 0.9 mg/dL Normal 0.2-1.0 [facility] Comment on above: Performed By: #### S EDR #### [facility] [address] [place] [address] Dr. Irma Erazo Calcium [Mass/Vol] 9.0 mg/dL Normal 8.5-10.1 [facility] Comment on above: Performed By: #### S EDR #### [facility] [address] [place] [address] Dr. Irma Erazo Chloride [Moles/Vol] 105 mmol/L Normal 98-107 [facility] Comment on above: Performed By: #### S EDR #### [facility] [address] [address] [address] Irma Erazo CO2 [Moles/Vol] 27.7 mmol/L Normal 21.0-32.0 [facility] Comment on above: Performed By: #### S EDR #### [facility] [address] [address] [address] Irma Erazo Creatinine [Mass/Vol] 1.22 mg/dL Normal 0.70-1.30 [facility] Comment on above: Performed By: #### S EDR #### [facility] [address] [address] [address] Irma Erazo EGFR-AF PANAMANIAN >60 Normal >=60 [facility] Comment on above: Performed By: #### S EDR #### [facility] [address] [address] [address] Irma Erazo EGFR-NON AF PANAMANIAN 60 mL/min/1.73m2 Normal >=60 [facility] Comment on above: Performed By: #### S EDR #### [facility] [address] [address] [address] Irma Erazo Globulin (S) [Mass/Vol] 3.3 g/dL Normal [facility] Comment on above: Performed By: #### S EDR #### [facility] [address] [address] [address] Irma Erazo Glucose [Mass/Vol] 116 mg/dL Critically high 74-106 [facility] Comment on above: Performed By: #### S EDR #### [facility] [address] [address] [address] Irma Erazo Potassium [Moles/Vol] 4.5 mmol/L Normal 3.5-5.1 [facility] Comment on above: Performed By: #### S EDR #### [facility] [address] [address] [address] Irma Erazo Protein [Mass/Vol] 7.5 g/dL Normal 6.4-8.2 [facility] Comment on above: Performed By: #### S EDR #### [facility] [address] [address] [address] Irma Erazo Sodium [Moles/Vol] 138 mmol/L Normal 136-145 [facility] Comment on above: Performed By: #### S EDR #### [facility] [address] [address] [address] Irma Erazo Urea nitrogen [Mass/Vol] 20.0 mg/dL Critically high 7.0-18.0 [facility] Comment on above: Performed By: #### S EDR #### [facility] [address] [place] [address] Dr. Irma Erazo Urea nitrogen/Creatinine [Mass ratio] 16.4 mg/mg Normal [facility] Comment on above: Performed By: #### S EDR #### [facility] [address] [place] [address] Dr. Ir[facility] mm/hr Normal <=20 [facility] Comment on above: Performed By: #### S EDR #### [facility] [address] [place] [address] Dr. Irma Erazo COVID/FLU/RSV RT-PCRon 07-16 SARS-CoV-2 (COVID-19) RNA LUCIEN+probe Ql (Unsp spec) Negative [facility] Other COVID/FLU/RSV RT-PCR Positive [facility] Other COVID/FLU/RSV RT-PCR Negative [facility] Other CBC AUTO DIFFon 06-21-2022 BASO # 0.1 103/ul Normal 0.0-0.1 [facility] Comment on above: Performed By: #### C BC #### [facility] [address] [place] [address] Dr. Irma Erazo Basophils/100 WBC (Bld) 0.6 % Normal 0.2-2.0 [facility] Comment on above: Performed By: #### C BC #### [facility] [address] [place] [address] Dr. Irma Erazo EO # 0.1 103/ul Normal 0.0-0.7 [facility] Comment on above: Performed By: #### C BC #### [facility] [address] [place] [address] Dr. Irma Erazo Eosinophils/100 WBC (Bld) 0.7 % Critically low 0.9-7.0 [facility] Comment on above: Performed By: #### C BC #### [facility] [address] [place] [address] Dr. Irma Erazo Erythrocyte distribution width (RBC) [Ratio] 13.4 % Normal 11.0-15.0 [facility] Comment on above: Performed By: #### C BC #### [facility] [address] [place] [address] Dr. Irma Erazo Hematocrit (Bld) [Volume fraction] 39.2 % Critically low 42.0-54.0 [facility] Comment on above: Performed By: #### C BC #### [facility] [address] [place] [address] Dr. Irma Erazo Hemoglobin (Bld) [Mass/Vol] 13.8 g/dL Critically low 14.0-18.0 [facility] Comment on above: Performed By: #### C BC #### [facility] [address] [place] [address] Dr. Irma Erazo IG # 0.03 10e3/ul Normal 0.00-0.03 [facility] Comment on above: Performed By: #### C BC #### [facility] [address] [place] [address] Dr. Irma Erazo IG % 0.3 % Normal 0.0-0.5 [facility] Comment on above: Performed By: #### C BC #### [facility] [address] [place] [address] Dr. Irma Erazo LYMPH # 2.4 103/ul Normal 1.2-3.8 [facility] Comment on above: Performed By: #### C BC #### [facility] [address] [place] [address] Dr. Irma Erazo Lymphocytes/100 WBC (Bld) 27.5 % Normal 20.5-60.0 [facility] Comment on above: Performed By: #### C BC #### [facility] [address] [place] [address] Dr. Irma Erazo MANUAL DIFF REQ NO Normal [facility] Comment on above: Performed By: #### C BC #### [facility] [address] [place] [address] Dr. Irma Erazo MCH (RBC) [Entitic mass] 30.6 pg Normal 25.9-34.0 [facility] Comment on above: Performed By: #### C BC #### [facility] [address] [place] [address] Dr. Irma Erazo MCHC (RBC) [Mass/Vol] 35.2 g/dL Normal 29.9-35.2 [facility] Comment on above: Performed By: #### C BC #### [facility] [address] [place] [address] Dr. Irma Erazo MCV (RBC) [Entitic vol] 86.9 fL Normal 80.0-94.0 [facility] Comment on above: Performed By: #### C BC #### [facility] [address] [place] [address] Dr. Irma Erazo MONO # 0.6 103/ul Normal 0.3-0.8 [facility] Comment on above: Performed By: #### C BC #### [facility] [address] [place] [address] Dr. Irma Erazo Monocytes/100 WBC (Bld) 7.2 % Normal 1.7-12.0 [facility] Comment on above: Performed By: #### C BC #### [facility] [address] [place] [address] Dr. Irma Erazo NEUT # 5.6 103/ul Normal 1.4-6.5 [facility] Comment on above: Performed By: #### C BC #### [facility] [address] [place] [address] Dr. Irma Erazo Neutrophils/100 WBC (Bld) 63.7 % Normal 43.0-75.0 [facility] Comment on above: Performed By: #### C BC #### [facility] [address] [address] [address] Irma Erazo Platelet mean volume (Bld) [Entitic vol] 10.0 fL Normal 9.5-13.5 [facility] Comment on above: Performed By: #### C BC #### [facility] [address] [place] [address] Dr. Irma Erazo PLT 211 103/ul Normal 150-450 [facility] Comment on above: Performed By: #### C BC #### [facility] [address] [place] [address] Dr. Irma Erazo RBC 4.51 106/ul Critically low 4.70-6.10 [facility] Comment on above: Performed By: #### C BC #### [facility] [address] [place] [address] Dr. Irma Erazo WBC 8.8 103/ul Normal 4.0-11.0 [facility] Comment on above: Performed By: #### C BC #### [facility] [address] [place] [address] Dr. Irma Erazo PROF 14(COMP METB)on 022 Albumin [Mass/Vol] 4.0 g/dL Normal 3.4-5.0 [facility] Comment on above: Performed By: #### S EDR #### [facility] [address] [place] [address] Dr. Irma Erazo Albumin/Globulin [Mass ratio] 1.2 {ratio} Normal [facility] Comment on above: Performed By: #### S EDR #### [facility] [address] [place] [address] Dr. Irma Erazo ALP [Catalytic activity/Vol] 96 U/L Normal 46-116 [facility] Comment on above: Performed By: #### S EDR #### [facility] [address] [place] [address] Dr. Irma Erazo ALT [Catalytic activity/Vol] 22 U/L Normal 16-63 [facility] Comment on above: Performed By: #### S EDR #### [facility] [address] [address] [address] Irma Erazo Anion gap [Moles/Vol] 12.1 mmol/L Normal [facility] Comment on above: Performed By: #### S EDR #### [facility] [address] [address] [address] Irma Erazo AST [Catalytic activity/Vol] 15 U/L Normal 15-37 [facility] Comment on above: Performed By: #### S EDR #### [facility] [address] [address] [address] Irma Erazo Bilirubin [Mass/Vol] 0.3 mg/dL Normal 0.2-1.0 [facility] Comment on above: Performed By: #### S EDR #### [facility] [address] [place] [address] Dr. Irma Erazo Calcium [Mass/Vol] 8.7 mg/dL Normal 8.5-10.1 [facility] Comment on above: Performed By: #### S EDR #### [facility] [address] [place] [address] Dr. Irma Erazo Chloride [Moles/Vol] 105 mmol/L Normal 98-107 [facility] Comment on above: Performed By: #### S EDR #### [facility] [address] [place] [address] Dr. Irma Erazo CO2 [Moles/Vol] 26.2 mmol/L Normal 21.0-32.0 [facility] Comment on above: Performed By: #### S EDR #### [facility] [address] [place] [address] Dr. Irma Erazo Creatinine [Mass/Vol] 1.26 mg/dL Normal 0.70-1.30 [facility] Comment on above: Performed By: #### S EDR #### [facility] [address] [address] [address] Irma Erazo EGFR-AF PANAMANIAN >60 Normal >=60 [facility] Comment on above: Performed By: #### S EDR #### [facility] [address] [address] [address] Irma Erazo EGFR-NON AF PANAMANIAN 58 mL/min/1.73m2 Critically low >=60 [facility] Comment on above: Performed By: #### S EDR #### [facility] [address] [address] [address] Irma Erazo Globulin (S) [Mass/Vol] 3.3 g/dL Normal [facility] Comment on above: Performed By: #### S EDR #### [facility] [address] [address] [address] Irma Erazo Glucose [Mass/Vol] 93 mg/dL Normal 74-106 [facility] Comment on above: Performed By: #### S EDR #### [facility] [address] [address] [address] Irma Erazo Potassium [Moles/Vol] 4.3 mmol/L Normal 3.5-5.1 [facility] Comment on above: Performed By: #### S EDR #### [facility] [address] [address] [address] Irma Erazo Protein [Mass/Vol] 7.3 g/dL Normal 6.4-8.2 [facility] Comment on above: Performed By: #### S EDR #### [facility] [address] [address] [address] Irma Erazo Sodium [Moles/Vol] 139 mmol/L Normal 136-145 [facility] Comment on above: Performed By: #### S EDR #### [facility] [address] [address] [address] Irma Erazo Urea nitrogen [Mass/Vol] 17.0 mg/dL Normal 7.0-18.0 [facility] Comment on above: Performed By: #### S EDR #### [facility] [address] [address] [address] Irma Erazo Urea nitrogen/Creatinine [Mass ratio] 13.5 mg/mg Normal [facility] Comment on above: Performed By: #### S EDR #### [facility] [address] [place] [address] Dr. Irma Erazo SED RATE [facility] 2021 SED RATE 15 mm/hr Normal <=20 [facility] Comment on above: Performed By: #### S EDR #### [facility] [address] [place] [address] Dr. Irma Erazo AMYLASEon 03-27-2022 Amylase [Catalytic activity/Vol] 72 U/L Normal 25-115 [facility] Comment on above: Performed By: #### S EDR #### [facility] [address] [place] [address] Dr. Irma Erazo CBC AUTO DIFFon 03-27-2022 BASO # 0.0 103/ul Normal 0.0-0.1 [facility] Comment on above: Performed By: #### C BC #### [facility] [address] [place] [address] Dr. Irma Erazo Basophils/100 WBC (Bld) 0.2 % Normal 0.2-2.0 [facility] Comment on above: Performed By: #### C BC #### [facility] [address] [place] [address] Dr. Irma Erazo EO # 0.1 103/ul Normal 0.0-0.7 [facility] Comment on above: Performed By: #### C BC #### [facility] [address] [place] [address] Dr. Irma Erazo Eosinophils/100 WBC (Bld) 0.7 % Critically low 0.9-7.0 [facility] Comment on above: Performed By: #### C BC #### [facility] [address] [place] [address] Dr. Irma Erazo Erythrocyte distribution width (RBC) [Ratio] 13.1 % Normal 11.0-15.0 [facility] Comment on above: Performed By: #### C BC #### [facility] [address] [place] [address] Dr. Irma Erazo Hematocrit (Bld) [Volume fraction] 40.7 % Critically low 42.0-54.0 [facility] Comment on above: Performed By: #### C BC #### [facility] [address] [address] [address] Irma Erazo Hemoglobin (Bld) [Mass/Vol] 13.8 g/dL Critically low 14.0-18.0 [facility] Comment on above: Performed By: #### C BC #### [facility] [address] [address] [address] Irma Erazo IG # 0.04 10e3/ul Critically high 0.00-0.03 [facility] Comment on above: Performed By: #### C BC #### [facility] [address] [address] [address] Irma Erazo IG % 0.3 % Normal 0.0-0.5 [facility] Comment on above: Performed By: #### C BC #### [facility] [address] [address] [address] Irma Erazo LYMPH # 2.0 103/ul Normal 1.2-3.8 [facility] Comment on above: Performed By: #### C BC #### [facility] [address] [address] [address] Irma Erazo Lymphocytes/100 WBC (Bld) 16.0 % Critically low 20.5-60.0 [facility] Comment on above: Performed By: #### C BC #### [facility] [address] [address] [address] Irma Erazo MANUAL DIFF REQ NO Normal [facility] Comment on above: Performed By: #### C BC #### [facility] [address] [address] [address] Irma Erazo MCH (RBC) [Entitic mass] 29.9 pg Normal 25.9-34.0 [facility] Comment on above: Performed By: #### C BC #### [facility] [address] [address] [address] Irma Erazo MCHC (RBC) [Mass/Vol] 33.9 g/dL Normal 29.9-35.2 [facility] Comment on above: Performed By: #### C BC #### [facility] [address] [address] [address] Irma Erazo MCV (RBC) [Entitic vol] 88.3 fL Normal 80.0-94.0 [facility] Comment on above: Performed By: #### C BC #### [facility] [address] [address] [address] Irma Erazo MONO # 0.7 103/ul Normal 0.3-0.8 [facility] Comment on above: Performed By: #### C BC #### [facility] [address] [address] [address] Irma Erazo Monocytes/100 WBC (Bld) 6.0 % Normal 1.7-12.0 [facility] Comment on above: Performed By: #### C BC #### [facility] [address] [address] [address] Irma Erazo NEUT # 9.5 103/ul Critically high 1.4-6.5 [facility] Comment on above: Performed By: #### C BC #### [facility] [address] [address] [address] Irma Erazo Neutrophils/100 WBC (Bld) 76.8 % Critically high 43.0-75.0 [facility] Comment on above: Performed By: #### C BC #### [facility] [address] [address] [address] Irma Erazo Platelet mean volume (Bld) [Entitic vol] 9.8 fL Normal 9.5-13.5 [facility] Comment on above: Performed By: #### C BC #### [facility] [address] [address] [address] Irma Erazo PLT 211 103/ul Normal 150-450 [facility] Comment on above: Performed By: #### C BC #### [facility] [address] [address] [address] Irma Erazo RBC 4.61 106/ul Critically low 4.70-6.10 [facility] Comment on above: Performed By: #### C BC #### [facility] [address] [place], [place] [address] Dr. Irma Erazo WBC 12.3 103/ul Critically high 4.0-11.0 [facility] Comment on above: Performed By: #### C #### [facility] [address] [place], [place] [address] FACIAL BONES W [...] KATIE ROMERO Date: 2022-03-27 05:39 Normal [facility] CULTURE BLOODon 03-27-2022 Microscopic examination of blood, culture Culture Observations: NO GROWTH AT 5 DAYS. Normal [facility] Comment on above: Performed By: #### S EDR #### [facility] [address] [address] [address] Irma Erazo Microscopic examination of blood, culture Culture Observations: NO GROWTH AT 5 DAYS. Normal [facility] Comment on above: Performed By: #### S EDR #### [facility] [address] [place] [address] Dr. Imra Erazo PROF 14(COMP METB)on 022 Albumin [Mass/Vol] 4.2 g/dL Normal 3.4-5.0 [facility] Comment on above: Performed By: #### C MP #### [facility] [address] [place] [address] Dr. Irma Erazo Albumin/Globulin [Mass ratio] 1.2 {ratio} Normal [facility] Comment on above: Performed By: #### C MP #### [facility] [address] [place] [address] Dr. Irma Erazo ALP [Catalytic activity/Vol] 110 U/L Normal 46-116 [facility] Comment on above: Performed By: #### C MP #### [facility] [address] [place] [address] Dr. Irma Erazo ALT [Catalytic activity/Vol] 31 U/L Normal 16-63 [facility] Comment on above: Performed By: #### C MP #### [facility] [address] [place] [address] Dr. Irma Erazo Anion gap [Moles/Vol] 9.7 mmol/L Normal [facility] Comment on above: Performed By: #### C MP #### [facility] [address] [place] [address] Dr. Irma Erazo AST [Catalytic activity/Vol] 17 U/L Normal 15-37 [facility] Comment on above: Performed By: #### C MP #### [facility] [address] [place] [address] Dr. Irma Erazo Bilirubin [Mass/Vol] 0.6 mg/dL Normal 0.2-1.0 [facility] Comment on above: Performed By: #### C MP #### [facility] [address] [address] [address] Irma Erazo Calcium [Mass/Vol] 8.8 mg/dL Normal 8.5-10.1 [facility] Comment on above: Performed By: #### C MP #### [facility] [address] [address] [address] Irma Erazo Chloride [Moles/Vol] 103 mmol/L Normal 98-107 [facility] Comment on above: Performed By: #### C MP #### [facility] [address] [address] [address] Irma Erazo CO2 [Moles/Vol] 25.4 mmol/L Normal 21.0-32.0 [facility] Comment on above: Performed By: #### C MP #### [facility] [address] [address] [address] Irma Erazo Creatinine [Mass/Vol] 1.29 mg/dL Normal 0.70-1.30 [facility] Comment on above: Performed By: #### C MP #### [facility] [address] [address] [address] Irma Erazo EGFR-AF PANAMANIAN >60 Normal >=60 [facility] Comment on above: Performed By: #### C MP #### [facility] [address] [address] [address] Irma Erazo EGFR-NON AF PANAMANIAN 56 mL/min/1.73m2 Critically low >=60 [facility] Comment on above: Performed By: #### C MP #### [facility] [address] [address] [address] Irma Erazo Globulin (S) [Mass/Vol] 3.4 g/dL Normal [facility] Comment on above: Performed By: #### C MP #### [facility] [address] [address] [address] Irma Erazo Glucose [Mass/Vol] 119 mg/dL Critically high 74-106 [facility] Comment on above: Performed By: #### C MP #### [facility] [address] [address] [address] Irma Erazo Potassium [Moles/Vol] 4.1 mmol/L Normal 3.5-5.1 [facility] Comment on above: Performed By: #### C MP #### [facility] [address] [place] [address] Dr. Irma Erazo Protein [Mass/Vol] 7.6 g/dL Normal 6.4-8.2 [facility] Comment on above: Performed By: #### C MP #### [facility] [address] [place] [address] Dr. Irma Erazo Sodium [Moles/Vol] 134 mmol/L Critically low 136-145 [facility] Comment on above: Performed By: #### C MP #### [facility] [address] [place] [address] Dr. Irma Erazo Urea nitrogen [Mass/Vol] 15.0 mg/dL Normal 7.0-18.0 [facility] Comment on above: Performed By: #### C MP #### [facility] [address] [place] [address] Dr. Irma Erazo Urea nitrogen/Creatinine [Mass ratio] 11.6 mg/mg Normal [facility] Comment on above: Performed By: #### C MP #### [facility] [address] [place] [address] Dr. Irma Erazo CBC AUTO DIFFon 02-19-2022 BASO # 0.0 103/ul Normal 0.0-0.1 [facility] Comment on above: Performed By: #### C BC #### [facility] [address] [place] [address] Dr. Irma Erazo Basophils/100 WBC (Bld) 0.3 % Normal 0.2-2.0 [facility] Comment on above: Performed By: #### C BC #### [facility] [address] [place] [address] Dr. Irma Erazo EO # 0.1 103/ul Normal 0.0-0.7 [facility] Comment on above: Performed By: #### C BC #### [facility] [address] [place] [address] Dr. Irma Erazo Eosinophils/100 WBC (Bld) 0.5 % Critically low 0.9-7.0 [facility] Comment on above: Performed By: #### C BC #### [facility] [address] [place] [address] Dr. Irma Erazo Erythrocyte distribution width (RBC) [Ratio] 13.2 % Normal 11.0-15.0 [facility] Comment on above: Performed By: #### C BC #### [facility] [address] [place] [address] Dr. Irma Erazo Hematocrit (Bld) [Volume fraction] 41.4 % Critically low 42.0-54.0 [facility] Comment on above: Performed By: #### C BC #### [facility] [address] [place] [address] Dr. Irma Erazo Hemoglobin (Bld) [Mass/Vol] 14.3 g/dL Normal 14.0-18.0 [facility] Comment on above: Performed By: #### C BC #### [facility] [address] [place] [address] Dr. Irma Erazo IG # 0.05 10e3/ul Critically high 0.00-0.03 [facility] Comment on above: Performed By: #### C BC #### [facility] [address] [place] [address] Dr. Irma Erazo IG % 0.4 % Normal 0.0-0.5 [facility] Comment on above: Performed By: #### C BC #### [facility] [address] [place] [address] Dr. Irma Erazo LYMPH # 2.4 103/ul Normal 1.2-3.8 [facility] Comment on above: Performed By: #### C BC #### [facility] [address] [place] [address] Dr. Irma Erazo Lymphocytes/100 WBC (Bld) 18.6 % Critically low 20.5-60.0 [facility] Comment on above: Performed By: #### C BC #### [facility] [address] [place] [address] Dr. Irma Erazo MANUAL DIFF REQ NO Normal [facility] Comment on above: Performed By: #### C BC #### [facility] [address] [place] [address] Dr. Irma Erazo MCH (RBC) [Entitic mass] 30.4 pg Normal 25.9-34.0 [facility] Comment on above: Performed By: #### C BC #### [facility] [address] [place] [address] Dr. Irma Erazo MCHC (RBC) [Mass/Vol] 34.5 g/dL Normal 29.9-35.2 [facility] Comment on above: Performed By: #### C BC #### [facility] [address] [place] [address] Dr. Irma Erazo MCV (RBC) [Entitic vol] 88.1 fL Normal 80.0-94.0 [facility] Comment on above: Performed By: #### C BC #### [facility] [address] [place] [address] Dr. Irma Erazo MONO # 1.2 103/ul Critically high 0.3-0.8 [facility] Comment on above: Performed By: #### C BC #### [facility] [address] [place] [address] Dr. Irma Erazo Monocytes/100 WBC (Bld) 9.3 % Normal 1.7-12.0 [facility] Comment on above: Performed By: #### C BC #### [facility] [address] [place] [address] Dr. Irma Erazo NEUT # 9.0 103/ul Critically high 1.4-6.5 [facility] Comment on above: Performed By: #### C BC #### [facility] [address] [place] [address] Dr. Irma Erazo Neutrophils/100 WBC (Bld) 70.9 % Normal 43.0-75.0 [facility] Comment on above: Performed By: #### C BC #### [facility] [address] [place] [address] Dr. Irma Erazo Platelet mean volume (Bld) [Entitic vol] 9.6 fL Normal 9.5-13.5 [facility] Comment on above: Performed By: #### C BC #### [facility] [address] [place] [address] Dr. Irma Erazo PLT 233 103/ul Normal 150-450 [facility] Comment on above: Performed By: #### C BC #### [facility] [address] [place] [address] Dr. Irma Erazo RBC 4.70 106/ul Normal 4.70-6.10 [facility] Comment on above: Performed By: #### C BC #### [facility] [address] [place] [address] Dr. Irma Erazo WBC 12.8 103/ul Critically high 4.0-11.0 [facility] Comment on above: Performed By: #### C BC #### [facility] [address] [place] [address] Dr. Irma Erazo PROF 14(COMP METB)on 022 Albumin [Mass/Vol] 3.8 g/dL Normal 3.4-5.0 [facility] Comment on above: Performed By: #### C MP #### [facility] [address] [place] [address] Dr. Irma Erazo Albumin/Globulin [Mass ratio] 1.0 {ratio} Normal [facility] Comment on above: Performed By: #### C MP #### [facility] [address] [place] [address] Dr. Irma Erazo ALP [Catalytic activity/Vol] 132 U/L Critically high 46-116 [facility] Comment on above: Performed By: #### C MP #### [facility] [address] [place] [address] Dr. Irma Erazo ALT [Catalytic activity/Vol] 26 U/L Normal 16-63 [facility] Comment on above: Performed By: #### C MP #### [facility] [address] [place] [address] Dr. Irma Erazo Anion gap [Moles/Vol] 12.2 mmol/L Normal [facility] Comment on above: Performed By: #### C MP #### [facility] [address] [address] [address] Irma Erazo AST [Catalytic activity/Vol] 16 U/L Normal 15-37 [facility] Comment on above: Performed By: #### C MP #### [facility] [address] [address] [address] Irma Erazo Bilirubin [Mass/Vol] 0.7 mg/dL Normal 0.2-1.0 [facility] Comment on above: Performed By: #### C MP #### [facility] [address] [address] [address] Irma Erazo Calcium [Mass/Vol] 9.1 mg/dL Normal 8.5-10.1 [facility] Comment on above: Performed By: #### C MP #### [facility] [address] [address] [address] Irma Erazo Chloride [Moles/Vol] 102 mmol/L Normal 98-107 [facility] Comment on above: Performed By: #### C MP #### [facility] [address] [address] [address] Irma Erazo CO2 [Moles/Vol] 29.6 mmol/L Normal 21.0-32.0 [facility] Comment on above: Performed By: #### C MP #### [facility] [address] [address] [address] Irma Erazo Creatinine [Mass/Vol] 1.44 mg/dL Critically high 0.70-1.30 [facility] Comment on above: Performed By: #### C MP #### [facility] [address] [address] [address] Irma Erazo EGFR-AF PANAMANIAN 60 mL/min/1.73m2 Normal >=60 [facility] Comment on above: Performed By: #### C MP #### [facility] [address] [address] [address] Irma Erazo EGFR-NON AF PANAMANIAN 49 mL/min/1.73m2 Critically low >=60 [facility] Comment on above: Performed By: #### C MP #### [facility] [address] [address] [address] Irma Erazo Globulin (S) [Mass/Vol] 3.9 g/dL Normal [facility] Comment on above: Performed By: #### C MP #### [facility] [address] [address] [address] Irma Erazo Glucose [Mass/Vol] 81 mg/dL Normal 74-106 [facility] Comment on above: Performed By: #### C MP #### [facility] [address] [address] [address] Irma Erazo Potassium [Moles/Vol] 4.8 mmol/L Normal 3.5-5.1 [facility] Comment on above: Performed By: #### C MP #### [facility] [address] [address] [address] Irma Erazo Protein [Mass/Vol] 7.7 g/dL Normal 6.4-8.2 [facility] Comment on above: Performed By: #### C MP #### [facility] [address] [address] [address] Irma Erazo Sodium [Moles/Vol] 139 mmol/L Normal 136-145 [facility] Comment on above: Performed By: #### C MP #### [facility] [address] [address] [address] Irma Erazo Urea nitrogen [Mass/Vol] 19.0 mg/dL Critically high 7.0-18.0 [facility] Comment on above: Performed By: #### C MP #### [facility] [address] [address] [address] Irma Erazo Urea nitrogen/Creatinine [Mass ratio] 13.2 mg/mg Normal [facility] Comment on above: Performed By: #### C MP #### [facility] [address] [address] [address] Irma Erazo SED RATE [facility] 2021 SED RATE 35 mm/hr Critically high <=20 [facility] Comment on above: Performed By: #### S EDR #### [facility] [address] [place] [address] Dr. Irma Erazo CBC AUTO DIFFon 12-18-2021 BASO # 0.0 103/ul Normal 0.0-0.1 [facility] Comment on above: Performed By: #### S EDR #### [facility] [address] [place] [address] Dr. Irma Erazo Basophils/100 WBC (Bld) 0.4 % Normal 0.2-2.0 [facility] Comment on above: Performed By: #### S EDR #### [facility] [address] [place] [address] Dr. Irma Erazo EO # 0.1 103/ul Normal 0.0-0.7 [facility] Comment on above: Performed By: #### S EDR #### [facility] [address] [place] [address] Dr. Irma Erazo Eosinophils/100 WBC (Bld) 1.3 % Normal 0.9-7.0 [facility] Comment on above: Performed By: #### S EDR #### [facility] [address] [place] [address] Dr. Irma Erazo Erythrocyte distribution width (RBC) [Ratio] 13.6 % Normal 11.0-15.0 [facility] Comment on above: Performed By: #### S EDR #### [facility] [address] [place] [address] Dr. Irma Erazo Hematocrit (Bld) [Volume fraction] 39.3 % Critically low 42.0-54.0 [facility] Comment on above: Performed By: #### S EDR #### [facility] [address] [place] [address] Dr. Irma Erazo Hemoglobin (Bld) [Mass/Vol] 13.5 g/dL Critically low 14.0-18.0 [facility] Comment on above: Performed By: #### S EDR #### [facility] [address] [place] [address] Dr. Irma Erazo IG # 0.01 10e3/ul Normal 0.00-0.03 [facility] Comment on above: Performed By: #### S EDR #### [facility] [address] [place] [address] Dr. Irma Erazo IG % 0.1 % Normal 0.0-0.5 [facility] Comment on above: Performed By: #### S EDR #### [facility] [address] [place] [address] Dr. Irma Erazo LYMPH # 2.5 103/ul Normal 1.2-3.8 [facility] Comment on above: Performed By: #### S EDR #### [facility] [address] [place] [address] Dr. Irma Erazo Lymphocytes/100 WBC (Bld) 31.1 % Normal 20.5-60.0 [facility] Comment on above: Performed By: #### S EDR #### [facility] [address] [place] [address] Dr. Irma Erazo MANUAL DIFF REQ NO Normal [facility] Comment on above: Performed By: #### S EDR #### [facility] [address] [place] [address] Dr. Irma Erazo MCH (RBC) [Entitic mass] 30.3 pg Normal 25.9-34.0 [facility] Comment on above: Performed By: #### S EDR #### [facility] [address] [place] [address] Dr. Irma Erazo MCHC (RBC) [Mass/Vol] 34.4 g/dL Normal 29.9-35.2 [facility] Comment on above: Performed By: #### S EDR #### [facility] [address] [place] [address] Dr. Irma Erazo MCV (RBC) [Entitic vol] 88.3 fL Normal 80.0-94.0 [facility] Comment on above: Performed By: #### S EDR #### [facility] [address] [place] [address] Dr. Irma Erazo MONO # 0.7 103/ul Normal 0.3-0.8 [facility] Comment on above: Performed By: #### S EDR #### [facility] [address] [place] [address] Dr. Irma Erazo Monocytes/100 WBC (Bld) 8.7 % Normal 1.7-12.0 [facility] Comment on above: Performed By: #### S EDR #### [facility] [address] [place] [address] Dr. Irma Erazo NEUT # 4.6 103/ul Normal 1.4-6.5 [facility] Comment on above: Performed By: #### S EDR #### [facility] [address] [place] [address] Dr. Irma Erazo Neutrophils/100 WBC (Bld) 58.4 % Normal 43.0-75.0 [facility] Comment on above: Performed By: #### S EDR #### [facility] [address] [place] [address] Dr. Irma Erazo Platelet mean volume (Bld) [Entitic vol] 10.3 fL Normal 9.5-13.5 [facility] Comment on above: Performed By: #### S EDR #### [facility] [address] [place] [address] Dr. Irma Erazo PLT 175 103/ul Normal 150-450 [facility] Comment on above: Performed By: #### S EDR #### [facility] [address] [place] [address] Dr. Irma Erazo RBC 4.45 106/ul Critically low 4.70-6.10 [facility] Comment on above: Performed By: #### S EDR #### [facility] [address] [place] [address] Dr. Irma Erazo WBC 7.9 103/ul Normal 4.0-11.0 [facility] Comment on above: Performed By: #### S EDR #### [facility] [address] [place] [address] Dr. Irma Erazo PROF 14(COMP METB)on 022 Albumin [Mass/Vol] 4.2 g/dL Normal 3.4-5.0 [facility] Comment on above: Performed By: #### C MP #### [facility] [address] [place] [address] Dr. Irma Erazo Albumin/Globulin [Mass ratio] 1.3 {ratio} Normal [facility] Comment on above: Performed By: #### C MP #### [facility] [address] [place] [address] Dr. Irma Erazo ALP [Catalytic activity/Vol] 85 U/L Normal 46-116 [facility] Comment on above: Performed By: #### C MP #### [facility] [address] [place] [address] Dr. Irma Erazo ALT [Catalytic activity/Vol] 36 U/L Normal 16-63 [facility] Comment on above: Performed By: #### C MP #### [facility] [address] [place] [address] Dr. Irma Erazo Anion gap [Moles/Vol] 11.0 mmol/L Normal [facility] Comment on above: Performed By: #### C MP #### [facility] [address] [place] [address] Dr. Irma Erazo AST [Catalytic activity/Vol] 21 U/L Normal 15-37 [facility] Comment on above: Performed By: #### C MP #### [facility] [address] [place] [address] Dr. Irma Erazo Bilirubin [Mass/Vol] 0.8 mg/dL Normal 0.2-1.0 [facility] Comment on above: Performed By: #### C MP #### [facility] [address] [place] [address] Dr. Irma Erazo Calcium [Mass/Vol] 8.8 mg/dL Normal 8.5-10.1 [facility] Comment on above: Performed By: #### C MP #### [facility] [address] [place] [address] Dr. Irma Erazo Chloride [Moles/Vol] 103 mmol/L Normal 98-107 [facility] Comment on above: Performed By: #### C MP #### [facility] [address] [address] [address] Irma Erazo CO2 [Moles/Vol] 28.6 mmol/L Normal 21.0-32.0 [facility] Comment on above: Performed By: #### C MP #### [facility] [address] [address] [address] Irma Erazo Creatinine [Mass/Vol] 1.47 mg/dL Critically high 0.70-1.30 [facility] Comment on above: Performed By: #### C MP #### [facility] [address] [address] [address] Irma Erazo EGFR-AF PANAMANIAN 59 mL/min/1.73m2 Critically low >=60 [facility] Comment on above: Performed By: #### C MP #### [facility] [address] [address] [address] Irma Erazo EGFR-NON AF PANAMANIAN 48 mL/min/1.73m2 Critically low >=60 [facility] Comment on above: Performed By: #### C MP #### [facility] [address] [address] [address] Irma Erazo Globulin (S) [Mass/Vol] 3.2 g/dL Normal [facility] Comment on above: Performed By: #### C MP #### [facility] [address] [address] [address] Irma Erazo Glucose [Mass/Vol] 101 mg/dL Normal 74-106 [facility] Comment on above: Performed By: #### C MP #### [facility] [address] [address] [address] Irma Erazo Potassium [Moles/Vol] 4.6 mmol/L Normal 3.5-5.1 [facility] Comment on above: Performed By: #### C MP #### [facility] [address] [address] [address] Irma Erazo Protein [Mass/Vol] 7.4 g/dL Normal 6.4-8.2 [facility] Comment on above: Performed By: #### C MP #### [facility] [address] [place], [place] [address] Dr. Irma Erazo Sodium [Moles/Vol] 138 mmol/L Normal 136-145 [facility] Comment on above: Performed By: #### C MP #### [facility] [address] [place], [place] [address] Dr. Irma Erazo Urea nitrogen [Mass/Vol] 20.0 mg/dL Critically high 7.0-18.0 [facility] Comment on above: Performed By: #### C MP #### [facility] [address] [place], [place] [address] Dr. Irma Erazo Urea nitrogen/Creatinine [Mass ratio] 13.6 mg/mg Normal [facility] Comment on above: Performed By: #### C MP #### [facility] [address] [place], [place] [address] Dr. Irma Erazo SED RATE [facility] 2021 SED RATE 2 mm/hr Normal <=20 [facility] Comment on above: Performed By: #### S EDR #### [facility] [address] [place], [place] [address] Dr. Irma Erazo XR Abdomen 2 Viewson [...] by Alonzo Navas on 10/19/[address] [facility] Vital Signs Date Time Vital Sign Value Performing Clinician Facility 11-24-2023 14:29-040 Body height 170.2 cm [facility] [place] 11-24-2023 14:29-0400 Body mass index (BMI) [Ratio] 28.82 kg/m2 P[facility] 2 [facility] [place] 11-24-2023 14:29 Body weight 83.46 kg [facility] 2 [facility] [place] 10-21-2022 15:30-0400 Body height 170.18 cm Shashank Head Other [facility] Other 10-21-2022 15:30-0400 Body mass index (BMI) [Ratio] 28.35 kg/m2 Shashank Head Other [facility] Other 10-21-2022 15:30-0400 Body weight 82.1 kg Shashank Sonido Other [facility] Other 10-21-2022 15:30-0400 Diastolic blood pressure 76 mm[Hg] Shashank Head Other [facility] Other 10-21-2022 15:30-0400 Systolic blood pressure 134 mm[Hg] Shashank Senaenaalvino Other [facility] Other 07-16-2022 16:00-0500 Body height 170.18 cm Cassi Willams Other [facility] Other 07-16-2022 16:00-0500 Body mass index (BMI) [Ratio] 28.19 kg/m2 Cassi Willams Other [facility] Other 07-16-2022 16:00-0500 Body temperature 97.8 [degF] Cassi Willams Other [facility] Other 07-16-2022 16:00-0500 Body weight 81.65 kg Cassi Willams Other [facility] Other 07-16-2022 16:00-0500 Respiratory rate 18 /min Cassi Imer Other [facility] Other 07-16-2022 16:00-0500 SaO2% (BldA) [Mass fraction] 98 % Cassi Willams Other [facility] Other 04-21-2022 16:30-0400 Body weight 81.65 kg Shashank Head Other [facility] Other 01-27-2022 16:00-0400 Body weight 84.82 kg Shashank Head Other [facility] Other Encounters Encounter Date Encounter Type Care Provider Facility Start: 06-27-2024 End: 06-27-2024 ambulatory Shashank Mary Head Facility:[facility] Start: 04-25-2024 End: 04-25-2024 Clinisync Result Encounter Generic External Data Provider [facility] External Department Unsolicited Start: 04-25-2024 End: 04-25-2024 Clinisync Result Encounter Generic External Data Provider [facility] External Department Unsolicited Start: 01-03-2024 End: 01-03-2024 ambulatory JEREMIAS Shauna LEEANNA Not Available Start: 12-26-2023 End: 12-26-2023 ambulatory SIMONE Bowman MAK Not Available Start: 12-21-2023 End: 12-21-2023 Evaluation and management of inpatient PASQUALE VALDIVIA [facility] Start: 12-21-2023 End: 12-21-2023 Evaluation and management of inpatient JEREMIAS Villatoro LEEANNA [facility] Start: 12-01-2023 End: 12-01-2023 ambulatory TASHITESS Dunham ULISES Not Available Start: 12-01-2023 Preoperative state Generic Provider [facility] Start: 11-24-2023 End: 11-24-2023 Patient encounter procedure Pm Pre-Admission Testing 2 [facility] - Pre Admit Comment on above: Preop examination (P rimary Dx); Hypertension, unspecified type; Stage 3a chronic kidney disease (CMS-HCC); Coronary artery disease, unspecified vessel or lesion type, unspecified whether angina present, unspecified whether [place] or transplanted heart Start: 11-24-2023 End: 11-24-2023 Preprocedural examination done [facility] 2 [facility] Start: 11-24-2023 End: 11-24-2023 ambulatory [facility] Start: 11-24-2023 Encounter for other preprocedural examination [facility] Start: 11-22-2023 End: 11-22-2023 ambulatory WALDO MONTGOMERY Not Available Start: 11-22-2023 Patient encounter procedure Generic Provider [facility] Start: 11-08-2023 End: 11-08-2023 ambulatory [facility] Not Available Start: 10-31-2023 End: 10-31-2023 ambulatory TIM MARTINEZ Not Available Start: 10-25-2023 End: 10-25-2023 ambulatory TIM MARTINEZ Not Available Start: 10-11-2023 End: 10-11-2023 ambulatory TIM MARTINEZ Not Available Start: 09-27-2023 End: 09-27-2023 ambulatory TIM MARTINEZ Not Available Start: 01-08-2023 End: 01-08-2023 Emergency department patient visit MD Chino Moses Facility: Start: 10-21-2022 Patient encounter procedure Shashank RAYGO[facility] Start: 10-21-2022 End: 10-22-[address] ROBBINS [facility] 1 Other Start: 09-14-2022 End: 09-14-2022 ambulatory Shashank Head Other [facility] Other Start: 09-14-2022 Telephone encounter Shashank CLEMONS [facility] Start: 07-16-2022 End: 07-16-2022 ambulatory Cassi Willams Other [facility] Other Start: 07-16-2022 Office outpatient vi sit 25 minutes Cassi Willams [facility] [place] Start: 06-21-2022 End: 06-22-[address] SIDNEY CUNNINGHAM Facility:[facility] Start: 04-21-2022 End: 04-21-2022 ambulatory Shashank Head Other [facility] Other Start: 04-21-2022 Patient encounter procedure Shashank Head [facility] Start: 03-27-2022 End: 03-27-[address] WALDO MONTGOMERY Facility:[facility] Start: 02-19-2022 End: 02-20-[address] SIDNEY CUNNINGHAM Facility:[facility] Start: 02-11-2022 End: 02-11-2022 ambulatory Shashank Senaenaalvino Other [facility] Other Start: 02-11-2022 Telephone encounter Shashank Head [facility] Start: 01-27-2022 End: 01-27-2022 ambulatory Shashank Senakelsy Other [facility] Other Start: 01-27-2022 [facility] visit new patient Shashank Head [facility] Start: 12-18-2021 End: 12-19-[address] SIDNEY CUNNINGHAM Facility:[facility] Procedures Date Procedure Procedure Detail Performing Clinician Start: 04-25-2024 ALL CBC WITH AUTO DIFF Generic External Data Provider Start: 02-16-2023 History of placement of stent for coronary artery disease History of heart artery stent Generic Provider Plan of Treatment Date Care Activity Detail Author Start: 11-23-2024 Adult BMI Screening Adult BMI Screen ing [facility] Start: 11-23-2024 Tobacco Screening Tobacco Screening [facility] Start: 11-21-2024 Medicare Annual Wellness (AWV) Medicare Annual Wellness (AWV) [facility] Start: 04-21-2024 Pneumococcal Vaccine : 65+ Years (3 of 3 - PPSV23 or PCV20) Pneumococcal Vaccine: 65+ Years (3 of 3 - PPSV23 or PCV20) [facility] Start: 03-18-2024 Influenza vaccination [facility] Start: 12-21-2023 End: 12-21-2023 Admission to same day surgery center 12/21/2023 10:15 AM EDT - 12/21/2023 11:15 AM EDT Surgery [facility] [address] [place] [address] Jeremias Lau, DO [address] [place] [address] ARTHROSCOPIC MENISCECTOMY KNEE [85390 (CPT )] [facility] - Surgery Comment on above: ARTHROSCOPIC MENISCE CTOMY KNEE [25577 (CPT )] Start: 12-21-2023 End: 12-21-2023 Arthrs knee w/meniscectomy med&lat w/shaving ARTHROSCOPIC MENISCECTOMY KNEE meniscal tear 12/21/2023 10:15 AM EDT [facility] Start: 12-21-2023 Subsequent hospital visit by physician 12/21/2023 10:15 AM EDT Hospital Encounter [facility] [address] [place] [address] Jeremias Lau, DO [address] [facility] [address] [place] [address] [facility] Start: 03-18-2023 COVID-19 Vaccine ( season) COVID-19 Vaccine ( season) [facility] Start: 2023 Fall Risk Screening Fall Risk Screen ing [facility] Start: 1977 DTaP,Tdap and Td Vaccines (1 - Tdap) DTaP,Tdap and Td Vaccines (1 - Tdap) [facility] Start: 01-02-1976 Adult BMI Follow Up Plan Adult BMI Follow Up Plan [facility] Start: 1970 [facility]: [facility] Medicare Annual Wellness Visit Medicare Annual Wellness Visit [facility] Immunizations Immunization Date Immunization Notes Care Provider Fa cili 07-13-2023 zoster vaccine recombinant Generic Provider [facility] 05-03-2023 Influenza, Seasonal, Quadrivalent, Adjuvanted Generic Provider [facility] 05-03-2023 zoster vaccine recombinant Generic Provider [facility] 05-03-2023 influenza virus vacc ine, unspecified formulation [facility] 2 [facility] 05-05-2022 influenza, injectabl e, quadrivalent, preservative free Generic Provider [facility] 06-01-2021 influenza, injectabl e, quadrivalent, preservative free Generic Provider [facility] 03-25-2020 influenza, injectabl e, quadrivalent, preservative free Generic Provider [facility] 04-21-2019 influenza, injectabl e, quadrivalent, preservative free Generic Provider [facility] 04-21-2019 pneumococcal polysaccharide vaccine, 23 valent Generic Provider [facility] 05-11-2018 influenza, injectabl e, quadrivalent, preservative free Generic Provider [facility] 05-11-2018 seasonal influenza, intradermal, preservative free Generic Provider [facility] 04-30-2017 influenza, injectabl e, quadrivalent, preservative free Generic Provider [facility] 04-23-2016 influenza, injectabl e, madin carlos canine kidney, preservative free Generic Provider [facility] 04-23-2016 influenza, injectabl e, quadrivalent, preservative free Generic Provider [facility] 11-26-2015 pneumococcal conjuga te vaccine, 13 valent Generic Provider [facility] 04-23-2013 pneumococcal polysaccharide vaccine, 23 valent Generic Provider [facility] Payers Date Payer Category Payer Self-pay 2023 Unknown [id number] 2023 Medicare [id number] 1961 [facility] [id number] 1958 Unknown [id number] 2.16.84 0.1.112877.3.579.2.593 1958 Unknown [id number] 2.16.84 0.1.109599.3.579.2.593 1958 Unknown [id number] 2.16.84 0.1.001815.3.579.2.593 1958 Unknown [id number] 2.16.84 0.1.039381.3.579.2.593 1958 Unknown [id number] 2.16.84 0.1.643929.3.579.2.593 1958 Unknown [id number] 2.16.8 40.1.623703.3.579.2.718 1958 Unknown [id number] 2.16.8 40.1.870622.3.579.2.1286 1958 Unknown [id number] 2.16.8 40.1.625614.3.579.2.1286 1958 Unknown [id number] 2.16.8 40.1.983308.3.579.2.1286 1958 Unknown [id number] 2.16.8 40.1.859657.3.579.2.1286 1958 Unknown [id number] 2.16.8 40.1.110481.3.579.2.1286 1958 Unknown [id number] 2.16.8 40.1.712947.3.579.2.1286 1958 Unknown [id number] 2.16.8 40.1.524344.3.579.2.1286 1958 Unknown [id number] 2.16.84 0.1.623500.3.579.2.1259 1958 Unknown [id number] 2.16.84 0.1.642938.3.579.2.1259 1958 Unknown [id number] 2.16.84 0.1.331506.3.579.2.1259 1958 Unknown [id number] 2.16.84 0.1.447604.3.579.2.1259 1958 Unknown [id number] 2.16.84 0.1.889076.3.579.2.1259 1958 Unknown [id number] 2.16.84 0.1.525368.3.579.2.1259 1958 Unknown [id number] 2.16.84 0.1.568038.3.579.2.9 1958 Unknown [id number] 2.16.84 0.1.966420.3.579.2.9 1958 Unknown [id number] 2.16.84 0.1.495277.3.579.2.1258 1958 Unknown [id number] 2.16.84 0.1.490562.3.579.2.1258 1958 Unknown [id number] 2.16.84 0.1.979299.3.579.2.1259 [facility] [id number] 2.16.840.1.919889.19 Unknown [id number] 2.16.8 40.1.718927.3.579.2.531 Social History Date Type Detail Facility Start: 08-28-2020 End: 11-15-2023 Sex Assigned At [facility] Start: 11-22-2023 End: 11-24-2023 Tobacco smoking status [facility] Ex-smoker [facility] Start: 04-27-1975 End: 09-08-2011 History of tobacco use Current smoker [facility] Start: 04-27-1975 End: 09-08-2011 History of tobacco use Cigarette Smoker [facility] Start: 08-28-2020 End: 11-22-2023 Cigarettes smoked current (pack per day) - Reported 2.5 [facility] Start: 11-22-2023 End: 11-24-2023 Tobacco use and exposure Smokeless tobacco non-user [facility] Start: 11-24-2023 End: 12-30-2023 Alcoholic beverage intake Lifetime non-drinker (finding) [facility] In a typical week, h ow many times do you talk on the telephone with family, friends, or neighbors? Patient declined [facility] Are you now , , , , never or living with a partner? [facility] How often to you hav e a drink containing alcohol? Never [facility] Do you feel stress - tense, restless, nervous, or anxious, or unable to sleep at night because your mind is troubled all the time - these days [OSQ] Very much [facility] Start: 1960 Sex assigned at Not on file [facility] Clinical Notes 11-04-2021 to 11-24-2023 Patient InstructionsPerioperative Nursing Note - Carmela Galindo RN - 11/24/2023 2:15 PM EDTPerioperative Nursing Note - Carmela Galindo RN - 11/24/2023 2:15 PM EDT Note Date & Type Note Facility 11-24-2023 Instructions Carmela Galindo RN - 11/24/2023 2:15 PM EDT Preoperative Education Checklist- General Surgery date: 12/21/23 Surgery time: 1000 a.m. Arrival time: 0800 a.m. 1. Bring a photo ID and your insurance card with you the day of surgery. You will check in at the main lobby of the [facility]- registration desk is straight ahead as soon as you walk in. Tell them you are here for surgery. 2. If you have a Living Will/Durable Power of Early Childhood Lead Teacher for Health Care that is not on file here, please bring a copy the day of surgery. 3. Please shower/bathe the night before surgery with the provided soap or wipes. Do not shower the morning of surgery- you will do use wipes when you arrive here at the hospital before getting into your surgical gown. Do not shave the area of your procedure for 2 days prior to your surgery. 4. NO powder, lotion, perfume/cologne, aftershave, make-up, deodorant, or hair products after you have bathed. 5. NO nail samoan/acrylic on at least one finger. If you are having a hand, wrist or foot surgery then all nail samoan and artificial/acrylic nails must be removed from that hand or foot. 6. Avoid ALL Aspirin and non-steroidal anti-inflammatory drugs and certain vitamins (Ibuprofen, Advil, Aleve, Excedrin, Meloxicam, Celebrex, fish/krill oil, etc.) for 7 days prior to surgery as instructed by your surgeon and/or your prescribing doctor. Tylenol IS ALLOWED. If you are on Ticlid, Xarelto, Eliquis, Pradaxa, Plavix or Coumadin, please check with your prescribing doctor for instructions for when to stop them. 7. If you use an inhaler, continue to use it routinely. 8. Nothing to eat or drink (not even water, gum, mints, or hard candy!) AFTER midnight prior to your surgery. 9. Take only medications that you are instructed to on the morning of surgery with a TINY SIP OF WATER. 10. Choose a responsible adult that will be able to drive you home when you are discharged from your hospital stay for your surgery and can stay with you in your home for 24 hours after your procedure. You must NOT drive any vehicle or operate any machinery for 24 hours after surgery. 11. When you dress for your appointment, please wear loose fitting clothing that is appropriate to accommodate your surgical area procedure. BRING WITH YOU ANY DEVICES YOU MAY NEED: YASMIN hose, ice machine, sling/swath, brace or special shoe, oversized zip-up or button up shirt, CPAP machine if staying overnight. 12. Do NOT wear jewelry, watches, or any piercings or metal for surgery- leave these valuables and money at home. 13. Do NOT wear contact lenses for surgery- glasses are okay if needed. 14. The anesthesiologist will talk with you the day of surgery and will ask you to sign a Consent Form. 15. Refrain from smoking or any type of tobacco use for at least 8 hours and marijuana for 24 hours prior to arrival for your surgery. 16. If a GREEN BLOOD band is given to you, please bring it with you for the day of surgery. 17. Notify your surgeon if you develop any illness before your surgery. 18. If you are staying overnight, please DO NOT BRING your home medications with you. 19. If you have any questions prior to surgery, please call the Preadmission Testing office at [phone], Mon.-Fri. 7 a.m.-3 p.m. Leave a voicemail if needed. Pre-Surgery Instructions: Medication Instructions aspirin 325 mg EC tablet Stop taking 14 days prior to procedure atorvastatin (LIPITOR) 40 mg tablet Stop taking 0 days prior to procedure clopidogreL (PLAVIX) 75 mg tablet Check with prescribing doctor for instructions hydroxychloroquine (PLAQUENIL) 200 mg tablet Stop taking 0 days prior to procedure metoprolol tartrate (LOPRESSOR) 50 mg tablet Take morning of procedure omeprazole (PriLOSEC) 20 mg capsule Take morning of procedure predniSONE (DELTASONE) 5 mg tablet Stop taking 0 days prior to procedure rOPINIRole (REQUIP) 5 mg tablet Stop taking 0 days prior to procedure How to Avoid an Infection after Your Surgery Your doctor will give you specific instructions, but remember: -ALWAYS wash hands before caring for your incision. -No picking, scratching, or rubbing your incision. -No creams, lotion, powder, rubbing alcohol or hydrogen peroxide on the incision (can harm the tissue and slow healing). -Your doctor will give you specific instructions for what type of dressing you will need and how often it will need changed for infection purposes. -No tight clothing on incision. -Do not allow anyone to touch your incision unless they are cleaning, checking, or redressing it (be sure they wash their hands first). -No contact of your incision with pets; avoid sleeping with pets. -Take full course of antibiotic if prescribed for you after surgery- do not stop unless directed to by your physician. You may also be given an antibiotic prior to your surgery to help prevent surgical site infections. -Eat a healthy and varied diet including proteins, fruits, and vegetables to help promote wound healing and keep blood sugars under control if you are diabetic. -Smoking slows the healing process by decreasing the amount of oxygen in your blood that is needed for tissue healing. Try to avoid or stop smoking if possible. LOOK at your incision each morning and each night to check the progress of healing. Some soreness, numbness, itching and/or mild bruising around the incision is normal. Call your doctor if you notice any of the following: -Increased redness or hardening around the incision area. -Increased pain at the incision site. -Incision feels hot to the touch. -Swelling or pulling apart of the incision edges. -Yellow or green drainage or foul odor coming from the incision. -Bleeding from the incision (apply pressure as needed). -Fever higher than 101 degrees Fahrenheit for more than 4 hours. SHOWERING: Your doctor will give you specific instructions, but remember: -Be careful getting into and out of the shower. -Showers should be quick (5 minutes or less). -Use a clean washcloth to gently wash your incision with soap and water and pat the area dry with a clean towel. -No re-using wash cloths or towels; get a fresh one to clean your incision. -Do not soak in the bathtub, go swimming or use a hot tub (Jacuzzi), or perform activities where your incision is submerged in water or exposed to any fluids or substances until instructed by your doctor. -If your have the sticky strips (steri-strips) over the incision, it is OK to shower with them. Do not remove them. Let them fall off on their own. If you have a question, call your doctor s office. Go to the follow-up appointment with your doctor. documented in this encounter [employer] 11-24-2023 Miscellaneous Notes Preoperative Education Checklist- General Surgery date: 12/21/23 Surgery time: 1000 a.m. Arrival time: 0800 a.m. 1. Bring a photo ID and your insurance card with you the day of surgery. You will check in at the main lobby of the [facility]- registration desk is straight ahead as soon as you walk in. Tell them you are here for surgery. 2. If you have a Living Will/Durable Power of Early Childhood Lead Teacher for Health Care that is not on file here, please bring a copy the day of surgery. 3. Please shower/bathe the night before surgery with the provided soap or wipes. Do not shower the morning of surgery- you will do use wipes when you arrive here at the hospital before getting into your surgical gown. Do not shave the area of your procedure for 2 days prior to your surgery. 4. NO powder, lotion, perfume/cologne, aftershave, make-up, deodorant, or hair products after you have bathed. 5. NO nail samoan/acrylic on at least one finger. If you are having a hand, wrist or foot surgery then all nail samoan and artificial/acrylic nails must be removed from that hand or foot. 6. Avoid ALL Aspirin and non-steroidal anti-inflammatory drugs and certain vitamins (Ibuprofen, Advil, Aleve, Excedrin, Meloxicam, Celebrex, fish/krill oil, etc.) for 7 days prior to surgery as instructed by your surgeon and/or your prescribing doctor. Tylenol IS ALLOWED. If you are on Ticlid, Xarelto, Eliquis, Pradaxa, Plavix or Coumadin, please check with your prescribing doctor for instructions for when to stop them. 7. If you use an inhaler, continue to use it routinely. 8. Nothing to eat or drink (not even water, gum, mints, or hard candy!) AFTER midnight prior to your surgery. 9. Take only medications that you are instructed to on the morning of surgery with a TINY SIP OF WATER. 10. Choose a responsible adult that will be able to drive you home when you are discharged from your hospital stay for your surgery and can stay with you in your home for 24 hours after your procedure. You must NOT drive any vehicle or operate any machinery for 24 hours after surgery. 11. When you dress for your appointment, please wear loose fitting clothing that is appropriate to accommodate your surgical area procedure. BRING WITH YOU ANY DEVICES YOU MAY NEED: YASMIN hose, ice machine, sling/swath, brace or special shoe, oversized zip-up or button up shirt, CPAP machine if staying overnight. 12. Do NOT wear jewelry, watches, or any piercings or metal for surgery- leave these valuables and money at home. 13. Do NOT wear contact lenses for surgery- glasses are okay if needed. 14. The anesthesiologist will talk with you the day of surgery and will ask you to sign a Consent Form. 15. Refrain from smoking or any type of tobacco use for at least 8 hours and marijuana for 24 hours prior to arrival for your surgery. 16. If a GREEN BLOOD band is given to you, please bring it with you for the day of surgery. 17. Notify your surgeon if you develop any illness before your surgery. 18. If you are staying overnight, please DO NOT BRING your home medications with you. 19. If you have any questions prior to surgery, please call the Preadmission Testing office at [phone], Mon.-Fri. 7 a.m.-3 p.m. Leave a voicemail if needed. Pre-Surgery Instructions: Medication Instructions aspirin 325 mg EC tablet Stop taking 14 days prior to procedure atorvastatin (LIPITOR) 40 mg tablet Stop taking 0 days prior to procedure clopidogreL (PLAVIX) 75 mg tablet Check with prescribing doctor for instructions hydroxychloroquine (PLAQUENIL) 200 mg tablet Stop taking 0 days prior to procedure metoprolol tartrate (LOPRESSOR) 50 mg tablet Take morning of procedure omeprazole (PriLOSEC) 20 mg capsule Take morning of procedure predniSONE (DELTASONE) 5 mg tablet Stop taking 0 days prior to procedure rOPINIRole (REQUIP) 5 mg tablet Stop taking 0 days prior to procedure How to Avoid an Infection after Your Surgery Your doctor will give you specific instructions, but remember: -ALWAYS wash hands before caring for your incision. -No picking, scratching, or rubbing your incision. -No creams, lotion, powder, rubbing alcohol or hydrogen peroxide on the incision (can harm the tissue and slow healing). -Your doctor will give you specific instructions for what type of dressing you will need and how often it will need changed for infection purposes. -No tight clothing on incision. -Do not allow anyone to touch your incision unless they are cleaning, checking, or redressing it (be sure they wash their hands first). -No contact of your incision with pets; avoid sleeping with pets. -Take full course of antibiotic if prescribed for you after surgery- do not stop unless directed to by your physician. You may also be given an antibiotic prior to your surgery to help prevent surgical site infections. -Eat a healthy and varied diet including proteins, fruits, and vegetables to help promote wound healing and keep blood sugars under control if you are diabetic. -Smoking slows the healing process by decreasing the amount of oxygen in your blood that is needed for tissue healing. Try to avoid or stop smoking if possible. LOOK at your incision each morning and each night to check the progress of healing. Some soreness, numbness, itching and/or mild bruising around the incision is normal. Call your doctor if you notice any of the following: -Increased redness or hardening around the incision area. -Increased pain at the incision site. -Incision feels hot to the touch. -Swelling or pulling apart of the incision edges. -Yellow or green drainage or foul odor coming from the incision. -Bleeding from the incision (apply pressure as needed). -Fever higher than 101 degrees Fahrenheit for more than 4 hours. SHOWERING: Your doctor will give you specific instructions, but remember: -Be careful getting into and out of the shower. -Showers should be quick (5 minutes or less). -Use a clean washcloth to gently wash your incision with soap and water and pat the area dry with a clean towel. -No re-using wash cloths or towels; get a fresh one to clean your incision. -Do not soak in the bathtub, go swimming or use a hot tub (Jacuzzi), or perform activities where your incision is submerged in water or exposed to any fluids or substances until instructed by your doctor. -If your have the sticky strips (steri-strips) over the incision, it is OK to shower with them. Do not remove them. Let them fall off on their own. If you have a question, call your doctor s office. Go to the follow-up appointment with your doctor. Hibiclens and surgical instructions reviewed. Patient verbalized understanding. documented in this encounter [facility] [place] 11-24-2023 Nurse Note Preoperative Education Checklist- General Surgery date: 12/21/23 Surgery time: 1000 a.m. Arrival time: 0800 a.m. 1. Bring a photo ID and your insurance card with you the day of surgery. You will check in at the main lobby of the [facility]- registration desk is straight ahead as soon as you walk in. Tell them you are here for surgery. 2. If you have a Living Will/Durable Power of Early Childhood Lead Teacher for Health Care that is not on file here, please bring a copy the day of surgery. 3. Please shower/bathe the night before surgery with the provided soap or wipes. Do not shower the morning of surgery- you will do use wipes when you arrive here at the hospital before getting into your surgical gown. Do not shave the area of your procedure for 2 days prior to your surgery. 4. NO powder, lotion, perfume/cologne, aftershave, make-up, deodorant, or hair products after you have bathed. 5. NO nail samoan/acrylic on at least one finger. If you are having a hand, wrist or foot surgery then all nail samoan and artificial/acrylic nails must be removed from that hand or foot. 6. Avoid ALL Aspirin and non-steroidal anti-inflammatory drugs and certain vitamins (Ibuprofen, Advil, Aleve, Excedrin, Meloxicam, Celebrex, fish/krill oil, etc.) for 7 days prior to surgery as instructed by your surgeon and/or your prescribing doctor. Tylenol IS ALLOWED. If you are on Ticlid, Xarelto, Eliquis, Pradaxa, Plavix or Coumadin, please check with your prescribing doctor for instructions for when to stop them. 7. If you use an inhaler, continue to use it routinely. 8. Nothing to eat or drink (not even water, gum, mints, or hard candy!) AFTER midnight prior to your surgery. 9. Take only medications that you are instructed to on the morning of surgery with a TINY SIP OF WATER. 10. Choose a responsible adult that will be able to drive you home when you are discharged from your hospital stay for your surgery and can stay with you in your home for 24 hours after your procedure. You must NOT drive any vehicle or operate any machinery for 24 hours after surgery. 11. When you dress for your appointment, please wear loose fitting clothing that is appropriate to accommodate your surgical area procedure. BRING WITH YOU ANY DEVICES YOU MAY NEED: YASMIN hose, ice machine, sling/swath, brace or special shoe, oversized zip-up or button up shirt, CPAP machine if staying overnight. 12. Do NOT wear jewelry, watches, or any piercings or metal for surgery- leave these valuables and money at home. 13. Do NOT wear contact lenses for surgery- glasses are okay if needed. 14. The anesthesiologist will talk with you the day of surgery and will ask you to sign a Consent Form. 15. Refrain from smoking or any type of tobacco use for at least 8 hours and marijuana for 24 hours prior to arrival for your surgery. 16. If a GREEN BLOOD band is given to you, please bring it with you for the day of surgery. 17. Notify your surgeon if you develop any illness before your surgery. 18. If you are staying overnight, please DO NOT BRING your home medications with you. 19. If you have any questions prior to surgery, please call the P[facility] office at [phone], Mon.-Fri. 7 a.m.-3 p.m. Leave a voicemail if needed. Pre-Surgery Instructions: Medication Instructions aspirin 325 mg EC tablet Stop taking 14 days prior to procedure atorvastatin (LIPITOR) 40 mg tablet Stop taking 0 days prior to procedure clopidogreL (PLAVIX) 75 mg tablet Check with prescribing doctor for instructions hydroxychloroquine (PLAQUENIL) 200 mg tablet Stop taking 0 days prior to procedure metoprolol tartrate (LOPRESSOR) 50 mg tablet Take morning of procedure omeprazole (PriLOSEC) 20 mg capsule Take morning of procedure predniSONE (DELTASONE) 5 mg tablet Stop taking 0 days prior to procedure rOPINIRole (REQUIP) 5 mg tablet Stop taking 0 days prior to procedure How to Avoid an Infection after Your Surgery Your doctor will give you specific instructions, but remember: -ALWAYS wash hands before caring for your incision. -No picking, scratching, or rubbing your incision. -No creams, lotion, powder, rubbing alcohol or hydrogen peroxide on the incision (can harm the tissue and slow healing). -Your doctor will give you specific instructions for what type of dressing you will need and how often it will need changed for infection purposes. -No tight clothing on incision. -Do not allow anyone to touch your incision unless they are cleaning, checking, or redressing it (be sure they wash their hands first). -No contact of your incision with pets; avoid sleeping with pets. -Take full course of antibiotic if prescribed for you after surgery- do not stop unless directed to by your physician. You may also be given an antibiotic prior to your surgery to help prevent surgical site infections. -Eat a healthy and varied diet including proteins, fruits, and vegetables to help promote wound healing and keep blood sugars under control if you are diabetic. -Smoking slows the healing process by decreasing the amount of oxygen in your blood that is needed for tissue healing. Try to avoid or stop smoking if possible. LOOK at your incision each morning and each night to check the progress of healing. Some soreness, numbness, itching and/or mild bruising around the incision is normal. Call your doctor if you notice any of the following: -Increased redness or hardening around the incision area. -Increased pain at the incision site. -Incision feels hot to the touch. -Swelling or pulling apart of the incision edges. -Yellow or green drainage or foul odor coming from the incision. -Bleeding from the incision (apply pressure as needed). -Fever higher than 101 degrees Fahrenheit for more than 4 hours. SHOWERING: Your doctor will give you specific instructions, but remember: -Be careful getting into and out of the shower. -Showers should be quick (5 minutes or less). -Use a clean washcloth to gently wash your incision with soap and water and pat the area dry with a clean towel. -No re-using wash cloths or towels; get a fresh one to clean your incision. -Do not soak in the bathtub, go swimming or use a hot tub (Jacuzzi), or perform activities where your incision is submerged in water or exposed to any fluids or substances until instructed by your doctor. -If your have the sticky strips (steri-strips) over the incision, it is OK to shower with them. Do not remove them. Let them fall off on their own. If you have a question, call your doctor s office. Go to the follow-up appointment with your doctor. [facility] 11-24-2023 Nurse Note Hibiclens and surgical instructions reviewed. Patient verbalized understanding. [facility] 01-08-2023 Note Education Materials Urology Kidney Stones [...] these instructions at home: Medicines ? Take [id number] and prescription medicines only as told by [...] provider. Document Revised: 03/08/2022 Document Reviewed: 03/08/2022 Elsevier Patient Education ? 2022 [employer]. 10-21-2022 Evaluation note Encounter Date Diagnosis Assessment Notes Oct, Dyspepsia (ICD-10 - K30) Oct, GERD (gastroesopha geal reflux disease) (ICD-10 - K21.9) Stop Pantoprazole Start Omeprazole 40mg twice daily, 30 min ac Follow up 3 months [facility] Other 02-28-2023 Evaluation note* Encounter Date Diagnosis Assessment Notes Treatment Notes Treatment Clinical Notes Aug, Dyspepsia (ICD-10 - K30) [facility] Other 12-30-2022 Evaluation note* Encounter Date Diagnosis [...] treatment plan. Patient left in stable condition [facility] Other 10-05-2022 Evaluation note* Encounter Date Diagnosis Assessment Notes Treatment Notes Treatment Clinical Notes Apr, Dyspepsia (ICD-10 - K30) PATIENT STATES HE IS DOING WELL AT THIS TIME. WE WILL CONTINUE ON THE MEDICATION AT THIS TIME. [facility] Other 07-13-2022 Evaluation note* Encounter Date Diagnosis Assessment Notes Treatment Notes Treatment Clinical Notes Jan, Abdominal pain (ICD-10 - R10.9) Jan, Bloating (ICD-10 - R14.0) WILL PROCEED WITH EGD AT THIS TIME. Jan, Abdominal fullness (ICD-10 - R19.8) IS NOT ABLE TO EAT A LOT DUE TO BLOATING FEELING. Jan, Early satiety (ICD-10 - R68.81) [facility] Other 04-20-2022 NoteHISTORY: Abdominal pain, bloating, constipation, diarrhea PROCEDURE: [employer] VCT 64. Following oral contrast administration, pre [...] and signed by Alonzo Navas on 11/04/2021 160[address] [place] [facility] SpecialistEvaluation noteNo InformationNort Cued Other Evaluation note* Diagnosis Preop examination- Primary Unspecified pre-operative examination Hypertension, unspecified type Stage 3a chronic kidney disease (CMS-HCC) Coronary artery disease, unspecified vessel or lesion type, unspecified whether angina present, unspecified whether [place] or transplanted heart Preop examination Unspecified pre-operative examination Hypertension, unspecified type Preop examination Unspecified pre-operative examination Hypertension, unspecified type Stage 3a chronic kidney disease (CMS-HCC) Coronary artery disease, unspecified vessel or lesion type, unspecified whether angina present, unspecified whether [place] or transplanted heart documented [facility] - [facility]* Type Description Date Surgical History colon resection Surgical History gall bladder [facility] Other History general Narrative - Reported* Type Description Date Medical History Hypertension Medical History myocardial infarction multiple Surgical History colon resection Surgical History gall bladder Surgical History heart stent Surgical History heart catheterization [facility] Other Reason for visit NarrativePATIENT HERE AT THE REQUEST OF DR. MONTGOMERY FOR EVALUATION & TREATMENT OF ABDOMINAL PAIN, Abdominalxray and CT obtained from [employer] and scanned in chart., PATIENT STATES THAT HE HAS HAD THIS FOR ALONG TIME AND SEEMS FROM TIME TO TAKE FOOD IN TO WHEN IT LEAVES NOT RIGHT. PATIENT DOES HAVE BLOATING, FEELS LIKE FOOD SITS IN ESOPHAGUS. PATIENT STOOLS ALTERNATE FROM HARD STOOLS TO DIARRHEA.[facility] Other Summary Purpose Family History No Family History Records FoundNo Family History Records FoundNo Family History Records FoundNo Family History Records FoundNo Family History Records FoundNo Family History Records Found Advance Directives No Advanced Directives Records FoundNo Advanced Directives Records FoundNo Advanced Directives Records FoundNo Advanced Directives Records FoundNo Advanced Directives Records FoundNo Advanced Directives Records Found Reason for Referral Specialty Diagnoses / Procedures Referred By George munoz Referred To Contact Diagnoses Preop examination Hypertension, unspecified type Procedures ECG 12 lead Jeremias Lau, [address] [facility] [address] [place] [address] Referral ID Status Reason Start Date Expiration Date V isits Requested Visits Authorized [id number] Pending Review 11/21/2023 11/20/2024 1 1 Additional Source Comments (unrecognized sect ion and content) No Status Records FoundNo Status Records FoundNo Status Records FoundNo Status Records FoundNo Status Records FoundNo Status Records Found INFORMATION SOURCE (unrecogn ized section and content) DATE CREATED AUTHOR 11/06/2021 [facility] DATE CREATED AUTHOR AUTHOR'S ORGANIZ ATION 10/30/2022 [facility] DATE CREATED AUTHOR AUTHOR'S ORGANIZ ATION 02/19/2023 [facility] DATE CREATED AUTHOR AUTHOR'S ORGANIZ ATION 12/22/2023 [facility] DATE CREATED AUTHOR AUTHOR'S ORGANIZ ATION 01/04/2024 [facility] EPIC DATE CREATED AUTHOR AUTHOR'S ORGANIZ ATION 07/07/2024 [facility] REASON FOR VISIT (unrecogniz ed section and content) 10-12 week follow upPT HERE FOR 10-12 WEEK FOLLOW UP EGD., PATIENT STATES HE DOES HAVE A LITTLE BLOATING BUT NOT LIKE IT WAS PATIENT STATES THE INCREASE OF 2 A DAY PANTOPRAZOLE HAS SEEMED TO HELP.SORE THRAOT COUGH CONGESTIONRefillsPATIENT HERE FOR 6 MONTH FOLLOW UP Care Teams (unrecognized sec tion and content) Physician Office Rep Relationship Specialty Start Date End Date Waldo Montgomery MD [address] [facility] [address] [place] [address] PCP - General Family Medicine 11/23/22 Waldo Montgomery MD [address] [facility] [address] [place] [address] PCP - Devoted 08/18/23 Physician Office Rep Relationship Specialty Start Date End Date Waldo Montgomery MD [address] [facility] [address] [place] [address] PCP - General Family Medicine 11/24/23 FOR RECORDS PERTAINING TO PATIENTS WHO ARE [...] BE BASED ON THE PRIMARY CLINICAL RECORDS. [facility]. provides no warranty or guarantee of the accuracy or completeness of information in this document.
[2024-10-01 10:40] LABS: Erythrocyte Sedimentation Rate 20 mm/hr (<=20)
[2024-10-01 10:49] LABS: Alanine Aminotransferase 50 U/L (16-63); Albumin Globulin Ratio 1.1; Albumin Level 4.1 g/dL (3.4-5.0); Alkaline Phosphatase 114 U/L (46-116); Aspartate Amino Transferase 30 U/L (15-37); BUN Creatinine Ratio 12.6; Bilirubin Total 0.6 mg/dL (0.2-1.0); Calcium 9.1 mg/dL (8.5-10.1); Carbon Dioxide 26.8 mmol/L (21.0-32.0); Chloride 103 mmol/L (98-107); Estimated GFR (African America >60 (>=60 mL/min/1.73m^2); Estimated GFR (Non-African Ame 57 (>=60 mL/min/1.73m^2); Globulin 3.6 g/dL; Glucose 98 mg/dL (74-106); Potassium 4.8 mmol/L (3.5-5.1); Sodium 139 mmol/L (136-145); Total Protein 7.7 g/dL (6.4-8.2); Uric Acid 4.1 mg/dL (3.5-7.2)
== END 2024-10-01 09:59 | disposition home or self-care (01) ==
LOC: LAB 10:03
PROVIDERS: PCP Family Medicine; Visit Provider Internal Medicine Rheumatology
DX: M10.9 Gout, unspecified (principal); M19.90 Unspecified osteoarthritis, unspecified site; Z51.81 Encounter for therapeutic drug level monitoring
CPT/HCPCS: 36415; 80053; 84550; 85025; 85652

== ENCOUNTER 2025-04-12 10:29 | Outpatient (OUT) | payer OTHER, SELFPAY ==
--- OUTSIDE RECORDS SUMMARY | 2025-04-01 15:00 | XMS_ITS | Encounter Summary ---
Author Organization [facility] Address [address] [place] [address] Care Team Providers Care Painting And Coating Worker Name Role Phone Waldo Hoffman MD Primary Care Provider [phone] Waldo Hoffman MD Unavailable Reason for Referral * Imaging (Routine) - Closed Specialty Diagnoses / Procedures Referred By George munoz Referred To Contact Radiology Diagnoses Former smoker Procedures CT lung screening low dose Yadira Spicer PA [address] [facility] [address] [place] [address] Phone: tel: fax: [facility] [address] [facility] [address] [place] [address] Phone: tel: fax: Referral ID Status Reason Start Date Expiration Date Visits Re quested Visits Authorized [id number] Closed 04/01/2025 09/28/2025 1 1 Reason for Visit * Reason Comments Medicare Annual Wellness Visit Rika munoz Encounter Details Date Type Department Care Team (Late st Contact Info) Description 04/01/2025 3:00 PM EDT Office Visit [facility] Painter [address] [facility] [address] [place] [address] Yadira Spicer PA [address] [facility] [address] [place] [address] Medicare annual wellness visit, subsequent (Primary Dx); ACP (advance care planning); Restless legs syndrome (RLS); Benign essential hypertension ; Coronary artery disease involving tanana coronary artery of tanana heart without angina pectoris ; History of heart artery stent; Chronic kidney disease, stage 3a (CMS-HCC); Myalgia; Mixed hyperlipidemia ; Anemia of chronic disease; Former smoker; 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 Patient declined 11/15/2023 How often do you get togethe r with friends or relatives? Patient declined 11/15/2023 How often do you attend bahai or methodist serv ices? Patient declined 11/15/2023 Do you belong to any clubs o r organizations such as bahai groups, unions, fraternal or athletic groups, or school groups? Patient declined 11/15/2023 How often do you attend meet ings of the clubs or organizations you belong to? Patient declined 11/15/2023 Are you , , di vorced, , never , or living with a partner? 11/15/2023 AUDIT-C Answer Date Recorded Q1: How often do you have a drink containing alcohol? Never 11/15/2023 Q2: How many drinks containi ng alcohol do you have on a typical day when you are drinking? Patient does not drink Q3: How often do you have si x or more drinks on one occasion? Never 11/15/2023 Overall Financial Resource Strain (CARDIA) Answe r Date Recorded How hard is it for you to pa y for the very basics like food, housing, medical care, and heating? Patient declined 11/15/2023 PHQ-2 Answer Date Recorded Patient Health Questionnaire-2 Score 0 04/01/2025 [facility] [place] [facility] Occupat ional Health - Occupational Stress Questionnaire Answer Date Recorded Do you feel stress - tense, restless, nervous, or anxious, or unable to sleep at night because your mind is troubled all the time - these days? Very much 11/15/2023 Exercise Vital Sign Answer Date Recorde d On average, how many days pe r week do you engage in moderate to strenuous exercise (like a brisk walk)? 5 days 11/15/2023 On average, how many minutes do you engage in exercise at this level? 30 min 11/15/2023 Hunger Vital Sign Answer Date Recorded Within the past 12 months, y ou worried that your food would run out before you got the money to buy more. Patient declined Within the past 12 months, t he food you bought just didn't last and you didn't have money to get more. Patient declined PRAPARE - Transportation Answer Date Re corded In the past 12 months, has l ack of transportation kept you from medical appointments or from getting medications? Patient declined 11/15/2023 In the past 12 months, has l ack of transportation kept you from meetings, work, or from getting things needed for daily living? Patient declined 11/15/2023 Housing Stability Vital Sign Answer Magdaleno e Recorded In the last 12 months, was t here a time when you were not able to pay the mortgage or rent on time? Patient declined 11/15/19 24 Number of Places Lived in the Last Year Not on f ile 11/15/2023 In the last 12 months, was t here a time when you did not have a steady place to sleep or slept in a long term (including now)? Patient declined 11/15/2023 Sex and Gender Information Value Date Recorded Sex Assigned at Not on file Legal Sex Male 7:00 PM EDT Gender Identity Not on file Sexual Orientation Not on file documented as of this encounter Last Filed Vital Signs Vital Sign Reading Time Taken Comments Blood Pressure 132/78 04/01/2025 3:08 PM EDT Pulse 59 04/01/2025 3:08 PM EDT Temperature - - Respiratory Rate 16 04/01/2025 3:08 PM EDT Oxygen Saturation 97% 04/01/2025 3:08 PM EDT Inhaled Oxygen Concentration - - Weight 82.3 kg (181 lb 6.4 oz) 04/01/2025 3:08 P M EDT Height 170.2 cm (5' 7 ) 04/01/2025 3:08 PM EDT Body Mass Index 28.41 04/01/2025 3:08 PM EDT documented in this encounter Functional Status * Over the past 2 weeks, how often have you been bothered by any of the following problems? Question Answer Date of Assessment Author Little interest or pleasure in doing things Not at all 04/01/2025 2:00 PM EDT Wendy Mcclain LP N Feeling down, depressed, or hopeless Not at all 04/01/2025 2:00 PM EDT Wendy Mcclain LP N Patient Health Questionnaire -2 Score 0 04/01/2025 2:00 PM EDT Wendy Mcclain LP N * Question Answer Date of Assessment Author Trouble falling or staying asleep, or sleeping too much Not at all 04/01/2025 2:00 PM EDT Milena Mcclain LPN Feeling tired or having shea le energy Not at all 04/01/2025 2:00 PM EDT Wendy Mcclain LP N Poor appetite or overeating Not at all 04/01/2025 2: 00 PM EDT Wendy Mcclain LPN Feeling bad about yourself - or that you are a failure or have let yourself or your family down Not at all 04/01/2025 2:00 PM EDT Wendy Mcclain LPN Trouble concentrating on thi ngs, such as reading the newspaper or watching television Not at all 04/01/2025 2:00 PM EDT Wendy Mcclain LP N Moving or speaking so slowly that other people could have noticed? Or the opposite - being so fidgety or restless that you have been moving around a lot more than usual. Not at all 04/01/2025 2:00 PM EDT Wendy Mcclain LP N Thoughts that you would be better off or hurting yourself in some way Not at all 04/01/2025 2:00 PM EDT Wendy Mcclain L PN Patient Health Questionnaire -9 Score 0 04/01/2025 2:00 PM EDT Wendy Mcclain LP N documented as of this encounter Progress Notes * Yadira Spicer, AYE - 04/01/2025 3:00 PM EDT Images from the original note were not included. Subjective Patient ID: David Hackett is a 65 y.o. male who presents for Medicare Annual Wellness Visit Subsequent. HPI Medicare Wellness Over the past 2 weeks, how often have you been bothered by any of the following problems? Little interest or pleasure in doing things: Not at all Feeling down, depressed, or hopeless: Not at all Patient Health Questionnaire-2 Score: 0 Over the past 2 weeks, how often have you been bothered by any of the following problems? Trouble falling or staying asleep, or sleeping too much: Not at all Feeling tired or having little energy: Not at all Poor appetite or overeating: Not at all Feeling bad about yourself - or that you are a failure or have let yourself or your family down: Not at all Trouble concentrating on things, such as reading the newspaper or watching television: Not at all Moving or speaking so slowly that other people could have noticed? Or the opposite - being so fidgety or restless that you have been moving around a lot more than usual.: Not at all Thoughts that you would be better off or hurting yourself in some way: Not at all Patient Health Questionnaire-9 Score: 0 Quiñones Fall Risk History of Falling, Immediate or Within 3 Months: No Health Risk Assessment Form Do you need help eating, bathing, using the toilet, dressing, or getting around your home?: No Can you prepare your own meals?: Yes Can you do your own housework without help?: Yes Can you shop for groceries or clothes without help?: Yes Do you exercise for about 20 minutes 3 or more days a week?: No How confident are you that you can control and manage most of your health problems?: Very confident Can you mange your money, credit cards and accounts, pay bills and taxes?: Yes Vision Screening: Yes, no gross abnormalities Hearing Screening: Yes, no gross abnormalities Cognitive Screening Self Assessment: No overt cognitive deficiency is apparent by direct observation Three Word Registration: Patria Rosenberg, Chair Clock Drawing: Normal Clock - 2 Three Word Recall: 2/3 words correct - 2 Total Score (0-5 Points): 4 Pain Assessment Pain Score: 2 Advance Care Planning Do you have a living will?: No (refuses living will paperwork) Do you have a medical power of workers compensation attorney?: No Current Outpatient Medications on File Prior to Visit Medication Sig Dispense Refill febuxostat (Uloric) 40 MG tablet Take 40 mg by mouth Daily omeprazole (PriLOSEC) [address] capsule Take 1 capsule (40 mg) by mouth in the morning. Take before meals. (Patient taking differently: Take 40 mg by mouth in the morning. Take before meals. PRN.) 100capsule 1 rOPINIRole (Requip) 0.5 MG tablet TAKE 1 TABLET BY MOUTH TWICE DAILY (IN THE MORNING AND BEFORE BEDTIME) 90 tablet 2 aspirin 325 MG tablet 1 (one) time each day at the same time atorvastatin (Lipitor) 40 MG tablet TAKE 1 TABLET BY MOUTH DAILY 100 tablet 3 clopidogrel (Plavix) 75 MG tablet Take 1 tablet (75 mg) by mouth Daily 100 tablet 3 hydroxychloroquine (Plaquenil) 200 MG tablet Take 1 tablet (200 mg) by mouth in the morning and 1 tablet (200 mg) before bedtime. 90 tablet 1 metoprolol tartrate (Lopressor) 50 MG tablet TAKE 1 TABLET BY MOUTH TWICE DAILY (IN THE MORNING andAT BEDTIME); take WITH FOOD 180 tablet 0 predniSONE (Deltasone) 5 MG tablet TAKE 1 TO 2 TABLETS BY MOUTH ONCE DAILY IF NEEDED FOR RA FLARE No current facility-administered medications on file prior to visit. I have reviewed and reconciled the history and medication list with the patient today. No Known Allergies Social History Tobacco Use Smoking status: Former Current packs/day: 0.00 Average packs/day: 2.5 packs/day for 36.4 years (90.9 ttl pk-yrs) Types: Cigarettes Start date: 04/27/1975 Quit date: 09/08/2011 Years since quittin.5 Smokeless tobacco: Never Substance Use Topics Alcohol use: Never Drug use: Yes Frequency: 7.0 times per week Types: Marijuana Family History Problem Relation Name Age of Onset Osteoporosis Mother Celine Hackett Arthritis Mother Celine Hackett Hearing loss Mother Celine Hackett Cancer Father David Lernernings Heart disease Father David Hackett Hypertension Father David Hackett Scoliosis Sister Nilda Moreau Past Medical History: Diagnosis Date Allergic Arthritis Coronary artery disease Fracture, foot GERD (gastroesophageal reflux disease) HL (hearing loss) Hypertension Hypertensive urgency 02/16/2023 Inflammatory bowel disease Kidney disease Labral tear of long head of biceps tendon Myocardial infarction (HCC) Rotator cuff syndrome Tear of meniscus of knee Past Surgical History: Procedure Laterality Date CARDIAC SURGERY CAROTID STENT Right 2007 3 stents, RCA CHOLECYSTECTOMY COLECTOMY 2009 Dr Trevino COLONOSCOPY 06/27/2024 repeat in 5 years KNEE ARTHROSCOPY W/ MENISCECTOMY Left 12/21/2023 medial and lateral-Dr Lau KNEE SURGERY Left 1972 Cartilage repair, Dr Wisdom ROTATOR CUFF REPAIR Right 2015 Dr Lau VASECTOMY Visit Vitals BP 132/78 Pulse 59 Resp 16 Ht 5' 7 Wt 181 lb 6.4 oz SpO2 97% BMI 28.41 kg/m?? Smoking Status Former BSA 1.97 m?? Review of Systems Constitutional: Negative for chills, fatigue and fever. HENT: Negative for congestion, ear pain, rhinorrhea, sinus pressure and sore throat. Eyes: Negative for pain, discharge and redness. Respiratory: Negative for cough, shortness of breath and wheezing. Cardiovascular: Negative for chest pain, palpitations and leg swelling. Gastrointestinal: Negative for abdominal pain, constipation, diarrhea, nausea and vomiting. Genitourinary: Negative for dysuria, frequency and urgency. Musculoskeletal: Negative for arthralgias and back pain. Skin: Negative for rash. Neurological: Negative for dizziness, numbness and headaches. Psychiatric/Behavioral: Negative for confusion, dysphoric mood and sleep disturbance. Objective Physical Exam Constitutional: General: He is not in acute distress. Appearance: Normal appearance. HENT: Head: Normocephalic and atraumatic. Right Ear: Tympanic membrane and ear canal normal. Left Ear: Tympanic membrane and ear canal normal. Nose: Nose normal. Mouth/Throat: Mouth: Mucous membranes are moist. Pharynx: Oropharynx is clear. Eyes: General: No scleral icterus. Extraocular Movements: Extraocular movements intact. Conjunctiva/sclera: Conjunctivae normal. Pupils: Pupils are equal, round, and reactive to light. Neck: Vascular: No carotid bruit. Cardiovascular: Rate and Rhythm: Normal rate and regular rhythm. Pulses: Normal pulses. Pulmonary: Effort: Pulmonary effort is normal. Breath sounds: Normal breath sounds. No wheezing, rhonchi or rales. Abdominal: General: Bowel sounds are normal. There is no distension. Palpations: Abdomen is soft. Tenderness: There is no abdominal tenderness. There is no guarding. Musculoskeletal: General: No swelling, tenderness, deformity or signs of injury. Normal range of motion. Cervical back: Normal range of motion. No tenderness. Lymphadenopathy: Cervical: No cervical adenopathy. Skin: General: Skin is warm and dry. Findings: No erythema. Comments: Right index finger with linear ridge down center of nail. Neurological: General: No focal deficit present. Mental Status: He is alert and oriented to person, place, and time. Cranial Nerves: No cranial nerve deficit. Sensory: No sensory deficit. Motor: No weakness. Coordination: Coordination normal. Gait: Gait normal. Psychiatric: Mood and Affect: Mood normal. Behavior: Behavior normal. Thought Content: Thought content normal. Judgment: Judgment normal. Assessment & Plan 1. Medicare annual wellness visit, subsequent (Primary) Reviewed all relevant preventative screenings with the patient in detail. Medicare Wellness form completed and will be scanned into patient's chart. All needed testing was ordered. Will continue withyearly Medicare Wellness exams. - US abdomen aortic aneurysm screening; Future - CBC and differential - Comprehensive metabolic panel - HEPATITIS C AB W/RFL RNS, PCR W/RFL GENOTYPE,LIPA - Lipid panel - PSA 2. ACP (advance care planning) Patient agreed to discuss advance care planning at today's wellness visit. We discussed that an advance directive is a legal document that only goes into effect if the patient is incapacitated and unable to speak for himself or herself. This would help healthcare providers to ensure that the patient gets the care that he or she wishes to receive. The goal is to provide a patient with the best possible quality of life. Encouraged patient to obtain a living will and durable power of workers compensation attorney for healthcare. We discussed telling steiner people about their advance directives such as close family members, and requested a copy to scan into the patient's EHR. An advance directive packet was offered to the patient. 3. Restless legs syndrome (RLS) This is a chronic medical condition that is stable since last assessment. No changes in treatment are suggested at this time. Can continue with Requip as prescribed. 4. Benign essential hypertension Patient's blood pressure is currently stable. Continue with current medications and I will continueto monitor. Goal BP remains less than 130/80. - CBC and differential - Comprehensive metabolic panel - Lipid panel 5. Coronary artery disease involving tanana coronary artery of tanana heart without angina pectoris This is a chronic medical condition that is stable since last assessment. No changes in treatment are suggested at this time. Continue Plavix and Aspirin as prescribed. - CBC and differential - Comprehensive metabolic panel - Lipid panel 6. History of heart artery stent This is a chronic medical condition that is stable since last assessment. No changes in treatment are suggested at this time. Continue Plavix and Aspirin as prescribed. 7. Chronic kidney disease, stage 3a ([facility]-HCC) This is a chronic medical condition that is stable since last assessment. Will recheck kidney function with upcoming labs. - CBC and differential - Comprehensive metabolic panel 8. Myalgia This is a chronic medical condition that is stable since last assessment. No complaints at this time. Will monitor. 9. Mixed hyperlipidemia This is a chronic medical condition that is stable since last assessment. Will recheck cholesterol with upcoming labs. - CBC and differential - Comprehensive metabolic panel - Lipid panel 10. Anemia of chronic disease This is a chronic medical condition that is stable since last assessment. Will recheck CBC with upcoming labs. - CBC and differential 11. Former smoker The patient was counseled on the importance of maintaining cigarette smoking abstinence. The patient continues to refrain from smoking and is committed to avoiding tobacco use. Pt is agreeable to CT and US screenings. - CT lung screening low dose; Future - US abdomen aortic aneurysm screening; Future 12. 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 (M05.741) This is a chronic medical condition that is stable since last assessment. No changes in treatment are suggested at this time. Continue Plaquenil as prescribed. 13. Screening for malignant neoplasm of prostate Will recheck PSA with upcoming labs. Will continue to monitor with yearly labs. - PSA 14. Other problems related to lifestyle Patient was born in 1960. He is agreeable to Hep C screening. - HEPATITIS C AB W/RFL RNS, PCR W/RFL GENOTYPE,LIPA Advised nail changes likely from previous nail bed injury. Can refer to Dermatology for further evaluation if needed. Follow up in about 1 year (around 04/01/2026) for Medicare Wellness Visit. Yadira Spicer MSBS, PA-C documented in this encounter Plan of Treatment Pending Results Name Type Priority Associated Diagnoses Date /Time CT lung screening low dose Imaging Routine Former smoker 04/12/2025 9:40 AM EDT Scheduled Orders Name Type Priority Associated Diagnoses Orde r Schedule CT lung screening low dose Imaging Routine Former smoker Expected: 04/01/2025, Expires: 04/01/2026 US abdomen aortic aneurysm screening Imaging Routine Medicare annual wellness visit, subsequent Former smoker Expected: 04/01/2025, Expires: 04/01/2026 documented as of this encounter Procedures Procedure Name Priority Date/Time Associated Diagnosis Comments HEPATITIS C AB W/RFL RNS, PCR W/RFL GENOTYPE,LIPA Routine 04/03/2025 8:20 AM EDT Medicare annual wellness visit, subsequent Other problems related to lifestyle CBC (INCLUDES DIFF/PLT) Routine 04/03/2025 8:20 AM EDT Medicare annual wellness visit, subsequent Benign essential hypertension Coronary artery disease involving tanana coronary artery of tanana heart without angina pectoris Chronic kidney disease, stage 3a (CMS-HCC) Mixed hyperlipidemia Anemia of chronic disease PSA, TOTAL Routine 04/03/2025 8:20 AM EDT Medicare annual wellness visit, subsequent Screening for malignant neoplasm of prostate LIPID PANEL Routine 04/03/2025 8:20 AM EDT Medicare annual wellness visit, subsequent Benign essential hypertension Coronary artery disease involving tanana coronary artery of tanana heart without angina pectoris Mixed hyperlipidemia COMPREHENSIVE METABOLIC PANEL Routine 04/03/2025 8:20 AM EDT Medicare annual wellness visit, subsequent Benign essential hypertension Coronary artery disease involving tanana coronary artery of tanana heart without angina pectoris Chronic kidney disease, stage 3a (CMS-HCC) Mixed hyperlipidemia documented in this encounter Results * PSA (04/03/2025 8:20 AM EDT) PSA, TOTAL 0.71 < OR = 4.00 ng/mL [facility] Comment: The total PSA value from this assay system is standardized against the WHO standard. The test result will be approximately 20% lower when compared to the equimolar-standardized total PSA (Marlene [place]). Comparison of serial PSA results should be interpreted with this fact in mind. This test was performed using the Siemens chemiluminescent method. Values obtained from different assay methods cannot be used interchangeably. PSA levels, regardless of value, should not be interpreted as absolute evidence of the presence or absence of disease. Blood Venous blood specimen / Unknown 04/03/2025 8:20 AM EDT 04/03/2025 3:48 PM EDT Narrative [facility] - 04/06/2025 7:57 PM EDT FASTING:YES FASTING: YES Resulting Agency Comment Performing Organization Information Site ID: [id number] Name: [employer] [facility] Address: [address] [place] [address], [address] [place] [id number] Director: Henry Franklin MD us Yadira GRIFFITHS LAB BLOOD ORDERABLES Final Res ult [facility] * (ABNORMAL) Lipid panel (04/03/2025 8:20 AM EDT) CHOLESTEROL, TOTAL 106 <200 mg/dL [facility] HDL CHOLESTEROL 37(L) > OR = 40 mg/dL [facility] TRIGLYCERIDES 200(H) <150 mg/dL [facility] Comment: If a non-fasting specimen was collected, consider repeat triglyceride testing on a fasting specimen if clinically indicated. Сергей et al. J. of Clin. Lipidol. 2015;9:129-169. LDL CHOLESTEROL 42 mg/dL (calc) [facility] Comment: Reference range: <100 Desirable range <100 mg/dL for primary prevention; <70 mg/dL for patients with CHD or diabetic patients with > or = 2 CHD risk factors. LDL-C is now calculated using the Kourtney calculation, which is a validated novel method providing better accuracy than the Friedewald equation in the estimation of LDL-C. Jarred PANDA et al. PAO. 2013;310(19): 0734-0947 (http://education.[employer].Arthena/faq/UNN916) CHOL/HDLC RATIO 2.9 <5.0 (calc) [facility] NON HDL CHOLESTEROL 69 <130 mg/dL (calc) [facility] Comment: For patients with diabetes plus 1 major ASCVD risk factor, treating to a non-HDL-C goal of <100 mg/dL (LDL-C of <70 mg/dL) is considered a therapeutic option. Blood Venous blood specimen / Unknown 04/03/2025 8:20 AM EDT 04/03/2025 3:48 PM EDT Narrative [facility] - 04/06/2025 7:57 PM EDT FASTING:YES FASTING: YES Resulting Agency Comment Performing Organization Information Site ID: QPT Name: [employer] [facility] Address: [address] [facility] [place] [address] Director: Henry Franklin MD us Yadira GRIFFITHS LAB BLOOD ORDERABLES Final Res ult Performing Organization Address [facility] Co de Phone Number [facility] * HEPATITIS C AB W/RFL RNS, PCR W/RFL GENOTYPE,LIPA (04/03/2025 8:20 AM EDT) HEPATITIS C ANTIBODY Nonreactive [facility] Comment: HCV antibody was non-reactive. There is no laboratory evidence of HCV infection. In most cases, no further action is required. However, if recent HCV exposure is suspected, a test for HCV RNA (test code 40999) is suggested. REFERENCE RANGE: NONREACTIVE For additional information, please refer to http://education.[employer]/faq/JTV935 (This link is being provided for informational/ educational purposes only.) 04/03/2025 8:20 AM EDT 04/03/2025 3:48 PM EDT Narrative [facility] - 04/06/2025 7:57 PM EDT FASTING:YES FASTING: YES Resulting Agency Comment Performing Organization Information Site ID: AMD Name: [employer]Deborah [place] Address: [address] [place] Director: Roland Mas M.D.,PhD us Yadira GRIFFITH[facility] LAB BLOOD ORDERABLES Final Res ult Performing Organization Address [facility] Co de Phone Number [facility] * Comprehensive metabolic panel (04/03/2025 8:20 AM EDT) Pathologist [facility] Glucose 90 65 - 99 mg/dL [facility] Comment: Fasting reference interval BUN 17 7 - 25 mg/dL [facility] Creatinine 1.15 0.70 - 1.35 mg/dL [facility] EGFR 70 > OR = 60 mL/min/1. 73m2 [facility] BUN/CREATININE RATIO SEE NOTE: 6 - 22 (calc) [facility] Comment: Not Reported: BUN and Creatinine are within reference range. Sodium 139 135 - 146 mmol/L [facility] Potassium, Bld 4.9 3.5 - 5.3 mmol/L [facility] Chloride 106 98 - 110 mmol/L [facility] Carbon Dioxide 27 20 - 32 mmol/L [facility] Calcium 9.3 8.6 - 10.3 mg/dL [facility] PROTEIN, TOTAL 7.0 6.1 - 8.1 g/dL [facility] ALBUMIN 4.5 3.6 - 5.1 g/dL [facility] GLOBULIN 2.5 1.9 - 3.7 g/dL (calc) [facility] ALBUMIN/GLOBULIN RATIO 1.8 1.0 - 2.5 (calc) [facility] BILIRUBIN, TOTAL 0.5 0.2 - 1.2 mg/dL [facility] ALKALINE PHOSPHATASE 85 35 - 144 U/L [facility] AST 19 10 - 35 U/L [facility] ALT 24 9 - 46 U/L [facility] Blood Venous blood specimen / Unknown 04/03/2025 8:20 AM EDT 04/03/2025 3:48 PM EDT Narrative [facility] - 04/06/2025 7:57 PM EDT FASTING:YES FASTING: YES Resulting Agency Comment Performing Organization Information Site ID: [id number] Name: [facility] Address: [address] [place] [id number] Director: Cait Rivas us Yadira GRIFFITH[facility] LAB BLOOD ORDERABLES Final Res ult [facility] * CBC and differential (04/03/2025 8:20 AM EDT) [facility] WHITE BLOOD CELL COUNT 9.0 3.8 - 10.8 Thousand/u L [facility] RED BLOOD CELL COUNT 4.94 4.20 - 5.80 Million/uL [facility] HEMOGLOBIN 14.7 13.2 - 17.1 g/dL [facility] HEMATOCRIT 45.2 38.5 - 50.0 % [facility] MCV 91.5 80.0 - 100.0 fL [facility] MCH 29.8 27.0 - 33.0 pg [facility] MCHC 32.5 32.0 - 36.0 g/dL [facility] Comment: For adults, a slight decrease in the calculated MCHC value (in the range of 30 to 32 g/dL) is most likely not clinically significant; however, it should be interpreted with caution in correlation with other red cell parameters and the patient's clinical condition. RDW 15.0 11.0 - 15.0 % [facility] PLATELET COUNT 226 140 - 400 Thousand/u L [facility] MPV 9.6 7.5 - 12.5 fL [facility] ABSOLUTE NEUTROPHILS 5,985 1,500 - 7,800 cells/uL [facility] ABSOLUTE LYMPHOCYTES 2,376 850 - 3,900 cells/uL [facility] ABSOLUTE MONOCYTES 558 200 - 950 cells/uL [facility] ABSOLUTE EOSINOPHILS 63 15 - 500 cells/uL [facility] ABSOLUTE BASOPHILS 18 0 - 200 cells/uL [facility] NEUTROPHILS 66.5 % [facility] LYMPHOCYTES 26.4 % [facility] MONOCYTES 6.2 % [facility] EOSINOPHILS 0.7 % [facility] BASOPHILS 0.2 % [facility] Blood Venous blood specimen / Unknown 04/03/2025 8:20 AM EDT 04/03/2025 3:48 PM EDT Narrative [facility] - 04/06/2025 7:57 PM EDT FASTING:YES FASTING: YES Resulting Agency Comment Performing Organization Information Site ID: [id number] Name: [facility] Address: [address] [place] [id number] Director: Cait Rivas Yadira GRIFFITHS LAB BLOOD ORDERABLES Final Res ult [facility] documented in this encounter Visit Diagnoses Diagnosis Medicare annual wellness visit, subsequent- Primary ACP (advance care planning) Other specified counseling Restless legs syndrome (RLS) Benign essential hypertension Essential hypertension, benign Coronary artery disease involving tanana coronary artery of tanana heart without angina pectoris History of heart artery stent Chronic kidney disease, stage 3a (CMS-HCC) Myalgia Unspecified myalgia and myositis Mixed hyperlipidemia Anemia of chronic disease Anemia of other chronic disease Former smoker Personal history of tobacco use, presenting hazards to health 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 (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) Screening for malignant neoplasm of prostate Other problems related to lifestyle documented in this encounter Additional Health Concerns Assessment Noted Time PHQ-9 Depression Total Score: 0 04/01/20 25 2:00 PM EDT documented as of this encounter Care Teams Painting And Coating Worker Relationship Specialty Start Date End Date Waldo Hoffman MD [address] [facility] [address] [place] [address] PCP - General Family Medicine 11/23/22 Waldo Hoffman MD [address] [facility] [address] [place] [address] PCP - Devoted 08/18/23 documented as of this encounter
--- OUTSIDE RECORDS SUMMARY | 2025-04-12 09:00 | XMS_ITS | Encounter Summary ---
Author Organization [facility] Address [address] [place] [address] Care Team Providers Care College Recruiter Name Role Phone Waldo Hoffman MD Primary Care Provider [phone] Waldo Hoffman MD Unavailable Reason for Visit * Imaging (Routine) - Closed Specialty Diagnoses / Procedures Referred By Contac t Referred To Contact Radiology Diagnoses Former smoker Procedures CT lung screening low dose Yadira Spicer, AYE [address] [place] [address] Phone: tel: fax: [facility] [address] [place] [address] Phone: tel: fax: Referral ID Status Reason Start Date Expiration Date Visits Re quested Visits Authorized [id number] Closed 04/01/2025 09/28/2025 1 1 Encounter Details Date Type Department Care Team (Late st Contact Info) Description 04/12/2025 9:00 AM EDT Ancillary Procedure [facility] [address] [place] [address] Former smoker Social History Tobacco [...] declined 11/15/2023 How often do you attend episcopalian or advent serv ices? Patient declined 11/15/2023 Do you belong to any clubs o r organizations such as episcopalian groups, unions, fraternal or athletic groups, or [...] Recorded Patient Health Questionnaire-2 Score 0 04/01/2025 [facility] ional Health - Occupational [...] place to sleep or slept in a nursing home (including now)? Patient declined 11/15/2023 Sex and Gender Information Value Date Recorded Sex Assigned at Not on file Legal Sex Male 7:00 PM EDT Gender Identity Not on file Sexual Orientation Not on file documented as of this encounter Plan of Treatment Pending Results Name Type Priority Associated Diagnoses Date /Time CT lung screening low dose Imaging Routine Former smoker 04/12/2025 9:40 AM EDT documented as of this encounter Visit Diagnoses Diagnosis Former smoker Personal history of tobacco use, presenting hazards to health documented in this encounter Additional Health Concerns Assessment Noted Time PHQ-9 Depression Total Score: 0 04/01/20 25 2:00 PM EDT documented as of this encounter Care Teams College Recruiter Relationship Specialty Start Date End Date Waldo Hoffman MD [address] [facility] [address] [place] [address] PCP - General Family Medicine 11/23/22 Waldo Hoffman MD [address] [place] [address] PCP - Devoted 08/18/23 documented as of this encounter
--- OUTSIDE RECORDS SUMMARY | 2025-04-12 10:31 | XMS_ITS | Encounter Summary ---
Author Organization [facility] Address [address] [facility] [place] [address] Care Team Providers Care Training Facilitator Name Role Phone Waldo Hoffman MD Primary Care Provider [phone] Waldo Hoffman MD Unavailable Encounter Details Date Type Department Care Team (Late st Contact Info) Description 04/02/2025 Abstract [facility] [address] [place] [address] Waldo Hoffman MD [address] [place] [address] Social History Tobacco Use Types Packs/Day Years [...] declined 11/15/2023 How often do you attend uatsdin or pentecostal serv ices? Patient declined 11/15/2023 Do you belong to any clubs o r organizations such as uatsdin groups, unions, fraternal or athletic groups, or [...] Recorded Patient Health Questionnaire-2 Score 0 04/01/2025 [facility] Occup[facility] ional Health - Occupational Stress [...] place to sleep or slept in a senior care (including now)? Patient declined 11/15/2023 Sex and Gender Information Value Date Recorded Sex Assigned at Not on file Legal Sex Male 7:00 PM EDT Gender Identity Not on file Sexual Orientation Not on file documented as of this encounter Plan of Treatment Not on file documented as of this encounter Visit Diagnoses Not on filedocumented in this encounter Additional Health Concerns Assessment Noted Time PHQ-9 Depression Total Score: 0 04/01/20 25 2:00 PM EDT documented as of this encounter Care Teams Training Facilitator Relationship Specialty Start Date End Date Waldo Hoffman MD [address] [facility] [address] [place] [address] PCP - General Family Medicine 11/23/22 Waldo Hoffman MD [address] [facility] [address] [place] [address] PCP - Devoted 08/18/23 documented as of this encounter
--- OUTSIDE RECORDS SUMMARY | 2025-04-12 10:31 | XMS_ITS | Encounter Summary ---
Author Organization [facility] Address [address] [facility] [place] [address] Care Team Providers Care General I Farmworker Name Role Phone Waldo Hoffman MD Primary Care Provider [phone] Waldo Hoffman MD Unavailable Tuesday, Almaz GARRETT Unavailable [phone] Encounter Details Date Type Department Care Team (Late st Contact Info) Description 12/21/2023 Abstract [facility] [address] [facility] [address] [place] [address] Eliezer Lau, DO [address] [facility] [address] [place] [address] Social History Tobacco Use Types Packs/Day Years [...] declined 11/15/2023 How often do you attend rastafarian or quaker serv ices? Patient declined 11/15/2023 Do you belong to any clubs o r organizations such as rastafarian groups, unions, fraternal or athletic groups, or [...] medical care, and heating? Patient declined 11/15/2023 [facility] Occupat ional Health - Occupational Stress [...] place to sleep or slept in a jail (including now)? Patient declined 11/15/2023 Sex and Gender Information Value Date Recorded Sex Assigned at Not on file Legal Sex Male 7:00 PM EDT Gender Identity Not on file Sexual Orientation Not on file documented as of this encounter Plan of Treatment Not on file documented as of this encounter Visit Diagnoses Not on filedocumented in this encounter Care Teams General I Farmworker Relationship Specialty Start Date End Date Waldo Hoffman MD [address] [facility] [place] [address] PCP - General Family Medicine 11/23/22 Waldo Hoffman MD [address] [facility] [place] [address] PCP - Devoted 08/18/23Tuesday, GERRY Muse [address] [place] [address] Licensed Practical Nurse Family Medicine 02/22/2402/28 documented as of this encounter
--- OUTSIDE RECORDS SUMMARY | 2025-04-12 10:31 | XMS_ITS | Clinical Summary ---
Author Organization [facility] Address [address] [facility] [place] [address] Care Team Providers Care Hold Worker Name Role Phone Waldo Hoffman MD Primary Care Provider [phone] Waldo Hoffman MD Unavailable Allergies No known active allergies Medications aspirin 325 MG tablet 1 (one) time each day at the same time Active predniSONE (Deltasone) 5 MG tablet TAKE 1 TO 2 TABLETS BY MOUTH ONCE DAILY IF NEEDED FOR RA FLARE 02/24/20 23 Active hydroxychloroquine (Plaquenil) 200 MG tabletIndications: Hyperlipidemia, unspecified hyperlipidemia type Take 1 tablet (200 mg) by mouth in the morning and 1 tablet (200 mg) before bedtime. 90 tablet 1 03/13/20 24 Active clopidogrel (Plavix) 75 MG tabletIndications: Hyperlipidemia, unspecified hyperlipidemia type Take 1 tablet (75 mg) by mouth Daily 100 tablet 3 03/13/20 24 Active omeprazole (PriLOSEC) [address] capsuleIndications :Gastroesophageal reflux disease, unspecified whether esophagitis present Take 1 capsule (40 mg) by mouth in the morning. Take before meals. 100 capsule 1 05/31/20 24 Active Additional Information Patient taking differently:40 mg Oral Daily before breakfast, Morning,PRN, Reported on 04/01/2025 atorvastatin (Lipitor) 40 MG tabletIndications: Essential hypertension TAKE 1 TABLET BY MOUTH DAILY 100 tablet 3 09/19/19 25 Active rOPINIRole (Requip) 0.5 MG tabletIndications: Restless legs TAKE 1 TABLET BY MOUTH TWICE DAILY (IN THE MORNING AND BEFORE BEDTIME) 90 tablet 2 01/18/20 25 Active metoprolol tartrate (Lopressor) 50 MG tabletIndications: Essential hypertension TAKE 1 TABLET BY MOUTH TWICE DAILY (IN THE MORNING and AT BEDTIME); take WITH FOOD 180 tablet 01/18/20 25 Active febuxostat (Uloric) 40 MG tablet Take 40 mg by mouth Daily 01/18/20 25 Active Active Problems Problem Noted Date Diagnosed Date Rheumatoid arthritis with rh eumatoid factor of right hand without organ or systems involvement (M05.741) 11/22/2023 Assessment & Plan (11/22/2023 3:35 PM EDT): This is a chronic medical condition that is stable since last assessment. No changes in treatment are suggested at this time. Continue Current meds. Myalgia 04/27/2023 Anemia of chronic disease 02/16/2023 Coronary artery disease invo lving t[place] coronary artery of [place] heart 02/16/2023 Benign essential hypertension 02/16/2023 Assessment & Plan (12/01/2023 3:04 PM EDT): Our specific goals, for your hypertension, is to keep your blood pressure less than 140/90, and the importance of weight control. We made recommendations on how to control your blood pressure, and minimize your risk of these copmplications. We also discussed your current barriers to a healthy living and importance of healthy diet and exercise. Prior to your visit today we have reviewed your chart and formed a plan to assist with providing you the best possible care. We reviewed the possible complications of hypertension including, stroke, heart failure and kidney impairment. In addition, we discussed your medications, the importance of taking them as prescribed. DASH diet handouts Assessment & Plan (11/22/2023 3:29 PM EDT): Our specific goals, for your hypertension, is to keep your blood pressure less than 140/90, and the importance of weight control. We made recommendations on how to control your blood pressure, and minimize your risk of these copmplications. We also discussed your current barriers to a healthy living and importance of healthy diet and exercise. Prior to your visit today we have reviewed your chart and formed a plan to assist with providing you the best possible care. We reviewed the possible complications of hypertension including, stroke, heart failure and kidney impairment. In addition, we discussed your medications, the importance of taking them as prescribed. DASH diet handouts History of heart artery stent 02/16/2023 Hyperlipidemia 02/16/2023 Assessment & Plan (11/22/2023 3:30 PM EDT): This is a chronic medical condition that is stable since last assessment. No changes in treatment are suggested at this time. Continue Current meds. Other articular cartilage disorders, right shoul rhett 02/16/2023 Restless legs syndrome (RLS) 02/16/2023 Chronic kidney disease, stage 3a 02/16/2023 Assessment & Plan (12/01/2023 3:09 PM EDT): Increase fluids be careful with NSAIDs Assessment & Plan (11/22/2023 3:36 PM EDT): Increase fluids Avoid NSAIDs Tear of right rotator cuff 02/16/2023 Resolved Problems Problem Noted Date Diagnosed Date Resolved Date Pre-operative clearance 12/01/202303/18 Assessment & Plan (12/01/2023 3:03 PM EDT): The patient was interviewed and examined. The patient's medical history and medications were reviewed. Patient is to follow guidance of surgical team regarding all medications. There are no uncontrolled medical problems at present. Patient is active and has no chest pain or dyspnea. All available PAT was reviewed. There are no medical contraindications for surgery noted at this time, and the patient is considered low risk for the planned upcoming procedure. The patient is cleared for surgery without additional testing. EKG was normal Hold aspirin and Plavix 1 week prior Medicare annual wellness visit, subsequent 11/22/2023 04/01/2025 Assessment & Plan (11/22/2023 3:30 PM EDT): Colonoscopy every 10 years or Cologuard every 3 years ages 50-75 Flu Vaccine yearly Pneumovax and Prevnar Mammo yearly for women and PSA yearly for men Labs/Screening yearly to rule out Diabetes, Chronic Kidney disease and liver disease Hepatitis Screen forat risk populations Shingles vaccine after 65 if indicated Tetanus Vaccine every 10 years Lipids yearly under the age of 75 If Smoking history: one time CT scan of chest and Ultrasound of Aorta to screen for Anuerysm Coronary artery disease 02/16/202303/18 Assessment & Plan (11/22/2023 3:37 PM EDT): This is a chronic medical condition that is stable since last assessment. No changes in treatment are suggested at this time. Continue Current meds. Needs follow up with Cardiology May Hold Plavix and aspirin 7 days prior to surgery Hypertensive urgency 02/16/2023 025 Rheumatoid arthritis 02/16/2023 025 Assessment & Plan (12/01/2023 3:04 PM EDT): This is a chronic medical condition that is stable since last assessment. No changes in treatment are suggested at this time. Continue Current meds. Encounters Date Type Department Care Team Description 04/12/2025 9:00 AM EDT Ancillary Procedure [facility] [address] [place] [address] Former smoker 04/12/2025 Travel 04/08/2025 Telephone [facility] [place] [facility] [address] [facility] [address] [place] [address] Yadira Spicer PA Results (Labs) 04/02/2025 Abstract [facility] [place] [facility] [address] [facility] [address] [place] [address] Waldo Hoffman MD 04/02/2025 Abstract [facility] [place] [facility] [address] [facility] [address] [place] [address] Waldo Hoffman MD 04/01/2025 3:00 PM EDT Office Visit [facility] [place] [facility] [address] [facility] [address] [place] [address] Yadira Spicer PA Medicare annual wellness visit, subsequent (Primary Dx); ACP (advance care planning); Restless legs syndrome (RLS); Benign essential hypertension ; Coronary artery disease involving [place] coronary artery of [place] heart without angina pectoris ; History of heart artery stent; Chronic kidney disease, stage 3a ([facility]); Myalgia; Mixed hyperlipidemia ; Anemia of chronic disease; Former smoker; 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 (M05.741); Screening for malignant neoplasm of prostate; Other problems related to lifestyle 04/01/2025 Bamboo flowsheet [facility] [address] [facility] [address] [place] [address] Yadira Spicer PA 04/01/2025 Travel 01/17/2025 Refill [facility] [address] [facility] [address] [place] [address] Waldo Hoffman MD Essential hypertension 01/17/2025 Refill [facility] [address] [facility] [address] [place] [address] Waldo Hoffman MD Restless legs 01/17/[address] [facility] [address] [facility] [address] [place] [address] Waldo Hoffman MD Essential hypertension from Last 3 Months Immunizations Immunization Administration Dates Next Due Influenza, Injectable, MDCK, preservative free 04/23/2016 Influenza, Seasonal, Quadriv alent, Adjuvanted 05/03/2023 Influenza, injectable, quadr ivalent, preservative free 05/05/2022,06/01/2021,03/25/2020,04/21,05/11/2018,04/30/2017,04/23/2016 Influenza, seasonal, intrade rmal, preservative free 05/11/2018 Pneumococcal Conjugate PCV 13 11/26/2015 Pneumococcal Polysaccharide PPSV23 04/21/2019, Zoster, Recombinant 07/13/2023,05/03/2023 Family History Medical History Relation Name Comments Cancer Father David Hackett Heart disease Father David Hackett Hypertension Father David Hackett Arthritis Mother Celine Hackett Hearing loss Mother Celine Hackett Osteoporosis Mother Celine Hackett Scoliosis Sister Nilda Moreau Relation Name Status Comments Father David Hackett Mother Celine Hackett Alive Sister Nilda Moreau Social History Tobacco Use Types Packs/Day Years Used Date Smoking Tobacco: Former Cigarettes 2.5 36.4 1 - 09/08/2011 Smokeless Tobacco: Never Tobacco Cessation:Counseling Given: Not Answered Alcohol Use Standard Drinks/Week Comments Never 0 [...] declined 11/15/2023 How often do you attend spiritism or latter day serv ices? Patient declined 11/15/2023 Do you belong to any clubs o r organizations such as spiritism groups, unions, fraternal or athletic groups, or [...] Recorded Patient Health Questionnaire-2 Score 0 04/01/2025 [facility] of Occupat ional Health - Occupational Stress [...] on file Sexual Orientation Not on file Last Filed Vital Signs Vital Sign Reading [...] Mass Index 28.41 04/01/2025 3:08 PM EDT Plan of Treatment Health Maintenance Due Date Last Done Comments Lung Cancer Screening Shared Decision Making 1960 Pneumococcal Vaccine: 65+ Ye ars (3 of 3 - PCV20 or PCV21) 04/21/2024 04/21/2019, 11/26/2015, 04/23/2013 Influenza Vaccine (#1) 2025 , 05/03/2023, 05/05/2022, Additional history exists Medicare Annual Wellness (AWV) 04/01/2026 04/01/2025 , 11/22/2023 Colonoscopy Discontinued 06/27/2024, 06/17, 06/27/2024, Additional history exists Colorectal Cancer Screening Discontinued CT Colonography Discontinued FIT-DNA Discontinued FIT Discontinued FOBT Discontinued Sigmoidoscopy Discontinued Procedures Procedure Name Priority Date/Time Associated Diagnosis Comments PSA, TOTAL Routine 04/03/2025 8:20 AM EDT Medicare annual wellness visit, subsequent Screening for malignant neoplasm of prostate LIPID PANEL Routine 04/03/2025 8:20 AM EDT Medicare annual wellness visit, subsequent Benign essential hypertension Coronary artery disease involving [place] coronary artery of [place] heart without angina pectoris Mixed hyperlipidemia HEPATITIS C AB W/RFL RNS, PCR W/RFL GENOTYPE,LIPA Routine 04/03/2025 8:20 AM EDT Medicare annual wellness visit, subsequent Other problems related to lifestyle COMPREHENSIVE METABOLIC PANEL Routine 04/03/2025 8:20 AM EDT Medicare annual wellness visit, subsequent Benign essential hypertension Coronary artery disease involving [place] coronary artery of [place] heart without angina pectoris Chronic kidney disease, stage 3a (CMS-HCC) Mixed hyperlipidemia CBC (INCLUDES DIFF/PLT) Routine 04/03/2025 8:20 AM EDT Medicare annual wellness visit, subsequent Benign essential hypertension Coronary artery disease involving [place] coronary artery of [place] heart without angina pectoris Chronic kidney disease, stage 3a (CMS-HCC) Mixed hyperlipidemia Anemia of chronic disease COLONOSCOPY Routine 06/26/2014 12:00 PM EST from Last 3 Months or Most Recently Relevant to Health Maintenance Results * HEPATITIS C AB W/RFL RNS, PCR W/RFL GENOTYPE,LIPA (04/03/2025 8:20 AM EDT) HEPATITIS C ANTIBODY Nonreactive [facility] Comment: HCV antibody was non-reactive. There is no laboratory evidence of HCV infection. In most cases, no further action is required. However, if recent HCV exposure is suspected, a test for HCV RNA (test code 92093) is suggested. REFERENCE RANGE: NONREACTIVE For additional information, please refer to http://education.[employer]/faq/SVE532 (This link is being provided for informational/ educational purposes only.) 04/03/2025 8:20 AM EDT 04/03/2025 3:48 PM EDT Narrative [facility] - 04/06/2025 7:57 PM EDT FASTING:YES FASTING: YES Resulting Agency Comment Performing Organization Information Site ID: AMD Name: [facility] Address: [address] [place] [address] [place] [address] Director: Roland Mas M.D.,PhD us [facility] BLOOD ORDERABLES Final Res ult [facility] * CBC and differential (04/03/2025 8:20 AM EDT) [facility] WHITE BLOOD CELL COUNT 9.0 3.8 - [...] Performing Organization Information Site ID: QTW [facility] Address: [address] [place] [id number] Director: Cait Rivas [facility] BLOOD ORDERABLES Final Res ult [facility] * PSA (04/03/2025 8:20 AM EDT) PSA, TOTAL 0.71 < OR = 4.00 ng/mL [facility] Comment: The total PSA value from this assay system is standardized against the WHO standard. The test result will be approximately 20% lower when compared to the equimolar-standardized total PSA (Marlene Clare). Comparison of serial PSA results should be [...] Performing Organization Information Site ID: QPT Name: [facility] Address: [address] [place] [address], [address] [place] [phone] Director: Henry Franklin MD us [facility] BLOOD ORDERABLES Final Res ult [facility] * (ABNORMAL) Lipid panel (04/03/2025 8:20 AM EDT) [facility] Signature CHOLESTEROL, TOTAL 106 <200 mg/dL [facility] HDL [...] equation in the estimation of LDL-C. Jarred SS et al. PAO. 2013;310(19): 6644-7189 (http://education.[employer]/faq/LSY865) CHOL/HDLC RATIO 2.9 <5.0 (calc) [facility] NON [...] Performing Organization Information Site ID: QPT Name: [facility] Address: [address] [place] [address], [address] [place] [id number] Director: Henry Franklin MD us Yad[facility] BLOOD ORDERABLES Final Res ult Performing Organization Address City/[facility]/ZIP Co de Phone Number [facility] * Comprehensive metabolic panel (04/03/2025 8:20 AM EDT) [facility] Glucose 90 65 - 99 mg/dL [facility] [...] Performing Organization Information Site ID: QTW Name: [facility] Address: [address] [place] [phone] Director: Cait Rivas us [facility]ad[facility] BLOOD ORDERABLES Final Res ult [facility] * Colonoscopy (06/26/2014 12:00 PM EST) Anatomical Region Laterality Modality Endoscopy 06/26/2014 12:0 0 PM EST Narrative 06/26/2014 12:00 PM EST PERFORMED AT [facility] LOCATION:[id number] normal to cecum Procedure Note CONVERSION, GENERIC - 12/02/2022 PERFORMED AT [facility] LOCATION:[id number] normal to cecum Waldo Hoffman MD ENDOSCOPY PROCEDURE ORDERABLES F inal Result from Last 3 Months or Most Recently Relevant to Health Maintenance Insurance [employer] Care Teams Hold Worker Relationship Specialty Start Date End Date Waldo Hoffman MD [address] [place] [facility] [address] [place] [address] PCP - General Family Medicine 11/23/22 Waldo Hoffman MD [address] [place] [facility] [address] [place] [address] PCP - Devoted 08/18/23
--- OUTSIDE RECORDS SUMMARY | 2025-04-12 10:31 | XMS_ITS | Encounter Summary ---
Author Organization [facility] Address [address] [facility] [place] [address] Care Team Providers Care Staff Nurse Anesthetist Name Role Phone Waldo Hoffman MD Primary Care Provider [phone] Waldo Hoffman MD Unavailable Encounter Details Date Type Department Care Team (Latest Contact Info) Description 04/12/2025 Travel Social History Tobacco Use Types Packs/Day Years [...] declined 11/15/2023 How often do you attend jehovah's witness or latter-day serv ices? Patient declined 11/15/2023 Do you belong to any clubs o r organizations such as jehovah's witness groups, unions, fraternal or athletic groups, or [...] Recorded Patient Health Questionnaire-2 Score 0 04/01/2025 [facility] of Occupat ional [facility] - Occupational Stress Questionnaire Answer Date Recorded [...] to sleep or slept in a senior living (including now)? Patient declined 11/15/2023 Sex and [...] documented as of this encounter Care Teams Staff Nurse Anesthetist Relationship Specialty Start Date End Date Waldo Hoffman MD [address] [facility] [address] [place] [address] PCP - General Family Medicine 11/23/22 Waldo Hoffman MD [address] [facility] [address] [place] [address] PCP - Devoted 08/18/23 documented as of this encounter
--- OUTSIDE RECORDS SUMMARY | 2025-04-12 10:31 | XMS_ITS | Encounter Summary ---
Author Organization [facility] Address [address] [facility] [place] [address] Care Team Providers Care Rabies Inspector Name Role Phone Waldo Hoffman MD Primary Care Provider [phone] Waldo Hoffman MD Unavailable Tuesday, Almaz LABORATORY EQUIPMENT CLEANER Unavailable [phone] Reason for Visit * Reason Comments Med Refill Encounter Details Date Type Department Care Team (Late st Contact Info) Description 03/19/2023 Refill [facility] [place] [facility] [address] [place] [address] [place] [address] Waldo Hoffman MD [address] [facility] [address] [place] [address] Essential hypertension (Primary Dx) Social History Tobacco Use Types Packs/Day Years Used Date Smoking Tobacco: Never Assessed Sex and Gender Information Value Date Recorded Sex Assigned at Not on file Legal Sex Male 7:00 PM EDT Gender Identity Not on file Sexual Orientation Not on file documented as of this encounter Miscellaneous Notes * Telephone Encounter - AYE Fong - 03/21/2023 6:32 PM EDT Please see if patient is still following with our office. Has not been seen in over a year. If pt is still seeing Dr. Hoffman please help him get set up for an appt with him within the next month. documented in this encounter Plan of Treatment Not on file documented as of this encounter Visit Diagnoses Diagnosis Essential hypertension- Primary Unspecified essential hypertension documented in this encounter Care Teams Rabies Inspector Relationship Specialty Start Date End Date Waldo Hoffman MD [address] [facility] [address] [place] [address] PCP - General Family Medicine 11/23/22 Waldo Hoffman MD [address] [facility] [address] [place] [address] PCP - Devoted 08/18/23Tuesday, GERRY Muse [address] [facility] [address] [place] [address] Licensed Practical Nurse Family Medicine 02/22/2402/28 documented as of this encounter
--- OUTSIDE RECORDS SUMMARY | 2025-04-12 10:31 | XMS_ITS | Encounter Summary ---
Author Organization [facility] Address [address] [place] [facility] [place] [address] Care Team Providers Care Security Systems Manager Name Role Phone Waldo Hoffman MD Primary Care Provider [phone] Waldo Hoffman MD Unavailable Tuesday, Almaz NEVESN Unavailable [phone] Encounter Details Date Type Department Care Team (Late st Contact Info) Description 01/10/2023 Abstract [facility] [place] [facility] [address] [facility] [address] [place] [address] Waldo Hoffman MD [address] [place] [facility] 110 [place] [address] Social History Tobacco Use Types Packs/Day Years [...] on filedocumented in this encounter Care Teams Security Systems Manager Relationship Specialty Start Date End Date Waldo Hoffman MD [address] [place] [facility] 110 [place] [address] PCP - General Family Medicine 11/23/22 Waldo Hoffman MD [address] [facility] 110 [place] [address] PCP - Devoted 08/18/23Tuesday, GERRY Muse [address] [facility] [address] [place] [address] Licensed Practical Nurse Family Medicine 02/22/2402/28 documented as of this encounter
--- OUTSIDE RECORDS SUMMARY | 2025-04-12 10:31 | XMS_ITS | Encounter Summary ---
Author Organization [facility] Address [address] [facility] [place] [address] Care Team Providers Care Community Facilitator Name Role Phone Waldo Hoffman MD Primary Care Provider [phone] Waldo Hoffman MD Unavailable Encounter Details Date Type Department Care Team (Late st Contact Info) Description 04/02/2025 Abstract [facility] [place] [facility] [address] [place] [address] [place] [address] Waldo Hoffman MD [address] [place] [address] [place] [address] Social History Tobacco Use Types Packs/Day Years [...] declined 11/15/2023 How often do you attend jew or pentecostal serv ices? Patient declined 11/15/2023 Do you belong to any clubs o r organizations such as jew groups, unions, fraternal or athletic groups, or [...] Recorded Patient Health Questionnaire-2 Score 0 04/01/2025 [facility] of Occupat ional Health - [...] place to sleep or slept in a long-term (including now)? Patient declined 11/15/2023 Sex and [...] documented as of this encounter Care Teams Community Facilitator Relationship Specialty Start Date End Date Waldo Hoffman MD [address] [facility] 110 [place] [address] PCP - General Family Medicine 11/23/22 Waldo Hoffman MD [address] [facility] [address] [place] [address] PCP - Devoted 08/18/23 documented as of this encounter
--- OUTSIDE RECORDS SUMMARY | 2025-04-12 10:31 | XMS_ITS | Encounter Summary ---
Author Organization [facility] Address [address] [facility] [place] [address] Care Team Providers Care Lead Coater Name Role Phone Waldo Hoffman MD Primary Care Provider [phone] Waldo Hoffman MD Unavailable Encounter Details Date Type Department Care Team (Latest Contact Info) Description 04/01/2025 Travel Social History Tobacco Use Types Packs/Day [...] declined 11/15/2023 How often do you attend lutheran or latter day serv ices? Patient declined 11/15/2023 Do you belong to any clubs o r organizations such as lutheran groups, unions, fraternal or athletic groups, or [...] Recorded Patient Health Questionnaire-2 Score 0 04/01/2025 [facility] of Occupat ional [facility] - Occupational Stress Questionnaire Answer Date Recorded [...] on file documented as of this encounter Functional Status * Over the [...] LP N documented as of this encounter Plan of Treatment Not on file documented as of this encounter Visit Diagnoses Not on filedocumented in this encounter Additional Health Concerns Assessment Noted Time PHQ-9 Depression Total Score: 0 04/01/20 25 2:00 PM EDT documented as of this encounter Care Teams Lead Coater Relationship Specialty Start Date End Date Waldo Hoffman MD [address] [address] PCP - General Family Medicine 11/23/22 Waldo Hoffman MD [address] [address] PCP - Devoted 08/18/23 documented as of this encounter
--- OUTSIDE RECORDS SUMMARY | 2025-04-12 10:31 | XMS_ITS | Encounter Summary ---
Author Organization [facility] Address [address] [place] [address] Care Team Providers Care Hydraulic Strainer Operator Name Role Phone Waldo Hoffman MD Primary Care Provider [phone] Waldo Hoffman MD Unavailable Encounter Details Date Type Department Care Team (Late st Contact Info) Description 04/01/2025 Bamboo flowsheet [facility] [address] [place] [address] Yadira Spicer PA [address] [place] [address] Social History Tobacco Use Types Packs/Day Years [...] declined 11/15/2023 How often do you attend sikh or religion serv ices? Patient declined 11/15/2023 Do you belong to any clubs o r organizations such as sikh groups, unions, fraternal or athletic groups, or [...] Recorded Patient Health Questionnaire-2 Score 0 04/01/2025 [facility] Occupat ional Health - [...] place to sleep or slept in a care home (including now)? Patient declined 11/15/2023 Sex [...] documented as of this encounter Care Teams Hydraulic Strainer Operator Relationship Specialty Start Date End Date Waldo Hoffman MD 112 [facility] 110 [place] [address] PCP - General Family Medicine 11/23/22 Waldo Hoffman MD 112 [facility] 110 [place] [address] PCP - Devoted 08/18/23 documented as of this encounter
--- OUTSIDE RECORDS SUMMARY | 2025-04-12 10:31 | XMS_ITS | Encounter Summary ---
Author Organization [facility] Address [address] [facility] [place] [address] Care Team Providers Care Staple Side Laster Name Role Phone Waldo Hoffman MD Primary Care Provider [phone] Waldo Hoffman MD Unavailable Tuesday, Almaz NEVESN Unavailable [phone] Encounter Details Date Type Department Care Team (Late st Contact Info) Description 11/29/2023 Abstract [facility] [address] [facility] 110 [place] [address] Waldo Hoffman MD 112 [facility] 110 [place], [place] [id number] Social History Tobacco Use Types Packs/Day Years [...] declined 11/15/2023 How often do you attend alevism or christian serv ices? Patient declined 11/15/2023 Do you belong to any clubs o r organizations such as alevism groups, unions, fraternal or athletic groups, or [...] medical care, and heating? Patient declined 11/15/2023 [facility] of Occupat ional Health - Occupational Stress [...] on filedocumented in this encounter Care Teams Staple Side Laster Relationship Specialty Start Date End Date Waldo Hoffman MD [address] [place] [address] PCP - General Family Medicine 11/23/22 Waldo Hoffman MD [address] [place] [address] PCP - Devoted 08/18/23Tuesday, GERRY Muse [address] [place] [address] Licensed Practical Nurse Family Medicine 02/22/2402/28 documented as of this encounter
--- OUTSIDE RECORDS SUMMARY | 2025-04-12 10:31 | XMS_ITS | Clinical Summary ---
Author Organization [facility] Address [id number] [address] [place] [address] Care Team Providers Care Set Up Inspector Name Role Phone Waldo Hoffman MD Primary Care Provider [phone] Allergies No known active allergies Medications metoprolol tartrate (LOPRESSOR) 50 mg tablet Take 1 tablet (50 mg total) by mouth in the morning and 1 tablet (50 mg total) before bedtime. Active clopidogreL (PLAVIX) 75 mg tablet Take 1 tablet (75 mg total) by mouth in the morning. Active omeprazole (PriLOSEC) 20 mg capsule Take 1 capsule (20 mg total) by mouth as needed. Active atorvastatin (LIPITOR) 40 mg tablet Take 1 tablet (40 mg total) by mouth in the morning. Active rOPINIRole (REQUIP) 5 mg tablet Take 2 tablets (10 mg total) by mouth nightly. Active predniSONE (DELTASONE) 5 mg tablet Take 1 tablet (5 mg total) by mouth as needed. For arthritis Active aspirin 325 mg EC tablet Take 1 tablet (325 mg total) by mouth in the morning. Active hydroxychloroqu ine (PLAQUENIL) 200 mg tablet Take 1 tablet (200 mg total) by mouth in the morning and 1 tablet (200 mg total) before bedtime. Active Family History Medical History Relation Name Comments Cancer Father colon, rectal Diverticulosis Father Arthritis Mother Diabetes Paternal Grandmother Relation Name Status Comments Father Mother Alive Paternal Grandmother Social History Tobacco Use Types Packs/Day Years Used Date Smoking Tobacco: Former Cigarettes Smokeless Tobacco: Never Tobacco Cessation:Counseling Given: Not Answered Alcohol Use Standard Drinks/Week Comments Never 0 (1 standard drink = 0.6 oz pur e alcohol) Childcare Answer Date Recorded Childcare Unknown 12/27/2018 Employment Answer Date Recorded Employment Unknown 12/27/2018 Purpose - Life Answer Date Recorded Purpose and direction in life Unknown Sex and Gender Information Value Date Recorded Sex Assigned at Not on file Legal Sex Male 11:59 AM EDT Gender Identity Not on file Sexual Orientation Not on file Last Filed Vital Signs Vital Sign Reading Time Taken Comments Blood Pressure 120/73 12/21/2023 4:15 PM EDT Pulse 60 12/21/2023 4:15 PM EDT Temperature 36.3 C (97.4 F) 12/21/2023 3:33 PM EDT Respiratory Rate 17 12/21/2023 4:15 PM EDT Oxygen Saturation 95% 12/21/2023 4:15 PM EDT Inhaled Oxygen Concentration - - Weight 81.6 kg (180 lb) 12/21/2023 11:57 AM EDT Height 170.2 cm (5' 7 ) 12/21/2023 11:57 AM EDT Body Mass Index 28.19 12/21/2023 11:57 AM EDT Plan of Treatment Health Maintenance Due Date Last Done Comments Depression Screening 1970 DTaP,Tdap and Td Vaccines (1 - Tdap) 1977 Fall Risk Screening 2023 Adult BMI Screening 12/20/2024 12/21/2023 Tobacco Screening 12/20/2024 12/21/2023 COVID-19 Vaccine (3 - 2024-2 6 season) 2025 11/21/2020, 10/31/2020 Influenza Vaccine 03/18/2025 05/03/2023, , 06/01/2021, Additional history exists Zoster (Shingles) Vaccine Completed 07/13/2023, Medical Devices Not on file Insurance [employer] Care Teams Set Up Inspector Relationship Specialty Start Date End Date Waldo Hoffman MD [address] [place] [address] PCP - General Family Medicine 11/24/23
--- OUTSIDE RECORDS SUMMARY | 2025-04-12 10:31 | XMS_ITS | Encounter Summary ---
Author Organization [facility] Address [address] [facility] [place] [address] Care Team Providers Care Stem Shaper Name Role Phone Waldo Hoffman MD Primary Care Provider [phone] Waldo Hoffman MD Unavailable Tuesday, Almaz NEVESN Unavailable [phone] Encounter Details Date Type Department Care Team (Late st Contact Info) Description 01/11/2023 Orders Only [facility] [place] [facility] [address] [place] [address] A, Unknown Practice [address] [place], [place] [id number] Social History Tobacco Use Types Packs/Day Years [...] Procedure Name Priority Date/Time Associated Diagnosis Comments ELECTROCARDIOGRAM REPORT Routine 023 8:18 AM EDT documented in this encounter Results * Electrocardiogram Report (01/08/2023 8:18 AM EDT) us Unknown Practice A IN CLINIC/BEDSIDE ORDERABLES Final Result documented in this encounter Visit Diagnoses Not on filedocumented in this encounter Care Teams Stem Shaper Relationship Specialty Start Date End Date Waldo Hoffman MD [address] [place] [address] PCP - General Family Medicine 11/23/22 Waldo Hoffman MD [address] [place] [address] PCP - Devoted 08/18/23Tuesday, GERRY Muse 112 [facility] [address] [place] [address] Licensed Practical Nurse Family Medicine 02/22/2402/28 documented as of this encounter
--- OUTSIDE RECORDS SUMMARY | 2025-04-12 10:31 | XMS_ITS | Encounter Summary ---
Author Organization [facility] Address [address] [facility] [place] [address] Care Team Providers Care Shuttle Car Operator Name Role Phone Waldo Hoffman MD Primary Care Provider [phone] Waldo Hoffman MD Unavailable Encounter Details Date Type Department Care Team (Late st Contact Info) Description 06/27/2024 Abstract [facility] [place] [facility] [address] [place] [address] Waldo Hoffman MD [address] [place] [address] Social History Tobacco Use Types Packs/Day Years [...] declined 11/15/2023 How often do you attend judaism or zoroastrianism serv ices? Patient declined 11/15/2023 Do you belong to any clubs o r organizations such as judaism groups, unions, fraternal or athletic groups, or [...] medical care, and heating? Patient declined 11/15/2023 [facility] of Occupat ional Health - [...] on filedocumented in this encounter Care Teams Shuttle Car Operator Relationship Specialty Start Date End Date Waldo Hoffman MD 112 [facility] 110 [place] [address] PCP - General Family Medicine 11/23/22 Waldo Hoffman MD 112 [facility] 110 [place] [address] PCP - Devoted 08/18/23 documented as of this encounter
--- OUTSIDE RECORDS SUMMARY | 2025-04-12 10:31 | XMS_ITS | Encounter Summary ---
Author Organization [facility] Address [address] [facility] [place] [address] Care Team Providers Care Information Specialist Name Role Phone Waldo Hoffman MD Primary Care Provider [phone] Waldo Hoffman MD Unavailable Tuesday, Almaz NEVESN Unavailable Encounter Details Date Type Department Care Team (Late st Contact Info) Description 03/02/2023 Orders Only [facility] [place] [facility] [address] [place] [address] [place] [address] A, Unknown Practice [address] [place], [place] [id number] Social History Tobacco Use Types Packs/Day Years [...] Procedure Name Priority Date/Time Associated Diagnosis Comments XR KNEE 4+ VIEWS LEFT Routine 03/02/2023 9:33 AM EDT documented in this encounter Results * XR knee 4+ views left (03/02/2023 9:33 AM EDT) Anatomical Region Laterality Modality Lower Extremities, Knee Left Radiogra phic Imaging us Unknown Practice A IMG XR PROCEDURES Final Resul t documented in this encounter Visit Diagnoses Not on filedocumented in this encounter Care Teams Information Specialist Relationship Specialty Start Date End Date Waldo Hoffman MD [address] [facility] 110 [place] [address] PCP - General Family Medicine 11/23/22 Waldo Hoffman MD [address] [facility] 110 [place] [address] PCP - Devoted 08/18/23Tuesday, GERRY Muse [address] [facility] 110 [place] [address] Licensed Practical Nurse Family Medicine 02/22/2402/28 documented as of this encounter
--- OUTSIDE RECORDS SUMMARY | 2025-04-12 10:31 | XMS_ITS | Encounter Summary ---
Author Organization [facility] Address [address] [facility] [place] [address] Care Team Providers Care Fws Faculty Assistant Name Role Phone Waldo Hoffman MD Primary Care Provider [phone] Waldo Hoffman MD Unavailable Tuesday, Almaz NEVESN Unavailable [phone] Encounter Details Date Type Department Care Team (Late st Contact Info) Description 11/24/2023 Abstract [facility] [address] [facility] 110 [place] [address] Waldo Hoffman MD 112 [facility] 110 [place], [place] [address] Social History Tobacco Use Types Packs/Day Years [...] declined 11/15/2023 How often do you attend anabaptist or amish serv ices? Patient declined 11/15/2023 Do you belong to any clubs o r organizations such as anabaptist groups, unions, fraternal or athletic groups, or [...] medical care, and heating? Patient declined 11/15/2023 [facility] of Occupat ional Health [...] place to sleep or slept in a group home (including now)? Patient declined 11/15/2023 Sex and Gender Information Value Date Recorded Sex Assigned at Not on file Legal Sex Male 7:00 PM EDT Gender Identity Not on file Sexual Orientation Not on file documented as of this encounter Plan of Treatment Not on file documented as of this encounter Visit Diagnoses Not on filedocumented in this encounter Care Teams Fws Faculty Assistant Relationship Specialty Start Date End Date Waldo Hoffman MD [address] [place] [address] PCP - General Family Medicine 11/23/22 Waldo Hoffman MD [address] [place] [address] PCP - Devoted 08/18/23Tuesday, GERRY Muse [address] [place] [address] Licensed Practical Nurse Family Medicine 02/22/2402/28 documented as of this encounter
--- OUTSIDE RECORDS SUMMARY | 2025-04-12 10:31 | XMS_ITS | Encounter Summary ---
Author Organization [facility] Address [address] [facility] [place] [address] Care Team Providers Care Boat Ride Operator Name Role Phone Waldo Hoffman MD Primary Care Provider [phone] Waldo Hoffman MD Unavailable Encounter Details Date Type Department Care Team (Late st Contact Info) Description 06/27/2024 Abstract [facility] [place] [facility] [address] [place] [address] Waldo Hoffman MD [address] [place] [address] Social History Tobacco Use Types Packs/Day Years [...] declined 11/15/2023 How often do you attend caodaism or restoration serv ices? Patient declined 11/15/2023 Do you belong to any clubs o r organizations such as caodaism groups, unions, fraternal or athletic groups, or [...] medical care, and heating? Patient declined 11/15/2023 [facility] of Occupat ional Health - Occupational [...] place to sleep or slept in a retirement (including now)? Patient declined 11/15/2023 Sex and Gender Information Value Date Recorded Sex Assigned at Not on file Legal Sex Male 7:00 PM EDT Gender Identity Not on file Sexual Orientation Not on file documented as of this encounter Plan of Treatment Not on file documented as of this encounter Visit Diagnoses Not on filedocumented in this encounter Care Teams Boat Ride Operator Relationship Specialty Start Date End Date Waldo Hoffman MD 112 [facility] 110 [place] [address] PCP - General Family Medicine 11/23/22 Waldo Hoffman MD 112 [facility] 110 [place] [address] PCP - Devoted 08/18/23 documented as of this encounter
--- OUTSIDE RECORDS SUMMARY | 2025-04-12 10:31 | XMS_ITS | Encounter Summary ---
Author Organization [facility] Address [address] [facility] [place] [address] Care Team Providers Care College Administrator Name Role Phone Waldo Hoffman MD Primary Care Provider [phone] Waldo Hoffman MD Unavailable Encounter Details Date Type Department Care Team (Late st Contact Info) Description 06/27/2024 Abstract [facility] [place] [facility] [address] [place] [address] Waldo Hoffman MD [address] [place] [address] Social History Tobacco Use Types Packs/Day Years [...] declined 11/15/2023 How often do you attend scientologist or evangelical serv ices? Patient declined 11/15/2023 Do you belong to any clubs o r organizations such as scientologist groups, unions, fraternal or athletic groups, or [...] medical care, and heating? Patient declined 11/15/2023 [facility] of Occupat ional Health - [...] place to sleep or slept in a skilled nursing (including now)? Patient declined 11/15/2023 Sex and Gender Information Value Date Recorded Sex Assigned at Not on file Legal Sex Male 7:00 PM EDT Gender Identity Not on file Sexual Orientation Not on file documented as of this encounter Plan of Treatment Not on file documented as of this encounter Visit Diagnoses Not on filedocumented in this encounter Care Teams College Administrator Relationship Specialty Start Date End Date Waldo Hoffman MD 112 [facility] 110 [place] [address] PCP - General Family Medicine 11/23/22 Waldo Hoffman MD 112 [facility] 110 [place] [address] PCP - Devoted 08/18/23 documented as of this encounter
--- OUTSIDE RECORDS SUMMARY | 2025-04-12 10:31 | XMS_ITS | Encounter Summary ---
Author Organization [facility] Address [address] [facility] [place] [address] Care Team Providers Care Mining Engineering Technologist Name Role Phone Waldo Hoffman MD Primary Care Provider [phone] Waldo Hoffman MD Unavailable Tuesday, Almaz NEVESN Unavailable [phone] Encounter Details Date Type Department Care Team (Late st Contact Info) Description 01/10/2023 [facility] [address] [place] [address] A, Unknown Practice [address] [place], [place] [address] Social History Tobacco Use Types Packs/Day Years [...] Name Priority Date/Time Associated Diagnosis Comments CT ABDOMEN & PELVIS WO Routine 01/08/2023 10:29 AM EDT documented in this encounter Results * CT ABDOMEN & PELVIS WO (01/08/2023 10:29 AM EDT) Anatomical Region Laterality Modality Radiographic Joy ging us Unknown Practice A IMG XR PROCEDURES Final Resul t documented in this encounter Visit Diagnoses Not on filedocumented in this encounter Care Teams Mining Engineering Technologist Relationship Specialty Start Date End Date Waldo Hoffman MD [address] [place] [address] PCP - General Family Medicine 11/23/22 Waldo Hoffman MD 112 [facility] 110 [place] [address] PCP - Devoted 08/18/23Tuesday, GERRY Muse 112 [facility] 110 [place] [address] Licensed Practical Nurse Family Medicine 02/22/2402/28 documented as of this encounter
--- OUTSIDE RECORDS SUMMARY | 2025-04-12 10:31 | XMS_ITS | Encounter Summary ---
Author Organization [facility] Address [address] [facility] [place] [address] Care Team Providers Care Employee Services Manager Name Role Phone Waldo Hoffman MD Primary Care Provider [phone] Waldo Hoffman MD Unavailable Reason for Visit * Reason Onset Date Comments Results 04/08/2025 Labs Encounter Details Date Type Department Care Team ([facility] st Contact Info) Description 04/08/2025 Telephone [facility] [address] [facility] 110 [place] [address] Yadira Spicer, PA 112 [facility] 110 [place] [address] Results (Labs) Social History Tobacco Use Types Packs/Day Years [...] How often do you attend uatsdin or protestant serv ices? Patient declined 11/15/2023 Do you [...] Recorded Patient Health Questionnaire-2 Score 0 04/01/2025 [facility] of Occupat ional [facility] - Occupational Stress Questionnaire Answer Date Recorded [...] place to sleep or slept in a [place] health care facility (including now)? Patient declined 11/15/2023 Sex and Gender Information Value Date Recorded Sex Assigned at Not on file Legal Sex Male 7:00 PM EDT Gender Identity Not on file Sexual Orientation Not on file documented as of this encounter Miscellaneous Notes * Telephone Encounter - JESSICA QUACH - 04/08/2025 12:21 PM EDT Patient notified * Telephone Encounter - AYE Fong - 04/08/2025 7:59 AM EDT Please let pt know that his recent labs showed his Triglycerides were higher than previous at 200, goal is < 150. HDL (good cholesterol) is still mildly low. Recommend limiting simple sugars in his diet. Stay active when possible. No other changes at this time. Rest of his labs looked good. documented in this encounter Plan of Treatment Not on file documented as of this encounter Visit Diagnoses Not on filedocumented in this encounter Additional Health Concerns Assessment Noted Time PHQ-9 Depression Total Score: 0 04/01/20 25 2:00 PM EDT documented as of this encounter Care Teams Employee Services Manager Relationship Specialty Start Date End Date Waldo Hoffman MD [address] [facility] 110 [place] [address] PCP - General Family Medicine 11/23/22 Waldo Hoffman MD [address] [facility] 110 [place] [address] PCP - Devoted 08/18/23 documented as of this encounter
--- OUTSIDE RECORDS SUMMARY | 2025-04-12 10:31 | XMS_ITS | Encounter Summary ---
Author Organization [facility] Address [address] [facility] [place] [address] Care Team Providers Care Tire Bladder Maker Name Role Phone Waldo Hoffman MD Primary Care Provider [phone] Waldo Hoffman MD Unavailable Tuesday, Almaz DIGITAL RESEARCH ANALYST Unavailable [phone] Encounter Details Date Type Department Care Team (Late st Contact Info) Description 11/30/2023 Orders Only [facility] [place] [facility] [address] [place] [address] Unallocated, Noms Provider, [address] [place], [place] [address] Social History Tobacco Use Types Packs/Day Years [...] declined 11/15/2023 How often do you attend restorationism or holiness serv ices? Patient declined 11/15/2023 Do you belong to any clubs o r organizations such as restorationism groups, unions, fraternal or athletic groups, or [...] medical care, and heating? Patient declined 11/15/2023 [facility] of Occupat ional Health - Occupational Stress [...] Date/Time Associated Diagnosis Comments ELECTROCARDIOGRAM REPORT Routine 024 3:48 PM EDT documented in this encounter Results * Electrocardiogram Report (11/30/2023 3:48 PM EDT) us Noms Provider Unallocated MD IN CLINIC/BEDSIDE O RDERABLES Final Result documented in this encounter Visit Diagnoses Not on filedocumented in this encounter Care Teams Tire Bladder Maker Relationship Specialty Start Date End Date Waldo Hoffman MD [address] [place] [address] PCP - General Family Medicine 11/23/22 Waldo Hoffman MD [address] [place] [address] PCP - Devoted 08/18/23Tuesday, GERRY Muse [address] [place] [address] Licensed Practical Nurse Family Medicine 02/22/2402/28 documented as of this encounter
--- NOTE | 2025-04-12 10:32 | US_ITS ---
[place] [id number] Patient Name: DARLEEN GOODMAN MRN: [id number] date: 1960 Sex: M Assigned Patient Location: US Current Patient Location: US Accession/Order Number: [id number] Exam Date: 04/12/2025 10:37 Report Date: 04/12/2025 13:54 At the request of: SWETHA MIRELES Procedure: US aorta Aortic ultrasound Reason for exam: Former smoker. Comparison: none Technique: Grayscale, spectral and color Doppler images of the abdominal aorta were obtained. Findings: Visualized portions of the abdominal aorta appears normal in caliber without evidence of aneurysm. Visualized portions of the common iliac arteries also appear normal in caliber. US/US aorta Impression: No ultrasound evidence of abdominal aortic aneurysm. Impression dictated by: Alonzo Mosquera Jr., D.O. 04/12/2025 1:54 PM Dictation Location: [place] [address] Electronically authenticated by: [id number] Y Date: 04/12/2025 13:54
--- OUTSIDE RECORDS SUMMARY | 2025-04-12 10:33 | XMS_ITS | CCD ---
Author Organization [facility] Care Team Providers Care Ramp Service Employee Name Role Phone Shashank Head Unavailable WillamsCassi davis Unavailable OCTAVIO, DR LITTLE Admitting Unavailable CUNNINGHAM, DR LITTLE Attending Unavailable ULISES, DR REED Primary Care Unavailable OCTAVIO, DR LITTLE Consulting Unavailable ULISES, DR REED Primary Care Unavailable NGHIA, DR LAMINE Croft Admitting Unavailable AGRAWAL, DR LAMINE Croft Attending Unavailable AGRAWAL, DR [...] Moses Attending UnavailMD Chino Cortez Admitting Unavailab DEREK Felton M Primary Care Unavailable JEREMIAS LAU Referring Unavailable ULISES, RUGEN M Primary Care Unavailable JEREMIAS LUA Attending Unavailable JEREMIAS LAU Referring Unavailable ULISES, RUGEN M Primary Care Unavailable JEREMIAS LAU Referring Unavailable ULISES, RUGEN M Primary Care Unavailable JEREMIAS LAU Attending Unavailable JEREMIAS LAU Referring Unavailable ULISES, RUGEN M Primary Care Unavailable JEREMIAS LAU Admitting Unavailable JEREMIAS LAU Attending Unavailable JEREMIAS LAU Referring Unavailable PASQUALE VALDIVIA Attending Unavailable ULISESDEREK M Primary Care Unavailable Derek Montgomery MD Primary Care Provider [phone] Derek Montgomery MD Unavailable Shashank Head Attending Unavailable Shashank Head Admitting Unavailable Derek Montgomery Primary Care Unavailable Derek Montgomery MD Primary Care Provider YADIRA MIRELES Attending Unavailable Allergies Allergy Classification Reported Allergen(s) Allergy Type Date of Onset Reaction(s) Facility (1 source) No Known Medication Allergies; Translations: [No Known Medication Allergies] Propensity to adverse reactions to drug (disorder) [facility] Repository Medications Current Medications Medication Drug Class(es) Dates Sig (Normalized) Sig (Original) ascorbic acid 4700 mg / polyethylene glycol 3350 [id number] mg / potassium chloride 1015 mg / sodium ascorbate 5900 mg / sodium chloride 2690 mg / sodium sulfate 7500 mg powder for oral solution (2 sources) Osmotic Laxative, Vitamin C Start: 05-22-2014 aspirin 325 mg oral tablet (12 sources) Platelet Aggregation Inhibitor, Nonsteroidal Anti-inflammatory Drug aspirin 325 MG tablet 1 (one) time each day at the same time Active take 1 tablet by mouth in the mo rning aspirin 325 mg EC tablet Take 1 tablet (325 mg total) by mouth in the morning. Active Aspirin Active atorvastatin 40 mg oral tablet (12 sources) HMG-CoA Reductase Inhibitor Start: 09-18-2024 take 1 tablet by mouth once daily atorvastatin (Lipitor) 40 MG tablet Indications: Essential hypertension TAKE 1 TABLET BY MOUTH DAILY 100 tablet 3 09/18/2024 Active Start: 08-23-2023 take 1 tablet by darnell th once daily atorvastatin (Lipitor) 40 MG tablet [...] Jun, Active clopidogrel 75 mg oral tablet (12 sources) P2Y12 Platelet Inhibitor Start: 03-13-2024 take 1 tablet by mouth once daily clopidogrel (Plavix) 75 MG tablet Indications: Hyperlipidemia, unspecified hyperlipidemia type Take 1 tablet (75 mg) by mouth Daily 100 tablet 3 03/13/2024 Active take 1 tablet by mouth in the mo rning clopidogreL (PLAVIX) 75 mg tablet Take 1 tablet (75 mg total) by mouth in the morning. Active colchicine 0.6 mg oral tablet (2 sources) Start: 12-26-2023 End: 12-25-2024 take 2 tablets by mouth once, then take 1 tablet by mouth every hour colchicine 0.6 MG tablet Indications: Acute gout of left knee, unspecified cause 1.2mg po once then 0.6 mg 1 hour later 3 tablet 12/26/2023 12/25/2024 Active febuxostat 40 mg oral tablet (2 sources) Xanthine Oxidase Inhibitor Start: 01-17-2025 take 1 tablet by mouth once daily febuxostat (Uloric) 40 MG tablet Take 40 mg by mouth Daily 01/17/2025 Active hydroxychloroquine sulfate 200 mg oral tablet (10 sources) Antimalarial, Antirheumatic Agent Start: 03-13-2024 take 1 tablet by mouth in the morning hydroxychloroquine (Plaquenil) 200 MG tablet Indications: Hyperlipidemia, unspecified hyperlipidemia type Take 1 tablet [...] half with dinner for 6 days PRN 30 Jun, 2022 Active metoprolol tartrate 50 mg oral tablet (12 sources) beta-Adrenergic Alondra Start: 01-17-2025 take 1 tablet by mouth twice daily at bedtime metoprolol tartrate (Lopressor) 50 MG tablet Indications: Essential hypertension TAKE 1 TABLET BY MOUTH TWICE DAILY (IN THE MORNING and AT BEDTIME); take WITH FOOD 180 tablet 01/17/2025 Active Start: 09-24-2024 take 1 tablet by darnell th twice daily at bedtime metoprolol tartrate (Lopressor) 50 MG tablet Indications: Essential hypertension (CMS/HCC) TAKE 1 TABLET BY MOUTH TWICE DAILY IN THE MORNING and AT BEDTIME WITH FOOD 180 tablet 09/24/2024 Active Start: 04-20-2023 take 1 tablet by darnell th in the morning metoprolol tartrate (Lopressor) 50 MG tablet Indications: Essential hypertension (CMS/HCC) Take 1 tablet (50 mg) by mouth in the morning and 1 tablet (50 mg) before bedtime. Take with food.. 200 tablet 3 04/20/2023 Active Metoprolol Succi nena Active omeprazole 40 mg delayed release oral capsule (7 sources) Proton Pump Inhibitor Start: 05-31-2024 take 1 capsule by mouth before mealtime omeprazole (PriLOSEC) [address] capsule Indications: Gastroesophageal reflux disease, unspecified whether esophagitis present Take 1 capsule (40 mg) by mouth in the morning. Take before meals. 100 capsule 1 05/31/2024 Active Start: 10-21-2022 Omeprazole 40 MG 1 capsule 30 minutes [...] qd Active predniSONE 5 mg oral tablet (6 sources) Start: 02-23-2023 take 1-2 tablets by mouth once daily predniSONE (Deltasone) 5 MG tablet TAKE 1 TO 2 TABLETS BY MOUTH ONCE DAILY IF NEEDED FOR RA FLARE 02/23/2023 Active rOPINIRole 0.5 mg oral tablet (12 sources) Nonergot Dopamine Agonist Start: 01-17-2025 take 1 tablet by mouth twice daily at bedtime rOPINIRole (Requip) 0.5 MG tablet Indications: Restless legs TAKE 1 TABLET BY MOUTH TWICE DAILY (IN THE MORNING AND BEFORE BEDTIME) 90 tablet 2 01/17/2025 Active Start: 08-31-2024 take 1 tablet by darnell th in the morning, then take 1 tablet by mouth in the evening, then take 1 tablet by mouth at bedtime rOPINIRole (Requip) 0.5 MG tablet Indications: Restless legs Take 1 tablet (0.5 mg) by mouth in the morning and 1 tablet (0.5 mg) in the evening and 1 tablet (0.5 mg) before bedtime. 90 tablet 2 08/31/2024 Active Start: 12-09-2023 rOPINIRole (Re quip) 0.5 MG tablet Indications: Restless Leg Syndrome Take 1-2 tablets (0.5-1 mg) by mouth See administration instructions Take 1 tablet every morning and 1-2 tablets at bedtime 90 tablet 5 12/09/2023 Active take 2 tablets by mo uth once daily rOPINIRole (REQUIP) 5 mg tablet Take 2 tablets (10 mg total) by mouth nightly. Active Requip Active Problems Active Problems Problem Classification Problem Date Documented Da te Episodic/Chronic Abdominal pain (7 sources) Abdominal pain; Translations: [Unspecified abdominal pain] Onset: 2 Resolved: 2 Episodic Administrative/social admission (2 sources) Patient encounter status; Translations: [Other specified counseling] 04-01-2025 Episodic Chronic kidney disease (8 sources) Chronic kidney disease stage 3A ; Translations: [Chronic kidney disease, stage 3a (HCC)] Onset: 3 11-22-2023 Chronic Chronic kidney disease (1 source) Chronic kidney disease; Translations: [Chronic kidney disease, stage 3a] Onset: 4 Coronary atherosclerosis and other heart disease (16 sources) Atherosclerotic heart disease of [place] coronary artery without angina pectoris; Translations: [Old myocardial infarction] Onset: 2 Resolved: 5 02-16-2023 Chronic Deficiency and other anemia (7 sources) Anemia of chronic disease; Translations: [Anemia in other chronic diseases classified elsewhere] Onset: 3 02-16-2023 Chronic Disorders of lipid metabolism (8 sources) Pure hypercholesterolemia, unspecified; Translations: [Hyperlipidemia] Onset: 2 02-16-2023 Chronic Esophageal disorders (2 sources) Gastroesophageal reflux disease; Translations: [Gastro-esophageal reflux disease without esophagitis] Chronic Essential hypertension (10 sources) Essential (primary) hypertension; Translations: [Benign essential hypertension] Onset: 2 11-22-2023 Chronic Hypertension with complications and secondary hypertension (5 sources) Hypertensive urgency ; Translations: [Hypertensive urgency] Onset: 3 Resolved: 5 02-16-2023 Chronic Influenza (1 source) Influenza due to other identified influenza virus with other respiratory manifestations Episodic Joint disorders and dislocations; trauma-related (5 sources) Articular cartilage disorder of shoulder region; Translations: [Other articular cartilage disorders, right shoulder] Onset: 3 02-16-2023 Chronic Mood disorders (1 source) Major depressive disorder, single episode, unspecified; Translations: [KYLER DEPRESS D/O SINGLE EPIS UNS] Onset: 2 Chronic Osteoarthritis (2 sources) Primary generalized (osteo)arthritis; Translations: [Unspecified osteoarthritis, unspecified site] Onset: 2 Chronic Other aftercare (1 source) Other long-term (current) drug therapy; Translations: [OTH CORRECTION CURRENT DRUG THERAPY] Onset: 3 Episodic Other connective tissue disease (7 sources) Muscle pain; Translations: [Myalgia, unspecified site] Onset: 3 04-27-2023 Episodic Other disorders of stomach and duodenum [...] Other hereditary and degenerative nervous system conditions (7 sources) Restless legs; Translations: [Restless legs syndrome] Onset: 3 02-16-2023 Chronic Other screening for suspected conditions (not mental disorders or infectious disease) (3 sources) Encounter for screening for malignant neoplasm of colon; Translations: [Patient encounter status] Onset: 4 04-01-2025 Episodic Residual codes; unclassified (6 sources) Early satiety; Translations: [Early satiety] Episodic Residual codes; unclassified (2 sources) Other problems related to lifestyle; Translations: [Other problems related to lifestyle] 04-01-2025 Episodic Rheumatoid arthritis and related disease (20 sources) Rheumatoid arthritis with rheumatoid factor of multiple sites without organ or systems involvement; Translations: [Rheumatoid arthritis, unspecified] Onset: 2 Resolved: 5 Chronic Screening and history of mental health and substance abuse codes (5 sources) Personal history of nicotine dependence; Translations: [Ex-smoker] Onset: 2 04-01-2025 Episodic Unclassified (1 source) meniscal tear Onset: 4 Past or Other Problems Problem Classification Problem Date Documented Da te Episodic/Chronic Calculus of urinary tract (1 source) Personal history of urinary calculi; Translations: [PERSONAL HISTORY OF URINARY CALCULI] Onset: 03-30-2022 Episodic Disorders of teeth and jaw (1 source) Periapical abscess without sinus; Translations: [PERIAPICAL ABSCESS WITHOUT SINUS] Onset: 03-30-2022 Episodic Mood disorders (2 sources) Mood disorders Onset: 04-01-2025 04-01-2025 Other aftercare (1 source) skilled nursing (current) use of aspirin; Translations: [RN LIAISON CURRENT USE OF ASPIRIN] Onset: 03-30-2022 Episodic Other connective tissue disease (5 sources) Tear of right rotator cuff; Translations: [Unspecified rotator cuff tear or rupture of right shoulder, not specified as traumatic] Onset: 02-16-2023 02-16-2023 Episodic Other gastrointestinal disorders (1 source) Abdominal [...] Early satiety Onset: 01-27-2022 Resolved: 01-27-2022 Episodic Unclassified (1 source) Cough R05.9 Results Test Name Value Interpretation Reference Range Facility CBC (INCLUDES DIFF/PLT)on Basophils (Bld) [#/Vol] 0.018 10*3/uL Normal 0-200 [facility] Comment on above: Performed By: #### 1 0231, [id number] #### [facility] [address] [place], [place] [id number] Associate Buyer: Cait Rivas #### [phone] #### [facility] [address], [address] [place] [address] Associate Buyer: Henry Franklin MD #### [id number] #### [facility]/[address] [place], [place] Associate Buyer: Roland Mas M.D.,PhD Basophils/100 WBC (Bld) 0.2 % Normal [facility] Comment on above: Performed By: #### 1 0231, 6399 #### [facility] [address] [place] [address] Associate Buyer: Cait Rivas #### [phone] #### [facility] [address], [address] [place] [address] Associate Buyer: Henry Franklin MD #### [id number] #### [facility]/[address] [place], [place] Associate Buyer: Roland Mas M.D.,PhD Eosinophils (Bld) [#/Vol] 0.063 10*3/uL Normal 15-500 [facility] Comment on above: Performed By: #### 1 230, 6399 #### [facility] [address] [place] [address] Associate Buyer: Cait Rivas #### [phone] #### [facility] [address], [address] [place] [address] Associate Buyer: Henry Franklin MD #### [phone] #### [facility]/[address] [place], [place] Associate Buyer: Roland Mas M.D.,PhD Eosinophils/100 WBC (Bld) 0.7 % Normal [facility] Comment on above: Performed By: #### 1 0231, 6399 #### [facility] [address] [place] [address] Associate Buyer: Cait Rivas #### [phone] #### [facility] [address], [address] [place], [place] [id number] Associate Buyer: Henry Franklin MD #### [id number] #### [facility]/[address] [place], [place] Associate Buyer: Roland Mas M.D.,PhD Erythrocyte distribution width (RBC) [Ratio] 15.0 % Normal 11.0-15.0 [facility] Comment on above: Performed By: #### 1 023, 6399 #### [place] [address] Associate Buyer: Cait Rivas #### [phone] #### [facility] [address], [address] [place], [place] [phone] Associate Buyer: Henry Franklin MD #### [id number] #### [facility]/[address] [place], [place] Associate Buyer: Roland Mas M.D.,PhD Hematocrit (Bld) [Volume fraction] 45.2 % Normal 38.5-50.0 [facility] Comment on above: Performed By: #### 1 230, 6399 #### [facility] [address] [place] [address] Associate Buyer: Cait Rivas #### [phone] #### [facility] [address], [address] [place] [address] Associate Buyer: Henry Franklin MD #### [phone] #### [facility]/[address] [place], [place] Associate Buyer: Roland Mas M.D.,PhD Hemoglobin (Bld) [Mass/Vol] 14.7 g/dL Normal 13.2-17.1 [facility] Comment on above: Performed By: #### 1 230, 6399 #### [facility] [address] [place], [place] [id number] Associate Buyer: Cait Rivas #### [phone] #### [facility] [place] [id number] , [address] [place] [address] Associate Buyer: Henry Franklin MD #### [phone] #### [facility]/[address] [place], [place] Associate Buyer: Roland Mas M.D.,PhD Lymphocytes (Bld) [#/Vol] 2.376 10*3/uL Normal 850-3900 [facility] Comment on above: Performed By: #### 1 230, 63 #### [facility] [address] [place] [address] Associate Buyer: Cait Rivas #### [phone] #### [facility] [place] [address] [address] , [address] [place] [address] Associate Buyer: Henry Franklin MD #### [id number] #### [facility]/[address] [place], [place] Associate Buyer: Roland Mas M.D.,PhD Lymphocytes/100 WBC (Bld) 26.4 % Normal [facility] Comment on above: Performed By: #### 1 230, 6399 #### [facility] [address] [place] [address] Associate Buyer: Cait Rivas #### [phone] #### [facility] [place] [address], [address] [place] [address] Associate Buyer: Henry Franklin MD #### [id number] #### [facility]/[address] [place], [place] Associate Buyer: Roland Mas M.D.,PhD MCH (RBC) [Entitic mass] 29.8 pg Normal 27.0-33.0 [facility] Comment on above: Performed By: #### 1 230, 6399 #### [facility] [address] [place], [place] [id number] Associate Buyer: Cait Rivas #### [phone] #### [facility] [address], [address] [place], [place] [phone] Associate Buyer: Henry Franklin MD #### [phone] #### [facility] [place] Associate Buyer: Roland Mas M.D.,PhD MCHC (RBC) [Mass/Vol] 32.5 g/dL Normal 32.0-36.0 [facility] Comment on above: Result Comment: For adults, a slight decrease in the calculated MCHC value (in the range of 30 to 32 g/dL) is most likely not clinically significant; however, it should be interpreted with caution in correlation with other red cell parameters and the patient's clinical condition. Performed By: #### 1 230, 6399 #### [facility] [address] Associate Buyer: Cait Rivas #### [phone] #### [facility] [address], [address] [place], [place] [phone] Associate Buyer: Henry Franklin MD #### [id number] #### [facility] [place] Associate Buyer: Roland Mas M.D.,PhD MCV (RBC) [Entitic vol] 91.5 fL Normal 80.0-100.0 [facility] Comment on above: Performed By: #### 1 230, 6399 #### [facility] [address] [place] [phone] Associate Buyer: Cait Rivas #### [phone] #### [facility] [address], [address] [place] [address] Associate Buyer: Henry Franklin MD #### [id number] #### [facility]/[address] [place], [place] Associate Buyer: Roland Mas M.D.,PhD Monocytes (Bld) [#/Vol] 0.558 10*3/uL Normal 200-950 [facility] Comment on above: Performed By: #### 1 0231, 6399 #### [facility] [address] [place] [address] Associate Buyer: Cait Rivas #### [phone] #### [facility] [address], [address] [place] [address] Associate Buyer: Henry Franklin MD #### [phone] #### [facility]/[address] [place], [place] Associate Buyer: Roland Mas M.D.,PhD Monocytes/100 WBC (Bld) 6.2 % Normal [facility] Comment on above: Performed By: #### 1 230, 6399 #### [facility] [address] [place] [address] Associate Buyer: Cait Rivas #### [phone] #### [facility] [address], [address] [place] [address] Associate Buyer: Henry Franklin MD #### [phone] #### [facility]/[address] [place], [place] Associate Buyer: Roland Mas M.D.,PhD Neutrophils (Bld) [#/Vol] 5.985 10*3/uL Normal 6777-4674 [facility] Comment on above: Performed By: #### 1 0231, 6399 #### [facility] [address] [place], [place] [id number] Associate Buyer: Cait Rivas #### [phone] #### [facility] [address], [address] [place] [address] Associate Buyer: Henry Franklin MD #### [phone] #### [facility]/[place] [id number] [facility] [place] Associate Buyer: Roland Mas M.D.,PhD Neutrophils/100 WBC (Bld) 66.5 % Normal [facility] Comment on above: Performed By: #### 1 023, 6399 #### [facility] [address] [place] [address] Associate Buyer: Cait Rivas #### [phone] #### [facility] [address], [address] [place] [address] Associate Buyer: Henry Franklin MD #### [id number] #### [facility]/[place] [id number] [facility] [place] Associate Buyer: Roland Mas M.D.,PhD Platelet mean volume (Bld) [Entitic vol] 9.6 fL Normal 7.5-12.5 [facility] Comment on above: Performed By: #### 1 023, 6399 #### [facility] [address] [place] [address] Associate Buyer: Cait Rivas #### [phone] #### [facility] [address], [address] [place], [place] [id number] Associate Buyer: Henry Franklin MD #### [id number] #### [facility] [place] Associate Buyer: Roland Mas M.D.,PhD Platelets (Bld) [#/Vol] 226 10*3/uL Normal 140-400 [facility] Comment on above: Performed By: #### 1 023, 6399 #### [facility] [address] [place], [place] [phone] Associate Buyer: Cait Rivas #### [phone] #### [facility] [address], [address] [place] [address] Associate Buyer: Henry Franklin MD #### [phone] #### [facility]/[address] [place], [place] Associate Buyer: Roland Mas M.D.,PhD RBC (Bld) [#/Vol] 4.94 10*6/uL Normal 4.20-5.80 [facility] Comment on above: Performed By: #### 1 0231, 6399 #### [facility] [address] [place] [address] Associate Buyer: Cait Rivas #### [phone] #### [facility] [address], [address] [place] [address] Associate Buyer: Henry Franklin MD #### [phone] #### [facility] [place] Associate Buyer: Roland Mas M.D.,PhD WBC (Bld) [#/Vol] 9.0 10*3/uL Normal 3.8-10.8 [facility] Comment on above: Performed By: #### 1 0231, 6399 #### [facility] [address] [place] [address] Associate Buyer: Cait Rivas #### [phone] #### [facility] [address], [address] [place], [place] [phone] Associate Buyer: Henry Franklin MD #### [phone] #### [facility] [place] Associate Buyer: Roland Mas M.D.,PhD COMPREHENSIVE METABOLIC PANE [facility] 04-06-2025 Albumin [Mass/Vol] 4.5 g/dL Normal 3.6-5.1 [facility] Comment on above: Performed By: #### 1 0231, 6399 #### [facility] [address] [place], [place] [phone] Associate Buyer: Cait Rivas #### [phone] #### [facility] [address], [address] [place] [address] Associate Buyer: Henry Franklin MD #### [phone] #### [facility]/[address] [place], [place] Associate Buyer: Roland Mas M.D.,PhD Albumin/Globulin [Mass ratio] 1.8 {ratio} Normal 1.0-2.5 [facility] Comment on above: Performed By: #### 1 0231, 6399 #### [facility] Associate Buyer: Cait Rivas #### [phone] #### [facility] [address], [address] [place] [address] Associate Buyer: Henry Franklin MD #### [id number] #### [facility]/[place] [id number] [facility] [place] Associate Buyer: Roland Mas M.D.,PhD ALP [Catalytic activity/Vol] 85 U/L Normal 35-144 [facility] Comment on above: Performed By: #### 1 230, 6399 #### [facility] [address] [place] [address] Associate Buyer: Cait Rivas #### [phone] #### [facility] [address], [address] [place] [address] Associate Buyer: Henry Franklin MD #### [phone] #### [facility]/[address] [place], [place] Associate Buyer: Roland Mas M.D.,PhD ALT [Catalytic activity/Vol] 24 U/L Normal 9-46 [facility] Comment on above: Performed By: #### 1 230, 6399 #### [facility] [address] [place] [address] Associate Buyer: Cait Rivas #### [phone] #### [facility] [place] [address] [address] , [address] [place] [address] Associate Buyer: Henry Franklin MD #### [phone] #### [facility]/[address] [place], [place] Associate Buyer: Roland Mas M.D.,PhD AST [Catalytic activity/Vol] 19 U/L Normal 10-35 [facility] Comment on above: Performed By: #### 1 230, 6399 #### [facility] [address] [place] [address] Associate Buyer: Cait Rivas #### [phone] #### [facility] [address], [address] [place] [address] Associate Buyer: Henry Franklin MD #### [phone] #### [facility]/[address] [place], [place] Associate Buyer: Roland Mas M.D.,PhD Bilirubin [Mass/Vol] 0.5 mg/dL Normal 0.2-1.2 [facility] Comment on above: Performed By: #### 1 230, 6399 #### [facility] [address] [place] [address] Associate Buyer: Cait Rivas #### [phone] #### [facility] [address], [address] [place] [address] Associate Buyer: Henry Franklin MD #### [id number] #### [facility]/[address] [place], [place] Associate Buyer: Roland Mas M.D.,PhD BUN/CREATININE RATIO SEE NOTE: Normal 6-22 [facility] Comment on above: Result Comment: Not Reported: BUN and Creatinine are within reference range. Performed By: #### 1 0231, 6399 #### [facility] [address] [place] [address] Associate Buyer: Cait Rivas #### [phone] #### [facility] [address], [address] [place] [address] Associate Buyer: Henry Franklin MD #### [id number] #### [facility]/[address] [place], [place] Associate Buyer: Roland Mas M.D.,PhD Calcium [Mass/Vol] 9.3 mg/dL Normal 8.6-10.3 [facility] Comment on above: Performed By: #### 1 230, 6399 #### [facility] [address] [place] [address] Associate Buyer: Cait Rivas #### [phone] #### [facility] [address], [address] [place], [place] [id number] Associate Buyer: Henry Franklin MD #### [phone] #### [facility]/[address] [place], [place] Associate Buyer: Roland Mas M.D.,PhD Chloride [Moles/Vol] 106 mmol/L Normal 98-110 [facility] Comment on above: Performed By: #### 1 230, 6399 #### [facility] [address] [place] [address] Associate Buyer: Cait Rivas #### [phone] #### [facility] [address], [address] [place], [place] [id number] Associate Buyer: Henry Franklin MD #### [phone] #### [facility] [id number] [facility] [place], [place] Associate Buyer: Roland Mas M.D.,PhD CO2 [Moles/Vol] 27 mmol/L Normal 20-32 [facility] Comment on above: Performed By: #### 1 0231, 6399 #### [facility] [address] [place] [address] Associate Buyer: Cait Rivas #### [phone] #### [facility] [address] , [address] [place] [address] Associate Buyer: Henry Franklin MD #### [phone] #### [facility]/[address] [place], [place] Associate Buyer: Roland Mas M.D.,PhD Creatinine [Mass/Vol] 1.15 mg/dL Normal 0.70-1.35 [facility] Comment on above: Performed By: #### 1 0231, 6399 #### [place] [address] Associate Buyer: Cait Rivas #### [phone] #### [facility] [place] [address] , [address] [place] [address] Associate Buyer: Henry Franklin MD #### [phone] #### [facility]/[address] [place], [place] Associate Buyer: Roland Mas M.D.,PhD GFR/1.73 sq M.predicted among non-blacks MDRD (S/P/Bld) [Vol rate/Area] 70 mL/min/{1.73_m2} Normal > OR = 60 [facility] Comment on above: Performed By: #### 1 0231, 6399 #### [facility] [address] [place], [place] [address] Associate Buyer: Cait Rivas #### [phone] #### [facility] [address] , [address] [place] [address] Associate Buyer: Henry Franklin MD #### [phone] #### [facility]/[address] [place] Associate Buyer: Roland Mas M.D.,PhD Globulin (S) [Mass/Vol] 2.5 g/dL Normal 1.9-3.7 [facility] Comment on above: Performed By: #### 1 0231, 6399 #### [facility] [address] [place], [place] [id number] Associate Buyer: Cati Rivas #### [phone] #### [facility] [address], [address] [place] [address] Associate Buyer: Henry Franklin MD #### [phone] #### [facility]/[address] [place] Associate Buyer: Roland Mas M.D.,PhD Glucose [Mass/Vol] 90 mg/dL Normal 65-99 [facility] Comment on above: Result Comment: Fasting reference interval Performed By: #### 1 0231, 6399 #### [facility] [address] [place] [address] Associate Buyer: Cait Rivas #### [phone] #### [facility] [address], [address] [place] [address] Associate Buyer: Henry Franklin MD #### [phone] #### [facility]/[address] [place] Associate Buyer: Roland Mas M.D.,PhD Potassium [Moles/Vol] 4.9 mmol/L Normal 3.5-5.3 [facility] Comment on above: Performed By: #### 1 0231, 6399 #### [facility] [address] [place] [address] Associate Buyer: Cait Rivas #### [phone] #### [facility] [address], [address] [place] [address] Associate Buyer: Henry Franklin MD #### [phone] #### [facility] [id number] [facility] [place] Associate Buyer: Roland Mas M.D.,PhD Protein [Mass/Vol] 7.0 g/dL Normal 6.1-8.1 [facility] Comment on above: Performed By: #### 1 0231, 6399 #### [facility] [address] [place] [address] Associate Buyer: Cait Rivas #### [phone] #### [facility] [place] [address] , [address] [place] [address] Associate Buyer: Henry Franklin MD #### [phone] #### [facility] [place] Associate Buyer: Roland Mas M.D.,PhD Sodium [Moles/Vol] 139 mmol/L Normal 135-146 [facility] Comment on above: Performed By: #### 1 230, 6399 #### [facility] [address] [place] [address] Associate Buyer: Cait Rivas #### [phone] #### [facility] [place] [address] , [address] [place] [address] Associate Buyer: Henry Franklin MD #### [phone] #### [facility] [place] Associate Buyer: Roland Mas M.D.,PhD Urea nitrogen [Mass/Vol] 17 mg/dL Normal 7-25 [facility] Comment on above: Performed By: #### 1 023, 6399 #### [facility] [address] [place] [address] Associate Buyer: Cait Rivas #### [phone] #### [facility] [place] [address] , [address] [place] [address] Associate Buyer: Henry Franklin MD #### [phone] #### [facility] [address] [facility] [address] [place] Associate Buyer: Roland Mas M.D.,PhD HEPATITIS C AB W/RFL HCV RNA , PCR W/RFL GENOTYPEon 04-06-2025 HEPATITIS C ANTIBODY Non-Reactive Normal [facility] Comment on above: Result Comment: HCV antibody was non-reactive. There is no laboratory evidence of HCV infection. In most cases, no further action is required. However, if recent HCV exposure is suspected, a test for HCV RNA (test code 82995) is suggested. REFERENCE RANGE: NONREACTIVE For additional information, please refer to http://education.Lightswitch/faq/EGE475 (This link is being provided for informational/ educational purposes only.) Performed By: #### 1 0231, 6399 #### [facility] [address] [place] [address] Associate Buyer: Cait Rvias #### [phone] #### [facility] [address], [address] [place] [address] Associate Buyer: Henry Franklin MD #### [phone] #### [facility] [address] [facility] [address] [place] Associate Buyer: Roland Mas M.D.,PhD LIPID PANEL, [facility] 03-19 Cholesterol [Mass/Vol] 106 mg/dL Normal <200 [facility] Comment on above: Order Comment: FASTI NG:YES FASTING: YES Performed By: #### 1 0231, 6399 #### [facility] [place] [address] Associate Buyer: Cait Rivas #### [phone] #### [facility] [address], [address] [place] [address] Associate Buyer: Henry Franklin MD #### [phone] #### [facility] [address] [facility] [address] [place] Associate Buyer: Roland Mas M.D.,PhD Cholesterol in HDL [Mass/Vol] 37 mg/dL Low > OR = 40 [facility] Comment on above: Order Comment: FASTI NG:YES FASTING: YES Performed By: #### 1 0231, 6399 #### [facility] [place] [address] Associate Buyer: Cait Rivas #### [phone] #### [facility] [address]75 [facility], [address] Associate Buyer: Henry Franklin MD #### [phone] #### [facility] [id number] [facility] [place] Associate Buyer: Roland Mas M.D.,PhD Cholesterol in LDL [Mass/Vol] 42 mg/dL Normal [facility] Comment on above: Order Comment: FASTI NG:YES FASTING: YES Result Comment: Refe rence range: <100 Desirable range <100 mg/dL for primary prevention; <70 mg/dL for patients with CHD or diabetic patients with > or = 2 CHD risk factors. LDL-C is now calculated using the Jarred-Cornelio calculation, which is a validated novel method providing better accuracy than the Friedewald equation in the estimation of LDL-C. Jarred PANDA et al. PAO. 2013;310(19): 8042-8232 (http://education.CommunityForce.ponUp/faq/OIA252) Performed By: #### 1 230, 6399 #### [facility] [address] [place] [address] Associate Buyer: Cait Rivas #### [phone] #### [facility] [address], [address] Associate Buyer: Henry Franklin MD #### [phone] #### [facility] [address] [facility] [place] Associate Buyer: Roland Mas M.D.,PhD Cholesterol.total/C holesterol in HDL [Mass ratio] 2.9 {ratio} Normal <5.0 [facility] Comment on above: Order Comment: FASTI NG:YES FASTING: YES Performed By: #### 1 0231, 6399 #### [facility] [place] [address] Associate Buyer: Cait Rivas #### [phone] #### [facility] [address], [address] [place] [address] Associate Buyer: Henry Franklin MD #### [phone] #### [facility] 2616525 [facility] [place] Associate Buyer: Roland Mas M.D.,PhD NON HDL CHOLESTEROL 69 mg/dL (calc) Normal <130 [facility] Comment on above: Order Comment: FASTI NG:YES FASTING: YES Result Comment: For patients with diabetes plus 1 major ASCVD risk factor, treating to a non-HDL-C goal of <100 mg/dL (LDL-C of <70 mg/dL) is considered a therapeutic option. Performed By: #### 1 230, 6399 #### [facility] [address] [place] [address] Associate Buyer: Cait Rivas #### [phone] #### [facility] [address], [address] [place] [address] Associate Buyer: Henry Franklin MD #### [phone] #### [facility] [place] Associate Buyer: Roland Mas M.D.,PhD Triglyceride [Mass/Vol] 200 mg/dL High <150 [facility] Comment on above: Order Comment: FASTI NG:YES FASTING: YES Result Comment: If a non-fasting specimen was collected, consider repeat triglyceride testing on a fasting specimen if clinically indicated. Сергей et al. J. of Clin. Lipidol. 2015;9:129-169. Performed By: #### 1 0231, 6399 #### [facility] [address] [place] [address] Associate Buyer: Cait Rivas #### [phone] #### [facility] [address], [address] [place], [place] [id number] Associate Buyer: Henry Franklin MD #### [phone] #### [facility] [address] [facility] [address] [place] Associate Buyer: Roland Mas M.D.,PhD PSA, TOTALon 04-06-2025 PSA, TOTAL 0.71 ng/mL Normal < OR = 4.00 [facility] Comment on above: Result Comment: The total PSA value from this assay system is standardized against the WHO standard. The test result will be approximately 20% lower when compared to the equimolar-standardized total PSA (Marlene Rowan). Comparison of serial PSA results should be interpreted with this fact in mind. This test was performed using the Siemens chemiluminescent method. Values obtained from different assay methods cannot be used interchangeably. PSA levels, regardless of value, should not be interpreted as absolute evidence of the presence or absence of disease. Performed By: #### 1 0231, 6399 #### [facility] [address] [place] [address] Associate Buyer: Cait Rivas #### [phone] #### [facility] [address], [address] [place], [place] [id number] Associate Buyer: Henry Franklin MD #### [phone] #### [facility] [address] [place] Associate Buyer: Roland Mas M.D.,PhD ALL CBC WITH AUTO DIFFon BASOPHILS ABSOLUTE AUTO 0 [facility] Basophils/100 WBC (Bld) 0.4 % 0.2 - 2.0 % [facility] Eosinophils/100 WBC (Bld) 1.9 % 0.9 - 7.0 % [facility] Erythrocyte distribution width (RBC) [Ratio] 13.5 % 11.0 - 15.0 % [facility] Hematocrit (Bld) [Volume fraction] 43.3 % 42.0 - 54.0 % [facility] Hemoglobin (Bld) [Mass/Vol] 15 g/dL 14.0 - 18.0 g/dL [facility] IMMATURE GRANULOCYTES ABS AUTO 0.02 [facility] Immature granulocytes/100 WBC (Bld) 0.2 % 0.0 - 0.5 % [facility] LYMPHOCYTES ABSOLUTE AUTO 2.3 [facility] Lymphocytes/100 WBC (Bld) 28.6 % 20.5 - 60.0 % [facility] MCH (RBC) [Entitic mass] 30 pg 25.9 - 34.0 pg [facility] MCHC (RBC) [Mass/Vol] 34.6 g/dL 29.9 - 35.2 g/dL [facility] MCV (RBC) [Entitic vol] 86.6 fL 80.0 - 94.0 fL [facility] MONOCYTES ABSOLUTE AUTO 0.6 [facility] Monocytes/100 WBC (Bld) 6.8 % 1.7 - 12.0 % [facility] NEUTROPHILS ABSOLUTE AUTO 5 [facility] Neutrophils/100 WBC (Bld) 62.1 % 43.0 - 75.0 % [facility] Platelet mean volume (Bld) [Entitic vol] 9.6 fL 9.5 - 13.5 fL [facility] TBH EO # 0.2 [facility] TBH PLT 221 [facility] RBC 5 [facility] WBC 8.1 [facility] Health[facility] e Drug Screen,Urineon 20 24 Amphetamine Screen,Urine Negative Normal Negative [facility] Comment on above: Performed By: #### U RDS #### [facility] [address] [place] [address] [place] Barbiturate Screen,Urine Negative Normal Negative [facility] Comment on above: Performed By: #### U RDS #### [facility] [address] [place] [address] [place] Benzodiazepines Screen,Urine Negative Normal Negative [facility] Comment on above: Performed By: #### U RDS #### [facility] [address] [place] [address] [place] Cannabinoid Screen,Urine Positive High Negative [facility] Comment on above: Result Comment: Thes e are unconfirmed results and should not be used for legal purposes. Drug Cut-Off Concentration: AMPH 1000 ng/mL JOSÉ 200 ng/mL CHRISTIANO 200 ng/mL COCM 300 ng/mL OP 300 ng/mL PCP 25 ng/mL THC 20 ng/mL PERFORMED BY: [place] [address] PATHOLOGIST COUNCILOR DEMARIO ESCOBEDO M.D. Performed By: #### U RDS #### [facility] [address] [place] [address] Cocaine Screen,Urine Negative Normal Negative [facility] Comment on above: Performed By: #### U RDS #### [address] Opiate Screen,Urine Negative Normal Negative [facility] Comment on above: Performed By: #### U RDS #### [address] Phencyclidine Screen,Urine Negative Normal Negative [facility] Comment on above: Performed By: #### U RDS #### [address] ALL CBC WITH AUTO DIFFon BASOPHILS ABSOLUTE AUTO 0.0 [facility] Basophils/100 WBC (Bld) 0.4 % 0.2 - 2.0 % [facility] Eosinophils/100 WBC (Bld) 0.8 % Low 0.9 - 7.0 % [facility] Erythrocyte distribution width (RBC) [Ratio] 13.2 % 11.0 - 15.0 % [facility] Hematocrit (Bld) [Volume fraction] 41.5 % Low 42.0 - 54.0 % [facility] Hemoglobin (Bld) [Mass/Vol] 14.0 g/dL 14.0 - 18.0 g/dL [facility] IMMATURE GRANULOCYTES ABS AUTO 0.04 High [facility] Immature granulocytes/100 WBC (Bld) 0.5 % 0.0 - 0.5 % [facility] Interpretation and review of laboratory results [facility] LYMPHOC[facility]TES ABSOLUTE AUTO 1.8 [facility] Lymphocytes/100 WBC (Bld) 24.5 % 20.5 - 60.0 % [facility] MCH (RBC) [Entitic mass] 30.1 pg 25.9 - 34.0 pg [facility] MCHC (RBC) [Mass/Vol] 33.7 g/dL 29.9 - 35.2 g/dL [facility] MCV (RBC) [Entitic vol] 89.2 fL 80.0 - 94.0 fL [facility] MONOCYTES ABSOLUTE AUTO 0.6 [facility] Monocytes/100 WBC (Bld) 8.4 % 1.7 - 12.0 % [facility] NEUTROPHILS [facility]OLUTE AUTO 4.8 [facility] Neutrophils/100 WBC (Bld) 65.4 % 43.0 - 75.0 % [facility] Platelet mean volume (Bld) [Entitic vol] 9.6 fL 9.5 - 13.5 fL [facility] TBH EO # 0.1 [facility] Healthcar e TBH PLT 242 [facility] Healthcar e TBH RBC 4.65 Low [facility] TBH WBC 7.3 [facility] Healthcar e APTTon 11-24-2023 aPTT Coag (PPP) [Time] 34 s [facility] Comment on above: NEW REFERENCE RANGE BASIC METABOLIC PANLon 11-23 Anion gap [Moles/Vol] 8 mmol/L Normal 5-15 [facility] Comment on above: Performed By: #### P INR, 25727-0 #### [facility] ([id number]) [address] [place] [address] #### 718-7, BMP #### [facility] ([id number]) [address] [place] [address] Calcium [Mass/Vol] 9.4 mg/dL Normal 8.5-10.5 [facility] Comment on above: Performed By: #### P INR, 25381-0 #### [facility] ([id number]) [address] [place] [address] #### 718-7, BMP #### [facility] ([id number]) [address] [place] [address] Chloride [Moles/Vol] 102 mmol/L Normal 98-109 [facility] Comment on above: Performed By: #### P INR, 87660-3 #### [facility] ([id number]) [address] [place] [address] #### 718-7, BMP #### [facility] ([id number]) [address] [place] [address] CO2 [Moles/Vol] 29 mmol/L Normal 22-32 [facility] Comment on above: Performed By: #### P INR, 44838-2 #### [facility] ([id number]) [address] [place] [address] #### 718-7, BMP #### [facility] ([id number]) [address] [place] [address] Creatinine [Mass/Vol] 1.17 mg/dL Normal 0.60-1.30 [facility] Comment on above: Result Comment: METH OD TRACEABLE TO IDMS STANDARD Performed By: #### P INR, 54245-7 #### [facility] ([id number]) [address] [place] [address]47 #### 718-7, BMP #### [facility] ([id number]) [address] [place] [address] GFR/1.73 sq M.predicted among non-blacks MDRD (S/P/Bld) [Vol rate/Area] 69 mL/min/{1.73_m2} Normal >59 [facility] Comment on above: Result Comment: Reported eGFR is based on the CKD-EPI 2020 equation that does not use a race coefficient. Performed By: #### P INR, 53488-5 #### [facility] ([id number]) [address] [place] [address] #### 718-7, BMP #### [facility] ([id number]) [address] [place] [address] Glucose [Mass/Vol] 92 mg/dL Normal 65-99 [facility] Comment on above: Performed By: #### P INR, 22343-5 #### [facility] ([id number]) [address] [place] [address] #### 718-7, BMP #### [facility] ([id number]) [address], [address] [place] [address] Potassium [Moles/Vol] 4.1 mmol/L Normal 3.5-5.0 [facility] Comment on above: Performed By: #### P INR, 34915-8 #### [facility] ([id number]) [address] [place] [address] #### 718-7, BMP #### [facility] ([id number]) [address] [place] [address] Sodium [Moles/Vol] 139 mmol/L Normal 134-146 [facility] Comment on above: Performed By: #### P INR, 50746-3 #### [facility] ([id number]) [address] [place] [address]25 #### 718-7, BMP #### [facility] ([id number]) [address] [place] [address] Urea nitrogen [Mass/Vol] 24 mg/dL Normal 5-27 [facility] Comment on above: Performed By: #### P INR, 59151-6 #### [facility] ([id number]) [address] [place] [address] 99265 #### 718-7, BMP #### [facility] ([id number]) [address] [place] [address] Basic Metabolic Panelon 05-0 Anion gap [Moles/Vol] 8 mmol/L 5 - 15 mmol/L [facility] Calcium [Mass/Vol] 9.4 mg/dL 8.5 - 10. 5 mg/dL [facility] Chloride [Moles/Vol] 102 mmol/L 98 - 109 mmol/L [facility] CO2 [Moles/Vol] 29 mmol/L 22 - 32 mmol/L [facility] Creatinine [Mass/Vol] 1.17 mg/dL 0.60 - 1.30 mg/dL [facility] Comment on above: METHOD TRACEABLE TO IDDC STANDARD eGFR (CKD-EPI)non-race dependent 69 - PINF [facility] Comment on above: Reported eGFR is based on the CKD-EPI 2020 equation that does not use a race coefficient. Glucose [Mass/Vol] 92 mg/dL 65 - 99 mg/dL [facility] Potassium [Moles/Vol] 4.1 mmol/L 3.5 - 5.0 mmol/L [facility] Sodium [Moles/Vol] 139 mmol/L 134 - 146 mmol/L [facility] Urea nitrogen [Mass/Vol] 24 mg/dL 5 - 27 mg/dL [facility] ECG 12 leadon 11-24-2023 TRACEMASTERVUE [facility] HEMOGLOBINon 11-24-2023 Hemoglobin (Bld) [Mass/Vol] 14.0 g/dL Normal 13.0-17.0 [facility] Comment on above: Performed By: #### P INR, 11603-0 #### [facility] ([id number]) [address] [place] [address], [place] [address] #### 718-7, [facility] #### [facility] ([id number]) [address] [place] [address], [address] [place] [address] Hemoglobinon 11-24-2023 Hemoglobin (Bld) [Mass/Vol] 14.0 g/dL 13.0 - 17.0 g/dL [facility] Hemoglobin (Bld) [Mass/Vol]o n 11-24-2023 [facility] No Panel Informationon 11-23 [facility] PROTIME AND INRon 11-24-2023 INR Coag (PPP) [Relative time] 1.0 {INR} Normal 0.8-1.1 [facility] Comment on above: Performed By: #### P INR, 35153-8 #### [facility] ([id number]) [address] [place] [address]27 #### 718-7, BMP #### [facility] ([id number]) [address] [facility], [address] [place] [address] PT Coag (PPP) [Time] 11.5 s Normal 9.8-13.2 [facility] Comment on above: Result Comment: NEW REFERENCE RANGE Performed By: #### P INR, 45091-3 #### [facility] ([id number]) [address] [place] [address]187 #### 718-7, BMP #### [facility] ([id number]) [address] [facility] [address] [place] [address] Protime & INRon 11-24-2023 INR Coag (PPP) [Relative time] 1.0 {INR} [facility] PT Coag (PPP) [Time] 11.5 s [facility] Comment on above: NEW REFERENCE RANGE XR [...] Gaitan MD on 11/24/2023 5:33 PM Normal [facility] XR Chest PA and Lateralon History: [Hypertension. Preoperative] Frontal and lateral chest radiographs demonstrate [that the heart, mediastinum, bryn, and lungs are grossly unremarkable. There is no pneumothorax or obvious pleural effusion.] Impression: [Unremarkable chest radiographs, unchanged since 06/21/2016.] 7 Finalized by Stuart Gaitan MD on 11/24/2023 5:33 PM Dae Sultana MD - 11/24/2023 History: [Hypertension. Preoperative] Frontal and lateral chest radiographs demonstrate [that the heart, mediastinum, bryn, and lungs are grossly unremarkable. There is no pneumothorax or obvious pleural effusion.] Impression: [Unremarkable chest radiographs, unchanged since 06/21/2016.] 7 Finalized by Stuart Gaitan MD on 11/24/2023 5:33 PM [facility] Study observation (narrative) [facility] Chest PA and LateralOrder ed By: Dae Gaitan on 11-24-2023 [employer] Work Phone: aPTT Coag (PPP) [Time]on aPTT Coag (Bld) [Time] 34 s Normal 26-37 [facility] Comment on above: Result Comment: NEW REFERENCE RANGE Performed By: #### P INR, 67291-9 #### [facility] ([id number]) [address] [place] [address], [place] [address] #### 718-7, [facility] [facility] #### [facility] ([id number]) [address] [place] [address], [address] [place] [address] Coding Summaryon 01-13-2023 Coding Summary HTMLBase 64 OjuqttkpSLa8bMj+PGh lYWQ+OS4TSNEnK28bhN JmqD8rA7IFYVnHDljkT DUNOUfPAaEpapPmPQ4y aXNjZXJu IC8+WK4xCUEvBkewrQD cf6A7iOK9H65pjy5rZF ohoXQ5TRIzHyFzsubqd 2jncZy3MIjuRaqlSnSx MLVxvE01PBC8iW88Uh3 5yZFxfWBwq7jlvQa1Jw DjLRJnFUM1nMawLWbfy 1XmWDNwZ05wgVTrv7K0 IGNvbGxhcHNlOyBlbXB 4eP6cTFkksnyro7wguw zhJle4me52nUFiv8I5j LG9H8ZsnmZ5ZNMyyQZx FcyeiANKzI3ydupqc6n elsckUbMzVRBhDFc4VG e7UGVzmCmnKtYgQO41A VT6FWJowcZdZ3PhOMJl gDasOmE4t0G6Ye7KD6F GFywnM7PGBNLEPVsiyE Q+VC05sz29V5EwNxwlO hy7WDWxVJY8nKN8cM3a KBQeOWrud5P8rCK7Q3V mjqAeit1bx9jxTIGvAZ qyE77bpMLii0M1PJOmf UZ7TMGkwGieOoWueL38 Oyc+KUPajZwfj6KkLfv bs7owd0tcpGc2BbszRA GrbbWfpDugIWU7f3NlC s0qMLLznXM7yOA5oP9z GiEvVnO2DHmzP487LxP uoGBhAfeoP78xN3MmpR A+LIQyGyh2YEAklUzoB A6xG6LtWFJdflkmlZCb wJrvFB0pUAZuskzxLPM heC0tRPDzN7u6RuXdMw C5EMauL2AcHHIeeyrkG c74wW7nZzQdKmN6EMgo I7VkzmF8BGMarFJkHWw nFNQ9D16nz6F3WENjVK FqSYH1qCW0xV3qyYhot jogbGVmdDsgdmVydGlj DSjkZSjdK483AAIhvLa nPkNvZGluZyBEYXRlOi AgMDYvMjkvMjAyMzwvd GQ+WOBbMHL7bEuxSHOe qPNwCEbeVa3anNfcwKd jNN1qMIFngzjyKCIsyT 1fCXMnxTAapPcwSK8zO UXfznwfx280CtPuAWU2 YRIkkNLnX7KnsB3fDgA eEHLdWYPxD1QihYZfGC ypT604NFlxBsA8REEss zWlO1IzLLYvaCctViP4 f1M8Mj6Yt0VzypfiW2L beZQqTbZrWcycIGz0R8 RkPjwvdHI+NS62CWEtS Q01LHo4SVD5zTpfGVio PLDgE6BmlJ1dPcNgIVS kZGRkOyc+PHRhYmxlIH dpZHRoPScxMDAlJyBzd NdbFJ2hRf6uIDWwMJRv sXamiARwCdCvv9rrNAO lTFzqFD3gpCbmY0NecF G3BMGsq4v4Ze96Y01oJ 3JvdXA+AVQadUA9hSV4 aA4qHnYyNbP9BOatD52 0RuNxuIJqCjpmj1qos0 xcdHd0BsU7EITjdmTzq BhjVAA6f2HsLr81I30j IHdpZHRoPSIxNSUiIHZ syJitxq7sqZ4jJh1+PG FnkLE4gKT1iN5wKuKjX kN3PHlyO030ShImfMZe Mvsoq1gat5jspVm6KgL qYVKxrxCogDxwTED1e3 XzDg71L5DfdLmgs2CrR vk2ap39jSPbl0Y6eDG1 K7XzWURhfaudbIGmtNh qYT8dQMPrjpnzWQQnrT 7lKJJwJ5s0BpIdUaD2N WxzV1MrdjU3GJDapJXq QILiuNZGsR0zzchaw4i ufliqWiAuJPSbEJx0OX b5QMOolOhzPnHiNTZ6G iD8RMG2kRSwqP1piYlb bjtjqX9uEnu+YLX7fNV pvFEQHK0tNiyozFF+PH SfNIU7cYyvWNuiCHEpp T6rHXTwD0w9FxWoNqQ3 SOyqM0LfvnE2BXWnmQA gNJScnQXDyA5yxycfu2 xqmkyvFeGcRWWdJNh1C Ng2SHTofRiqXfLoCQT1 JeT0XWL9mGVnyI5csQp ysenpjX9tPrv+QmlydG qrIRT0ZHg2D7OlZvq5M TNmoKldJE9cbVWcTMez Of1qmEwakVnaTQ9cMPV dmrotp403FnAxg4faJT DexTWuHItqVAK9D99jr 1P9YJCiVDHfBBH4oTK7 pD3hnCarpcndaNEpzDk gdmVydGljYWwtYWxpZ2 32UGAgeHpaXaKkHEf4E 8UlJza9YMHryXfxNJ5j yMHkHAvbGs6dvSxerPj pZG1nLHZrorbzh824My Ddw3fvLEKgxIJhLTnkL DQ7P44le6U2KJYbZFJe UNG8lAJ8gZ6waDozgju gbGVmdDsgdmVydGljYW pyJMbsA227RLMjbZlgE dCqxOe3P4WnOvc0HFDy bLrsUI1aiUMkDMatZz3 azDjzfAcfTP1tIIUkxr com643NhUng8sbFDMuw EAiOVanOYF7J94da7Z4 TJKyWUXnUZJ9aPY8kF9 hbGlnbjogbGVmdDsgdm XcpBsrAHamHYbwX809X HRvcDsnPlBhdGllbnQg FTwvLMv5U9AcXhtkyKI +AK63CODyMB37sITtdS Cid7ipfZp4LlPxBZCvX MQ2kZfhATlqz4RlJQVf V34ifYFhb6S4MTMjlSo uzOFoQvUixXH7oV3vSS ywoevnw1fhcrhjLunqq 4woel93tC30W65rYJrt ZHRoPSIzMCUiIHZhbGl jnu8fmX1eVh2+PGNvbC F1uBI3iT3gGPNiXgJ2H GvrW078FbVbhZSzUkkn v5kst1kkbOv7LnJ2XOR fmrZynAjdTLO3m5NmAd 02S37bVNtaKAPaCUMzL YIvCUWseUgein0otB3j Ii8+WECofUM7oDX6fY0 rRgLaQtK6HUpvE943Rb ZgkRZbFoqvD96gY2Gmb XA+VWNwCvj1BWPawJxj OM6lfLQaMSkeKk3vHYC 8EiNxOfMcFBebF2TkTE GnnlznaqemuTL7WIAtX EQslL71Dx0qiDzsLZYk eROVxO9kxizam5hvvqh lYvZnLBYmUCl4LIg5JV OqrFwuMgBeYZR3HhQ8A EC5eTBgiT5dfMosvfug rG1qY2MhFDYvfdkhOr0 1fY2rLaOlBtR9UDtcRv c+NjPBTdwPQ2CjYmGbC YOSIfVGFLFGHT15BA88 vWJvl1D2lAA0J1FrEWA vltfflphchGD2FMRnMS CnmV63yYYyHTbpAi6rn 4Y7b886ACJbGEBlvL53 Iv5vsYtcUKKeuZXIzS0 vassjp1lqcluxPoJpGC NeAUp9BKr0BTJrxHjwI aJaECV2MdU7EWE0mWZd zR3hcJlmfverwR4bOhu +JHOwNMxfZWp1LJnvrU Q+DJWtOXO4nKgaHJclR VZaeR0vAOStO0q5ZnTa AhJ5WRhkS0TzIJDjxed bRa32zJ7gQrXqNrE9GQ otB1WghwW5GBVxaGNlG KoeFRX8P73kz5Q2YEGe MCSqALY1oCS0hN3qnEj nbjogbGVmdDsgdmVydG nlFIyrJCkoV335VQNvi YroVhV5CRsnBLXyLI61 PJ77fIKhw5W6xMQ7S3V jIDBptnmsmazewBH1GB XfCLDtoR08hDEaVIfgW s9wq6D1q374NISwVPJf oA04Uw4tgEqqZKWmsJT EqL0dzvswn3xtlillAh ArCBVaIXq3WAw4KWTrb CpxDtQpWLP7XkC2UYK5 zLKimD2zcOgxnxoghL5 wOyc+TUFMRTwvdGQ+PH IcNPN2zRdwZZzuZTYvw A3qHLYoR8o4GiQxEuH0 DXaqO7NrKPZzgkljLo5 2wY5cHbOmTpL3MAunV7 MzbcK0NBIwoINwHNgnZ TU5N94hf2C9CDVrDISl NAJ9uZO4kI1isEjwyrw gbGVmdDsgdmVydGljYW loHKdlH515UZMdxLgrX mLxTIGuDH5miCtlsKJ+ GZ23gu93C8VhTkdvMtq 2LARdRLG5lEJ1pY9qEQ AvTRgqi9V5bGB0K2Ues sDulk9ga8czUIAdRHjo J15duHZct5F0EVWxjLN 1EGWcyHfoAvVzwD12Cc c+CRHenZjrl7CcSgkbt 4yha2edmQm3DhNnEWDy fjCiqFeyHRG6r3PuVf1 7U47tMHqyHUEcVFLeET YuWLDwnCajee3ucZ3dG i8+ZJZypUP2dAH9iZ5x EwWyDgO2ILorV075FbF jxIFxZhkns6rky6qhaC t6QeVdZGVsdmWccCvvJ YS0e6UtUw96R4PnuFwl h2YlBgc0yd84rPFqc4G 7sAG3C9GpCEFyfbhyiW LfeIetPK6xQUIvwnuzV LKgdO1gJFBlN2b4SeOh RlZ8ZLlkQ7OcfvR8BBZ flHIrMNLdvVHCwI1kwx icq0scwpucRoCgPJUyR Iq4QDj5QMHieUxlMmWi LOU9XiZ8PSL1vTEsbW4 bzUptirlckP7pWxr+UG l2l0ignMQnHJ6pgSW9H M29RL48aJSed1W4oYG4 T3QeNNOjjifwmbeffLQ 2SGIuCZDasB23Ey3dfI wcYn2dVOMzHEG9GMJwq ARnV8RduV3eAvPzJROn UUBfF9MeqWKqZLjwP60 4EWoqAoN2LCPjrnFrO9 TtVVTemEfvHgG3k2Z3I q7ZSH48OA01XU56lQOt s8V1hFL7I9DtIKPehex odvtqjLJ9MNOpIQTkaG 88Zw0qyTdjXq7dFVOhQ PI2DZAvqYXbC8LfsT7k ZvHrMUKjOMQzF5UfpJR tIPbvP148WLzqOmQ4IH ObrnMdU5BbTNKktVkzH bR5x9K2Ys5PGw90JD85 WN04oEYsz2Q3kRE6R6Z xRVMkrxtzfkaaeLP1TY ToUMTxfI89Nz0ukHfzE c5tCRSvEWW8RAIyaLCj D1BrnU0jQxBhGSNrYRN rP9IxcFJpVLzwN762KS xfGgG7FTYavfDoY1AgD QZgkFpxCcZ0x6K4Jp3O SWgtmye9S8UtMsbrmEU +AV32PTFaRZ84tQQzoN Exl6yquHd9XpHwZQMvG KV7tYgdJEtir8TkHLSk Y29 (more content not included)... [facility] C Urineon 01-10-2023 C Urine Urine Culture ordered as a result of parameters set on specific urine dip and urine microsopic results. <10,000 cfu/ml [facility] Comment on above: Performed By: #### 1 [id number], [id number], [id number] #### [facility] (DEFAULT) [address] [place] [address] .Auto Diff 1on --2022 Auto [place] % 3 % Normal 1-12 [facility] Comment on above: Performed By: #### 1 [id number], [id number], 3151598330, 5554291, 4142248 ####[facility] (DEFAULT)[address] [place] [address] Baso Abs# 0.1 x10 Normal 0.0-0.2 [facility] Comment on above: Performed By: #### 1 5435236, 4324985101, 8614994119, 5816350, 0021023 ####[facility] (DEFAULT)[address] [place] [address] Basophils/100 WBC (Bld) 0.7 % Normal 0.2-2.0 [facility] Comment on above: Performed By: #### 1 6443153, 4254275963, 7278540355, 1569274, 5307073 ####[facility] (DEFAULT)[address] [place] [address] Eos Abs# 0.0 x10 Normal 0.0-0.4 [facility] Comment on above: Performed By: #### 1 6662563, 3352842921, 3547315378, 1263854, 3129486 ####[facility] (DEFAULT)[address] [place] [address] Eosinophils/100 WBC (Bld) 0.2 % Low 0.9-4.0 [facility] Comment on above: Performed By: #### 1 8998341, 4240404481, 0023029279, 6602581, 6871028 ####[facility] (DEFAULT)[address] [place] [address] Lymph Abs# 1.1 x10 Low 1.3-2.9 [facility] Comment on above: Performed By: #### 1 1468500, 8149724782, 6367980757, 2571728, 9909372 ####[facility] (DEFAULT)[address] [place] [address] Lymphocytes/100 WBC (Bld) 9 % Low 14-48 [facility] Comment on above: Performed By: #### 1 6449161, 3118161782, 3272659101, 9695606, 6917141 ####[facility] (DEFAULT)[address] [place] [address] [place] Abs# 0.4 x10 Normal 0.0-0.8 [facility] Comment on above: Performed By: #### 1 6344741, 9119349813, 0359921252, 2498989, 0431856 ####[facility] (DEFAULT)[address] [place] [address] Neut Abs# 11.1 x10 High 1.5-9.2 [facility] Comment on above: Performed By: #### 1 0743690, 6039045765, 9720065913, 6061909, 3792941 ####[facility] (DEFAULT)[address] [place] [address] Neutrophils/100 WBC (Bld) 87 % Normal 44-88 [facility] Comment on above: Performed By: #### 1 1763601, 8347452447, 4224921681, 6513670, 4525701 ####[facility] (DEFAULT)[address] [place] [address] CBC w/ Auto Diffon 3 Erythrocyte distribution width (RBC) [Ratio] 13.4 % Normal 11.5-15.0 [facility] Comment on above: Performed By: #### 1 1633207, 5919298993, 9897654920, 0321033, 4349666 ####[facility] (DEFAULT)[address] [place] [address] Hematocrit (Bld) [Volume fraction] 41.4 % Normal 34.8-51.9 [facility] Comment on above: Performed By: #### 1 2055324, 2383322647, 2323773804, 1918954, 7087577 ####[facility] (DEFAULT)[address] [place] [address] 17297 Hemoglobin (Bld) [Mass/Vol] 14.2 g/dL Normal 11.8-17.7 [facility] Comment on above: Performed By: #### 1 4678996, 5577987377, 3798868993, 5556842, 3015093 ####[facility] (DEFAULT)[address] [place] [address] 52215 Man Diff? Auto Invalid Interpretation Code [facility] Comment on above: Performed By: #### 1 9978487, 3631219903, 6860976359, 2885853, 4908644 ####[facility] (DEFAULT)[address] [place] [address] 29124 MCH (RBC) [Entitic mass] 30 pg Normal 24-34 [facility] Comment on above: Performed By: #### 1 0024027, 4444488813, 7893496940, 7556273, 1267037 ####[facility] (DEFAULT)[address] [place] [address] 98233 MCHC (RBC) [Mass/Vol] 34 g/dL Normal 26-37 [facility] Comment on above: Performed By: #### 1 2988058, 4015023100, 8711324938, 1599532, 6055406 ####[facility] (DEFAULT)[address] [place] [address] 79718 MCV (RBC) [Entitic vol] 88 fL Normal 81-100 [facility] Comment on above: Performed By: #### 1 1588228, 2832257250, 6589781768, 3780537, 3133922 ####[facility] (DEFAULT)[address] [place] [address] 07522 Platelet 182 x10 Normal 138-427 [facility] Comment on above: Performed By: #### 1 1838002, 0272998741, 5548647195, 4635333, 5469981 ####[facility] (DEFAULT)[address] [place] [address] 39642 Platelet mean volume (Bld) [Entitic vol] 8.5 fL Normal 6.3-10.2 [facility] Comment on above: Performed By: #### 1 8347630, 4297007671, 1686740094, 1503979, 7448913 ####[facility] (DEFAULT)[address] [place] [address] RBC 4.69 x10 Normal 3.70-5.30 [facility] Comment on above: Performed By: #### 1 8047498, 7884745088, 3295614781, 2910687, 1349330 ####[facility] (DEFAULT)[address] [place] [address] 29468 WBC 12.7 x10 High 3.5-10.5 [facility] Comment on above: Performed By: #### 1 4527332, 7766146404, 2030858286, 6792410, 5759090 ####[facility] (DEFAULT)[address] [place] [address] Standardon 01-08-2023 eGFR Non AA 55 mL/min/1.73m2 Invalid Interpretation Code [facility] Comment on above: Performed By: #### 1 8260153, 0478714999, 8340258912, 3191784, 8087907 ####[facility] (DEFAULT)[address] [place] [address] 22688 eGFR AA >60 Invalid Interpretation Code [facility] Comment on above: Performed By: #### 1 5346668, 3582529023, 1612897579, 3681066, 1444663 ####[facility] (DEFAULT)[address] [place] [address] 77066 Albumin [Mass/Vol] 4.5 g/dL Normal 3.5-5.0 [facility] Comment on above: Performed By: #### 1 8898570, 4883910324, 2717638123, 8873354, 3931777 ####[facility] (DEFAULT)[address] [place] [address] 25570 Albumin/Globulin [Mass ratio] 1.5 {ratio} Normal 1.4-2.6 [facility] Comment on above: Performed By: #### 1 7462481, 9710031103, 5232772015, 4799802, 3092785 ####[facility] (DEFAULT)[address] [place] [address] 71616 Alk Phos 81 IU/L Normal 32-91 [facility] Comment on above: Performed By: #### 1 1698506, 0645074692, 9202912790, 4542220, 0767486 ####[facility] (DEFAULT)[address] [place] [address] 85364 ALT [Catalytic activity/Vol] 21.0 U/L Normal 17.0-63.0 [facility] Comment on above: Performed By: #### 1 4059324, 6566040751, 3354931849, 0788629, 8957039 ####[facility] (DEFAULT)[address] [place] [address] 71387 Anion gap [Moles/Vol] 16.6 mmol/L Normal 5.0-19.0 [facility] Comment on above: Performed By: #### 1 7614524, 7272332581, 9025388412, 8964203, 4402332 ####[facility] (DEFAULT)[address] [place] [address] 78150 AST [Catalytic activity/Vol] 23 U/L Normal 15-41 [facility] Comment on above: Performed By: #### 1 7214182, 1404785949, 8742116060, 9401025, 3865629 ####[facility] (DEFAULT)[address] [place] [address] 71376 Bili Total 0.9 mg/dL Normal 0.3-1.2 [facility] Comment on above: Performed By: #### 1 1419614, 9290168090, 7858589610, 5879310, 4436135 ####[facility] (DEFAULT)[address] [place] [address] 46063 Calcium [Mass/Vol] 9.6 mg/dL Normal 8.9-10.3 [facility] Comment on above: Performed By: #### 1 1870309, 2238285328, 5431669595, 8805344, 9455506 ####[facility] (DEFAULT)[address] [place] [address] 72274 Chloride [Moles/Vol] 103 mmol/L Normal 101-111 [facility] Comment on above: Performed By: #### 1 7302020, 4341582207, 4180759389, 0549168, 4261358 ####[facility] (DEFAULT)[address] [place] [address] 80325 CO2 [Moles/Vol] 26 mmol/L Normal 21-32 [facility] Comment on above: Performed By: #### 1 5667435, 7943687290, 1312899569, 1037165, 4927199 ####[facility] (DEFAULT)[address] [place] [address] 75192 Creatinine [Mass/Vol] 1.30 mg/dL Normal 0.90-1.30 [facility] Comment on above: Performed By: #### 1 3817689, 8326425481, 1401290104, 9439794, 4966093 ####[facility] (DEFAULT)[address] [place] [address] 24833 Globulin (S) [Mass/Vol] 2.9 g/dL Normal 1.5-4.3 [facility] Comment on above: Performed By: #### 1 7176492, 2410657848, 2908071432, 9370675, 9147142 ####[facility] (DEFAULT)[address] [place] [address] 99643 Glucose [Mass/Vol] 115.0 mg/dL Normal 74.0-118.0 [facility] Comment on above: Performed By: #### 1 9772398, 0364247973, 2058847697, 2456293, 5456929 ####[facility] (DEFAULT)[address] [place] [address] 27816 Osmolality 283 mOsm/L Invalid Interpretation Code [facility] Comment on above: Performed By: #### 1 3667930, 8836393988, 0252660734, 1609035, 2622017 ####[facility] (DEFAULT)[address] [place] [address] 92200 Potassium [Moles/Vol] 4.6 mmol/L Normal 3.6-5.1 [facility] Comment on above: Performed By: #### 1 0700832, 1235586501, 7531621040, 7104375, 8434564 ####[facility] (DEFAULT)[address] [place] [address] 49414 Protein [Mass/Vol] 7.4 g/dL Normal 6.5-8.1 [facility] Comment on above: Performed By: #### 1 1056929, 2285029845, 1838451404, 8736473, 5819083 ####[facility] (DEFAULT)[address] [place] [address] 57461 Sodium [Moles/Vol] 141.0 mmol/L Normal 136.0-144.0 [facility] Comment on above: Performed By: #### 1 3910322, 9615817103, 6984984807, 2121742, 7268665 ####[facility] (DEFAULT)[address] [place] [address] 15143 Urea nitrogen [Mass/Vol] 16 mg/dL Normal 8-26 [facility] Comment on above: Performed By: #### 1 1037290, 1494583630, 7498534145, 8755487, 0635319 ####[facility] (DEFAULT)[address] [place] [address] 58285 Urea nitrogen/Creatinine [Mass ratio] 12.3 mg/mg Normal 4.6-16.2 [facility] Comment on above: Performed By: #### 1 1206115, 9071796755, 8208689498, 6153834, 7937241 ####[facility] (DEFAULT)[address] [place] [address] Abdomen/Pelvis w/o Contra ston 01-08-2023 CT [...] MD 01/08/23 11:11 a Technologist: BAO Logan [facility] ED Clinical Summaryon 2022 ED Clinical Summary [facility] - Emergency Department [address] [place] [address] ED Clinical Summary PERSON INFORMATION Name: DARLEEN GOODMAN Age: 63 Years Sex: MALE : 1960 MRN: Acct#: Visit Reason: Urinary retention; Flank pain; Nausea and vomiting; VOMITING, ABD PAIN Arrival: 01/08/2023 09:11:18 Discharge: 01/08/2023 12:38:00 LOS: 000 03:27 Check In: 01/08/2023 09:11:18 Checkout:01/08/2023 12:38:00 Address: [address] [place] [address] PCP: DEREK MONTGOMERY MD PROVIDER INFORMATION Provider Role Assigned Unassigned Carmelajoannanuradha Jeffjose Guerda ED Provider 01/08/2023 09:13:34 Ramon Ayon RN [...] Home PATIENT EDUCATION INFORMATION Instructions: Kidney Stones, Znim-sb-Svyl Follow-Up: With: Address: When: Roland Carrington [address] [place], [place] [id number] [facility] (1) Within 3 to 5 days With: Address: When: DEREK MONTGOMERY [address] [place], [place] [id number] [facility] () Within 3 to 5 days DIAGNOSIS: Ureteral calculus, right Patient Understands: Yes - Patient/family/wound care coordinator verbalizes understanding of instructions given Comment: [facility] ED Note - Physicianon 2022 ED [...] or axis deviation to suggest an acute [place]. An IV was started saline bolus was [...] has access to a urologist in the [facility] and I recommended further follow-up with him. I will provide the patient Carmi, and Flomax. I recommended that he strain his urine. Care instructions were discussed with the patient prior to discharge and he voiced understanding. Impression and Plan Diagnosis Ureteral calculus, right (IPC01-IP N20.1, Discharge, Medical) Plan Condition: Improved. Disposition: [...] given the following educational materials: Kidney Stones, Bpre-tw-Fmgk, Kidney Stones, Xrti-mg-Mnop. Follow up with: DEREK MONTGOMERY Within 3 to 5 days; Roland Carrington Within 3 to 5 days. Counseled: Patient, Regarding diagnosis, Regarding diagnostic results, Regarding treatment plan, Regarding prescription, Patient indicated understanding of instructions. [Electronically Signed on: 01/08/2023 15:13 EDT] __ Chino Moses MD [Verified on: 01/08/2023 15:13 EDT] __ Chino Moses MD Normal [facility] ED Patient Summaryon 023 ED Patient Summary [facility] - Emergency Department [address] [place] [id number] PATIENT DISCHARGE INSTRUCTIONS Patient Information Name: DARLEEN GOODMAN Age: 63 Years Date of : 1960 Reason For Visit: Urinary retention; Flank pain; Nausea and vomiting; VOMITING, ABD PAIN Arrival Time: 01/08/2023 09:11:18 Primary Care Physician: DEREK MONTGOMERY MD Attending Physician: Chino Moses Comment: Visit Diagnosis: Diagnoses This Visit Flank pain ([id number]) Nausea and vomiting ([id number]) Ureteral calculus, right (N20.1) Urinary retention ([id number]) The Pharmacy at [facility] is open Tuesday through Tuesday from [...] alcohol and/or drug addiction problems; contact the [facility] 07/02 Crisis Hotline -Text 4HCPQ rd 223200. If you received any narcotics, sedation, or [...] legal documents With: Address: When: Roland Carrington [address] [place] [address] [place] [address] Business (1) Within 3 to 5 days With: Address: When: DEREK MONTGOMERY [address] [place], [place] [id number] Business (1) Within 3 to 5 days Medication Information: The exam and treatment you received today in the [facility] Emergency Department were for an urgent problem and are not intended as complete care. It is important for you to follow up with a doctor, nurse practitioner, or physician?s assurance assistant for ongoing care. If your symptoms [...] so we can reach you if necessary. [facility] Emergency Department has provided you with a complete list of medications post discharge. Please inform your district manager primary care sales/provider of your visit and for further instruction on these medications. Any specific questions regarding your chronic medications and dosages should be discussed with your primary care physician(s) and/or pharmacist. New Medications [id number], [address], [place] [id number], [phone] acetaminophen-hydro codone (acetaminophen-hydr ocodone 300 mg-5 mg [...] Visit Height/Length (more content not included)... Normal [facility] Extra Blueon 01-08-2023 Tube Collected Yes Invalid Interpretation Code [facility] Comment on above: Performed By: #### 1 [id number] ####[facility] (DEFAULT)[address] [place] [address] Lipaseon 01-08-2023 Lipase Level 33.0 IU/L Normal 22.0-51.0 [facility] Comment on above: Performed By: #### 1 [id number], [id number], [id number], [id number] ####[facility] (DEFAULT)[address] [place] [address] Progress Note - Nurseon 12-17 Progress Note - Nurse Patient arrives to ER with complaint of right sided flank pain. Rates pain /. Believes he has a kidney stone [Electronically Signed on: 01/08/2023 09:51 EDT] __ Ramon Ayon RN [Verified on: 01/08/2023 09:51 EDT] __ GaboRamon porter RN Normal [facility] TnI HSon 01-08-2023 Troponin I High Sensitivity 5.0 pg/mL Normal <=20.0 [facility] Comment on above: Performed By: #### 1 [id number], [id number], [id number], [id number] ####[facility] (DEFAULT)[address] [place] [address] UA [id number] 01-08-2023 UA Bacteria Trace Normal [facility] Comment on above: Order Comment: Urina lysis Microscopic order added on by [employer] Expert Rules system. Performed By: #### 1 [id number] #### [facility] (DEFAULT) [address] [place] [address] UA RBC 5-10 [facility] Comment on above: Order Comment: Urina lysis Microscopic order added on by [employer] Expert Rules system. Performed By: #### 1 [id number], [id number], [id number] #### [facility] (DEFAULT) [address] [place] [address] UA Squam Epi Few Normal [facility] Comment on above: Order Comment: Urina lysis Microscopic order added on by [employer] Expert Rules system. Performed By: #### 1 [id number] #### [facility] (DEFAULT) [address] [place] [address] UA WBC 3-5 [facility] Comment on above: Order Comment: Urina lysis Microscopic order added on by [employer] Expert Rules system. Performed By: #### 1 [id number], [id number], [id number] #### [facility] (DEFAULT) [address] [place] [address] UA w Culture if Ind Standard on 01-08-2023 Breakpoint UA Normal [facility] Comment on above: Performed By: #### 1 [id number], [id number], [id number] #### [facility] (DEFAULT) [address] [place] [address] Color (U) Yellow [facility] Comment on above: Performed By: #### 1 [id number], [id number], [id number] #### [facility] (DEFAULT) [address] [place] [address] Culture? Indicated Invalid Interpretation Code [facility] Comment on above: Result Comment: Resu lt created by rule GL_MAGR_ADD_UA_CULT Result created by rule GL_MAGR_ADD_UA_CULT Result created by rule GL_MAGR_ADD_UA_CULT1 Result created by rule GL_MAGR_ADD_UA_CULT Performed By: #### 1 [id number], [id number], [id number] #### [facility] (DEFAULT) [address] [place] [address] Glucose (U) [Mass/Vol] Negative Normal [facility] Comment on above: Performed By: #### 1 [id number], [id number], [id number] #### [facility] (DEFAULT) [address] [place] [address] Ketones Ql (U) Negative Normal [facility] Comment on above: Performed By: #### 1 [id number], [id number], [id number] #### [facility] (DEFAULT) [address] [place] [address] Micro? Indicated Invalid Interpretation Code [facility] [facility] Comment on above: Result Comment: Resu lt created by rule GL_MAGR_ADD_UA_MICRO Performed By: #### 1 [id number] #### [facility] (DEFAULT) [address] [place] [address] [id number] UA Bilirubin Negative Normal [facility] Comment on above: Performed By: #### 1 [id number], [id number] #### [facility] (DEFAULT) [address] [place] [address] [id number] UA Blood MODERATE Abnormal NEGATIVE [facility] Comment on above: Performed By: #### 1 [id number], [id number], [id number] #### [facility] (DEFAULT) [address] [place] [address] [id number] UA Clarity CLEAR Normal CLEAR [facility] Comment on above: Performed By: #### 1 [id number], [id number] #### [facility] (DEFAULT) [address] [place] [address] 51541 UA Leuk Est Negative Normal NEGATIVE [facility] Comment on above: Performed By: #### 1 [id number], [id number], [id number] #### [facility] (DEFAULT) [address] [place] [address] [id number] UA Nitrite Negative Normal NEGATIVE [facility] Comment on above: Performed By: #### 1 [id number], [id number] #### [facility] (DEFAULT) [address] [place] [address] 52018 UA pH 7.0 Normal 5-8 [facility] Comment on above: Performed By: #### 1 [id number], [id number], [id number] #### [facility] (DEFAULT) [address] [place] [address] 36716 UA Protein TRACE Abnormal NEGATIVE [facility] Comment on above: Performed By: #### 1 [id number], [id number] #### [facility] (DEFAULT) [address] [place] [address] [id number] UA Spec Grav 1.025 Normal 1.001-1.035 [facility] Comment on above: Performed By: #### 1 [id number], [id number], [id number] #### [facility] (DEFAULT) [address] [place] [address] 14379 UA Urobilinogen 0.2 mg/dL Normal 0.2-1.0 [facility] Comment on above: Performed By: #### 1 [id number], [id number], [id number] #### [facility] (DEFAULT) [address] [place] [address] [id number] Urine Source Clean Catch Normal [facility] Comment on above: Performed By: #### 1 [id number], [id number] #### [facility] (DEFAULT) [address] [place] [address] CBC AUTO DIFFon 10-21-2022 BASO # 0.0 103/ul Normal 0.0-0.[address] [facility] Comment on above: Performed By: #### C BC #### [facility] [address] [address] [address] Irma Erazo Basophils/100 WBC (Bld) 0.2 % Normal 0.2-2.[address] [facility] Comment on above: Performed By: #### C BC #### [facility] [address] [place] [address] Dr. Irma Erazo EO # 0.1 103/ul Normal 0.0-0.[address] [facility] Comment on above: Performed By: #### C BC #### [facility] [address] [place] [address] Dr. Irma Erazo Eosinophils/100 WBC (Bld) 0.7 % Critically low 0.9-7.[address] [facility] Comment on above: Performed By: #### C BC #### [facility] [address] [place] [address] Dr. Irma Erazo Erythrocyte distribution width (RBC) [Ratio] 13.5 % Normal 11.0-15.[address] [facility] Comment on above: Performed By: #### C BC #### [facility] [address] [place] [address] Dr. Irma Erazo Hematocrit (Bld) [Volume fraction] 39.6 % Critically low 42.0-54.[address] [facility] Comment on above: Performed By: #### C BC #### [facility] [address] [place] [address] Dr. Irma Erazo Hemoglobin (Bld) [Mass/Vol] 13.6 g/dL Critically low 14.0-18.[address] [facility] Comment on above: Performed By: #### C BC #### [facility] [address] [place] [address] Dr. Irma Erazo IG # 0.04 10e3/ul Critically high 0.00-0.03 [facility] Comment on above: Performed By: #### C BC #### [facility] [address] [place] [address] Dr. Irma Erazo IG % 0.4 % Normal 0.0-0.[address] [facility] Comment on above: Performed By: #### C BC #### [facility] [address] [place] [address] Dr. Irma Erazo LYMPH # 2.5 103/ul Normal 1.2-3.[address] [facility] Comment on above: Performed By: #### C BC #### [facility] [address] [place] [address] Dr. Irma Erazo Lymphocytes/100 WBC (Bld) 25.9 % Normal 20.5-60.[address] [facility] Comment on above: Performed By: #### C BC #### [facility] [address] [place] [address] Dr. Irma Erazo MANUAL DIFF REQ NO Normal [facility] Comment on above: Performed By: #### C BC #### [facility] [address] [place] [address] Dr. Irma Erazo MCH (RBC) [Entitic mass] 30.2 pg Normal 25.9-34.[address] [facility] Comment on above: Performed By: #### C BC #### [facility] [address] [place] [address] Dr. Irma Erazo MCHC (RBC) [Mass/Vol] 34.3 g/dL Normal 29.9-35.[address] [facility] Comment on above: Performed By: #### C BC #### [facility] [address] [place] [address] Dr. Irma Erazo MCV (RBC) [Entitic vol] 88.0 fL Normal 80.0-94.[address] [facility] Comment on above: Performed By: #### C BC #### [facility] [address] [place] [address] Dr. Irma Erazo MONO # 0.7 103/ul Normal 0.3-0.[address] [facility] Comment on above: Performed By: #### C BC #### [facility] [address] [address] [address] Irma Erazo Monocytes/100 WBC (Bld) 7.1 % Normal 1.7-12.[address] [facility] Comment on above: Performed By: #### C BC #### [facility] [address] [address] [address] Irma Erazo NEUT # 6.3 103/ul Normal 1.4-6.[address] [facility] Comment on above: Performed By: #### C BC #### [facility] [address] [place] [address] Dr. Irma Erazo Neutrophils/100 WBC (Bld) 65.7 % Normal 43.0-75.[address] [facility] Comment on above: Performed By: #### C BC #### [facility] [address] [place] [address] Dr. Irma Erazo Platelet mean volume (Bld) [Entitic vol] 10.2 fL Normal 9.5-13.[address] [facility] Comment on above: Performed By: #### C BC #### [facility] [address] [place] [address] Dr. Irma Erazo PLT 201 103/ul Normal 150-[address] [facility] Comment on above: Performed By: #### C BC #### [facility] [address] [place] [address] Dr. Irma Erazo RBC 4.50 106/ul Critically low 4.70-6.10 [facility] Comment on above: Performed By: #### C BC #### [facility] [address] [place] [address] Dr. Irma Erazo WBC 9.6 103/ul Normal 4.0-11.[address] [facility] Comment on above: Performed By: #### C BC #### [facility] [address] [place] [address] Dr. Irma Erazo PROF 14(COMP METB)on 023 Albumin [Mass/Vol] 4.2 g/dL Normal 3.4-5.0 [facility] Comment on above: Performed By: #### S EDR #### [facility] [address] [address] [address] Irma Erazo Albumin/Globulin [Mass ratio] 1.3 {ratio} Normal [facility] Comment on above: Performed By: #### S EDR #### [facility] [address] [address] [address] Irma Erazo ALP [Catalytic activity/Vol] 87 U/L Normal 46-[address] [facility] Comment on above: Performed By: #### S EDR #### [facility] [address] [address] [address] Irma Erazo ALT [Catalytic activity/Vol] 29 U/L Normal 16-[address] [facility] Comment on above: Performed By: #### S EDR #### [facility] [address] [place] [address] Dr. Irma Erazo Anion gap [Moles/Vol] 9.8 mmol/L Normal [facility] Comment on above: Performed By: #### S EDR #### [facility] [address] [address] [address] Irma Erazo AST [Catalytic activity/Vol] 18 U/L Normal 15-[address] [facility] Comment on above: Performed By: #### S EDR #### [facility] [address] [place] [address] Dr. Irma Erazo Bilirubin [Mass/Vol] 0.9 mg/dL Normal 0.2-1.[address] [facility] Comment on above: Performed By: #### S EDR #### [facility] [address] [address] [address] Irma Erazo Calcium [Mass/Vol] 9.0 mg/dL Normal 8.5-10.1 [facility] Comment on above: Performed By: #### S EDR #### [facility] [address] [address] [address] Irma Erazo Chloride [Moles/Vol] 105 mmol/L Normal 98-[address] [facility] Comment on above: Performed By: #### S EDR #### [facility] [address] [address] [address] Irma Erazo CO2 [Moles/Vol] 27.7 mmol/L Normal 21.0-32.0 [facility] Comment on above: Performed By: #### S EDR #### [facility] [address] [address] [address] Irma Erazo Creatinine [Mass/Vol] 1.22 mg/dL Normal 0.70-1.30 [facility] Comment on above: Performed By: #### S EDR #### [facility] [address] [address] [address] Irma Erazo EGFR-AF BELIZEAN >60 Normal >=60 [facility] Comment on above: Performed By: #### S EDR #### [facility] [address] [address] [address] Irma Erazo EGFR-NON AF BELIZEAN 60 mL/min/1.73m2 Normal >=[address] [facility] Comment on above: Performed By: #### S EDR #### [facility] [address] [address] [address] Irma Erazo Globulin (S) [Mass/Vol] 3.3 g/dL Normal [facility] Comment on above: Performed By: #### S EDR #### [facility] [address] [address] [address] Irma Erazo Glucose [Mass/Vol] 116 mg/dL Critically high 74-106 [facility] Comment on above: Performed By: #### S EDR #### [facility] [address] [address] [address] Irma Erazo Potassium [Moles/Vol] 4.5 mmol/L Normal 3.5-5.[address] [facility] Comment on above: Performed By: #### S EDR #### [facility] [address] [address] [address] Irma Erazo Protein [Mass/Vol] 7.5 g/dL Normal 6.4-8.2 [facility] Comment on above: Performed By: #### S EDR #### [facility] [address] [place] [address] Dr. Irma Erazo Sodium [Moles/Vol] 138 mmol/L Normal 136-145 [facility] Comment on above: Performed By: #### S EDR #### [facility] [address] [place] [address] Dr. Irma Erazo Urea nitrogen [Mass/Vol] 20.0 mg/dL Critically high 7.0-18.[address] [facility] Comment on above: Performed By: #### S EDR #### [facility] [address] [place] [address] Dr. Irma Erazo Urea nitrogen/Creatinine [Mass ratio] 16.4 mg/mg Normal [facility] Comment on above: Performed By: #### S EDR #### [facility] [address] [place] [address] Dr. Irma Erazo SED RATE [facility] 2022 SED RATE 6 mm/hr Normal <=[address] [facility] Comment on above: Performed By: #### S EDR #### [facility] [address] [place] [address] Dr. Irma Erazo COVID/FLU/RSV RT-PCRon 07-16 SARS-CoV-2 (COVID-19) RNA LUCIEN+probe Ql (Unsp spec) Negative [facility] Other COVID/FLU/RSV RT-PCR Positive [employer] [facility] Other COVID/FLU/RSV RT-PCR Negative [facility] Other CBC AUTO DIFFon 06-21-2022 BASO # 0.1 103/ul Normal 0.0-0.[address] [facility] Comment on above: Performed By: #### C BC #### [facility] [address] [place] [address] Dr. Irma Erazo Basophils/100 WBC (Bld) 0.6 % Normal 0.2-2.[address] [facility] Comment on above: Performed By: #### C BC #### [facility] [address] [place] [address] Dr. Irma Erazo EO # 0.1 103/ul Normal 0.0-0.[address] [facility] Comment on above: Performed By: #### C BC #### [facility] [address] [place] [address] Dr. Irma Erazo Eosinophils/100 WBC (Bld) 0.7 % Critically low 0.9-7.[address] [facility] Comment on above: Performed By: #### C BC #### [facility] [address] [place] [address] Dr. Irma Erazo Erythrocyte distribution width (RBC) [Ratio] 13.4 % Normal 11.0-15.[address] [facility] Comment on above: Performed By: #### C BC #### [facility] [address] [place] [address] Dr. Irma Erazo Hematocrit (Bld) [Volume fraction] 39.2 % Critically low 42.0-54.[address] [facility] Comment on above: Performed By: #### C BC #### [facility] [address] [place] [address] Dr. Irma Erazo Hemoglobin (Bld) [Mass/Vol] 13.8 g/dL Critically low 14.0-18.[address] [facility] Comment on above: Performed By: #### C BC #### [facility] [address] [place] [address] Dr. Irma Erazo IG # 0.03 10e3/ul Normal 0.00-0.[address] [facility] Comment on above: Performed By: #### C BC #### [facility] [address] [place] [address] Dr. Irma Erazo IG % 0.3 % Normal 0.0-0.5 [facility] Comment on above: Performed By: #### C BC #### [facility] [address] [place] [address] Dr. Irma Erazo LYMPH # 2.4 103/ul Normal 1.2-3.[address] [facility] Comment on above: Performed By: #### C BC #### [facility] [address] [place] [address] Dr. Irma Erazo Lymphocytes/100 WBC (Bld) 27.5 % Normal 20.5-60.[address] [facility] Comment on above: Performed By: #### C BC #### [facility] [address] [place] [address] Dr. Irma Erazo MANUAL DIFF REQ NO Normal [facility] Comment on above: Performed By: #### C BC #### [facility] [address] [place] [address] Dr. Irma Erazo MCH (RBC) [Entitic mass] 30.6 pg Normal 25.9-34.[address] [facility] Comment on above: Performed By: #### C BC #### [facility] [address] [place] [address] Dr. Irma Erazo MCHC (RBC) [Mass/Vol] 35.2 g/dL Normal 29.9-35.[address] [facility] Comment on above: Performed By: #### C BC #### [facility] [address] [place] [address] Dr. Irma Erazo MCV (RBC) [Entitic vol] 86.9 fL Normal 80.0-94.[address] [facility] Comment on above: Performed By: #### C BC #### [facility] [address] [place] [address] Dr. Irma Erazo MONO # 0.6 103/ul Normal 0.3-0.[address] [facility] Comment on above: Performed By: #### C BC #### [facility] [address] [place] [address] Dr. Irma Erazo Monocytes/100 WBC (Bld) 7.2 % Normal 1.7-12.[address] [facility] Comment on above: Performed By: #### C BC #### [facility] [address] [place] [address] Dr. Irma Erazo NEUT # 5.6 103/ul Normal 1.4-6.[address] [facility] Comment on above: Performed By: #### C BC #### [facility] [address] [place] [address] Dr. Irma Erazo Neutrophils/100 WBC (Bld) 63.7 % Normal 43.0-75.[address] [facility] Comment on above: Performed By: #### C BC #### [facility] [address] [address] [address] Irma Erazo Platelet mean volume (Bld) [Entitic vol] 10.0 fL Normal 9.5-13.[address] [facility] Comment on above: Performed By: #### C BC #### [facility] [address] [place] [address] Dr. Irma Erazo PLT 211 103/ul Normal 150-[address] [facility] Comment on above: Performed By: #### C BC #### [facility] [address] [address] [address] Irma Erazo RBC 4.51 106/ul Critically low 4.70-6.10 [facility] Comment on above: Performed By: #### C BC #### [facility] [address] [place] [address] Dr. Irma Erazo WBC 8.8 103/ul Normal 4.0-11.[address] [facility] Comment on above: Performed By: #### C BC #### [facility] [address] [place] [address] Dr. Irma Erazo PROF 14(COMP METB)on 022 Albumin [Mass/Vol] 4.0 g/dL Normal 3.4-5.0 [facility] Comment on above: Performed By: #### S EDR #### [facility] [address] [place] [address] Dr. Irma Erazo Albumin/Globulin [Mass ratio] 1.2 {ratio} Normal [facility] Comment on above: Performed By: #### S EDR #### [facility] [address] [place] [address] Dr. Irma Erazo ALP [Catalytic activity/Vol] 96 U/L Normal 46-[address] [facility] Comment on above: Performed By: #### S EDR #### [facility] [address] [place] [address] Dr. Irma Erazo ALT [Catalytic activity/Vol] 22 U/L Normal 16-[address] [facility] Comment on above: Performed By: #### S EDR #### [facility] [address] [address] [address] Irma Erazo Anion gap [Moles/Vol] 12.1 mmol/L Normal [facility] Comment on above: Performed By: #### S EDR #### [facility] [address] [address] [address] Irma Erazo AST [Catalytic activity/Vol] 15 U/L Normal 15-[address] [facility] Comment on above: Performed By: #### S EDR #### [facility] [address] [address] [address] Irma Erazo Bilirubin [Mass/Vol] 0.3 mg/dL Normal 0.2-1.[address] [facility] Comment on above: Performed By: #### S EDR #### [facility] [address] [address] [address] Irma Erazo Calcium [Mass/Vol] 8.7 mg/dL Normal 8.5-10.1 [facility] Comment on above: Performed By: #### S EDR #### [facility] [address] [address] [address] Irma Erazo Chloride [Moles/Vol] 105 mmol/L Normal 98-[address] [facility] Comment on above: Performed By: #### S EDR #### [facility] [address] [address] [address] Irma Erazo CO2 [Moles/Vol] 26.2 mmol/L Normal 21.0-32.0 [facility] Comment on above: Performed By: #### S EDR #### [facility] [address] [address] [address] Irma Erazo Creatinine [Mass/Vol] 1.26 mg/dL Normal 0.70-1.[address] [facility] Comment on above: Performed By: #### S EDR #### [facility] [address] [address] [address] Irma Erazo EGFR-AF BELIZEAN >60 Normal >=60 [facility] Comment on above: Performed By: #### S EDR #### [facility] [address] [address] [address] Irma Erazo EGFR-NON AF BELIZEAN 58 mL/min/1.73m2 Critically low >=[address] [facility] Comment on above: Performed By: #### S EDR #### [facility] [address] [address] [address] Irma Erazo Globulin (S) [Mass/Vol] 3.3 g/dL Normal [facility] Comment on above: Performed By: #### S EDR #### [facility] [address] [address] [address] Irma Erazo Glucose [Mass/Vol] 93 mg/dL Normal 74-106 [facility] Comment on above: Performed By: #### S EDR #### [facility] [address] [address] [address] Irma Erazo Potassium [Moles/Vol] 4.3 mmol/L Normal 3.5-5.[address] [facility] Comment on above: Performed By: #### S EDR #### [facility] [address] [address] [address] Irma Erazo Protein [Mass/Vol] 7.3 g/dL Normal 6.4-8.2 [facility] Comment on above: Performed By: #### S EDR #### [facility] [address] [address] [address] Irma Erazo Sodium [Moles/Vol] 139 mmol/L Normal 136-145 [facility] Comment on above: Performed By: #### S EDR #### [facility] [address] [address] [address] Irma Erazo Urea nitrogen [Mass/Vol] 17.0 mg/dL Normal 7.0-18.[address] [facility] Comment on above: Performed By: #### S EDR #### [facility] [address] [address] [address] Irma Erazo Urea nitrogen/Creatinine [Mass ratio] 13.5 mg/mg Normal [facility] Comment on above: Performed By: #### S EDR #### [facility] [address] [place] [address] Dr. Irma Erazo SED RATE WESTERGRENon 2021 SED RATE 15 mm/hr Normal <=20 [facility] Comment on above: Performed By: #### S EDR #### [facility] [address] [place] [address] Dr. Irma Erazo AMYLASEon 03-27-2022 Amylase [Catalytic activity/Vol] 72 U/L Normal 25-115 [facility] Comment on above: Performed By: #### S EDR #### [facility] [address] [place] [address] Dr. Irma Erazo CBC AUTO DIFFon 03-27-2022 BASO # 0.0 103/ul Normal 0.0-0.[address] [facility] Comment on above: Performed By: #### C BC #### [facility] [address] [place] [address] Dr. Irma Erazo Basophils/100 WBC (Bld) 0.2 % Normal 0.2-2.[address] [facility] Comment on above: Performed By: #### C BC #### [facility] [address] [place] [address] Dr. Irma Erazo EO # 0.1 103/ul Normal 0.0-0.[address] [facility] Comment on above: Performed By: #### C BC #### [facility] [address] [place] [address] Dr. Irma Erazo Eosinophils/100 WBC (Bld) 0.7 % Critically low 0.9-7.[address] [facility] Comment on above: Performed By: #### C BC #### [facility] [address] [place] [address] Dr. Irma Erazo Erythrocyte distribution width (RBC) [Ratio] 13.1 % Normal 11.0-15.[address] [facility] Comment on above: Performed By: #### C BC #### [facility] [address] [place] [address] Dr. Irma Erazo Hematocrit (Bld) [Volume fraction] 40.7 % Critically low 42.0-54.0 [facility] Comment on above: Performed By: #### C BC #### [facility] [address] [address] [address] Irma Erazo Hemoglobin (Bld) [Mass/Vol] 13.8 g/dL Critically low 14.0-18.[address] [facility] Comment on above: Performed By: #### C BC #### [facility] [address] [address] [address] Irma Erazo IG # 0.04 10e3/ul Critically high 0.00-0.03 [facility] Comment on above: Performed By: #### C BC #### [facility] [address] [address] [address] Irma Erazo IG % 0.3 % Normal 0.0-0.[address] [facility] Comment on above: Performed By: #### C BC #### [facility] [address] [address] [address] Irma Erazo LYMPH # 2.0 103/ul Normal 1.2-3.[address] [facility] Comment on above: Performed By: #### C BC #### [facility] [address] [address] [address] Irma Erazo Lymphocytes/100 WBC (Bld) 16.0 % Critically low 20.5-60.[address] [facility] Comment on above: Performed By: #### C BC #### [facility] [address] [address] [address] Irma Erazo MANUAL DIFF REQ NO Normal [facility] Comment on above: Performed By: #### C BC #### [facility] [address] [address] [address] Irma Erazo MCH (RBC) [Entitic mass] 29.9 pg Normal 25.9-34.[address] [facility] Comment on above: Performed By: #### C BC #### [facility] [address] [address] [address] Irma Erazo MCHC (RBC) [Mass/Vol] 33.9 g/dL Normal 29.9-35.[address] [facility] Comment on above: Performed By: #### C BC #### [facility] [address] [address] [address] Irma Erazo MCV (RBC) [Entitic vol] 88.3 fL Normal 80.0-94.[address] [facility] Comment on above: Performed By: #### C BC #### [facility] [address] [address] [address] Irma Erazo MONO # 0.7 103/ul Normal 0.3-0.[address] [facility] Comment on above: Performed By: #### C BC #### [facility] [address] [address] [address] Irma Erazo Monocytes/100 WBC (Bld) 6.0 % Normal 1.7-12.[address] [facility] Comment on above: Performed By: #### C BC #### [facility] [address] [place] [address] Dr. Irma Erazo NEUT # 9.5 103/ul Critically high 1.4-6.5 [facility] Comment on above: Performed By: #### C BC #### [facility] [address] [place] [address] Dr. Irma Erazo Neutrophils/100 WBC (Bld) 76.8 % Critically high 43.0-75.[address] [facility] Comment on above: Performed By: #### C BC #### [facility] [address] [place] [address] Dr. Irma Erazo Platelet mean volume (Bld) [Entitic vol] 9.8 fL Normal 9.5-13.5 [facility] Comment on above: Performed By: #### C BC #### [facility] [address] [place] [address] Dr. Irma Erazo PLT 211 103/ul Normal 150-450 [facility] Comment on above: Performed By: #### C BC #### [facility] [address] [place], [place] [id number] Dr. Irma Erazo RBC 4.61 106/ul Critically low 4.70-6.10 [facility] Comment on above: Performed By: #### C BC #### [facility] [address], [place] [address] Dr. Irma Erazo WBC 12.3 103/ul Critically high 4.0-11.0 [facility] Comment on above: Performed By: #### C BC #### [facility] [address], [place] [address] FACIAL BONES W [...] KATIE ROMERO Date: 2022-03-27 05:39 Normal [facility] CULTURE BLOODon 03-27-2022 Microscopic examination of blood, culture Culture Observations: NO GROWTH AT 5 DAYS. Normal [facility] Comment on above: Performed By: #### S EDR #### [facility] [address] [address] [address] Irma Erazo Microscopic examination of blood, culture Culture Observations: NO GROWTH AT 5 [address]. [address] [facility] Comment on above: Performed By: #### S EDR #### [facility] [address] [place] [address] Dr. Irma Erazo PROF 14(COMP METB)on 022 Albumin [Mass/Vol] 4.2 g/dL Normal 3.4-5.0 [facility] Comment on above: Performed By: #### C MP #### [facility] [address] [place] [address] Dr. Irma Erazo Albumin/Globulin [Mass ratio] 1.2 {ratio} [facility] Comment on above: Performed By: #### C MP #### [facility] [address] [place] [address] Dr. Irma Erazo ALP [Catalytic activity/Vol] 110 U/L Normal 46-[address] [facility] Comment on above: Performed By: #### C MP #### [facility] [address] [place] [address] Dr. Irma Erazo ALT [Catalytic activity/Vol] 31 U/L Normal 16-[address] [facility] Comment on above: Performed By: #### C MP #### [facility] [address] [place] [address] Dr. Irma Erazo Anion gap [Moles/Vol] 9.7 mmol/L Normal [facility] Comment on above: Performed By: #### C MP #### [facility] [address] [place] [address] Dr. Irma Erazo AST [Catalytic activity/Vol] 17 U/L Normal 15-[address] [facility] Comment on above: Performed By: #### C MP #### [facility] [address] [place] [address] Dr. Irma Erazo Bilirubin [Mass/Vol] 0.6 mg/dL Normal 0.2-1.[address] [facility] Comment on above: Performed By: #### C MP #### [facility] [address] [address] [address] Irma Erazo Calcium [Mass/Vol] 8.8 mg/dL Normal 8.5-10.1 [facility] Comment on above: Performed By: #### C MP #### [facility] [address] [address] [address] Irma Erazo Chloride [Moles/Vol] 103 mmol/L Normal 98-[address] [facility] Comment on above: Performed By: #### C MP #### [facility] [address] [address] [address] Irma Erazo CO2 [Moles/Vol] 25.4 mmol/L Normal 21.0-32.0 [facility] Comment on above: Performed By: #### C MP #### [facility] [address] [place] [address] Dr. Irma Erazo Creatinine [Mass/Vol] 1.29 mg/dL Normal 0.70-1.[address] [facility] Comment on above: Performed By: #### C MP #### [facility] [address] [place] [address] Dr. Irma Erazo EGFR-AF BELIZEAN >60 Normal >=60 [facility] Comment on above: Performed By: #### C MP #### [facility] [address] [place] [address] Dr. Irma Erazo EGFR-NON AF BELIZEAN 56 mL/min/1.73m2 Critically low >=[address] [facility] Comment on above: Performed By: #### C MP #### [facility] [address] [place] [address] Dr. Irma Erazo Globulin (S) [Mass/Vol] 3.4 g/dL Normal [facility] Comment on above: Performed By: #### C MP #### [facility] [address] [place] [address] Dr. Irma Erazo Glucose [Mass/Vol] 119 mg/dL Critically high 74-106 [facility] Comment on above: Performed By: #### C MP #### [facility] [address] [place] [address] Dr. Irma Erazo Potassium [Moles/Vol] 4.1 mmol/L Normal 3.5-5.[address] [facility] Comment on above: Performed By: #### C MP #### [facility] [address] [place] [address] Dr. Irma Erazo Protein [Mass/Vol] 7.6 g/dL Normal 6.4-8.2 [facility] Comment on above: Performed By: #### C MP #### [facility] [address] [place] [address] Dr. Irma Erazo Sodium [Moles/Vol] 134 mmol/L Critically low 136-145 [facility] Comment on above: Performed By: #### C MP #### [facility] [address] [place] [address] Dr. Irma Erazo Urea nitrogen [Mass/Vol] 15.0 mg/dL Normal 7.0-18.[address] [facility] Comment on above: Performed By: #### C MP #### [facility] [address] [place] [address] Dr. Irma Erazo Urea nitrogen/Creatinine [Mass ratio] 11.6 mg/mg Normal [facility] Comment on above: Performed By: #### C MP #### [facility] [address] [place] [address] Dr. Irma Erazo CBC AUTO DIFFon 02-19-2022 BASO # 0.0 103/ul Normal 0.0-0.[address] [facility] Comment on above: Performed By: #### C BC #### [facility] [address] [place] [address] Dr. Irma Erazo Basophils/100 WBC (Bld) 0.3 % Normal 0.2-2.[address] [facility] Comment on above: Performed By: #### C BC #### [facility] [address] [place] [address] Dr. Irma Erazo EO # 0.1 103/ul Normal 0.0-0.[address] [facility] Comment on above: Performed By: #### C BC #### [facility] [address] [place] [address] Dr. Irma Erazo Eosinophils/100 WBC (Bld) 0.5 % Critically low 0.9-7.[address] [facility] Comment on above: Performed By: #### C BC #### [facility] [address] [place] [address] Dr. Irma Erazo Erythrocyte distribution width (RBC) [Ratio] 13.2 % Normal 11.0-15.[address] [facility] Comment on above: Performed By: #### C BC #### [facility] [address] [place] [address] Dr. Irma Erazo Hematocrit (Bld) [Volume fraction] 41.4 % Critically low 42.0-54.[address] [facility] Comment on above: Performed By: #### C BC #### [facility] [address] [place] [address] Dr. Irma Erazo Hemoglobin (Bld) [Mass/Vol] 14.3 g/dL Normal 14.0-18.[address] [facility] Comment on above: Performed By: #### C BC #### [facility] [address] [place] [address] Dr. Irma Erazo IG # 0.05 10e3/ul Critically high 0.00-0.03 [facility] Comment on above: Performed By: #### C BC #### [facility] [address] [place] [address] Dr. Irma Erazo IG % 0.4 % Normal 0.0-0.5 [facility] Comment on above: Performed By: #### C BC #### [facility] [address] [place] [address] Dr. Irma Erazo LYMPH # 2.4 103/ul Normal 1.2-3.8 [facility] Comment on above: Performed By: #### C BC #### [facility] [address] [place] [address] Dr. Irma Erazo Lymphocytes/100 WBC (Bld) 18.6 % Critically low 20.5-60.[address] [facility] Comment on above: Performed By: #### C BC #### [facility] [address] [place] [address] Dr. Irma Erazo MANUAL DIFF REQ NO Normal [facility] Comment on above: Performed By: #### C BC #### [facility] [address] [place] [address] Dr. Irma Erazo MCH (RBC) [Entitic mass] 30.4 pg Normal 25.9-34.0 [facility] Comment on above: Performed By: #### C BC #### [facility] [address] [place] [address] Dr. Irma Erazo MCHC (RBC) [Mass/Vol] 34.5 g/dL Normal 29.9-35.2 [facility] Comment on above: Performed By: #### C BC #### [facility] [address] [place] [address] Dr. Irma Erazo MCV (RBC) [Entitic vol] 88.1 fL Normal 80.0-94.[address] [facility] Comment on above: Performed By: #### C BC #### [facility] [address] [place] [address] Dr. Irma Erazo MONO # 1.2 103/ul Critically high 0.3-0.8 [facility] Comment on above: Performed By: #### C BC #### [facility] [address] [place] [address] Dr. Irma Erazo Monocytes/100 WBC (Bld) 9.3 % Normal 1.7-12.0 [facility] Comment on above: Performed By: #### C BC #### [facility] [address] [place] [address] Dr. Irma Erazo NEUT # 9.0 103/ul Critically high 1.4-6.5 [facility] Comment on above: Performed By: #### C BC #### [facility] [address] [place] [address] Dr. Irma Erazo Neutrophils/100 WBC (Bld) 70.9 % Normal 43.0-75.0 [facility] Comment on above: Performed By: #### C BC #### [facility] [address] [place] [address] Dr. Irma Erazo Platelet mean volume (Bld) [Entitic vol] 9.6 fL Normal 9.5-13.5 [facility] Comment on above: Performed By: #### C BC #### [facility] [address] [place] [address] Dr. Irma Erazo PLT 233 103/ul Normal 150-450 [facility] Comment on above: Performed By: #### C BC #### [facility] [address] [place] [address] Dr. Irma Erazo RBC 4.70 106/ul Normal 4.70-6.10 [facility] Comment on above: Performed By: #### C BC #### [facility] [address] [place] [address] Dr. Irma Erazo WBC 12.8 103/ul Critically high 4.0-11.0 [facility] Comment on above: Performed By: #### C BC #### [facility] [address] [place] [address] Dr. Irma Erazo PROF 14(COMP METB)on 022 Albumin [Mass/Vol] 3.8 g/dL Normal 3.4-5.0 [facility] Comment on above: Performed By: #### C MP #### [facility] [address] [place] [address] Dr. Irma Erazo Albumin/Globulin [Mass ratio] 1.0 {ratio} Normal [facility] Comment on above: Performed By: #### C MP #### [facility] [address] [place] [address] Dr. Irma Erazo ALP [Catalytic activity/Vol] 132 U/L Critically high 46-116 [facility] Comment on above: Performed By: #### C MP #### [facility] [address] [place] [address] Dr. Irma Erazo ALT [Catalytic activity/Vol] 26 U/L Normal 16-63 [facility] Comment on above: Performed By: #### C MP #### [facility] [address] [place] [address] Dr. Irma Erazo Anion gap [Moles/Vol] 12.2 mmol/L Normal [facility] Comment on above: Performed By: #### C MP #### [facility] [address] [place] [address] Dr. Irma Erazo AST [Catalytic activity/Vol] 16 U/L Normal 15-[address] [facility] Comment on above: Performed By: #### C MP #### [facility] [address] [address] [address] Irma Erazo Bilirubin [Mass/Vol] 0.7 mg/dL Normal 0.2-1.[address] [facility] Comment on above: Performed By: #### C MP #### [facility] [address] [address] [address] Irma Erazo Calcium [Mass/Vol] 9.1 mg/dL Normal 8.5-10.1 [facility] Comment on above: Performed By: #### C MP #### [facility] [address] [place] [address] Dr. Irma Erazo Chloride [Moles/Vol] 102 mmol/L Normal 98-[address] [facility] Comment on above: Performed By: #### C MP #### [facility] [address] [place] [address] Dr. Irma Erazo CO2 [Moles/Vol] 29.6 mmol/L Normal 21.0-32.0 [facility] Comment on above: Performed By: #### C MP #### [facility] [address] [address] [address] Irma Erazo Creatinine [Mass/Vol] 1.44 mg/dL Critically high 0.70-1.[address] [facility] Comment on above: Performed By: #### C MP #### [facility] [address] [address] [address] Irma Erazo EGFR-AF BELIZEAN 60 mL/min/1.73m2 Normal >=[address] [facility] Comment on above: Performed By: #### C MP #### [facility] [address] [address] [address] Irma Erazo EGFR-NON AF BELIZEAN 49 mL/min/1.73m2 Critically low >=[address] [facility] Comment on above: Performed By: #### C MP #### [facility] [address] [address] [address] Irma Erazo Globulin (S) [Mass/Vol] 3.9 g/dL Normal [facility] Comment on above: Performed By: #### C MP #### [facility] [address] [address] [address] Irma Erazo Glucose [Mass/Vol] 81 mg/dL Normal 74-106 [facility] Comment on above: Performed By: #### C MP #### [facility] [address] [address] [address] Irma Erazo Potassium [Moles/Vol] 4.8 mmol/L Normal 3.5-5.[address] [facility] Comment on above: Performed By: #### C MP #### [facility] [address] [address] [address] Irma Erazo Protein [Mass/Vol] 7.7 g/dL Normal 6.4-8.2 [facility] Comment on above: Performed By: #### C MP #### [facility] [address] [address] [address] Irma Erazo Sodium [Moles/Vol] 139 mmol/L Normal 136-145 [facility] Comment on above: Performed By: #### C MP #### [facility] [address] [address] [address] Irma Erazo Urea nitrogen [Mass/Vol] 19.0 mg/dL Critically high 7.0-18.[address] [facility] Comment on above: Performed By: #### C MP #### [facility] [address] [address] [address] Irma rEazo Urea nitrogen/Creatinine [Mass ratio] 13.2 mg/mg Normal [facility] Comment on above: Performed By: #### C MP #### [facility] [address] [address] [address] Irma Erazo SED RATE [facility] 2021 SED RATE 35 mm/hr Critically high <=20 [facility] Comment on above: Performed By: #### S EDR #### [facility] [address] [place] [address] Dr. Irma Erazo CBC AUTO DIFFon 12-18-2021 BASO # 0.0 103/ul Normal 0.0-0.[address] [facility] Comment on above: Performed By: #### S EDR #### [facility] [address] [place] [address] Dr. Irma Erazo Basophils/100 WBC (Bld) 0.4 % Normal 0.2-2.[address] [facility] Comment on above: Performed By: #### S EDR #### [facility] [address] [place] [address] Dr. Irma Erazo EO # 0.1 103/ul Normal 0.0-0.[address] [facility] Comment on above: Performed By: #### S EDR #### [facility] [address] [place] [address] Dr. Irma Erazo Eosinophils/100 WBC (Bld) 1.3 % Normal 0.9-7.[address] [facility] Comment on above: Performed By: #### S EDR #### [facility] [address] [place] [address] Dr. Irma Erazo Erythrocyte distribution width (RBC) [Ratio] 13.6 % Normal 11.0-15.[address] [facility] Comment on above: Performed By: #### S EDR #### [facility] [address] [place] [address] Dr. Irma Erazo Hematocrit (Bld) [Volume fraction] 39.3 % Critically low 42.0-54.[address] [facility] Comment on above: Performed By: #### S EDR #### [facility] [address] [place] [address] Dr. Irma Erazo Hemoglobin (Bld) [Mass/Vol] 13.5 g/dL Critically low 14.0-18.[address] [facility] Comment on above: Performed By: #### S EDR #### [facility] [address] [place] [address] Dr. Irma Erazo IG # 0.01 10e3/ul Normal 0.00-0.[address] [facility] Comment on above: Performed By: #### S EDR #### [facility] [address] [place] [address] Dr. Irma Erazo IG % 0.1 % Normal 0.0-0.[address] [facility] Comment on above: Performed By: #### S EDR #### [facility] [address] [place] [address] Dr. Irma Erazo LYMPH # 2.5 103/ul Normal 1.2-3.[address] [facility] Comment on above: Performed By: #### S EDR #### [facility] [address] [place] [address] Dr. Irma Erazo Lymphocytes/100 WBC (Bld) 31.1 % Normal 20.5-60.[address] [facility] Comment on above: Performed By: #### S EDR #### [facility] [address] [place] [address] Dr. Irma Erazo MANUAL DIFF REQ NO Normal [facility] Comment on above: Performed By: #### S EDR #### [facility] [address] [place] [address] Dr. Irma Erazo MCH (RBC) [Entitic mass] 30.3 pg Normal 25.9-34.[address] [facility] Comment on above: Performed By: #### S EDR #### [facility] [address] [place] [address] Dr. Irma Erazo MCHC (RBC) [Mass/Vol] 34.4 g/dL Normal 29.9-35.[address] [facility] Comment on above: Performed By: #### S EDR #### [facility] [address] [place] [address] Dr. Irma Erazo MCV (RBC) [Entitic vol] 88.3 fL Normal 80.0-94.[address] [facility] Comment on above: Performed By: #### S EDR #### [facility] [address] [place] [address] Dr. Irma Erazo MONO # 0.7 103/ul Normal 0.3-0.[address] [facility] Comment on above: Performed By: #### S EDR #### [facility] [address] [place] [address] Dr. Irma Erazo Monocytes/100 WBC (Bld) 8.7 % Normal 1.7-12.[address] [facility] Comment on above: Performed By: #### S EDR #### [facility] [address] [place] [address] Dr. Irma Erazo NEUT # 4.6 103/ul Normal 1.4-6.[address] [facility] Comment on above: Performed By: #### S EDR #### [facility] [address] [place] [address] Dr. Irma Erazo Neutrophils/100 WBC (Bld) 58.4 % Normal 43.0-75.[address] [facility] Comment on above: Performed By: #### S EDR #### [facility] [address] [place] [address] Dr. Imra Erazo Platelet mean volume (Bld) [Entitic vol] 10.3 fL Normal 9.5-13.[address] [facility] Comment on above: Performed By: #### S EDR #### [facility] [address] [place] [address] Dr. Irma Erazo PLT 175 103/ul Normal 150-450 [facility] Comment on above: Performed By: #### S EDR #### [facility] [address] [place] [address] Dr. Irma Erazo RBC 4.45 106/ul Critically low 4.70-6.10 [facility] Comment on above: Performed By: #### S EDR #### [facility] [address] [place] [address] Dr. Irma Erazo WBC 7.9 103/ul Normal 4.0-11.0 [facility] Comment on above: Performed By: #### S EDR #### [facility] [address] [place] [address] Dr. Irma Erazo PROF 14(COMP METB)on 06-03-2 022 Albumin [Mass/Vol] 4.2 g/dL Normal 3.4-5.0 [facility] Comment on above: Performed By: #### C MP #### [facility] [address] [place] [address] Dr. Irma Erazo Albumin/Globulin [Mass ratio] 1.3 {ratio} Normal [facility] Comment on above: Performed By: #### C MP #### [facility] [address] [place] [address] Dr. Irma Erazo ALP [Catalytic activity/Vol] 85 U/L Normal 46-[address] [facility] Comment on above: Performed By: #### C MP #### [facility] [address] [place] [address] Dr. Irma Erazo ALT [Catalytic activity/Vol] 36 U/L Normal 16-[address] [facility] Comment on above: Performed By: #### C MP #### [facility] [address] [place] [address] Dr. Irma Erazo Anion gap [Moles/Vol] 11.0 mmol/L Normal [facility] Comment on above: Performed By: #### C MP #### [facility] [address] [place] [address] Dr. Irma Erazo AST [Catalytic activity/Vol] 21 U/L Normal 15-[address] [facility] Comment on above: Performed By: #### C MP #### [facility] [address] [place] [address] Dr. Irma Erazo Bilirubin [Mass/Vol] 0.8 mg/dL Normal 0.2-1.[address] [facility] Comment on above: Performed By: #### C MP #### [facility] [address] [place] [address] Dr. Irma Erazo Calcium [Mass/Vol] 8.8 mg/dL Normal 8.5-10.1 [facility] [facility] Comment on above: Performed By: #### C MP #### [facility] [address] [place] [address] Dr. Irma Erazo Chloride [Moles/Vol] 103 mmol/L Normal 98-[address] [facility] Comment on above: Performed By: #### C MP #### [facility] [address] [address] [address] Irma Erazo CO2 [Moles/Vol] 28.6 mmol/L Normal 21.0-32.0 [facility] Comment on above: Performed By: #### C MP #### [facility] [address] [address] [address] Irma Erazo Creatinine [Mass/Vol] 1.47 mg/dL Critically high 0.70-1.[address] [facility] Comment on above: Performed By: #### C MP #### [facility] [address] [address] [address] Irma Erazo EGFR-AF BELIZEAN 59 mL/min/1.73m2 Critically low >=[address] [facility] Comment on above: Performed By: #### C MP #### [facility] [address] [address] [address] Irma Erazo EGFR-NON AF BELIZEAN 48 mL/min/1.73m2 Critically low >=[address] [facility] Comment on above: Performed By: #### C MP #### [facility] [address] [address] [address] Irma Erazo Globulin (S) [Mass/Vol] 3.2 g/dL Normal [facility] Comment on above: Performed By: #### C MP #### [facility] [address] [address] [address] Irma Erazo Glucose [Mass/Vol] 101 mg/dL Normal 74-106 [facility] Comment on above: Performed By: #### C MP #### [facility] [address] [address] [address] Irma Erazo Potassium [Moles/Vol] 4.6 mmol/L Normal 3.5-5.1 [facility] Comment on above: Performed By: #### C MP #### [facility] [address] [address] [address] Irma Erazo Protein [Mass/Vol] 7.4 g/dL Normal 6.4-8.2 [facility] Comment on above: Performed By: #### C MP #### [facility] [address] [place], [place] [address] Dr. Irma Erazo Sodium [Moles/Vol] 138 mmol/L Normal 136-145 [facility] Comment on above: Performed By: #### C MP #### [facility] [address] [place], [place] [address] Dr. Irma Erazo Urea nitrogen [Mass/Vol] 20.0 mg/dL Critically high 7.0-18.[address] [facility] Comment on above: Performed By: #### C MP #### [facility] [address] [address] [address] Irma Erazo Urea nitrogen/Creatinine [Mass ratio] 13.6 mg/mg Normal [facility] Comment on above: Performed By: #### C MP #### [facility] [address] [address] [address] Irma Erazo SED RATE [facility] 2021 SED RATE 2 mm/hr Normal <=[address] [facility] Comment on above: Performed By: #### S EDR #### [facility] [address] [address] [address] Irma Erazo XR Abdomen 2 Viewson [...] by Alonzo Navas on 10/19/2021 0832 Normal [facility] Humanities Coordinator Vital Signs Date Time Vital Sign Value Performing Clinician Facility 04-01-2025 15:08-0400 Body height 170.2 cm Yadira GRIFFITHS Work Phone: [facility] 04-01-2025 15:08-0400 Body mass index (BMI) [Ratio] 28.41 kg/m2 Yadira GRIFFITHS Work Phone: [facility] 04-01-2025 15:08-0400 Body weight 82.28 kg Yadira Hemmer PA Work Phone: [facility] 04-01-2025 15:08-0400 Diastolic blood pressure 78 mm[Hg] Yadira Hemmer PA Work Phone: [facility] 04-01-2025 15:08-0400 Heart rate 59 /min Yadira Hemmer PA Work Phone: [facility] 04-01-2025 15:08-0400 Respiratory rate 16 /min Yadira Hemmer PA Work Phone: [facility] 04-01-2025 15:08-0400 SaO2% (BldA) [Mass fraction] 97 % Yadira Hemmer PA Work Phone: [facility] 04-01-2025 15:08-0400 Systolic blood pressure 132 mm[Hg] Yadira Hemmer PA Work Phone: [facility] 11-24-2023 14:29-0400 Body height 170.2 cm [facility] 11-24-2023 14:29-0400 Body mass index (BMI) [Ratio] 28.82 kg/m2 [facility] [employer] [facility] 11-24-2023 14:29-0400 Body weight 83.46 kg [facility] [employer] [facility] 10-21-2022 15:30-0400 Body height 170.18 cm Shashank Head Other [facility] Other 10-21-2022 15:30-0400 Body mass index (BMI) [Ratio] 28.35 kg/m2 Shashank Head Other [facility] Other 10-21-2022 15:30-0400 Body weight 82.1 kg Shashank Head Other [facility] Other 10-21-2022 15:30-0400 Diastolic blood pressure 76 mm[Hg] Shashank Head Other [facility] Other 10-21-2022 15:30-0400 Systolic blood pressure 134 mm[Hg] Shashank Head Other [facility] Other 07-16-2022 16:00-0500 Body height 170.18 cm Cassi Willams Other [facility] Other 07-16-2022 16:00-0500 Body mass index (BMI) [Ratio] 28.19 kg/m2 Cassi Willams Other [facility] Other 07-16-2022 16:00-0500 Body temperature 97.8 [degF] Cassi Willams Other [facility] Other 07-16-2022 16:00-0500 Body weight 81.65 kg Cassi Willams Other [facility] Other 07-16-2022 16:00-0500 Respiratory rate 18 /min Cassi Willams Other [facility] Other 07-16-2022 16:00-0500 SaO2% (BldA) [Mass fraction] 98 % Cassi Willams Other [facility] Other 04-21-2022 16:30-0400 Body weight 81.65 kg Shashank Head Other [facility] Other 01-27-2022 16:00-0400 Body weight 84.82 kg Shashank Head Other [facility] Other Encounters Encounter Date Encounter Type Care Provider Facility Start: 04-01-2025 End: 04-01-2025 Patient encounter procedure Yadira M Hemmer PA Work Phone: [facility] [place] [facility] Comment on above: Medicare annual well ness visit, subsequent (Primary Dx); ACP (advance care planning); Restless legs syndrome (RLS); Benign essential hypertension ; Coronary artery disease involving tununak coronary artery of tununak heart without angina pectoris ; History of heart artery stent; Chronic kidney disease, stage 3a (CMS-HCC); Myalgia; Mixed hyperlipidemia ; Anemia of chronic disease; Former smoker; 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 (M05.741); Screening for malignant neoplasm of prostate; Other problems related to lifestyle Start: 04-01-2025 End: 04-01-2025 ambulatory YADIRA MIRELES Not Available Start: 04-01-2025 End: 04-01-2025 Bamboo flowsheet Yadira Mireles PA Work Phone: [facility] [place] [facility] Start: 04-01-2025 End: 04-01-2025 Bamboo flowsheet Yadira Mireles PA Work Phone: [facility] [place] [facility] Start: 10-01-2024 End: 10-01-2024 Clinisync Result Encounter Generic External Data Provider [facility] External Department Unsolicited Start: 10-01-2024 End: 10-01-2024 Clinisync Result Encounter Generic External Data Provider [facility] External Department Unsolicited Start: 06-27-2024 End: 06-27-2024 ambulatory Shashank Head Facility:[facility] Start: 04-25-2024 End: 04-25-2024 Clinisync Result Encounter Generic External Data Provider [facility] External Department Unsolicited Start: 04-25-2024 End: 04-25-2024 Clinisync Result Encounter Generic External Data Provider [facility] External Department Unsolicited Start: 12-21-2023 End: 12-21-2023 Evaluation and management of inpatient PASQUALE VALDIVIA [facility] Start: 12-21-2023 End: 12-21-2023 Evaluation and management of inpatient JEREMIAS LAU [facility] [place] Start: 12-01-2023 End: 04-01-2025 Preoperative state Generic Provider [facility] Start: 11-24-2023 End: 11-24-2023 Patient encounter procedure [facility] Pre-Admission Testing 2 [facility] - Pre Admit Comment on above: Preop examination (P rimary Dx); Hypertension, unspecified type; Stage 3a chronic kidney disease (CMS-HCC); Coronary artery disease, unspecified vessel or lesion type, unspecified whether angina present, unspecified whether tununak or transplanted heart Start: 11-24-2023 End: 11-24-2023 Preprocedural examination done [facility] Start: 11-24-2023 End: 11-24-[address] [facility] Start: 11-24-2023 Encounter for other preprocedural examination [facility] Start: 11-22-2023 End: 04-01-2025 Patient encounter procedure Generic Provider [facility] [employer] Start: 01-08-2023 End: 01-08-2023 Emergency department patient visit MD Chino Moses Facility:[facility] Start: 10-21-2022 Patient encounter procedure Shashank RAYGO[facility] Start: 10-21-2022 End: 10-22-[address] DOCTOR BENITEZ [employer] Other Start: 09-14-2022 End: 09-14-2022 ambulatory Shashank Head Other [facility] Other Start: 09-14-2022 Telephone encounter Shashank Head [facility] Start: 07-16-2022 End: 07-16-2022 ambulatory Cassi Willams Other [facility] Other Start: 07-16-2022 Office outpatient vi sit 25 minutes Cassi Willams [facility] [place] Start: 06-21-2022 End: 06-22-[address] SIDNEY CUNNINGHAM Facility: Start: 04-21-2022 End: 04-21-2022 ambulatory Shashank Head Other [facility] Other Start: 04-21-2022 Patient encounter procedure Shashank Shettyenaalvino [facility] Start: 03-27-2022 End: 03-27-[address] DEREK MONTGOMERY Facility:[facility] Start: 02-19-2022 End: 02-20-[address] SIDNEY CUNNINGHAM Facility:[facility] Start: 02-11-2022 End: 02-11-2022 ambulatory Shashank Shettykelsy Other [facility] Other Start: 02-11-2022 Telephone encounter Shashank Senakelsy [facility] Start: 01-27-2022 End: 01-27-2022 ambulatory Shashank Senakelsy Other [facility] Other Start: 01-27-2022 [facility] visit new patient Shashank Shettykelsy [facility] Start: 12-18-2021 End: 12-19-[address] SIDNEY CUNNINGHAM Facility:[facility] Procedures Date Procedure Procedure Detail Performing Clinician Start: 10-01-2024 ALL CBC WITH AUTO DIFF Generic External Data Provider Start: 04-25-2024 ALL CBC WITH AUTO DIFF Generic External Data Provider Start: 02-16-2023 History of placement of stent for coronary artery disease History of heart artery stent Generic Provider History of placement of stent for coronary artery disease History of heart artery stent Yadira GRIFFITHS Work Phone: Plan of Treatment Date Care Activity Detail Author Start: 04-01-2026 Medicare Annual Wellness (AWV) Medicare Annual Wellness (AWV) [facility] Start: 04-01-2025 End: 04-01-2025 Patient encounter procedure 04/01/2025 3:00 PM EDT Office Visit [facility] [address] [place] [id number] Yadira Mireles PA [address] [place] [address] Arrived [facility] Comment on above: Arrived Start: 04-01-2025 End: 04-01-2026 CT Chest for screening WO contrast CT lung screening low dose Imaging Routine Former smoker Expected: 04/01/2025, Expires: 04/01/2026 [facility] Work Phone: Comment on above: Expected: 04/01/2025 , Expires: 04/01/2026 Start: 04-01-2025 End: 04-01-2026 US Abdominal Aorta for screening US abdomen aortic aneurysm screening Imaging Routine Medicare annual wellness visit, subsequent Former smoker Expected: 04/01/2025, Expires: 04/01/2026 [facility] Comment on above: Expected: 04/01/2025 , Expires: 04/01/2026 Start: 03-18-2025 Influenza vaccination Influenza Vacc ine (#1) [facility] Start: 11-23-2024 Adult BMI Screening Adult BMI Screen ing [facility] Start: 11-23-2024 Tobacco Screening Tobacco Screening [facility] Start: 11-21-2024 Medicare Annual Wellness (AWV) Medicare Annual Wellness (AWV) [facility] Start: 04-21-2024 Pneumococcal Vaccine : 65+ Years (3 of 3 - PCV20 or PCV21) Pneumococcal Vaccine: 65+ Years (3 of 3 - PCV20 or PCV21) [facility] Start: 04-21-2024 Pneumococcal Vaccine : 65+ Years (3 of 3 - PPSV23 or PCV20) Pneumococcal Vaccine: 65+ Years (3 of 3 - PPSV23 or PCV20) [facility] Start: 03-18-2024 Influenza vaccination N [facility] Healthcare Start: 12-21-2023 End: 12-21-2023 Admission to same day surgery center 12/21/2023 10:15 AM EDT - 12/21/2023 11:15 AM EDT Surgery [facility] [address] [place] [address] Jeremias Lau, DO [address] [address] ARTHROSCOPIC MENISCECTOMY KNEE [51296 (CPT )] [facility] Comment on above: ARTHROSCOPIC MENISCE CTOMY KNEE [49269 (CPT )] Start: 12-21-2023 End: 12-21-2023 Arthrs knee w/meniscectomy med&lat w/shaving ARTHROSCOPIC MENISCECTOMY KNEE meniscal tear 12/21/2023 10:15 AM EDT [facility] Start: 12-21-2023 Subsequent hospital visit by physician 12/21/2023 10:15 AM EDT Hospital Encounter [facility] [address] [place] [id number] Jeremias Lau, [address] [facility] [address] [place] [address] [facility] Start: 03-18-2023 COVID-19 Vaccine ( season) COVID-19 Vaccine ( season) [facility] Start: 2023 Fall Risk Screening Fall Risk Screen ing [facility] Start: 1977 DTaP,Tdap and Td Vaccines (1 - Tdap) DTaP,Tdap and Td Vaccines (1 - Tdap) [facility] Start: 01-02-1976 Adult BMI Follow Up Plan Adult BMI Follow Up Plan [facility] Start: 1970 Depression Screening Depression Scre ening [facility] Start: 1960 Medicare Annual Wellness Visit Medicare Annual Wellness Visit [facility] Start: 1960 Screening for malign ant neoplasm of lung Lung Cancer Screening Shared Decision Making [facility] CBC W Auto Different ial panel - Blood CBC and differential Lab Routine Medicare annual wellness visit, subsequent Benign essential hypertension Coronary artery disease involving tununak coronary artery of tununak heart without angina pectoris Chronic kidney disease, stage 3a (CMS-HCC) Mixed hyperlipidemia Anemia of chronic disease Ordered: 04/01/2025 [facility] Comment on above: Ordered: 04/01/2025 Comprehensive metabo lic 2000 panel - Serum or Plasma Comprehensive metabolic panel Lab Routine Medicare annual wellness visit, subsequent Benign essential hypertension Coronary artery disease involving tununak coronary artery of tununak heart without angina pectoris Chronic kidney disease, stage 3a (CMS-HCC) Mixed hyperlipidemia Ordered: 04/01/2025 [facility] Comment on above: Ordered: 04/01/2025 HEPATITIS C AB W/RFL RNS, PCR W/RFL GENOTYPE,LIPA HEPATITIS C AB W/RFL RNS, PCR W/RFL GENOTYPE,LIPA Lab Routine Medicare annual wellness visit, subsequent Other problems related to lifestyle Ordered: 04/01/2025 [facility] Comment on above: Ordered: 04/01/2025 Lipid 1996 panel - Serum or Plasma Lipid panel Lab Routine Medicare annual wellness visit, subsequent Benign essential hypertension Coronary artery disease involving tunun[place] coronary artery of tununak heart without angina pectoris Mixed hyperlipidemia Ordered: 04/01/2025 [facility] Comment on above: Ordered: 04/01/2025 Prostate specific Ag [Mass/volume] in Serum or Plasma PSA Lab Routine Medicare annual wellness visit, subsequent Screening for malignant neoplasm of prostate Ordered: 04/01/2025 [facility] Comment on above: Ordered: 04/01/2025 Immunizations Immunization Date Immunization Notes Care Provider [facility] 04-27-2024 influenza virus vacc ine, unspecified formulation Yadira GRIFFITHS Work Phone: [facility] 07-13-2023 zoster vaccine recombinant Generic Provider [facility] 05-03-2023 Influenza, Seasonal, Quadrivalent, Adjuvanted Generic Provider [facility] 05-03-2023 zoster vaccine recombinant Generic Provider [facility] 05-03-2023 influenza virus vacc ine, unspecified formulation [facility] 05-05-2022 influenza, injectabl e, quadrivalent, preservative free Generic Provider [facility] 06-01-2021 influenza, injectabl e, quadrivalent, preservative free Generic Provider [facility] 03-25-2020 influenza, injectabl e, quadrivalent, preservative free Generic Provider [facility] 04-21-2019 influenza, injectabl e, quadrivalent, preservative free Generic Provider [facility] 04-21-2019 pneumococcal polysaccharide vaccine, 23 valent Generic Provider [facility] 05-11-2018 influenza, injectabl e, quadrivalent, preservative free Generic Provider [facility] 05-11-2018 seasonal influenza, intradermal, preservative free Generic Provider [facility] 04-30-2017 influenza, injectabl e, quadrivalent, preservative free Generic Provider [facility] 04-23-2016 influenza, injectabl e, madin carlos canine kidney, preservative free Generic Provider [facility] 04-23-2016 influenza, injectabl e, quadrivalent, preservative free Generic Provider [facility] 11-26-2015 pneumococcal conjuga te vaccine, 13 valent Generic Provider [facility] 04-23-2013 pneumococcal polysaccharide vaccine, 23 valent Generic Provider [facility] Healthcare Payers Date Payer Category Payer Self-pay 2023 Medicare (Managed Care) [employer] [id number] 2023 Unknown [id number] 2023 Medicare [id number] Rust [id number] 1958 Unknown [id number] 2.840.1.395404.3.579. 2.593 1958 Unknown [id number] 2.840.1.546345.3.579. 2.593 1958 Unknown [id number] 2.16840.1.232361.3.579. 2.593 1958 Unknown [id number] 2.16.840.1.154782.3.579. 2.593 1958 Unknown [id number] 2.16.840.1.600220.3.579. 2.593 1958 Unknown [id number] 2.16.840.1.230523.3.579. 2.718 1958 Unknown [id number] 2.16.840.1.956667.3.579. 2.1286 1958 Unknown [id number] 2.16.840.1.413714.3.579. 2.1286 1958 Unknown [id number] 2.16.840.1.510594.3.579. 2.1285 1958 Unknown [id number] 2.16.840.1.881509.3.579. 2.1285 1958 Unknown [id number] 2.16.840.1.696013.3.579. 2.1285 1958 Unknown [id number] 2.16.840.1.072892.3.579. 2.1285 1958 Unknown [id number] 2.16.840.1.429388.3.579. 2.1285 1958 Unknown [id number] 2.16.840.1.889524.3.579. 2.1259 Rust [id number] [id number] Unknown [id number] 2.16.840.1.532711.3.579. 2.531 Social History Date Type Detail Facility Start: 11-15-2023 End: 04-01-2025 Sex Assigned At [facility] Start: 11-22-2023 End: 11-24-2023 Tobacco smoking status NHIS Ex-smoker [facility] Start: 04-27-1975 End: 09-08-2011 History of tobacco use Current smoker [facility] Start: 04-27-1975 End: 09-08-2011 History of tobacco use Cigarette Smoker [facility] Start: 11-15-2023 End: 11-22-2023 Cigarettes smoked current (pack per day) - Reported 2.5 [facility] Start: 11-22-2023 End: 11-24-2023 Tobacco use and exposure Smokeless tobacco non-user [facility] Start: 12-30-2023 End: 04-01-2025 Alcoholic beverage intake Lifetime non-drinker (finding) [facility] In a typical week, h ow many times do you talk on the telephone with family, friends, or neighbors? Patient declined [facility] Healthcare Are you now , , , , never or living with a partner? [facility] How often to you hav e a drink containing alcohol? Never [facility] Do you feel stress - tense, restless, nervous, or anxious, or unable to sleep at night because your mind is troubled all the time - these days [OSQ] Very much [facility] Start: 1960 Sex assigned at Not on file [facility] Functional Status Date Assessment Result Facility 04-01-2025 Patient Health Quest ionnaire 2 item (PHQ-2) [Reported] [facility] Clinical Notes 11-04-2021 to 04-01-2025 AYE Fong - 04/01/2025 3:00 PM EDTPatient InstructionsPerioperative Nursing Note - Carmela Galindo RN - 11/24/2023 2:15 PM EDT Note Date & Type Note Facility 04-01-2025 History of Presen t illness Narrative Images from the original note were not included. Subjective Patient ID: Darleen Goodman is a 65 y.o. male who presents [...] apparent by direct observation Three Word Registration: Banana, [place], Chair Clock Drawing: Normal Clock - 2 Three Word Recall: 2/3 words correct - 2 Total Score (0-5 Points): 4 Pain Assessment Pain Score: 2 Advance Care Planning Do you have a living will?: No (refuses living will paperwork) Do you have a medical power of attorney general?: No Current Outpatient Medications on File Prior to Visit Medication Sig Dispense Refill febuxostat (Uloric) 40 MG tablet Take 40 mg by mouth Daily omeprazole (PriLOSEC) [address] capsule Take 1 capsule (40 mg) by mouth in the morning. Take before meals. (Patient taking differently: Take 40 mg by mouth in the morning. Take before meals. PRN.) 100 capsule 1 rOPINIRole (Requip) 0.5 MG tablet TAKE [...] AT BEDTIME); take WITH FOOD 180 tablet 0 [...] Relation Name Age of Onset Osteoporosis Mother Celien Goodman Arthritis Mother Celine Goodman Hearing loss Mother Celine Goodman Cancer Father Darleen Goodman Heart disease Father Darleen Goodman Hypertension Father Darleen Goodman Scoliosis Sister Nilda Moreau Past Medical History: [...] lb 6.4 oz SpO2 97% BMI 28.41 kg/m Smoking Status Former BSA 1.97 m Review of Systems Constitutional: Negative for chills, [...] All needed testing was ordered. Will continue with yearly Medicare Wellness exams. - US abdomen aortic [...] a living will and durable power of attorney general for healthcare. We discussed telling steiner people [...] Continue with current medications and I will continue to monitor. Goal BP remains less than 130/80. - CBC and differential - Comprehensive metabolic panel - Lipid panel 5. Coronary artery disease involving tununak coronary artery of tununak heart without angina pectoris This is a [...] prescribed. 7. Chronic kidney disease, stage 3a ([facility]-HCC) This is a chronic medical condition that [...] year (around 04/01/2026) for Medicare Wellness Visit. AYE Rios-Misbah documented in this encounter [facility] 11-24-2023 Instructions Carmela Galindo RN - 11/24/2023 2:15 PM EDT Preoperative Education Checklist- General Surgery date: 12/21/23 Surgery time: 1000 a.m. Arrival time: 0800 a.m. 1. Bring a photo ID and your insurance card with you the day of surgery. You will check in at the main lobby of the [facility]- registration desk is straight ahead as soon as you walk in. Tell them you are here for surgery. 2. If you have a Living Will/Durable Power of Grocery Bagger for Health Care that is not on [...] after you have bathed. 5. NO nail [place]/acrylic on at least one finger. If you are having a hand, wrist or foot surgery then all nail [place] and artificial/acrylic nails must be removed from [...] please call the Preadmission Testing office at [phone], Mon.-Fri. 7 a.m.-3 p.m. Leave a voicemail [...] with your doctor. [facility] Miscellaneous Notes Preoperative Education Checklist- General Surgery date: 12/21/23 Surgery time: 1000 a.m. Arrival time: 0800 a.m. 1. Bring a photo ID and your insurance card with you the day of surgery. You will check in at the main lobby of the [facility]- registration desk is straight ahead as soon as you walk in. Tell them you are here for surgery. 2. If you have a Living Will/Durable Power of Grocery Bagger for Health Care that is not on [...] after you have bathed. 5. NO nail [place]/acrylic on at least one finger. If you are having a hand, wrist or foot surgery then all nail [place] and artificial/acrylic nails must be removed from [...] please call the Preadmission Testing office at [phone], Mon.-Fri. 7 a.m.-3 p.m. Leave a voicemail [...] go swimming or use a hot tub ([employer]Robotuzzi), or perform activities where your incision is [...] Patient verbalized understanding. [facility] [employer] 11-24-2023 Nurse Note Preoperative Education Checklist- General Surgery date: 12/21/23 Surgery time: 1000 a.m. Arrival time: 0800 a.m. 1. Bring a photo ID and your insurance card with you the day of surgery. You will check in at the main lobby of the [facility]- registration desk is straight ahead as soon as you walk in. Tell them you are here for surgery. 2. If you have a Living Will/Durable Power of Grocery Bagger for Health Care that is not on [...] after you have bathed. 5. NO nail pap[place]/acrylic on at least one finger. If you are having a hand, wrist or foot surgery then all nail [place] and artificial/acrylic nails must be removed from [...] WITH YOU ANY DEVICES YOU MAY NEED: YASIMN hose, ice machine, sling/swath, brace or special [...] please call the Preadmission Testing office at [phone], Mon.-Fri. 7 a.m.-3 p.m. Leave a voicemail [...] to the follow-up appointment with your doctor. [facility] 11-24-2023 Nurse Note Hibiclens and surgical instructions reviewed. Patient verbalized understanding. [facility] 01-08-2023 Note Education Materials Urology Kidney Stones [...] these instructions at home: Medicines ? Take ctsi-cxh-ymhfips and prescription medicines only as told by [...] provider. Document Revised: 03/08/2022 Document Reviewed: 03/08/2022 Search to Phone Patient Education ? 2022 [employer]. [facility] 10-21-2022 Evaluation note Encounter Date Diagnosis Assessment Notes Oct, Dyspepsia (ICD-10 - K30) Oct, GERD (gastroesopha geal reflux disease) (ICD-10 - K21.9) Stop Pantoprazole Start Omeprazole 40mg twice daily, 30 min ac Follow up 3 months [facility] Other 02-28-2023 Evaluation note* Encounter Date Diagnosis Assessment Notes Treatment Notes Treatment Clinical Notes Aug, Dyspepsia (ICD-10 - K30) [facility] Other 12-30-2022 Evaluation note* Encounter Date Diagnosis [...] treatment plan. Patient left in stable condition [facility] Other 10-05-2022 Evaluation note* Encounter Date Diagnosis Assessment Notes Treatment Notes Treatment Clinical Notes Apr, Dyspepsia (ICD-10 - K30) PATIENT STATES HE IS DOING WELL AT THIS TIME. WE WILL CONTINUE ON THE MEDICATION AT THIS TIME. [facility] Other 07-13-2022 Evaluation note* Encounter Date Diagnosis Assessment Notes Treatment Notes Treatment Clinical Notes Jan, Abdominal pain (ICD-10 - R10.9) Jan, Bloating (ICD-10 - R14.0) WILL PROCEED WITH EGD AT THIS TIME. Jan, Abdominal fullness (ICD-10 - R19.8) IS NOT ABLE TO EAT A LOT DUE TO BLOATING FEELING. Jan, Early satiety (ICD-10 - R68.81) [facility] Other 04-20-2022 NoteHISTORY: Abdominal pain, bloating, constipation, diarrhea PROCEDURE: Tiempo VCT 64. Following oral contrast administration, pre [...] and signed by Alonzo Navas on 11/04/2021 1603Northervinicio [facility]istEvaluation noteNo InformationNort Meteor Other Evaluation note* Diagnosis Preop examination- Primary Unspecified pre-operative examination Hypertension, unspecified type Stage 3a chronic kidney disease (CMS-HCC) Coronary artery disease, unspecified vessel or lesion type, unspecified whether angina present, unspecified whether tununak or transplanted heart Preop examination Unspecified pre-operative examination Hypertension, unspecified type Preop examination Unspecified pre-operative examination Hypertension, unspecified type Stage 3a chronic kidney disease ([facility]-HCC) Coronary artery disease, unspecified vessel or lesion type, unspecified whether angina present, unspecified whether tunun[place] or transplanted heart documented in this encounter [facility]* Diagnosis Routine general medical examination at health care facility- Primary Routine general medical examination at a health care facility Abnormal glucose tolerance test Impaired glucose tolerance test Benign essential hypertension Essential hypertension, benign Nocturia Medicare annual wellness visit, subsequent Hyperlipidemia, unspecified hyperlipidemia type Coronary artery disease without angina pectoris, unspecified vessel or lesion type, unspecified whether tununak or transplanted heart Chronic kidney disease, stage 3a (N18.31) 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 (M05.741) Pre-operative clearance- Primary Unspecified pre-operative examination Benign essential hypertension Essential hypertension, benign Rheumatoid arthritis involving right hand with positive rheumatoid factor (HCC) Chronic kidney disease, stage 3a (CMS-HCC) Medicare annual wellness visit, subsequent- Primary ACP (advance care planning) Other specified counseling Restless legs syndrome (RLS) Benign essential hypertension Essential hypertension, benign Coronary artery disease involving tununak coronary artery of tununak heart without angina pectoris History of heart artery stent Chronic kidney disease, stage 3a (CMS-HCC) Myalgia Unspecified myalgia and myositis Mixed hyperlipidemia Mixed hyperlipidemia Anemia of chronic disease Anemia of other chronic disease Former smoker Personal history of tobacco use, presenting hazards to health 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 (M05.741) Screening for malignant neoplasm of prostate Other problems related to lifestyle documented in this encounter [facility] Narrative - Reported* Type Description Date Surgical History colon resection Surgical History gall bladder [facility] Other History general Narrative - Reported* Type Description Date Medical History Hypertension Medical History myocardial infarction multiple Surgical History colon resection Surgical History gall bladder Surgical History heart stent Surgical History heart catheterization [facility] Other Reason for visit NarrativePATIENT HERE AT THE REQUEST OF DR. MONTGOMERY FOR EVALUATION & TREATMENT OF ABDOMINAL PAIN, Abdominalxray and CT obtained from [facility] and scanned in chart., PATIENT STATES THAT HE HAS HAD THIS FOR ALONG TIME AND SEEMS FROM TIME TO TAKE FOOD IN TO WHEN IT LEAVES NOT RIGHT. PATIENT DOES HAVE BLOATING, FEELS LIKE FOOD SITS IN ESOPHAGUS. PATIENT STOOLS ALTERNATE FROM HARD STOOLS TO DIARRHEA.[facility] Other Summary Purpose Family History No Family [...] Referral Specialty Diagnoses / Procedures Referred By Contac t Referred To Contact Diagnoses Preop examination Hypertension, unspecified type Procedures ECG 12 lead Jeremias Lau DO [address] [place] [address] Referral ID Status Reason Start Date Expiration Date V isits Requested Visits Authorized [id number] Pending Review 11/21/2023 11/20/2024 1 1 Additional Source Comments (unrecognized sect ion and content) No Status Records FoundNo Status Records FoundNo Status Records FoundNo Status Records FoundNo Status Records FoundNo Status Records FoundNo Status Records Found INFORMATION SOURCE (unrecogn ized section and content) DATE CREATED AUTHOR 11/06/2021 [facility] dical Specialist DATE CREATED AUTHOR AUTHOR'S ORGANIZ ATION 10/30/2022 [facility] DATE CREATED AUTHOR AUTHOR'S ORGANIZ ATION 02/19/2023 [facility] DATE CREATED AUTHOR AUTHOR'S ORGANIZ ATION 12/22/2023 [facility] DATE CREATED AUTHOR AUTHOR'S ORGANIZ ATION 07/07/2024 [facility] DATE CREATED AUTHOR AUTHOR'S ORGANIZ ATION 04/02/2025 [facility] d[facility] Specialists EPIC DATE CREATED AUTHOR AUTHOR'S ORGANIZ ATION 04/07/2025 [facility] REASON FOR VISIT (unrecogniz ed section and content) Reason Comments Medicare Annual Wellness Visit [facility] Care Teams (unrecognized sec tion and content) [employer] Service Employee Relationship Specialty Start Date End Date Derek Montgomery MD [address] [place] [address] PCP - General Family Medicine 11/23/22 Derek Montgomery MD [address] [facility] [address] [place] [address] PCP - Devoted 08/18/23 [employer] Service Employee Relationship Specialty Start Date End Date Derek Montgomery MD [address] [facility] [address] [place] [address] PCP - General Family Medicine 11/24/23 [employer] Employee Relationship Specialty Start Date End Date Derek Montgomery MD [address] [facility] [address] [place] [address] PCP - General Family Medicine 11/23/22 Derek Montgomery MD [address] [facility] [address] [place] [address] PCP - Devoted 08/18/23 [employer] Service Employee Relationship Specialty Start Date End Date Derek Montgomery MD [address] [facility] [address] [place] [address] PCP - General Family Medicine 11/23/22 Derek Montgomery MD [address] [facility] [address] [place] [address] PCP - Devoted 08/18/23 FOR RECORDS PERTAINING TO PATIENTS WHO ARE [...] BE BASED ON THE PRIMARY CLINICAL RECORDS. [employer] [facility]. provides no warranty or guarantee of the accuracy or completeness of information in this document.
== END 2025-04-12 10:30 | disposition home or self-care (01) ==
LOC: US 10:29
PROVIDERS: PCP Family Medicine; Visit Provider Physician Assistant
DX: Z00.00 Encounter for general adult medical examination without abnormal findings (principal); Z87.891 Personal history of nicotine dependence
CPT/HCPCS: 76706

== ENCOUNTER 2025-04-22 09:31 | Outpatient (OUT) | payer OTHER, SELFPAY ==
--- OUTSIDE RECORDS SUMMARY | 2025-04-12 09:00 | XMS_ITS | Encounter Summary ---
Author Organization [facility] Address [address] [place] [address] Care Team Providers Care Traffic Superintendent Name Role Phone Waldo Hoffman MD Primary Care Provider [phone] Waldo Hoffman MD Unavailable Reason for Visit * Imaging (Routine) - Closed Specialty Diagnoses / Procedures Referred By Contac t Referred To Contact Radiology Diagnoses Former smoker Procedures CT lung screening low dose Yadira Spicer, AYE [address] [facility] [place] [address] Phone: tel: fax: [facility] [address] [place] [address] Phone: tel: fax: Referral ID Status Reason Start Date Expiration Date Visits Re quested Visits Authorized [id number] Closed 04/01/2025 09/28/2025 1 1 Encounter Details Date Type Department Care Team (Late st Contact Info) Description 04/12/2025 9:00 AM EDT Ancillary Procedure [facility] [address] [place] [address] Former smoker Social History Tobacco Use Types Packs/Day Years [...] declined 11/15/2023 How often do you attend christian or lutheran serv ices? Patient declined 11/15/2023 Do you belong to any clubs o r organizations such as christian groups, unions, fraternal or athletic groups, or [...] Recorded Patient Health Questionnaire-2 Score 0 04/01/2025 [facility] - Occupational Stress [...] place to sleep or slept in a [facility] (including now)? Patient declined 11/15/2023 Sex and Gender Information Value Date Recorded Sex Assigned at Not on file Legal Sex Male 7:00 PM EDT Gender Identity Not on file Sexual Orientation Not on file documented as of this encounter Plan of Treatment Not on file documented as of this encounter Procedures Procedure Name Priority Date/Time Associated Diagnosis Comments CT LUNG SCREENING LOW DOSE Routine 04/12/2025 9:40 AM EDT Former smoker documented in this encounter Results * CT lung screening low dose (04/12/2025 9:40 AM EDT) Anatomical Region Laterality Modality Lung Computed Tomogra phy 04/12/2025 11:3 8 AM EDT Impressions 04/12/2025 12:34 PM EDT Lung Rads: LUNGRADS 2 - Benign Follow-up Recommendation: LDCT 1 Year Lung Rads categories: Category 0: Incomplete Additional Imaging Categories 1 & 2: Negative/Benign Continue annual screening Category 3: Probable benign 6 month f/u CT Chest wo Category 3s: Clinically significant or potentially clinically significant findings Category 4A/B Suspicious 4A: [address] Chest wo; PET/CT when > 8mm solid nodule component exists 4B: Chest w/ contrast; PET/CT and/or biopsy Category 5: Highly suspicious for Nodules with strong evidence of malignancy, requiring malignancy. immediate biopsy. Category 6: Incomplete Insufficient Information All CT scans at this facility use dose modulation, iterative reconstruction, and/or weight based dosing when appropriate to reduce radiation dose to as low as reasonably achievable. TRANSCRIBED BY: ELECTRONICALLY SIGNED BY: Alonzo Navas MD Narrative 04/12/2025 12:[address]OW DOSE [address] IMAGING OF THE CHEST WITHOUT INTRAVENOUS CONTRAST MEDIUM. HISTORY: Tobacco use. TECHNICAL FACTORS: Without IV contrast axial helical 1.25mm slice thickness low dose images of the chest performed for lung cancer screening. FINDINGS: Comparison February 12, 2020. Right anterior mid chest perifissural nodule remains anterior segment upper lobe, currently 2 mm, slight reduction in size from prior examination with overall similar morphology. No new suspicious nodule or mass, pleural or pleural effusion, or significant mediastinal or hilar lymphadenopathy. Moderate subpleural bullous emphysematous changes (right greater than left) upper/mid chest regions. Procedure Note Alonzo Navas MD - 04/12/[address] IMAGING OF THE CHEST WITHOUT INTRAVENOUS CONTRAST MEDIUM. HISTORY: Tobacco use. TECHNICAL FACTORS: Without IV contrast axial helical 1.25mm slice thickness low dose imagesof the chest performed for lung cancer screening. FINDINGS: Comparison February 12, 2020. Right anterior mid chest perifissural nodule remains anterior segmentupper lobe, currently 2 mm, slight reduction in size from priorexamination with overall similar morphology. No new suspicious nodule ormass, pleural or pleural effusion, or significant mediastinal or hilarlymphadenopathy. Moderate subpleural bullous emphysematous changes (rightgreater than left) upper/mid chest regions. IMPRESSION: Lung Rads: LUNGRADS 2 - Benign Follow-up Recommendation: LDCT 1 Year Lung Rads categories: Category 0: Incomplete Additional Imaging Categories 1 & 2: Negative/Benign Continue annual screening Category 3: Probable benign 6 month f/u CT Chest wo Category 3s: Clinicallysignificant or potentially clinically significant findings Category 4A/B Suspicious 4A: [address] Chest wo;PET/CT when > 8mm solid nodulecomponent exists 4B: Chestw/ contrast; PET/CT and/or biopsy Category 5: Highly suspicious for Nodules with strong evidenceof malignancy, requiring malignancy. immediatebiopsy. Category 6: Incomplete Insufficient Information All CT scans at this facility use dose modulation, iterativereconstruction, and/or weight based dosing when appropriate to reduceradiation dose to as low as reasonably achievable. TRANSCRIBED BY: ELECTRONICALLY SIGNED BY: Alonzo Navas MD Yadira GRIFFITHS IMG CT PROCEDURES Final Result documented in this encounter Visit Diagnoses Diagnosis Former smoker Personal history of tobacco use, presenting hazards to health documented in this encounter Additional Health Concerns Assessment Noted Time PHQ-9 Depression Total Score: 0 04/01/20 25 2:00 PM EDT documented as of this encounter Care Teams Traffic Superintendent Relationship Specialty Start Date End Date Waldo Hoffman MD [address] [facility] [address] [place] [address] PCP - General Family Medicine 11/23/22 Waldo Hoffman MD [address] [facility] [address] [place] [address] PCP - Devoted 08/18/23 documented as of this encounter
--- OUTSIDE RECORDS SUMMARY | 2025-04-22 09:36 | XMS_ITS | Encounter Summary ---
Author Organization [facility] Address [address] [facility] [place] [address] Care Team Providers Care Dining Room Manager Name Role Phone Waldo Hoffman MD Primary Care Provider [phone] Waldo Hoffman MD Unavailable Reason for Visit * Reason Comments Med Refill Encounter Details Date Type Department Care Team (Late st Contact Info) Description 04/18/2025 Refill [facility] [place] [facility] [address] [facility] [address] [place] [address] Waldo Hoffman MD [address] [facility] 110 [place] [address] Hyperlipidemia, unspecified hyperlipidemia type Social History Tobacco Use Types Packs/Day Years [...] declined 11/15/2023 How often do you attend hoahaoism or hindu serv ices? Patient declined 11/15/2023 Do you belong to any clubs o r organizations such as hoahaoism groups, unions, fraternal or athletic groups, or [...] Questionnaire-2 Score 0 04/01/2025 [facility] of Occupat ional Health - Occupational [...] as of this encounter Visit Diagnoses Diagnosis Hyperlipidemia, unspecified hyperlipidemia type documented in this encounter Additional Health Concerns Assessment Noted Time PHQ-9 Depression Total Score: 0 04/01/20 25 2:00 PM EDT documented as of this encounter Care Teams Dining Room Manager Relationship Specialty Start Date End Date Waldo Hoffman MD [address] [facility] [address] [place] [address] PCP - General Family Medicine 11/23/22 Waldo Hoffman MD [address] [facility] [address] [place] [address] PCP - Devoted 08/18/23 documented as of this encounter
--- OUTSIDE RECORDS SUMMARY | 2025-04-22 09:37 | XMS_ITS | Encounter Summary ---
Author Organization [facility] Address [address] [facility] [place] [address] Care Team Providers Care Whiskey Filterer Name Role Phone Waldo Hoffman MD Primary Care Provider [phone] Waldo Hoffman MD Unavailable Encounter Details Date Type Department Care Team ([facility] st Contact Info) Description 04/15/2025 Results Follow-Up [facility] [place] [facility] [address] [place] [address] Yadira Spicer PA [address] [facility] 110 [place] [address] [facility] Social History Tobacco Use Types Packs/Day Years [...] How often do you attend sikh or catholic serv ices? Patient declined 11/15/2023 Do you [...] Recorded Patient Health Questionnaire-2 Score 0 04/01/2025 [facility] of Occupat ional Health - Occupational [...] place to sleep or slept in a chcf (including now)? Patient declined 11/15/2023 Sex and Gender Information Value Date Recorded Sex Assigned at Not on file Legal Sex Male 7:00 PM EDT Gender Identity Not on file Sexual Orientation Not on file documented as of this encounter Miscellaneous Notes * Telephone Encounter - JESSICA QUACH - 04/15/2025 11:36 AM EDT Patient notified * Telephone Encounter - JESSICA QUACH - 04/15/2025 11:36 AM EDT ----- Message from AYE Fong sent at 04/15/2025 10:19 AM EDT ----- ----- Message ----- From: [employer] [facility] Results In Sent: 04/12/2025 1:59 PM EDT To: AYE Fong * Telephone Encounter - AYE Fong - 04/15/2025 10:19 AM EDT Please let pt know that the ultrasound screening of his aorta came back normal. No signs of abnormal widening. documented in this encounter Plan of Treatment Not on file documented as of this encounter Visit Diagnoses Not on filedocumented in this encounter Additional Health Concerns Assessment Noted Time PHQ-9 Depression Total Score: 0 04/01/20 25 2:00 PM EDT documented as of this encounter Care Teams Whiskey Filterer Relationship Specialty Start Date End Date Waldo Hoffman MD 112 [facility] 110 [place] [address] PCP - General Family Medicine 11/23/22 Waldo Hoffman MD 112 [place] [address] PCP - Devoted 08/18/23 documented as of this encounter
--- OUTSIDE RECORDS SUMMARY | 2025-04-22 09:37 | XMS_ITS | Encounter Summary ---
Author Organization [facility] Address [address] [facility] [place] [address] Care Team Providers Care Executive Cyber Leader Name Role Phone Waldo Hoffman MD Primary Care Provider [phone] Waldo Hoffman MD Unavailable Tuesday, Almaz NEVESN Unavailable [phone] Encounter Details Date Type Department Care Team (Late st Contact Info) Description 01/11/2023 Orders Only [facility] [place] [facility] [address] [place] [address] A, Unknown Practice [address] [place], [place] [id number] Social History Tobacco Use Types Packs/Day Years [...] on filedocumented in this encounter Care Teams Executive Cyber Leader Relationship Specialty Start Date End Date Waldo Hoffman MD [address] [place] [address] PCP - General Family Medicine 11/23/22 Waldo Hoffman MD [address] [place] [address] PCP - Devoted 08/18/23Tuesday, GERRY Muse [address] [facility] [address] [place] [address] Licensed Practical Nurse Family Medicine 02/22/2402/28 documented as of this encounter
--- OUTSIDE RECORDS SUMMARY | 2025-04-22 09:37 | XMS_ITS | Encounter Summary ---
Author Organization [facility] Address [address] [facility] [place] [address] Care Team Providers Care Refiner Operator Name Role Phone Waldo Hoffman MD Primary Care Provider [phone] Waldo Hoffman MD Unavailable Tuesday, Almaz NEVESN Unavailable [phone] Encounter Details Date Type Department Care Team (Late st Contact Info) Description 11/29/2023 Abstract [facility] [place] [facility] [address] [facility] 110 [place] [address] Waldo Hoffman MD 112 [facility] 110 [place], [place] [id number] Social History Tobacco Use Types Packs/Day Years [...] declined 11/15/2023 How often do you attend mormon or episcopal serv ices? Patient declined 11/15/2023 Do you belong to any clubs o r organizations such as mormon groups, unions, fraternal or athletic groups, or [...] care, and heating? Patient declined 11/15/2023 [facility] of Occupat ional Health - Occupational [...] place to sleep or slept in a alf (including now)? Patient declined 11/15/2023 Sex and Gender Information Value Date Recorded Sex Assigned at Not on file Legal Sex Male 7:00 PM EDT Gender Identity Not on file Sexual Orientation Not on file documented as of this encounter Plan of Treatment Not on file documented as of this encounter Visit Diagnoses Not on filedocumented in this encounter Care Teams Refiner Operator Relationship Specialty Start Date End Date Waldo Hoffman MD [address] [place] [address] PCP - General Family Medicine 11/23/22 Waldo Hoffman MD [address] [place] [address] PCP - Devoted 08/18/23Tuesday, GERRY Muse [address] [place] [address] Licensed Practical Nurse Family Medicine 02/22/2402/28 documented as of this encounter
--- OUTSIDE RECORDS SUMMARY | 2025-04-22 09:37 | XMS_ITS | Encounter Summary ---
Author Organization [facility] Address [address] [facility] [place] [address] Care Team Providers Care Electric Range Servicer Name Role Phone Waldo Montgomery MD Primary Care Provider [phone] Waldo Montgomery MD Unavailable Encounter Details Date Type Department Care Team (Late st Contact Info) Description 04/12/2025 Clinisync Result Encounter [facility] External Department Unsolicited Swetha Spicer, PA [address] [facility] 110 [place] [address] Social History Tobacco Use Types Packs/Day Years [...] declined 11/15/2023 How often do you attend holiness or gnosticist serv ices? Patient declined 11/15/2023 Do you belong to any clubs o r organizations such as holiness groups, unions, fraternal or athletic groups, or [...] Recorded Patient Health Questionnaire-2 Score 0 04/01/2025 [facility] of Occupat ional Health - Occupational [...] Procedure Name Priority Date/Time Associated Diagnosis Comments US AORTA 04/12/2025 1:54 PM EDT documented in this encounter Results * US AORTA (04/12/2025 1:54 PM EDT) Anatomical Region Laterality Modality Other 04/12/2025 1:54 PM EDT Narrative 04/12/2025 1:56 [place] [address] Ultrasound Report Signed Patient: DARLEEN GOODMAN MR#: [id number] : 1960 Acct:[id number] Age/Sex: 65 / M ADM Date: 04/12/25 Loc: US Attending Dr: SWETHA SPICER Ordering Physician: SWETHA SPICER Date of Service: 04/12/25 Procedure(s): US aorta Accession Number(s): [id number] cc: WALDO MONTGOMERY ; SWETHA SPICER [place] [address] Patient Name: DARLEEN GOODMAN MRN: [id number] date: 1960 Sex: M Assigned Patient Location: US Current Patient Location: US Accession/Order Number: [id number] Exam Date: 04/12/2025 10:37 Report Date: 04/12/2025 13:54 At the request of: SWETHA SPICER Procedure: US aorta Aortic ultrasound Reason for exam: Former smoker. Comparison: none Technique: Grayscale, spectral and color Doppler images of the abdominal aorta were obtained. Findings: Visualized portions of the abdominal aorta appears normal in caliber without evidence of aneurysm. Visualized portions of the common iliac arteries also appear normal in caliber. US/US aorta Impression: No ultrasound evidence of abdominal aortic aneurysm. Impression dictated by: Alonzo Mosquera Jr., D.O. 04/12/2025 1:54 PM Dictation Location: [employer] Electronically authenticated by: [id number] Y Date: 04/12/2025 13:54 Dictated By: Alonzo Mosquera M.D. Signed By: 04/12/25 1356 DD/ 1354 TD/TT: Treer: Procedure Note Radiology, Radiologist, MD - 04/12/2025 [place] [address] Ultrasound Report Signed Patient: DARLEEN GOODMAN RMR#: [id number] : 1960cct:[id number] Age/Sex: 65 / MADM Date: 04/12/25 Loc: US Attending Dr: SWETHA SPICER Ordering Physician: SWETHA SPICER Date of Service: 04/12/25 Procedure(s): US aorta Accession Number(s): [id number] cc: WALDO MONTGOMERY ; SWETHA SPICER [place] [id number] Patient Name: DARLEEN GOODMAN MRN: [id number] date: 1960 Sex: M Assigned Patient Location: US Current Patient Location: US Accession/Order Number: [id number] Exam Date: 04/12/2025 10:37 Report Date: 04/12/2025 13:54 At the request of: SWETHA SPICER Procedure: US aorta Aortic ultrasound Reason for exam: Former smoker. Comparison: none Technique: Grayscale, spectral and color Doppler images of the abdominalaorta were obtained. Findings: Visualized portions of the abdominal aorta appears normal in caliberwithout evidence of aneurysm. Visualized portions of the common iliac arteriesalso appear normal in caliber. US/US aorta Impression: No ultrasound evidence of abdominal aortic aneurysm. Impression dictated by: Alonzo Mosquera Jr., D.O. 04/12/2025 1:54 PM Dictation Location: [place] [address] Electronically authenticated by: [id number] Y Date: 3:54 Dictated By: Alonzo Mosquera M.D. Signed By:04/12/25 1356 DD/ 1354 TD/TT: Treer: [facility] Final Result documented in this encounter Visit Diagnoses Not on filedocumented in this encounter Additional Health Concerns Assessment Noted Time PHQ-9 Depression Total Score: 0 04/01/20 25 2:00 PM EDT documented as of this encounter Care Teams Electric Range Servicer Relationship Specialty Start Date End Date Waldo Montgomery MD [address] [facility] 110 [place] [address] PCP - General Family Medicine 11/23/22 Waldo Montgomery MD [address] [facility] 110 [place] [address] PCP - Devoted 08/18/23 documented as of this encounter
--- OUTSIDE RECORDS SUMMARY | 2025-04-22 09:37 | XMS_ITS | Encounter Summary ---
Author Organization [facility] Address [address] [facility] [place] [address] Care Team Providers Care Content Manager Name Role Phone Waldo Hoffman MD Primary Care Provider [phone] Waldo Hoffman MD Unavailable Encounter Details Date [...] declined 11/15/2023 How often do you attend jain or rastafarian serv ices? Patient declined 11/15/2023 Do you belong to any clubs o r organizations such as jain groups, unions, fraternal or athletic groups, or [...] Recorded Patient Health Questionnaire-2 Score 0 04/01/2025 [facility] of Occupat ional [facility] - Occupational Stress Questionnaire Answer Date [...] place to sleep or slept in a assisted (including now)? Patient declined 11/15/2023 Sex and [...] documented as of this encounter Care Teams Content Manager Relationship Specialty Start Date End Date Waldo Hoffman MD [address] [facility] 110 [place] [address] PCP - General Family Medicine 11/23/22 Waldo Hoffman MD [address] [facility] 110 [place] [address] PCP - Devoted 08/18/23 documented as of this encounter
--- OUTSIDE RECORDS SUMMARY | 2025-04-22 09:37 | XMS_ITS | Encounter Summary ---
Author Organization [facility] Address [address] [place] [place] [address] Care Team Providers Care Admissions Clerk Name Role Phone Waldo Hoffman MD Primary Care Provider [phone] Waldo Hoffman MD Unavailable Tuesday, Almaz NEVESN Unavailable [phone] Encounter Details Date Type Department Care Team (Late st Contact Info) Description 03/02/2023 Orders Only [facility] [place] [facility] [address] [place] [address] A, Unknown Practice [address] [place], [place] [id number] Social History Tobacco Use Types Packs/Day Years [...] on filedocumented in this encounter Care Teams Admissions Clerk Relationship Specialty Start Date End Date Waldo Hoffman MD [address] [facility] [address] [place] [address] PCP - General Family Medicine 11/23/22 Waldo Hoffman MD [address] [facility] 110 [place] [address] PCP - Devoted 08/18/23Tuesday, GERRY Muse [address] [facility] 110 [place] [address] Licensed Practical Nurse Family Medicine 02/22/2402/28 documented as of this encounter
--- OUTSIDE RECORDS SUMMARY | 2025-04-22 09:37 | XMS_ITS | Encounter Summary ---
Author Organization [facility] Address [address] [place] [address] Care Team Providers Care Appeals Assistant Name Role Phone Waldo Hoffman MD Primary Care Provider [phone] Waldo Hoffman MD Unavailable Tuesday, Almaz TRANSFORMATION SPECIALIST Unavailable [phone] Reason for Visit * Reason Comments Med Refill Encounter Details Date Type Department Care Team (Late st Contact Info) Description 03/19/2023 Refill [facility] [facility] [address] [place] 110 [place] [address] Waldo Hoffman MD [address] [facility] 110 [place] [address] Essential hypertension (Primary Dx) Social History Tobacco [...] hypertension documented in this encounter Care Teams Appeals Assistant Relationship Specialty Start Date End Date Waldo Hoffman MD 112 [facility] 110 [place] [address] PCP - General Family Medicine 11/23/22 Waldo Hoffman MD 112 [facility] 110 [place] [address] PCP - Devoted 08/18/23Tuesday, GERRY Muse 112 [facility] 110 [place] [address] Licensed Practical Nurse Family Medicine 02/22/2402/28 documented as of this encounter
--- OUTSIDE RECORDS SUMMARY | 2025-04-22 09:37 | XMS_ITS | Encounter Summary ---
Author Organization [facility] Address [address] [facility] [place] [address] Care Team Providers Care News Assistant Name Role Phone Waldo Hoffman MD Primary Care Provider [phone] Waldo Hoffman MD Unavailable Tuesday, Almaz NEVESN Unavailable [phone] Encounter Details Date Type Department Care Team (Late st Contact Info) Description 11/24/2023 Abstract [facility] [address] [facility] 110 [place] [address] Waldo Hoffman MD 112 [facility] 110 [place], [place] [id number] Social History Tobacco Use Types Packs/Day Years [...] declined 11/15/2023 How often do you attend protestant or zoroastrian serv ices? Patient declined 11/15/2023 Do you belong to any clubs o r organizations such as protestant groups, unions, fraternal or athletic groups, or [...] medical care, and heating? Patient declined 11/15/2023 [facility] of Occupat ional Health [...] on filedocumented in this encounter Care Teams News Assistant Relationship Specialty Start Date End Date Waldo Hoffman MD [address] [facility] [address] [place] [address] PCP - General Family Medicine 11/23/22 Waldo Hoffman MD [address] [facility] [address] [place] [address] PCP - Devoted 08/18/23Tuesday, GERRY Muse [address] [place] [address] Licensed Practical Nurse Family Medicine 02/22/2402/28 documented as of this encounter
--- OUTSIDE RECORDS SUMMARY | 2025-04-22 09:37 | XMS_ITS | Encounter Summary ---
Author Organization [facility] Address [address] [facility] [place] [address] Care Team Providers Care Field Sales Engineer Name Role Phone Waldo Hoffman MD Primary Care Provider [phone] Waldo Hoffman MD Unavailable Reason for Visit * Reason Onset Date Comments Results 04/08/2025 Labs Encounter Details Date Type Department Care Team ([facility] st Contact Info) Description 04/08/2025 Telephone [facility] [address] [facility] 110 [place] [address] Yadira Spicer, PA 112 [facility] 110 [place] [address] Results (Labs) Social History Tobacco Use Types [...] declined 11/15/2023 How often do you attend muslim or mosque serv ices? Patient declined 11/15/2023 Do you belong to any clubs o r organizations such as muslim groups, unions, fraternal or athletic groups, or [...] Recorded Patient Health Questionnaire-2 Score 0 04/01/2025 [facility] Occupat ional [facility] - Occupational Stress Questionnaire Answer Date [...] place to sleep or slept in a fci (including now)? Patient declined 11/15/2023 Sex and [...] documented as of this encounter Care Teams Field Sales Engineer Relationship Specialty Start Date End Date Waldo Hoffman MD [address] [facility] 110 [place] [address] PCP - General Family Medicine 11/23/22 Waldo Hoffman MD [address] [facility] 110 [place] [address] PCP - Devoted 08/18/23 documented as of this encounter
--- OUTSIDE RECORDS SUMMARY | 2025-04-22 09:37 | XMS_ITS | Encounter Summary ---
Author Organization [facility] Address [address] [facility] [place] [address] Care Team Providers Care Pigs Feet Cleaner Name Role Phone Waldo Hoffman MD Primary Care Provider [phone] Waldo Hoffman MD Unavailable Tuesday, Almaz NEVESN Unavailable [phone] Encounter Details Date Type Department Care Team (Late st Contact Info) Description 01/10/2023 [facility] Only [facility] [address] [place] [address] [place] [address] A, Unknown Practice [address] [place], [place] [id number] Social History Tobacco Use Types Packs/Day Years [...] on filedocumented in this encounter Care Teams Pigs Feet Cleaner Relationship Specialty Start Date End Date Waldo Hoffman MD [address] [facility] 110 [place] [address] PCP - General Family Medicine 11/23/22 Waldo Hoffman MD 112 [facility] 110 [place] [address] PCP - Devoted 08/18/23Tuesday, GERRY Muse 112 [facility] 110 [place] [address] Licensed Practical Nurse Family Medicine 02/22/2402/28 documented as of this encounter
--- OUTSIDE RECORDS SUMMARY | 2025-04-22 09:37 | XMS_ITS | Encounter Summary ---
Author Organization [facility] Address [address] [facility] [place] [address] Care Team Providers Care Bell Valet Name Role Phone Waldo Hoffman MD Primary Care Provider [phone] Waldo Hoffman MD Unavailable Encounter Details Date Type Department Care Team (Late st Contact Info) Description 04/02/2025 Abstract [facility] [place] [facility] [address] [place] [address] [place] [address] Waldo Hoffman MD [address] [facility] [address] [place] [address] Social History Tobacco Use Types Packs/Day Years [...] declined 11/15/2023 How often do you attend buddhist or scientologist serv ices? Patient declined 11/15/2023 Do you belong to any clubs o r organizations such as buddhist groups, unions, fraternal or athletic groups, or [...] Recorded Patient Health Questionnaire-2 Score 0 04/01/2025 [facility] Occupat ional Health - [...] place to sleep or slept in a custodial (including now)? Patient declined 11/15/2023 Sex and [...] documented as of this encounter Care Teams Bell Valet Relationship Specialty Start Date End Date Waldo Hoffman MD [address] [facility] 110 [place] [address] PCP - General Family Medicine 11/23/22 Waldo Hoffman MD [address] [facility] 110 [place] [address] PCP - Devoted 08/18/23 documented as of this encounter
--- OUTSIDE RECORDS SUMMARY | 2025-04-22 09:37 | XMS_ITS | Encounter Summary ---
Author Organization [facility] Address [address] [facility] [place] [address] Care Team Providers Care Sociology Adjunct Instructor Name Role Phone Waldo Hoffman MD Primary Care Provider [phone] Waldo Hoffman MD Unavailable Reason for Visit * Reason Onset Date Comments Med Refill 04/15/2025 Encounter Details Date Type Department Care Team (Late st Contact Info) Description 04/15/2025 Refill [facility] [address] [facility] 110 [place] [address] Marley Anders MA Essential hypertension Social History Tobacco Use Types Packs/Day Years [...] declined 11/15/2023 How often do you attend latter-day or mormonism serv ices? Patient declined 11/15/2023 Do you belong to any clubs o r organizations such as latter-day groups, unions, fraternal or athletic groups, or [...] Recorded Patient Health Questionnaire-2 Score 0 04/01/2025 [facility] of Occupat ional Health - Occupational [...] place to sleep or slept in a intermediate (including now)? Patient declined 11/15/2023 Sex and Gender Information Value Date Recorded Sex Assigned at Not on file Legal Sex Male 7:00 PM EDT Gender Identity Not on file Sexual Orientation Not on file documented as of this encounter Plan of Treatment Not on file documented as of this encounter Visit Diagnoses Diagnosis Essential hypertension Unspecified essential hypertension documented in this encounter Additional Health Concerns Assessment Noted Time PHQ-9 Depression Total Score: 0 04/01/20 25 2:00 PM EDT documented as of this encounter Care Teams Sociology Adjunct Instructor Relationship Specialty Start Date End Date Waldo Hoffman MD 112 [facility] 110 [place] [address] PCP - General Family Medicine 11/23/22 Waldo Hoffman MD 112 [facility] 110 [place] [address] PCP - Devoted 08/18/23 documented as of this encounter
--- OUTSIDE RECORDS SUMMARY | 2025-04-22 09:37 | XMS_ITS | Encounter Summary ---
Author Organization [facility] Address [address] [facility] [place] [address] Care Team Providers Care Compliance Counsel Name Role Phone Waldo Hoffman MD Primary Care Provider [phone] Waldo Hoffman MD Unavailable Encounter Details Date Type Department Care Team (Late st Contact Info) Description 04/15/2025 Abstract [facility] [place] [facility] [address] [place] [address] [place] [address] Waldo Hoffman MD [address] [facility] [address] [place] [address] Social History Tobacco Use Types Packs/Day Years [...] declined 11/15/2023 How often do you attend hinduism or voodoo serv ices? Patient declined 11/15/2023 Do you belong to any clubs o r organizations such as hinduism groups, unions, fraternal or athletic groups, or [...] Recorded Patient Health Questionnaire-2 Score 0 04/01/2025 [facility] Occupat ional Health - [...] documented as of this encounter Care Teams Compliance Counsel Relationship Specialty Start Date End Date Waldo Hoffman MD [address] [facility] 110 [place] [address] PCP - General Family Medicine 11/23/22 Waldo Hoffman MD [address] [facility] 110 [place] [address] PCP - Devoted 08/18/23 documented as of this encounter
--- OUTSIDE RECORDS SUMMARY | 2025-04-22 09:37 | XMS_ITS | Encounter Summary ---
Author Organization [facility] Address [address] [facility] [place] [address] Care Team Providers Care Eligibility Manager Name Role Phone Waldo Hoffman MD Primary Care Provider [phone] Waldo Hoffman MD Unavailable Encounter Details Date Type Department Care Team (Late st Contact Info) Description 06/27/2024 Abstract [facility] [place] [facility] [address] [facility] [address] [place] [address] Waldo Hoffman MD [address] [facility] 110 [place] [address] Social History Tobacco Use Types Packs/Day Years [...] How often do you attend spiritism or congregational serv ices? Patient declined 11/15/2023 Do you [...] medical care, and heating? Patient declined 11/15/2023 [facility] of Occupat ional Health - [...] on filedocumented in this encounter Care Teams Eligibility Manager Relationship Specialty Start Date End Date Waldo Hoffman MD 112 [facility] 110 [place] [address] PCP - General Family Medicine 11/23/22 Waldo Hoffman MD 112 [facility] 110 [place] [address] PCP - Devoted 08/18/23 documented as of this encounter
--- OUTSIDE RECORDS SUMMARY | 2025-04-22 09:37 | XMS_ITS | Clinical Summary ---
Author Organization [facility] Address [address] [facility] [place] [address] Care Team Providers Care Reconciliation Clerk Name Role Phone Waldo Montgomery MD Primary Care Provider [phone] Waldo Montgomery MD Unavailable Allergies No known active allergies Medications aspirin 325 MG tablet 1 (one) time each day at the same time Active predniSONE (Deltasone) 5 MG tablet TAKE 1 TO 2 TABLETS BY MOUTH ONCE DAILY IF NEEDED FOR RA FLARE 023 Active hydroxychloroquin e (Plaquenil) 200 MG tabletIndications :Hyperlipidemia, unspecified hyperlipidemia type Take 1 tablet (200 mg) by mouth in the morning and 1 tablet (200 mg) before bedtime. 90 tablet 1 024 Active omeprazole (PriLOSEC) [address] capsuleIndication s:Gastroesophagea l reflux disease, unspecified whether esophagitis present Take 1 capsule (40 mg) by mouth in the morning. Take before meals. 100 capsule 1 024 Active Additional Information Patient taking differently:40 mg Oral Daily before breakfast, Morning,PRN, Reported on 04/01/2025 atorvastatin (Lipitor) 40 MG tabletIndications :Essential hypertension TAKE 1 TABLET BY MOUTH DAILY 100 tablet 3 025 Active febuxostat (Uloric) 40 MG tablet Take 40 mg by mouth Daily 025 Active metoprolol tartrate (Lopressor) 50 MG tabletIndications :Essential hypertension Take 1 tablet (50 mg) by mouth in the morning and 1 tablet (50 mg) before bedtime. 180 tablet 3 025 Active rOPINIRole (Requip) 0.5 MG tabletIndications :Restless legs TAKE 1 TABLET BY MOUTH TWICE DAILY (IN THE MORNING and BEFORE bedtime) 90 tablet 2 025 Active clopidogrel (Plavix) 75 MG tabletIndications :Hyperlipidemia, unspecified hyperlipidemia type TAKE 1 TABLET BY MOUTH DAILY 100 tablet 3 025 Active clopidogrel (Plavix) 75 MG tabletIndications :Hyperlipidemia, unspecified hyperlipidemia type Take 1 tablet (75 mg) by mouth Daily 100 tablet 3 024 2024 Discontinued rOPINIRole (Requip) 0.5 MG tabletIndications :Restless legs TAKE 1 TABLET BY MOUTH TWICE DAILY (IN THE MORNING AND BEFORE BEDTIME) 90 tablet 2 025 2024 Discontinued metoprolol tartrate (Lopressor) 50 MG tabletIndications :Essential hypertension TAKE 1 TABLET BY MOUTH TWICE DAILY (IN THE MORNING and AT BEDTIME); take WITH FOOD 180 tablet 025 2024 Discontinued(R eorder) Active Problems Problem Noted Date Diagnosed Date [...] disease 02/16/2023 Coronary artery disease invo lving [place] coronary artery of [place] heart 02/16/2023 Benign essential hypertension 02/16/2023 Assessment [...] Encounters Date Type Department Care Team Description 04/18/2025 Refill [facility] [address] [place] [address] [place] [address] Waldo Montgomery MD Hyperlipidemia, unspecified hyperlipidemia type 04/18/2025 Refill [facility] [address] [place] [address] [place] [address] Waldo Montgomery MD Restless legs 04/15/2025 Refill [facility] [address] [place] [address] [place] [address] Marley Anders MA Essential hypertension 04/15/2025 Results Follow-Up [facility] [address] [facility] 110 [place] [address] Yadira Mireles, PA US AORTA 04/15/2025 Abstract [facility] [address] [facility] [address] [place] [address] Waldo Montgomery MD 04/12/2025 9:00 AM EDT Ancillary Procedure [facility] [address] [place] [address] [place] [address] Former smoker 04/12/2025 Clinisync Result Encounter [facility] External Department Unsolicited Yadira Mireles PA 04/12/2025 Telephone [facility] [address] [facility] [address] [place] [address] Yadira Mireles PA 04/12/2025 Travel 04/08/2025 Telephone [facility] [place] [facility] [address] [facility] 110 [place] [address] Yadira Mireles PA Results (Labs) 04/02/2025 Abstract [facility] [place] [facility] [address] [facility] [address] [place] [address] Waldo Montgomery MD 04/02/2025 Abstract [facility] [place] [facility] [address] [facility] [address] [place] [address] Waldo Montgomery MD 04/01/2025 3:00 PM EDT Office Visit [facility] [address] [facility] 110 [place] [address] Yadira Mireles PA Medicare annual wellness visit, subsequent (Primary Dx); ACP (advance care planning); Restless legs syndrome (RLS); Benign essential hypertension ; Coronary artery disease involving [place] coronary artery of [place] heart without angina pectoris ; History of heart artery stent; Chronic kidney disease, stage 3a (CMS-HCC); Myalgia; Mixed hyperlipidemia ; Anemia of chronic disease; Former smoker; 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 (M05.741); Screening for malignant neoplasm of prostate; Other problems related to lifestyle 04/01/2025 [employer] flowsheet [facility] [place] [facility] [address] [facility] [address] [place] [address] Yadira Mireles PA 04/01/2025 Travel from Last 3 Months Immunizations Immunization Administration Dates Next Due Influenza, Injectable, MDCK, preservative free 04/23/2016 Influenza, Seasonal, Quadriv alent, Adjuvanted 05/03/2023 Influenza, injectable, quadr ivalent, preservative free 05/05/2022,06/01/2021,03/25/2020,04/21,05/11/2018,04/30/2017,04/23/2016 Influenza, seasonal, intrade rmal, preservative free 05/11/2018 Pneumococcal Conjugate PCV 13 11/26/2015 Pneumococcal Polysaccharide PPSV23 04/21/2019, Zoster, Recombinant 07/13/2023,05/03/2023 Family History Medical History Relation Name Comments Cancer Father Darleen Hackett Heart disease Father Darleen Hackett Hypertension Father Darleen Hackett Arthritis Mother Celine Hackett Hearing loss Mother Celine Hackett Osteoporosis Mother Celine Hackett Scoliosis Sister Nilda Moreau Relation Name Status Comments Father Darleen Hackett Mother Celine Hackett Alive Sister Nilda [...] How often do you attend scientologist or roman catholic serv ices? Patient declined 11/15/2023 Do [...] Recorded Patient Health Questionnaire-2 Score 0 04/01/2025 [facility] Occupat ional [facility] - Occupational Stress Questionnaire Answer Date [...] Comments US AORTA 04/12/2025 1:[address] LUNG SCREENING LOW DOSE Routine 04/12/2025 9:40 AM EDT Former smoker PSA, TOTAL Routine 04/03/2025 8:20 AM EDT Medicare annual wellness visit, subsequent Screening for malignant neoplasm of prostate LIPID PANEL Routine 04/03/2025 8:20 AM EDT Medicare annual wellness visit, subsequent Benign essential hypertension Coronary artery disease involving [place] coronary artery of [place] heart without angina pectoris Mixed hyperlipidemia HEPATITIS C AB W/RFL RNS, PCR W/RFL GENOTYPE,LIPA Routine 04/03/2025 8:20 AM EDT Medicare annual wellness visit, subsequent Other problems related to lifestyle COMPREHENSIVE METABOLIC PANEL Routine 04/03/2025 8:20 AM EDT Medicare annual wellness visit, subsequent Benign essential hypertension Coronary artery disease involving [place] coronary artery of [place] heart without angina pectoris Chronic kidney disease, stage 3a (CMS-HCC) Mixed hyperlipidemia CBC (INCLUDES DIFF/PLT) Routine 04/03/2025 8:20 AM EDT Medicare annual wellness visit, subsequent Benign essential hypertension Coronary artery disease involving [place] coronary artery of [place] heart without angina pectoris Chronic kidney disease, stage 3a (CMS-HCC) Mixed hyperlipidemia Anemia of chronic disease COLONOSCOPY Routine 06/26/2014 12:00 PM EST from Last 3 Months or Most Recently Relevant to Health Maintenance Results * US AORTA (04/12/2025 1:54 PM EDT) Anatomical Region Laterality Modality Other 04/12/2025 1:54 PM EDT Narrative 04/12/2025 1:56 PM EDT The [address] [address] Ultrasound Report Signed Patient: DARLEEN HACKETT MR#: [id number] : 1960 Acct:[id number] Age/Sex: 65 / M ADM Date: 04/12/25 Loc: US Attending Dr: YADIRA MIRELES Ordering Physician: YADIRA MIRELES Date of Service: 04/12/25 Procedure(s): US aorta Accession Number(s): [id number] cc: WALDO MONTGOMERY ; YADIRA MIRELES [place] [id number] Patient Name: DARLEEN HACKETT MRN: [id number] date: 1960 Sex: M Assigned Patient Location: US Current Patient Location: US Accession/Order Number: [id number] Exam Date: 04/12/2025 10:37 Report Date: 04/12/2025 13:54 At the request of: YADIRA MIRELES Procedure: US aorta Aortic ultrasound Reason for [...] Jr., D.O. 04/12/2025 1:54 PM Dictation Location: [place] [address] Electronically authenticated by: [id number] Y Date: 04/12/2025 13:54 Dictated By: Alonzo Mosquera M.D. Signed By: 04/12/25 1356 DD/ 1354 TD/TT: Fuel System Maintenance Supervisor: Procedure Note Radiology, Radiologist, MD - 04/12/2025 [place] [address] Ultrasound Report Signed Patient: DARLEEN HACKETT RMR#: [id number] : 8Acct:[id number] Age/Sex: 65 / MADM Date: 04/12/25 Loc: US Attending Dr: YADIRA MIRELES Ordering Physician: YADIRA MIRELES Date of Service: 04/12/25 Procedure(s): US aorta Accession Number(s): [id number] cc: WALDO MONTGOMERY ; YADIRA MIRELES [place] [id number] Patient Name: DARLEEN HACKETT MRN: [id number] date: 1960 Sex: M Assigned Patient Location: US Current Patient Location: US Accession/Order Number: [id number] Exam Date: 04/12/2025 10:37 Report Date: 04/12/2025 13:54 At the request of: YADIRA MIRELES Procedure: US aorta Aortic ultrasound Reason for [...] aneurysm. Impression dictated by: Alonzo Mosquera Jr., D.OMoises 04/12/2025 1:54 PM Dictation Location: [place] [address] Electronically authenticated by: [id number] Y Date: 3:54 Dictated By: Alonzo Mosquera M.D. Signed By:04/12/25 1356 DD/ 1354 TD/TT: Fuel System Maintenance Supervisor: Yadira Mirelse PA [facility] Final Result * CT lung screening low dose (04/12/2025 [...] Yadira GRIFFITHS IMG CT PROCEDURES Final Result * HEPATITIS C AB W/RFL RNS, PCR W/RFL GENOTYPE,LIPA (04/03/2025 8:20 AM EDT) [facility] HEPATITIS C ANTIBODY Nonreactive [facility] Comment: HCV antibody was non-reactive. There is no laboratory evidence of HCV infection. In most cases, no further action is required. However, if recent HCV exposure is suspected, a test for HCV RNA (test code 65921) is suggested. REFERENCE RANGE: NONREACTIVE For additional information, please refer to http://education.SurroundsMe/faq/XCP164 (This link is being provided for informational/ educational purposes only.) 04/03/2025 8:20 AM EDT 04/03/2025 3:48 PM EDT Narrative [facility] - 04/06/2025 7:57 PM EDT FASTING:YES FASTING: YES Resulting Agency Comment Performing Organization Information Site ID: AMD Name: [facility] [place] [facility] Address: [address] [place] [address] [place] [address] Director: Roland Mas M.D.,PhD Yadira GRIFFITHS LAB BLOOD ORDERABLES Final Res ult [facility] * CBC and differential (04/03/2025 8:20 AM EDT) Pathologist [facility] WHITE BLOOD CELL COUNT 9.0 3.8 - [...] Performing Organization Information Site ID: QTW Name: [facility] Address: [address] [place] [phone] Director: Cait Rivas Yadira GRIFFITHS LAB BLOOD ORDERABLES Final Res ult [facility] * PSA (04/03/2025 8:20 AM EDT) PSA, TOTAL 0.71 < OR = 4.00 ng/mL [facility] Comment: The total PSA value from this assay system is standardized against the WHO standard. The test result will be approximately 20% lower when compared to the equimolar-standardized total PSA (Marlene Ridgway). Comparison of serial PSA results should be [...] Performing Organization Information Site ID: QPT Name: [facility] Address: [address] , [address] [place] [address] Director: Henry Franklin MD us Yadira GRIFFITHS [...] factors. LDL-C is now calculated using the Jarred-Grimes calculation, which is a validated novel method providing better accuracy than the Friedewald equation in the estimation of LDL-C. Jarred SS et al. PAO. 2013;310(19): 6015-2236 (http://education.[employer].GotoTel/faq/TDK852) CHOL/HDLC RATIO 2.9 <5.0 (calc) [facility] NON [...] Performing Organization Information Site ID: QPT Name: [facility] Address: [address] [facility], [address] [place] [address] Director: Henry Franklin MD us Yadira GRIFFITHS LAB BLOOD ORDERABLES Final Res ult Performing Organization Address City/[facility]/ZIP Co de Phone Number [facility] * Comprehensive metabolic panel (04/03/2025 8:20 AM EDT) [facility] Glucose 90 65 - 99 mg/dL [facility] [...] Performing Organization Information Site ID: QTW Name: [facility] Address: [address] [place] [phone] Director: Cait Rivas us Yadira GRIFFITHS LAB BLOOD ORDERABLES Final Res ult [facility] * Colonoscopy (06/26/2014 12:00 PM EST) Anatomical Region Laterality Modality Endoscopy 06/26/2014 12:0 0 PM EST Narrative 06/26/2014 12:00 PM EST PERFORMED AT [facility] LOCATION:[id number] normal to cecum Procedure Note CONVERSION, GENERIC - 12/02/2022 PERFORMED AT [facility] LOCATION:[id number] normal to cecum Waldo Montgomery MD ENDOSCOPY PROCEDURE ORDERABLES F inal Result from Last 3 Months or Most Recently Relevant to Health Maintenance Insurance [employer] Care Teams Reconciliation Clerk Relationship Specialty Start Date End Date Waldo Montgomery MD [address] [facility] 110 [place] [address] PCP - General Family Medicine 11/23/22 Waldo Montgomery MD [address] [facility] 110 [place] [address] PCP - Devoted 08/18/23
--- OUTSIDE RECORDS SUMMARY | 2025-04-22 09:37 | XMS_ITS | Encounter Summary ---
Author Organization [facility] Address [address] [facility] [place] [address] Care Team Providers Care Machine Molder Squeeze Name Role Phone Waldo Hoffman MD Primary Care Provider Waldo Hoffman MD Unavailable Encounter Details Date Type Department Care Team (Late st Contact Info) Description 04/02/2025 Abstract [facility] [place] [facility] [address] [place] [address] [place] [address] Waldo Hoffman MD [address] [place] [address] [place] [address] Social History Tobacco Use Types Packs/Day Years [...] declined 11/15/2023 How often do you attend sikhism or congregation serv ices? Patient declined 11/15/2023 Do you belong to any clubs o r organizations such as sikhism groups, unions, fraternal or athletic groups, or [...] Recorded Patient Health Questionnaire-2 Score 0 04/01/2025 [facility] Occupat ional Health - Occupational [...] documented as of this encounter Care Teams Machine Molder Squeeze Relationship Specialty Start Date End Date Waldo Hoffman MD [address] [facility] 110 [place] [address] PCP - General Family Medicine 11/23/22 Waldo Hoffman MD [address] [place] [facility] 110 [place] [address] PCP - Devoted 08/18/23 documented as of this encounter
--- OUTSIDE RECORDS SUMMARY | 2025-04-22 09:37 | XMS_ITS | Encounter Summary ---
Author Organization [facility] Address [address] [place] [address] Care Team Providers Care Coal Hauler Operator Name Role Phone Waldo Hoffman MD Primary Care Provider [phone] Waldo Hoffman MD Unavailable Tuesday, Almaz BULL WHEEL WORKER Unavailable [phone] Encounter Details Date Type Department Care Team (Late st Contact Info) Description 11/30/2023 Orders Only [facility] [address] [place] [address] [place] [address] Unallocated, Noms Provider, [address] [place], [place] [address] Social History Tobacco Use Types Packs/Day Years [...] declined 11/15/2023 How often do you attend nondenominational or restorationist serv ices? Patient declined 11/15/2023 Do you belong to any clubs o r organizations such as nondenominational groups, unions, fraternal or athletic groups, or [...] medical care, and heating? Patient declined 11/15/2023 [facility] of Occupat ional Health [...] place to sleep or slept in a penitentiary (including now)? Patient declined 11/15/2023 Sex and [...] on filedocumented in this encounter Care Teams Coal Hauler Operator Relationship Specialty Start Date End Date Waldo Hoffman MD [address] [place] [address] [place] [address] PCP - General Family Medicine 11/23/22 Waldo Hoffman MD [address] [place] [address] [place] [address] PCP - Devoted 08/18/23Tuesday, GERRY Muse [address] [place] [address] Licensed Practical Nurse Family Medicine 02/22/2402/28 documented as of this encounter
--- OUTSIDE RECORDS SUMMARY | 2025-04-22 09:37 | XMS_ITS | Encounter Summary ---
Author Organization [facility] Address [address] [facility] [place] [address] Care Team Providers Care Jack Frame Tender Name Role Phone Waldo Hoffman MD Primary Care Provider [phone] Waldo Hoffman MD Unavailable Encounter Details Date Type Department Care Team (Late st Contact Info) Description 06/27/2024 Abstract [facility] [place] [facility] [address] [place] [address] [place] [address] Waldo Hoffman MD [address] [place] [address] [place] [address] Social History Tobacco Use Types Packs/Day Years [...] declined 11/15/2023 How often do you attend latter day or bahai serv ices? Patient declined 11/15/2023 Do you belong to any clubs o r organizations such as latter day groups, unions, fraternal or athletic groups, or [...] medical care, and heating? Patient declined 11/15/2023 [facility] of Occupat ional Health - Occupational [...] on filedocumented in this encounter Care Teams Jack Frame Tender Relationship Specialty Start Date End Date Waldo Hoffman MD [address] [facility] 110 [place] [address] PCP - General Family Medicine 11/23/22 Waldo Hoffman MD [address] [facility] 110 [place] [address] PCP - Devoted 08/18/23 documented as of this encounter
--- OUTSIDE RECORDS SUMMARY | 2025-04-22 09:37 | XMS_ITS | Encounter Summary ---
Author Organization [facility] Address [address] [facility] [place] [address] Care Team Providers Care Sound Designer Name Role Phone Waldo Hoffman MD Primary Care Provider [phone] Waldo Hoffman MD Unavailable Tuesday, Almaz NEVESN Unavailable [phone] Encounter Details Date Type Department Care Team (Late st Contact Info) Description 01/10/2023 Abstract [facility] [place] [facility] [address] [facility] 110 [place] [address] Waldo Hoffman MD [address] [facility] 110 [place] [address] Social History Tobacco Use Types Packs/Day Years [...] on filedocumented in this encounter Care Teams Sound Designer Relationship Specialty Start Date End Date Waldo Hoffman MD [address] [facility] 110 [place] [address] PCP - General Family Medicine 11/23/22 Waldo Hoffman MD [address] [facility] 110 [place] [address] PCP - Devoted 08/18/23Tuesday, GERRY Muse [address] [facility] 110 [place] [address] Licensed Practical Nurse Family Medicine 02/22/2402/28 documented as of this encounter
--- OUTSIDE RECORDS SUMMARY | 2025-04-22 09:37 | XMS_ITS | Encounter Summary ---
Author Organization [facility] Address [address] [facility] [place] [address] Care Team Providers Care Frame Fixer Name Role Phone Waldo Hoffman MD Primary Care Provider [phone] Waldo Hoffman MD Unavailable Reason for Visit * Reason Comments Med Refill Encounter Details Date Type Department Care Team ([facility] st Contact Info) Description 04/18/2025 Refill [facility] [place] [facility] [address] [facility] 110 [place] [address] Waldo Hoffman MD [address] [place] [facility] 110 [place], [place] [id number] Restless legs Social History Tobacco Use Types Packs/Day Years [...] How often do you attend scientologist or christianity serv ices? Patient declined 11/15/2023 Do you [...] Recorded Patient Health Questionnaire-2 Score 0 04/01/2025 [facility] Occupat [facility] - Occupational Stress Questionnaire Answer Date [...] as of this encounter Visit Diagnoses Diagnosis Restless legs Restless legs syndrome (RLS) documented in this encounter Additional Health Concerns Assessment Noted Time PHQ-9 Depression Total Score: 0 04/01/20 25 2:00 PM EDT documented as of this encounter Care Teams Frame Fixer Relationship Specialty Start Date End Date Waldo Hoffman MD [address] [facility] 110 [place] [address] PCP - General Family Medicine 11/23/22 Wlado Hoffman MD [address] [facility] 110 [place] [address] PCP - Devoted 08/18/23 documented as of this encounter
--- OUTSIDE RECORDS SUMMARY | 2025-04-22 09:37 | XMS_ITS | Encounter Summary ---
Author Organization [facility] Address [address] [facility] [place] [address] Care Team Providers Care Senior Oracle Adf Developer Name Role Phone Waldo Hoffman MD Primary Care Provider [phone] Waldo Hoffman MD Unavailable Encounter Details Date Type Department Care Team (Late st Contact Info) Description 04/12/2025 Telephone [facility] [place] [facility] [address] [place] [address] [place] [address] Yadira Spicer, PA [address] [place] [address] [place] [address] Social History Tobacco Use Types Packs/Day Years [...] declined 11/15/2023 How often do you attend congregational or yarsani serv ices? Patient declined 11/15/2023 Do you belong to any clubs o r organizations such as congregational groups, unions, fraternal or athletic groups, or [...] Recorded Patient Health Questionnaire-2 Score 0 04/01/2025 [facility] of Occupat ional Health - Occupational [...] encounter Miscellaneous Notes * Telephone Encounter - Marley Anders MA - 04/12/2025 1:19 PM EDT Pt notified * Telephone Encounter - AYE Fong - 04/12/2025 1:18 PM EDT Please let pt know that the CT of his lungs was stable in appearance. Continue routine yearly screenings. documented in this encounter Plan of Treatment Not on file documented as of this encounter Visit Diagnoses Not on filedocumented in this encounter Additional Health Concerns Assessment Noted Time PHQ-9 Depression Total Score: 0 04/01/20 25 2:00 PM EDT documented as of this encounter Care Teams Senior Oracle Adf Developer Relationship Specialty Start Date End Date Waldo Hoffman MD [address] [facility] 110 [place] [address] PCP - General Family Medicine 11/23/22 Waldo Hoffman MD [address] [facility] 110 [place] [address] PCP - Devoted 08/18/23 documented as of this encounter
--- OUTSIDE RECORDS SUMMARY | 2025-04-22 09:37 | XMS_ITS | Clinical Summary ---
Author Organization [facility] Address [id number] [address] [place] [address] Care Team Providers Care Chief Steward/Stewardess Name Role Phone Waldo Hoffman MD Primary Care Provider [phone] Allergies No known active allergies Medications metoprolol [...] Insurance [employer] MEDICARE ADVANTAGE Care Teams Chief Steward/Stewardess Relationship Specialty Start Date End Date Waldo Hoffman MD [address] [place] [address] PCP - General Family Medicine 11/24/23
--- OUTSIDE RECORDS SUMMARY | 2025-04-22 09:37 | XMS_ITS | Encounter Summary ---
Author Organization [facility] Address [address] [facility] [place] [address] Care Team Providers Care Custodial Maintenance Worker Name Role Phone Waldo Hoffman MD Primary Care Provider [phone] Waldo Hoffman MD Unavailable Tuesday, Almaz GARRETT Unavailable [phone] Encounter Details Date Type Department Care Team (Late st Contact Info) Description 12/21/2023 Abstract [facility] [address] [facility] [address] [place] [address] Eliezer Lau, DO [address] [facility] [address] [place] [address] Social History Tobacco Use Types Packs/Day Years [...] How often do you attend jain or anabaptist serv ices? Patient declined 11/15/2023 Do you [...] medical care, and heating? Patient declined 11/15/2023 [facility] - [...] place to sleep or slept in a half-way (including now)? Patient declined 11/15/2023 Sex and Gender Information Value Date Recorded Sex Assigned at Not on file Legal Sex Male 7:00 PM EDT Gender Identity Not on file Sexual Orientation Not on file documented as of this encounter Plan of Treatment Not on file documented as of this encounter Visit Diagnoses Not on filedocumented in this encounter Care Teams Custodial Maintenance Worker Relationship Specialty Start Date End Date Waldo Hoffman MD [address] [place] [address] PCP - General Family Medicine 11/23/22 Waldo Hoffman MD [address] [place] [address] PCP - Devoted 08/18/23Tuesday, GERRY Muse [address] [place] [address] Licensed Practical Nurse Family Medicine 02/22/2402/28 documented as of this encounter
--- OUTSIDE RECORDS SUMMARY | 2025-04-22 09:37 | XMS_ITS | Encounter Summary ---
Author Organization [facility] Address [address] [facility] [place] [address] Care Team Providers Care Tile Erector Name Role Phone Waldo Hoffman MD Primary Care Provider [phone] Waldo Hoffman MD Unavailable Encounter Details Date Type Department Care Team (Late st Contact Info) Description 06/27/2024 Abstract [facility] [address] [place] [id number] Waldo Hoffman MD [address] [place] [address] Social History Tobacco Use Types Packs/Day Years [...] How often do you attend mormon or nondenominational serv ices? Patient declined 11/15/2023 Do you [...] medical care, and heating? Patient declined 11/15/2023 [facility] - [...] on filedocumented in this encounter Care Teams Tile Erector Relationship Specialty Start Date End Date Waldo Hoffman MD [address] [facility] [address] [place] [address] PCP - General Family Medicine 11/23/22 Waldo Hoffman MD [address] [facility] [address] [place] [address] PCP - Devoted 08/18/23 documented as of this encounter
--- OUTSIDE RECORDS SUMMARY | 2025-04-22 09:43 | XMS_ITS | CCD ---
Author Organization [facility] CliniSyar Care Team Providers Care Eligibility Examiner Name Role Phone Shashank Head Unavailable Cassi [...] Attending Unavailab MD Chino Lockhart Admitting Unavailab WALDO Felton Primary Care Unavailable JEREMIAS LAU Referring Unavailable ULISES, RUGEN M Primary Care Unavailable JEREMIAS LAU Attending Unavailable JEREMIAS LAU Referring Unavailable ULISES, WALDO M Primary Care Unavailable JEREMIAS LAU Referring Unavailable ULISES, RUGEN M Primary Care Unavailable JEREMIAS LAU Attending Unavailable JEREMIAS LAU Referring Unavailable ULISES, RUGEN M Primary Care Unavailable JEREMIAS LAU Admitting Unavailable JEREMIAS LAU Attending Unavailable JEREMIAS LAU Referring Unavailable PASQUALE VALDIVIA Attending Unavailable WALDO MONTGOMERY Primary Care Unavailable Waldo Montgomery MD Primary Care Provider Waldo Montgomery MD Unavailable Shashank Head Attending Unavailable Shashank Head Admitting Unavailable Waldo Montgomery Primary Care Unavailable Waldo Montgomery MD Primary Care Provider [phone] YADIRA MIRELES Attending Unavailable YADIRA MIRELES Referring Unavailable Allergies Allergy Classification Reported Allergen(s) Allergy Type Date of Onset Reaction(s) Facility (1 source) No Known Medication Allergies; Translations: [No Known Medication Allergies] Propensity to adverse reactions to drug (disorder) [facility] Repository Medications Current Medications Medication Drug Class(es) Dates Sig (Normalized) Sig (Original) ascorbic acid 4700 mg / polyethylene glycol 3350 [id number] mg / potassium chloride 1015 mg / sodium ascorbate 5900 mg / sodium chloride 2690 mg / sodium sulfate 7500 mg powder for oral solution (2 sources) Osmotic Laxative, Vitamin C Start: 05-22-2014 aspirin 325 mg oral tablet (13 sources) Platelet Aggregation Inhibitor, Nonsteroidal Anti-inflammatory Drug aspirin 325 MG tablet 1 (one) time each day at the same time Active take 1 tablet by mouth in the mo rning aspirin 325 mg EC tablet Take 1 tablet (325 mg total) by mouth in the morning. Active Aspirin Active atorvastatin 40 mg oral tablet (13 sources) HMG-CoA Reductase Inhibitor Start: 09-18-2024 take 1 tablet by mouth once daily atorvastatin (Lipitor) 40 MG tablet Indications: Essential hypertension TAKE 1 TABLET BY MOUTH DAILY 100 tablet 3 09/18/2024 Active Start: 08-23-2023 take 1 tablet by darnell once daily atorvastatin (Lipitor) 40 MG tablet [...] Jun, Active clopidogrel 75 mg oral tablet (13 sources) P2Y12 Platelet Inhibitor Start: 03-13-2024 take [...] 12/25/2024 Active febuxostat 40 mg oral tablet (3 sources) Xanthine Oxidase Inhibitor Start: 01-17-2025 take 1 tablet by mouth once daily febuxostat (Uloric) 40 MG tablet Take 40 mg by mouth Daily 01/17/2025 Active hydroxychloroquine sulfate 200 mg oral tablet (11 sources) Antimalarial, Antirheumatic Agent Start: 03-13-2024 take [...] Active metoprolol tartrate 50 mg oral tablet (13 sources) beta-Adrenergic Alondra Start: 01-17-2025 take 1 [...] omeprazole 40 mg delayed release oral capsule (8 sources) Proton Pump Inhibitor Start: 05-31-2024 take [...] qd Active predniSONE 5 mg oral tablet (7 sources) Start: 02-23-2023 take 1-2 tablets by mouth once daily predniSONE (Deltasone) 5 MG tablet TAKE 1 TO 2 TABLETS BY MOUTH ONCE DAILY IF NEEDED FOR RA FLARE 02/23/2023 Active rOPINIRole 0.5 mg oral tablet (13 sources) Nonergot Dopamine Agonist Start: 01-17-2025 take [...] 12/09/2023 Active take 2 tablets by mo ut once daily rOPINIRole (REQUIP) 5 mg tablet Take 2 tablets (10 mg total) by mouth nightly. Active Requip Active Problems Active Problems Problem Classification Problem Date Documented Da te Episodic/Chronic Abdominal pain (7 sources) Abdominal pain; Translations: [Unspecified abdominal pain] Onset: 2 Resolved: 2 Episodic Administrative/social admission (2 sources) Patient encounter status; Translations: [Other specified counseling] 04-01-2025 Episodic Chronic kidney disease (9 sources) Chronic kidney disease stage 3A ; Translations: [Chronic kidney disease, stage 3a (HCC)] Onset: 3 11-22-2023 Chronic Chronic kidney disease (1 source) Chronic kidney disease; Translations: [Chronic kidney disease, stage 3a] Onset: 4 Coronary atherosclerosis and other heart disease (18 sources) Atherosclerotic heart disease of andreafski coronary artery without angina pectoris; Translations: [Old myocardial infarction] Onset: 2 Resolved: 5 02-16-2023 Chronic Deficiency and other anemia (8 sources) Anemia of chronic disease; Translations: [Anemia in other chronic diseases classified elsewhere] Onset: 3 02-16-2023 Chronic Disorders of lipid metabolism (9 sources) Pure hypercholesterolemia, unspecified; Translations: [Hyperlipidemia] Onset: 2 02-16-2023 Chronic Esophageal disorders (2 sources) Gastroesophageal reflux disease; Translations: [Gastro-esophageal reflux disease without esophagitis] Chronic Essential hypertension (11 sources) Essential (primary) hypertension; Translations: [Benign essential hypertension] Onset: 2 11-22-2023 Chronic Influenza (1 source) Influenza due to other identified influenza virus with other respiratory manifestations Episodic Joint disorders and dislocations; trauma-related (6 sources) Articular cartilage disorder of shoulder region; Translations: [Other articular cartilage disorders, right shoulder] Onset: 3 02-16-2023 Chronic Mood disorders (1 source) Major depressive disorder, single episode, unspecified; Translations: [KYLER DEPRESS D/O SINGLE EPIS UNS] Onset: 2 Chronic Osteoarthritis (2 sources) Primary generalized (osteo)arthritis; Translations: [Unspecified osteoarthritis, unspecified site] Onset: 2 Chronic Other aftercare (1 source) Other assisted (current) drug therapy; Translations: [OTH LAB REP CURRENT DRUG THERAPY] Onset: 3 Episodic Other [...] Other hereditary and degenerative nervous system conditions (8 sources) Restless legs; Translations: [Restless legs syndrome] [...] Episodic Unclassified (1 source) meniscal tear Onset: Past or Other Problems Problem Classification Problem Date Documented Da te Episodic/Chronic Calculus of urinary tract (1 source) Personal history of urinary calculi; Translations: [PERSONAL HISTORY OF URINARY CALCULI] Onset: 03-30-2022 Episodic Disorders of teeth and jaw (1 source) Periapical abscess without sinus; Translations: [PERIAPICAL ABSCESS WITHOUT SINUS] Onset: 03-30-2022 Episodic Hypertension with complications and secondary hypertension (6 sources) Hypertensive urgency ; Translations: [Hypertensive urgency] Onset: 02-16-2023 Resolved: 04-01-2025 02-16-2023 Chronic Mood disorders (3 sources) Mood disorders Onset: 04-01-2025 04-01-2025 Other aftercare (1 source) termite control service representative (current) use of aspirin; Translations: [LAB REP CURRENT USE OF ASPIRIN] Onset: 03-30-2022 Episodic Other connective tissue disease (6 sources) Tear of right rotator cuff; Translations: [Unspecified rotator cuff tear or rupture of right shoulder, not specified as traumatic] Onset: 02-16-2023 02-16-2023 Episodic Other connective tissue disease (8 sources) Muscle pain; Translations: [Myalgia, unspecified site] [...] Test Name Value Interpretation Reference Range Facility CT LUNG SCREENING LOW DOSEon 04-12-2025 CT LUNG SCREENING LOW DOSE This is a summary report. The complete report is available in the patient's medical record. If you cannot access the medical record, please contact the sending organization for a detailed fax or copy. LOW DOSE CT IMAGING OF THE CHEST [...] (right greater than left) upper/mid chest regions. IMPRESSION: Lung [...] BY: ELECTRONICALLY SIGNED BY: Alonzo Navas MD Normal Not Available US AORTAon 04-12-2025 [place] [id number] Ultrasound Report Signed Patient: DARLEEN GOODMAN MR#: [id number] : 1960 Acct:[id number] Age/Sex: 65 / M ADM Date: 04/12/25 Loc: US Attending Dr: YADIRA MIRELES Ordering Physician: YADIRA MIRELES Date of Service: 04/12/25 Procedure(s): US aorta Accession Number(s): [id number] cc: WALDO MONTGOMERY ; YADIRA MIRELES [address] [address] Patient Name: DARLEEN GOODMAN MRN: [facility]:[id number] date: 1960 Sex: M Assigned Patient Location: US Current Patient Location: US Accession/Order Number: [id number] Exam Date: 04/12/2025 10:37 Report Date: 04/12/2025 [...] Jr., D.O. 04/12/2025 1:54 PM Dictation Location: [place] [address] Electronically authenticated by: [id number] Y Date: 04/12/2025 13:54 Dictated By: Alonzo Mosquera M.D. Signed By: 04/12/25 1356 DD/ 1354 TD/TT: Beer Runner: [facility] Radiology, Radiologist, MD - 04/12/2025 [place] [address] Ultrasound Report Signed Patient: DARLEEN GOODMAN MR#: [id number] : 1960 Acct:[id number] Age/Sex: 65 / M ADM Date: 04/12/25 Loc: US Attending Dr: YADIRA MIRELES Ordering Physician: YADIRA MIRELES Date of Service: 04/12/25 Procedure(s): US aorta Accession Number(s): [id number] cc: WALDO MONTGOMERY ; YADIRA MIRELES [address] [address] Patient Name: DARLEEN GODOMAN MRN: [facility]:[id number] date: 1960 Sex: M Assigned Patient Location: US Current Patient Location: US Accession/Order Number: [id number] Exam Date: 04/12/2025 10:37 Report Date: 04/12/2025 [...] aneurysm. Impression dictated by: Alonzo Mosquera Jr., Jonel 04/12/2025 1:54 PM Dictation Location: [place] [address] Electronically authenticated by: [id number] Y Date: 04/12/2025 13:54 Dictated By: Alonzo Mosquera M.D. Signed By: 04/12/25 1356 DD/ 1354 TD/TT: Beer Runner: [facility] Radiology Study observation (narrative) [facility] US AORTAOrdered By: Radiolog ist Radiology on 04-12-2025 [facility] [employer] Work Phone: CBC (INCLUDES DIFF/PLT)on Basophils (Bld) [#/Vol] 0.018 10*3/uL Normal 0-200 [facility] Comment on above: Performed By: #### 1 986, 0657 #### [facility] [address] [place] [phone] Deburrer Strip: Cait Rivas #### 7600 #### [facility] [address], [address] [place] [phone] Deburrer Strip: Henry Franklin MD #### [id number] #### [facility] [address] [facility] [address] Deburrer Strip: Roland Mas M.D.,PhD Basophils/100 WBC (Bld) 0.2 % Normal [facility] Comment on above: Performed By: #### 1 109, 3099 #### [facility] [place] [address] Deburrer Strip: Cait Rivas #### 7600 #### [facility] [address], [address] [place] [address] Deburrer Strip: Henry Franklin MD #### [id number] #### [facility]/[address] [place], [place] Deburrer Strip: Roland Mas M.D.,PhD Eosinophils (Bld) [#/Vol] 0.063 10*3/uL Normal 15-500 [facility] Comment on above: Performed By: #### 1 023, 6399 #### [facility]-[place] [address] Deburrer Strip: Cait Rivas #### 7600 #### [facility] [address], [address] [place] [address] Deburrer Strip: Henry Franklin MD #### 57124 #### [facility] [address] [place] [address] [place] Deburrer Strip: Roland Mas M.D.,PhD Eosinophils/100 WBC (Bld) 0.7 % Normal [facility] Comment on above: Performed By: #### 1 023, 6399 #### [place] [address] Deburrer Strip: Cait Rivas #### 7600 #### [facility] [address], [address] [place] [address] Deburrer Strip: Henry Franklin MD #### 485[address] #### [facility]/[place] [id number] [facility] [place], [place] Deburrer Strip: Roland Mas M.D.,PhD Erythrocyte distribution width (RBC) [Ratio] 15.0 % Normal 11.0-15.0 [facility] Comment on above: Performed By: #### 1 023, 6399 #### [facility] [address] [place], [place] [address] Deburrer Strip: Cait Rivas #### 7600 #### [facility] [address], [address] [place], [place] [address] Deburrer Strip: Henry Franklin MD #### 760[address] #### [facility]/[place] [id number] [facility] [address] [place] Deburrer Strip: Roland Mas M.D.,PhD Hematocrit (Bld) [Volume fraction] 45.2 % Normal 38.5-50.0 [facility] Comment on above: Performed By: #### 1 0231, 6399 #### [facility] [address] [place] [address] Deburrer Strip: Cait Rivas #### 7600 #### [facility] [address], [address] [place], [place] [address] Deburrer Strip: Henry Franklin MD #### [id number] #### [facility]/[address] [place] De[place]rer Strip: Roland Mas M.D.,PhD Hemoglobin (Bld) [Mass/Vol] 14.7 g/dL Normal 13.2-17.1 [facility] Comment on above: Performed By: #### 1 023, 6399 #### [facility] [address] [place] [address] Deburrer Strip: Cait Rivas #### 7600 #### [facility] [address], [address] [place], [place] [address] Deburrer Strip: Henry Franklin MD #### 929[address] #### [facility] [address] [place] Deburrer Strip: Roland Mas M.D.,PhD Lymphocytes (Bld) [#/Vol] 2.376 10*3/uL Normal 850-3900 [facility] Comment on above: Performed By: #### 1 230, 6399 #### [facility] [address] [place] [address] Deburrer Strip: Cait Rivas #### 7600 #### [facility] [address], [address] [place], [place] [address] Deburrer Strip: Henry Franklin MD #### 500[address] #### [facility]/[place] [address] [facility] [place] Deburrer Strip: Roland Mas M.D.,PhD Lymphocytes/100 WBC (Bld) 26.4 % Normal [facility] Comment on above: Performed By: #### 1 230, 6399 #### [facility] [address] [place] [address] Deburrer Strip: Cait Rivas #### 7600 #### [facility] [address], [address] [place], [place] [address] Deburrer Strip: Henry Franklin MD #### 89989 #### [facility]/[place] [address] [facility] [place] Deburrer Strip: Roland Mas M.D.,PhD MCH (RBC) [Entitic mass] 29.8 pg Normal 27.0-33.0 [facility] Comment on above: Performed By: #### 1 230, 6399 #### [facility] [address] [place] [address] Deburrer Strip: Cait Rivas #### 7600 #### [facility] [address] , [address] [place], [place] [address] Deburrer Strip: Henry Franklin MD #### [id number] #### [facility] [place] Deburrer Strip: Roland Mas M.D.,PhD MCHC (RBC) [Mass/Vol] 32.5 [...] patient's clinical condition. Performed By: #### 1 023, 6399 #### [facility]-[place] [address] Deburrer Strip: Cait Rivas #### 7600 #### [facility] [address], [address] [place] [address] Deburrer Strip: Henry Franklin MD #### 83743 #### [facility]/[address] [place] Deburrer Strip: Roland Mas M.D.,PhD MCV (RBC) [Entitic vol] 91.5 fL Normal 80.0-100.0 [facility] Comment on above: Performed By: #### 1 230, 6399 #### [facility] [address] [place] [address] Deburrer Strip: Cait Rivas #### 7600 #### [facility] [address], [address] [place], [place] [address] Deburrer Strip: Henry Franklin MD #### 22974 #### [facility]/[address] [place] De[place]rer Strip: Roland Mas M.D.,PhD Monocytes (Bld) [#/Vol] 0.558 10*3/uL Normal 200-950 [facility] Comment on above: Performed By: #### 1 230, 6399 #### [facility] [address] [place] [address] Deburrer Strip: Cait Rivas #### 7600 #### [facility] [address], [address] [place] [address] Deburrer Strip: Henry Franklin MD #### 27809 #### [facility]/[place] [id number] [facility] [place] De[place]rer Strip: Roland Mas M.D.,PhD Monocytes/100 WBC (Bld) 6.2 % Normal [facility] Comment on above: Performed By: #### 1 0231, 6399 #### [facility] [address] [place] [address] Deburrer Strip: Cait Rivas #### 7600 #### [facility] [address], [address] [place] [address] Deburrer Strip: Henry Frnaklin MD #### [id number] #### [facility] [place] De[place]rer Strip: Roland Mas M.D.,PhD Neutrophils (Bld) [#/Vol] 5.985 10*3/uL Normal 0229-6552 [facility] Comment on above: Performed By: #### 1 023, 6399 #### [facility] [address] [place] [address] Deburrer Strip: Cait Rivas #### 7600 #### [facility] [address], [address] [place] [address] Deburrer Strip: Henry Franklin MD #### 64266 #### [facility]/[address] [place] Strip: Roland Mas M.D.,PhD Neutrophils/100 WBC (Bld) 66.5 % Normal [facility] Comment on above: Performed By: #### 1 0231, 6399 #### [facility] [address] [place] [address] Deburrer Strip: Cait Rivas #### 7600 #### [facility] [address], [address] [place] [address] Deburrer Strip: Henry Franklin MD #### 62890 #### [facility]/[address] [place] De[place]rer Strip: Roland Mas M.D.,PhD Platelet mean volume (Bld) [Entitic vol] 9.6 fL Normal 7.5-12.5 [facility] Comment on above: Performed By: #### 1 230, 3499 #### [facility] [address] [place] [address] Deburrer Strip: Cait Rivas #### 7600 #### [facility] [address], [address] [place], [place] [phone] Deburrer Strip: Henry Franklin MD #### 05057 #### [facility] [place] Deburrer Strip: Roland Mas M.D.,PhD Platelets (Bld) [#/Vol] 226 10*3/uL Normal 140-400 [facility] Comment on above: Performed By: #### 1 230, 63 #### [facility] [address] [place] [address] Deburrer Strip: Cait Rivas #### 7600 #### [facility] [address], [address] [place], [place] [address] Deburrer Strip: Henry Franklin MD #### [id number] #### [facility] [address] [place] [address] [place] Deburrer Strip: Roland Mas M.D.,PhD RBC (Bld) [#/Vol] 4.94 10*6/uL Normal 4.20-5.80 [facility] Comment on above: Performed By: #### 1 023, 6399 #### [facility] [address] [place] [address] Deburrer Strip: Cait Rivas #### 7600 #### [facility] [address], [address] [place] [address] Deburrer Strip: Henry Franklin MD #### 98235 #### [facility]/[place] [address] [facility] [place] Deburrer Strip: Roland Mas M.D.,PhD WBC (Bld) [#/Vol] 9.0 10*3/uL Normal 3.8-10.8 [facility] Comment on above: Performed By: #### 1 0231, 6399 #### [facility] [address] [place] [address] Deburrer Strip: Cait Rivas #### 7600 #### [facility] [address], [address] [place] [address] Deburrer Strip: Henry Franklin MD #### 36810 #### [facility]/[place] [address] [facility] [place] Deburrer Strip: Roland Mas M.D.,PhD [facility] ED 04-06-2025 Albumin [Mass/Vol] 4.5 g/dL Normal 3.6-5.1 [facility] Comment on above: Performed By: #### 1 023, 6399 #### [facility] [address] [place] [address] Deburrer Strip: Cait Rivas #### 7600 #### [facility] [address], [address] [place] [address] Deburrer Strip: Henry Franklin MD #### [id number] #### [facility] [place] De[place]rer Strip: Roland Mas M.D.,PhD Albumin/Globulin [Mass ratio] 1.8 {ratio} Normal 1.0-2.5 [facility] Comment on above: Performed By: #### 1 0231, 6399 #### [facility] [address] [place], [place] [address] Deburrer Strip: Cait Rivas #### 7600 #### [facility] [address], [address] [place] [address] Deburrer Strip: Henry Franklin MD #### 19612 #### [facility]/[address] [place] Strip: Roland Mas M.D.,PhD ALP [Catalytic activity/Vol] 85 U/L Normal 35-144 [facility] Comment on above: Performed By: #### 1 0231, 6399 #### [facility] [address] [place] [address] Deburrer Strip: Cait Rivas #### 7600 #### [facility] [address], [address] [place] [address] Deburrer Strip: Henry Franklin MD #### [id number] #### [facility]/[address] [place] De[place]rer Strip: Roland Mas M.D.,PhD ALT [Catalytic activity/Vol] 24 U/L Normal 9-46 [facility] Comment on above: Performed By: #### 1 0231, 6399 #### [facility] [address] [place] [address] Deburrer Strip: Cait Rivas #### 7600 #### [facility] [address], [address] [place] [address] Deburrer Strip: Henry Franklin MD #### 33531 #### [facility]/[place] [address] [facility] [place] De[place]rer Strip: Roland Mas M.D.,PhD AST [Catalytic activity/Vol] 19 U/L Normal 10-35 [facility] Comment on above: Performed By: #### 1 0231, 6399 #### [facility] [address] [place] [address] Deburrer Strip: Cait Rivas #### 7600 #### [facility] [address], [address] [place] [address] Deburrer Strip: Henry Franklin MD #### 93845 #### [facility]/[address] [place] Strip: Roland Mas M.D.,PhD Bilirubin [Mass/Vol] 0.5 mg/dL Normal 0.2-1.2 [facility] Comment on above: Performed By: #### 1 023, 6399 #### [facility] [address] [place] [address] Deburrer Strip: Cait Rivas #### 7600 #### [facility] [address], [address] [place] [address] Deburrer Strip: Henry Franklin MD #### [id number] #### [facility]/[address] [place] Strip: Roland Mas M.D.,PhD BUN/CREATININE RATIO SEE NOTE: Normal 6-22 [facility] Comment on above: Result Comment: Not Reported: BUN and Creatinine are within reference range. Performed By: #### 1 023, 6399 #### [facility] [address] [place] [address] Deburrer Strip: Cait Rivas #### 7600 #### [facility] [address], [address] [place], [place] [address] Deburrer Strip: Henry Franklin MD #### 57969 #### [facility] [place] De[place]rer Strip: Roland Mas M.D.,PhD Calcium [Mass/Vol] 9.3 mg/dL Normal 8.6-10.3 [facility] Comment on above: Performed By: #### 1 0231, 6399 #### [facility] [address] [place], [place] [address] Deburrer Strip: Cait Rivas #### 7600 #### [facility] [address], [address] [place] [address] Deburrer Strip: Henry Franklin MD #### 14649 #### [facility]/[place] [address] [facility] [place] De[place]rer Strip: Roland Mas M.D.,PhD Chloride [Moles/Vol] 106 mmol/L Normal 98-110 [facility] Comment on above: Performed By: #### 1 1, 6399 #### [facility] [address] [place] [address] Deburrer Strip: Cait Rivas #### 7600 #### [facility] [address], [address] [place] [address] Deburrer Strip: Henry Franklin MD #### [id number] #### [facility]/[place] [address] [facility] [place] De[place]rer Strip: Roland Mas M.D.,PhD CO2 [Moles/Vol] 27 mmol/L Normal 20-32 [facility] Comment on above: Performed By: #### 1 023, 6399 #### [facility] [address] [place] [address] Deburrer Strip: Cait Rivas #### 7600 #### [facility] [address], [address] [place], [place] [address] Deburrer Strip: Henry Franklin MD #### 66068 #### [facility]/[place] [address] [facility] [place] [employer] Strip: Roland Mas M.D.,PhD Creatinine [Mass/Vol] 1.15 mg/dL Normal 0.70-1.35 [facility] Comment on above: Performed By: #### 1 0231, 6399 #### [facility] [address] [place] [address] Deburrer Strip: Cait Rivas #### 7600 #### [facility] [address], [address] [place] [address] Deburrer Strip: Henry Franklin MD #### [id number] #### [facility] [id number] [facility] [place], [place] Deburrer Strip: Roland Mas M.D.,PhD GFR/1.73 sq M.predicted among non-blacks MDRD (S/P/Bld) [Vol rate/Area] 70 mL/min/{1.73_m2} Normal > OR = 60 [facility] Comment on above: Performed By: #### 1 230, 6399 #### [place] [address] Deburrer Strip: Cait Rivas #### 7600 #### [facility] [address], [address] [place], [place] [address] Deburrer Strip: Henry Franklin MD #### [id number] #### [facility] [place], [place] Deburrer Strip: Roland Mas M.D.,PhD Globulin (S) [Mass/Vol] 2.5 g/dL Normal 1.9-3.7 [facility] Comment on above: Performed By: #### 1 230, 6399 #### [facility] [address] [place] [address] Deburrer Strip: Cait Rivas #### 7600 #### [facility] [address], [address] [place], [place] [address] Deburrer Strip: Henry Franklin MD #### 88722 #### [facility] [place] Deburrer Strip: Roland Mas M.D.,PhD Glucose [Mass/Vol] 90 mg/dL Normal 65-99 [facility] Comment on above: Result Comment: Fasting reference interval Performed By: #### 1 0231, 6399 #### [facility] [address] [place] [address] Deburrer Strip: Cait Rivas #### 7600 #### [facility] [address], [address] [place] [address] Deburrer Strip: Henry Franklin MD #### 77058 #### [facility]/[address] [place], [place] Deburrer Strip: Roland Mas M.D.,PhD Potassium [Moles/Vol] 4.9 mmol/L Normal 3.5-5.3 [facility] Comment on above: Performed By: #### 1 230, 6399 #### [facility] [address] [place] [address] Deburrer Strip: Cait Rivas #### 7600 #### [facility] [address], [address] [place] [address] Deburrer Strip: Henry Franklin MD #### 27878 #### [facility] [place], [place] Deburrer Strip: Roland Mas M.D.,PhD Protein [Mass/Vol] 7.0 g/dL Normal 6.1-8.1 [facility] Comment on above: Performed By: #### 1 0231, 6399 #### [facility] [address] [place] [address] Deburrer Strip: Cait Rivas #### 7600 #### [facility] [place] [address] [place] , [address] [place] [address] Deburrer Strip: Henry Franklin MD #### 26310 #### [facility] [id number] [facility] [address] [place] Deburrer Strip: Roland Mas M.D.,PhD Sodium [Moles/Vol] 139 mmol/L Normal 135-146 [facility] Comment on above: Performed By: #### 1 0231, 6399 #### [facility] [address] [place] [address] Deburrer Strip: Cait Rivas #### 7600 #### [facility] [address], [address] [place] [address] Deburrer Strip: Henry Franklin MD #### [id number] #### [facility] [address] [facility] [place] Deburrer Strip: Roland Mas M.D.,PhD Urea nitrogen [Mass/Vol] 17 mg/dL Normal 7-25 [facility] Comment on above: Performed By: #### 1 230, 6399 #### [facility] [address] [place] [address] Deburrer Strip: Cait Rivas #### 7600 #### [facility] [address], [address] [place] [address] Deburrer Strip: Henry Franklin MD #### 78229 #### [facility] [address] [facility] [place] Deburrer Strip: Roland Mas M.D.,PhD HEPATITIS C AB W/RFL HCV RNA , PCR W/RFL GENOTYPEon 04-06-2025 HEPATITIS C ANTIBODY Non-Reactive Normal [facility] Comment on above: Result Comment: HCV antibody was non-reactive. There is no laboratory evidence of HCV infection. In most cases, no further action is required. However, if recent HCV exposure is suspected, a test for HCV RNA (test code 46603) is suggested. REFERENCE RANGE: NONREACTIVE For additional information, please refer to http://education.Cabeo/faq/ZFQ509 (This link is being provided for informational/ educational purposes only.) Performed By: #### 1 0231, 6399 #### [facility] [place] [address] Deburrer Strip: Cait Rivas #### 7600 #### [facility] [address], [address] [place], [place] [address] Deburrer Strip: Henry Franklin MD #### 51429 #### [facility] [facility] [address] [place] Deburrer Strip: Roland Mas M.D.,PhD LIPID PANEL, [facility] 03-19 Cholesterol [Mass/Vol] 106 mg/dL Normal <200 [facility] Comment on above: Order Comment: FASTI NG:YES FASTING: YES Performed By: #### 1 0231, 6399 #### [facility] [address] [place] [address] Deburrer Strip: Cait Rivas #### 7600 #### [facility] [address], [address] [place] [address] Deburrer Strip: Henry Franklin MD #### [id number] #### [facility] [facility] [place] Deburrer Strip: Roland Mas M.D.,PhD Cholesterol in HDL [Mass/Vol] 37 mg/dL Low > OR = 40 [facility] Comment on above: Order Comment: FASTI NG:YES FASTING: YES Performed By: #### 1 0231, 6399 #### [facility] [address] [place] [address] Deburrer Strip: Cait Rivas #### 7600 #### [facility] [address], [address] [place] [address] Deburrer Strip: Henry Franklin MD #### 15653 #### [facility] [facility] [address] [place] Deburrer Strip: Roland Mas M.D.,PhD Cholesterol in LDL [Mass/Vol] [...] LDL-C. Jarred SS et al. PAO. 2013;310(19): 4476-9209 (http://education.Cabeo/faq/UNZ080) Performed By: #### 1 0231, 6399 #### [facility] [place] [address] Deburrer Strip: Cait Rivas #### 7600 #### [facility] [address], [address] [place], [place] [address] Deburrer Strip: Henry Franklin MD #### 22175 #### [facility] [place] Deburrer Strip: Roland Mas M.D.,PhD Cholesterol.total/C holesterol in HDL [Mass ratio] 2.9 {ratio} Normal <5.0 [facility] Comment on above: Order Comment: FASTI NG:YES FASTING: YES Performed By: #### 1 0231, 6399 #### [facility] [place] [address] Deburrer Strip: Cait Rivas #### 7600 #### [facility] [address], [address] [place], [place] [address] Deburrer Strip: Henry Franklin MD #### 82062 #### [facility] [id number] [facility] [place] Deburrer Strip: Roland Mas M.D.,PhD NON HDL CHOLESTEROL 69 mg/dL (calc) Normal <130 [facility] Comment on above: Order Comment: FASTI NG:YES FASTING: YES Result Comment: For patients with diabetes plus 1 major ASCVD risk factor, treating to a non-HDL-C goal of <100 mg/dL (LDL-C of <70 mg/dL) is considered a therapeutic option. Performed By: #### 1 0231, 6399 #### [facility] [address] [place] [address] Deburrer Strip: Cait Rivas #### 7600 #### [facility] [address], [address] [place] [address] Deburrer Strip: Henry Franklin MD #### 63792 #### [facility] [address] [facility] [place] Deburrer Strip: Roland Mas M.D.,PhD Triglyceride [Mass/Vol] 200 mg/dL High <150 [facility] Comment on above: Order Comment: FASTI NG:YES FASTING: YES Result Comment: If a non-fasting specimen was collected, consider repeat triglyceride testing on a fasting specimen if clinically indicated. Сергей et al. J. of Clin. Lipidol. 2015;9:129-169. Performed By: #### 1 0231, 6399 #### [facility] [address] [place] [address] Deburrer Strip: Cait Rivas #### 7600 #### [facility] [address], [address] [place], [place] [address] Deburrer Strip: Henry Franklin MD #### 15335 #### [facility] 12[address] [facility] [place] Deburrer Strip: Roland Mas M.D.,PhD PSA, TOTALon 04-06-2025 PSA, TOTAL 0.71 ng/mL Normal < OR = 4.00 [facility] Comment on above: Result Comment: The total PSA value from this assay system is standardized against the WHO standard. The test result will be approximately 20% lower when compared to the equimolar-standardized total PSA (Marlene Thomas). Comparison of serial PSA results should be interpreted with this fact in mind. This test was performed using the Siemens chemiluminescent method. Values obtained from different assay methods cannot be used interchangeably. PSA levels, regardless of value, should not be interpreted as absolute evidence of the presence or absence of disease. Performed By: #### 1 0231, 6399 #### [facility] [address] [place] [address] Deburrer Strip: Cait Rivas #### 7600 #### [facility] [address] [facility], [address] [place] [address] Deburrer Strip: Henry Franklin MD #### 71948 #### [facility] [facility] [address] [facility] [place] Deburrer Strip: Roland Mas M.D.,PhD ALL CBC WITH AUTO DIFFon BASOPHILS ABSOLUTE AUTO 0 [facility] Basophils/100 WBC (Bld) 0.4 % 0.2 - 2.0 % [facility] Eosinophils/100 WBC (Bld) 1.9 % 0.9 - 7.0 % [facility] Erythrocyte distribution width (RBC) [Ratio] 13.5 % 11.0 - 15.0 % [facility] Hematocrit (Bld) [Volume fraction] 43.3 % 42.0 - 54.0 % [facility] Hemoglobin (Bld) [Mass/Vol] 15 g/dL 14.0 - 18.0 g/dL [facility] IMMATURE GRANULOCYTES ABS AUTO 0.02 [facility] Immature granulocytes/100 WBC (Bld) 0.2 % 0.0 - 0.5 % [facility] LYMPHOCYTES ABSOLUTE AUTO 2.3 [facility] Lymphocytes/100 WBC (Bld) 28.6 % 20.5 - 60.0 % [facility] MCH (RBC) [Entitic mass] 30 pg 25.9 - 34.0 pg [facility] MCHC (RBC) [Mass/Vol] 34.6 g/dL 29.9 - 35.2 g/dL [facility] MCV (RBC) [Entitic vol] 86.6 fL 80.0 - 94.0 fL [facility] MONOCYTES ABSOLUTE AUTO 0.6 [facility] Monocytes/100 WBC (Bld) 6.8 % 1.7 - 12.0 % [facility] NEUTROPHILS ABSOLUTE AUTO 5 [facility] Neutrophils/100 WBC (Bld) 62.1 % 43.0 - 75.0 % [facility] Platelet mean volume (Bld) [Entitic vol] 9.6 fL 9.5 - 13.5 fL [facility] EO # 0.2 [facility] PLT 221 [facility] RBC 5 [facility] WBC 8.1 [facility] Drug Screen,Urineon 06-27-20 24 Amphetamine Screen,Urine Negative Normal Negative [facility] Comment on above: Performed By: #### U RDS #### [address] Barbiturate Screen,Urine Negative Normal Negative [facility] Comment on above: Performed By: #### U RDS #### [address] Benzodiazepines Screen,Urine Negative Normal Negative [facility] Comment on above: Performed By: #### U RDS #### [place] [address] [place] Cannabinoid Screen,Urine Positive High Negative [facility] Comment on above: Result Comment: Thes e are unconfirmed results and should not be used for legal purposes. Drug Cut-Off Concentration: AMPH 1000 ng/mL JOSÉ 200 ng/mL CHRISTIANO 200 ng/mL COCM 300 ng/mL OP 300 ng/mL PCP 25 ng/mL THC 20 ng/mL PERFORMED BY: [place] [address] PATHOLOGIST ACCOUNTS RECEIVABLE SPECIALIST DEMARIO ESCOBEDO M.D. Performed By: #### U RDS #### [place] [address] [place] Cocaine Screen,Urine Negative Normal Negative [facility] Comment on above: Performed By: #### U RDS #### [place] [address] [place] Opiate Screen,Urine Negative Normal Negative [facility] Comment on above: Performed By: #### U RDS #### [place] [address] [place] Phencyclidine Screen,Urine Negative Normal Negative [facility] Comment on above: Performed By: #### U RDS #### [facility] [address] ALL CBC WITH AUTO DIFFon BASOPHILS ABSOLUTE AUTO 0.0 [facility] Basophils/100 WBC (Bld) 0.4 % 0.2 - 2.0 % [facility] Eosinophils/100 WBC (Bld) 0.8 % Low 0.9 - 7.0 % [facility] Erythrocyte distribution width (RBC) [Ratio] 13.2 % 11.0 - 15.0 % [facility] Hematocrit (Bld) [Volume fraction] 41.5 % Low 42.0 - 54.0 % [facility] Hemoglobin (Bld) [Mass/Vol] 14.0 g/dL 14.0 - 18.0 g/dL [facility] IMMATURE GRANULOCYTES ABS AUTO 0.04 High [facility] Immature granulocytes/100 WBC (Bld) 0.5 % 0.0 - 0.5 % [facility] Interpretation and review of laboratory results Abnormal [facility] re LYMPHOCYTES ABSOLUTE AUTO 1.8 [facility] Lymphocytes/100 WBC (Bld) 24.5 % 20.5 - 60.0 % [facility] MCH (RBC) [Entitic mass] 30.1 pg 25.9 - 34.0 pg [facility] MCHC (RBC) [Mass/Vol] 33.7 g/dL 29.9 - 35.2 g/dL [facility] MCV (RBC) [Entitic vol] 89.2 fL 80.0 - 94.0 fL [facility] Healthcare MONOCYTES ABSOLUTE AUTO 0.6 [facility] Monocytes/100 WBC (Bld) 8.4 % 1.7 - 12.0 % [facility] NEUTROPHILS ABSOLUTE AUTO 4.8 [facility] Neutrophils/100 WBC (Bld) 65.4 % 43.0 - 75.0 % [facility] Platelet mean volume (Bld) [Entitic vol] 9.6 fL 9.5 - 13.5 fL [facility] TBH EO # 0.1 [facility] PLT 242 [facility] RBC 4.65 Low [facility] WBC 7[facility]3 [facility] APTTon 11-24-2023 aPTT Coag (PPP) [Time] 34 s [facility] Comment on above: NEW REFERENCE RANGE BASIC METABOLIC PANLon 11-23 Anion gap [Moles/Vol] 8 mmol/L Normal 5-15 [facility] Comment on above: Performed By: #### P INR, 91816-5 #### [facility] ([id number]) [address] [place] [address] #### 718-7, BMP #### [facility] ([id number]) [address] [place] [address] Calcium [Mass/Vol] 9.4 mg/dL Normal 8.5-10.5 [facility] Comment on above: Performed By: #### P INR, 09162-3 #### [facility] ([id number]) [address] [place] [address] #### 718-7, BMP #### [facility] ([id number]) [address] [place] [address] Chloride [Moles/Vol] 102 mmol/L Normal 98-109 [facility] Comment on above: Performed By: #### P INR, 72696-6 #### [facility] ([id number]) [address] [place] [address] #### 718-7, BMP #### [facility] ([id number]) [address] [place] [address] CO2 [Moles/Vol] 29 mmol/L Normal 22-32 [facility] Comment on above: Performed By: #### P INR, 38045-1 #### [facility] ([id number]) [address] [place] [address] #### 718-7, BMP #### [facility] ([id number]) [address] [place] [address] Creatinine [Mass/Vol] 1.17 mg/dL Normal 0.60-1.30 [facility] Comment on above: Result Comment: METH OD TRACEABLE TO IDMS STANDARD Performed By: #### P INR, 10795-2 #### [facility] ([id number]) [address] [place] [address] #### 718-7, BMP #### [facility] ([id number]) [address] [facility] [place] [address] GFR/1.73 sq M.predicted among non-blacks MDRD (S/P/Bld) [Vol rate/Area] 69 mL/min/{1.73_m2} Normal >59 [facility] Comment on above: Result Comment: Reported eGFR is based on the CKD-EPI 2020 equation that does not use a race coefficient. Performed By: #### P INR, 18472-8 #### [facility] ([id number]) [address] [place] [address] #### 718-7, BMP #### [facility] ([id number]) [address], [address] [address] Glucose [Mass/Vol] 92 mg/dL Normal 65-99 [facility] Comment on above: Performed By: #### P INR, 08936-9 #### [facility] ([id number]) [address] [place] [address] #### 718-7, BMP #### [facility] ([id number]) [address] [facility] [address] [place] [address] Potassium [Moles/Vol] 4.1 mmol/L Normal 3.5-5.0 [facility] Comment on above: Performed By: #### P INR, 04968-2 #### [facility] ([id number]) [address] [place] [address] #### 718-7, BMP #### [facility] ([id number]) [address] [facility], [address] [place] [address] Sodium [Moles/Vol] 139 mmol/L Normal 134-146 [facility] Comment on above: Performed By: #### P INR, 01109-1 #### [facility] ([id number]) [address] [place] [address] #### 718-7, BMP #### [facility] ([id number]) [address] [facility], [address] [place] [address] Urea nitrogen [Mass/Vol] 24 mg/dL Normal 5-27 [facility] Comment on above: Performed By: #### P INR, 08303-4 #### [facility] ([id number]) [address] [place] [address] #### 718-7, BMP #### [facility] ([id number]) [address] [facility], [address] [place] [address] Basic Metabolic Panelon 05-0 Anion gap [Moles/Vol] 8 mmol/L 5 - 15 mmol/L [facility] Calcium [Mass/Vol] 9.4 mg/dL 8.5 - 10. 5 mg/dL [facility] Chloride [Moles/Vol] 102 mmol/L 98 - 109 mmol/L [facility] CO2 [Moles/Vol] 29 mmol/L 22 - 32 mmol/L [facility] Creatinine [Mass/Vol] 1.17 mg/dL 0.60 - 1.30 mg/dL [facility] Comment on above: METHOD TRACEABLE TO IDMS STANDARD eGFR (CKD-EPI)non-race dependent 69 - PINF [facility] Comment on above: Reported eGFR is based on the CKD-EPI 2020 equation that does not use a race coefficient. Glucose [Mass/Vol] 92 mg/dL 65 - 99 mg/dL [facility] Potassium [Moles/Vol] 4.1 mmol/L 3.5 - 5.0 mmol/L [facility] Sodium [Moles/Vol] 139 mmol/L 134 - 146 mmol/L [facility] Urea nitrogen [Mass/Vol] 24 mg/dL 5 - 27 mg/dL [facility] ECG 12 leadon 11-24-2023 TRACEMASTERVUE [facility] HEMOGLOBINon 11-24-2023 Hemoglobin (Bld) [Mass/Vol] 14.0 g/dL Normal 13.0-17.0 [facility] Comment on above: Performed By: #### P INR, 12844-3 #### [facility] ([id number]) [address] [place] [address] #### 718-7, BMP #### [facility] ([id number]) [address] [place] [address] Hemoglobinon 11-24-2023 Hemoglobin (Bld) [Mass/Vol] 14.0 g/dL 13.0 - 17.0 g/dL [facility] Hemoglobin (Bld) [Mass/Vol]o n 11-24-2023 [facility] No Panel Informationon 11-23 [facility] PROTIME AND INRon 11-24-2023 INR Coag (PPP) [Relative time] 1.0 {INR} Normal 0.8-1.1 [facility] Comment on above: Performed By: #### P INR, 44324-3 #### [facility] ([id number]) [address] [place] [address] #### 718-7, BMP #### [facility] ([id number]) [address] [place] [address] PT Coag (PPP) [Time] 11.5 s Normal 9.8-13.2 [facility] Comment on above: Result Comment: NEW REFERENCE RANGE Performed By: #### P INR, 83846-2 #### [facility] ([id number]) [address] [facility], [place] [address] #### 718-7, [facility] #### [facility] ([id number]) [address] [place] [address] Protime & INRon 11-24-2023 INR Coag (PPP) [Relative time] 1.0 {INR} [facility] PT Coag (PPP) [Time] 11.5 s [facility] Comment on above: NEW REFERENCE RANGE [...] Gaitan MD on 11/24/2023 5:33 PM Normal [facility] XR Chest PA and Lateralon History: [Hypertension. [...] Stuart Gaitan MD on 11/24/2023 5:33 PM [facility] Radiology Study observation (narrative) [facility] XR Chest PA and LateralOrder ed By: Dae Gaitan on 11-24-2023 [facility] Work Phone: aPTT Coag (PPP) [Time]on aPTT Coag (Bld) [Time] 34 s Normal 26-37 [facility] Comment on above: Result Comment: NEW REFERENCE RANGE Performed By: #### P INR, 21679-2 #### [facility] ([id number]) [address] [place] [address], [place] [address] #### 718-7, [facility] #### [facility] ([id number]) [address] [place] [address], [address] [place] [address] Coding Summaryon 01-13-2023 Coding Summary HTMLBase 64 XlvcdsxpMBi9kLn+PGh lYWQ+DJ8KFKVfO35xiQ HnrD6xI9UFVDoXAxnvR ENYHNaYYzHqbjZfZK1u aXNjZXJu IC8+PZ6hLISmFmldcLM uz5J9mSG8H49lno7bVA tagPI3HANzBdSdweghh 2hhjUz6VWitYffmElWa EJWuaC22FIR2zK71Nb5 1wINdjLSei2kjdVb6Cd ToWHYpTFA1tTkpOUnja 2MhSATtO72xuZSyd5S4 IGNvbGxhcHNlOyBlbXB 3oP9tFErholpka5qklz qiXfj1al82yBByt1L2f SX0X8DatqQ8LSGxbCJq SsfalBIFtM8hnpfwf9g phqvrYsMfZKJfJIu2CF t4YIVjoGqfOoTqHG57O XH8WUVctgYqD2DjKJCj wQmxWxB4y3D2Ff9JP3Q JIikkP0KYEBOJEZrfuW Q+IA23fp68G1GkOekmK xe5LUAmFZL4pND9dN7d NSIaQTqok6G7vZU6K3F ydrVdoc4rp0fdQOGgYA ltC65exVKuh9B1LOVuq XT0KTHfoQgeIeMwwF34 Oyc+FRAqiByzu3RzPrw ur9wvi0ccdZz5EhvtAE OtemOekNxtROU8b0ZdH y3uUKWuzUD7bST9dN4y XfQzWwW3TKomP054MqX erNGtYubvY30eQ9QgzB A+XFFhZmw9BWHraTvkR Y9dR3DpEBLbvnmkzHSu oJnqBX6eRRPbysxeJYX jkE3kAGMjL3t5GyYpXc N4RTkzA4VnZMLiblneN e24dS3vLqQsHdG3CBbb Z5XccxY3UQFfmKDsJWd vRHT6D30sc3I3TNMoAP ReWFN7jBJ0qE3gqGzen jogbGVmdDsgdmVydGlj QWyzFBiiK803OPSdeUh nPkNvZGluZyBEYXRlOi AgMDYvMjkvMjAyMzwvd GQ+VCToJWE5vYnzFOGh nXWyBSgdFr5bxJkymFz rUU5aRWEcdlhgOJIluC 5zMJEouDOndUtrXI1fZ YTgsxqpf959GwLpKLL1 DHGccIUeX4AtwJ0dJbB tAEHcUGNkZ3IspHKkCQ dzS029EOxtYsA1CDOtu xLvM6SnFGUjzPrmZyL7 a9E9Pi8Dr8AqkcikO4E boVZuZjSxCjxbZHo8F1 RkPjwvdHI+JC74BNYeN Y43MQo3KMH9cXfbOSwv ZEVdT5FxlC6yYdKzKCN kZGRkOyc+PHRhYmxlIH dpZHRoPScxMDAlJyBzd PatFH4tIz7jVWDsGZTf iDcebNMnXkDyq3pjQPH dTYisIQ9asNozA6WqeX O2GXFlh7j7Ns18R28zE 3JvdXA+RRBtxTW0oVB9 wF5pGcHeQsF5URzhX99 8OtVotBUcHaciu4ovw2 fbtEi7PkP4QJZdsmVkq JmkHSB9m2TlPs58N34r IHdpZHRoPSIxNSUiIHZ keDrnmx0cdM2lYv1+PG XvdZP5zBI9pC0gMsWbT cK0YUfwH612VsRoyVQo Yyxdm2csw2wixIg1CyD bHVQrmvZokQfmEQV1z7 ByBh84L4PhfLmlo4VwY pa1fg40mXJmp1F3gMN6 T9VrWGKujkiwqMLayOu tWH1uJWUemmvuXWLmtX 7rGVYuP8t2DcWvFtW9B NywW4HhltH5EXIerLDg NGGvzPJKuH9xdmsko4a auxqdEqTzXLGqVRc2YD i3LRZblRxcApOzKPV6G sO0YTY4gANixR7awLxe kfvefE2vEsy+JAM7bXR vnQPAZB4jDqzboNM+PH TgVFW8hAejADjjQKAjm Y3hHKFkT8m1UeQoDvU0 ZHrmC7JkovD7NXThmTV hXNYncEDHuZ9buecna1 kslfofIrPuJZLqMHj1X Rm4HPLhpRsfGqGfQUT8 UwS3AID2fFNoiR6wiVb kksgahE5aBdm+QmlydG eqCQU1PZi3L5SwQzt7E GUchRnnPI5ggSQyUYwx Za6kvTlmoFrrJN9uFEM grsqpb853XsLfr2lsVJ QbbBKtSMlgVXF5L50te 1S1GQOeWOChIKB8hDI1 iT0rgAtxyvljzYNktHz gdmVydGljYWwtYWxpZ2 93NEDpjOooEkYhSAq6D 0JuKdo8DNTtvIbbHU6w fNUpBRhsNv1tpRjahKh vBG3jUEVeuypac123Wg Ziq6xqPTBokZClWWsrR FN4C49ze5D3ZMZvEFMg RCI3qAO7zI2spQvuphl gbGVmdDsgdmVydGljYW bzPVbzT950VRMsnPyeO sVeqAm5O8NfVtt2ZMCe hXvpHI2jiNSyGPqyJv1 ohCugxEaeSS5gMNPuoy wwa358VkJgj1gnTBKwr UVuXAgmUTL8D37uq6M5 TIXlBAXjMKI2cPM9rD9 hbGlnbjogbGVmdDsgdm MbaEkdOTpuTJosA873Y HRvcDsnPlBhdGllbnQg GGepYZi2O4XnHshycTA +AV84ESNiNZ85wYQzhK Cyo8ussLv0LzBgEHHxI IT5mOyoSFsnx9VjLLIm T42nbFYod9J9NCGsnIa lsRWfBuJjwRS5oE5qXO cgzaxos9glvklpFdicw 4hjky51qL10Z98dRGrs ZHRoPSIzMCUiIHZhbGl vlj8vgW2wLy0+PGNvbC Y1jJH9wD8lXQKeCpX4E SnmK942HjJurSSqPhly s6zbc4yzcPh7QtH6TMP rqsQbgWemSHY2v8SfOa 76Y21xVMewGBZwRRXdW VXwKDLllWzofr4hsZ9e Ii8+APCxlTT1aCQ1vH4 jYeIfInO4SCypR290Ad OabXLlZdtpK26gJ5Cse XA+RNBhThp1JJVpbAyp AY7yiOUnWEpaHz4nKHI 4HbFsSoVtPDxaH8CuHB OzfdbgbqdyhQB4GOAsH LYwpY36Wv7ntHpjNIVn lBANoC8kfdqky7wclaz gMsFfYIZySAr0AOq6OQ KqrTxpLkMeDGE0RdW1B IY4iTUmhD7bzEpijqij dP5pK7LaMRCdrvhkRt2 3rY1dHoKyYqV5DApxHg c+GzPQGdhLW3NbYjOaW RFAAkYLFKMMJH37WB89 rPTrh9A2wHV7G2NoTMN jqosblhhupYQ6MEChVK JhaM62uEJmMXxdWl0kt 5H6e202KSMbRGNhyB52 Yx6wvYtlXMAcrWDBtG9 klnrgx9mrtdvxSkIiRP AfUQm2PWg9OCShtAqpS mHyEVN6GbI6HHU8kOCf pD7sbZkjhxxmhC3jDey +PMDsGGhsGHg7JWlvpP Q+XWBdXRO8fBmeEBctG VZjiY4qSUOvU8n9ZvPs XeB1JNukK9VuYJFeser iUv88cX6vDoDuPgF7LZ xxO3HerwU5BBYbtIPxX LhzCPH4E08qe1G1HYFt GTDwRAQ2xIF5hI5sdVk nbjogbGVmdDsgdmVydG kgXYfoYQpnV515KMGuc TuwAyY4TJcxYYZuHZ42 VZ70uEVkm4G6qKD1E1L rLUEygmeyusaiiGN1VN SmOHBlsY10iMMbHHpbM b2yu8G0s391XRSgUYNc jB03Mc5shVzgEVXufHW GaI2fglvgq7oezsomUd LmYZPsKSx7TJy9BDPne AmjUaDrRZI7RoH4XGU1 mMDpbP5ewTjxpxjpqF7 wOyc+TUFMRTwvdGQ+PH EkXSN9mKoyFInmESPhv J2oJEEwQ1t8ToJfWjU2 WXbfW3RpLKPyebrhMm8 1dJ8aCfUkDgN9SZqrA7 VhzzU2ENZqpGDpGPqmI XR4K11qn1Z7FYIzQLBx DYR7dHW5uN1foKfelpy gbGVmdDsgdmVydGljYW liCAfkI503GIOdtNlkM oWlKCUhFD9bfTatkJO+ HF36ga37Q3XwDopzCaq 4LBWqOJJ7qUV9vM3zMI WuQUdqf3V8mVP7A2Yth jDyoy6vl3jmZSDuPGle V84ypWXen1Z3SITssFE 9WOFyeHftFkAtxA88Tw c+CPBvhTdsm5SvClunn 6ygg8enyPj0HeSqWEVf baGxvQvhITK9q4XbNw4 1M39qXKlmIXEhHIReAL UhZUFzkYedrk6igT7xI i8+PXEfkPT0eUX9cS7z LyIbQuZ9XTxnO205LmK wvUBvWonqh6jif4cuyK g9WkNaWNJdriSvjQerH EN8v1IrTd52C8VaqMmv u8QnMss8ed55jIVaa9K 9kNN2P0NcKIPlvdgzgP VffVdsFV6aWNRvnhqrM UJifR1eNMNcK8x2QjFx HtA4YVwnQ0XzygQ9OXC tvQZoILDgbQRKyE5zku dsa9bsvwpwQvXbPLCrC Cv0DTh1RQAsoQyeZiUj NVW9VaO2PXL8pHWpiJ7 paWthldkqbK1vZmo+UG g0r9kfiEVoVI9xgII5P X18LI10nEJen0N7mAQ5 K4VwZMRrxcyhigsnlPP 4AGLdOWGeuK93Md0uzB nrLh4sMKTzCZC8WUOzu SQmM9ZozX1nKdMkPLBh KTZrT7XwgXQtOMvmI08 0EBjsHlO7OXNvagNgX6 BlDOLhjRmoOfK8d1Y2X f6FBO29ON13OG92vHBx m9J2wTL8F3JcOZBchvo yzjgleZX3RIJkRNUqcI 95Yq6nyIluLu2hVHYuK GC5NGMnyZFyA9VawS5n JjAdTLImFCYbJ2WhuYQ rYJowY027EFocBzU1DZ SeeqQqF0NrPMIduHstX kB8i5J8Pd5TOy13YT68 VB29yHZmt3N1nUS0E7N mGDQyhfuaytxxrAY3PB EqGKGdiT25Eq9eyMmhH l6nLXZcDCP5SOOtmHEn K5WzaW9lPmRaVXCqJYN dA6JnzLRnTUioE580LJ wtCcW1VWNdfhVhQ2CeN VAqkIczTmT6j5P7Fk4U SHbhxwc9Y3MmRazvhTE +IS86CJMuWX75eZAznB Bmx7rlcFf5SqWcAUSzH NI8bQfmPQpsd3RgWAUs Y29 (more content not included)... Normal [facility] C Urineon 01-10-2023 C Urine Urine Culture ordered as a result of parameters set on specific urine dip and urine microsopic results. <10,000 cfu/ml Normal [facility] Comment on above: Performed By: #### 1 [id number], [id number], [id number] #### [facility] (DEFAULT) [address] [place] [address] .Auto Diff 1on 01-08-2023 Auto [place] % 3 % Normal 1-12 [facility] Comment on above: Performed By: #### 1 8865096, 2254658877, 7311240560, 7464623, 9778961 ####[facility] (DEFAULT)[address] [place] [address] Baso Abs# 0.1 x10 Normal 0.0-0.2 [facility] Comment on above: Performed By: #### 1 7549047, 8341599137, 5589363894, 4177287, 9678635 ####[facility] (DEFAULT)[address] [place] [address] Basophils/100 WBC (Bld) 0.7 % Normal 0.2-2.0 [facility] Comment on above: Performed By: #### 1 9045774, 6184275095, 1173338092, 8185788, 2389175 ####[facility] (DEFAULT)[address] [place] [address] 05499 Eos Abs# 0.0 x10 Normal 0.0-0.4 [facility] Comment on above: Performed By: #### 1 4417537, 4595407984, 1370411946, 4095047, 1845246 ####[facility] (DEFAULT)[address] [place] [address] 46042 Eosinophils/100 WBC (Bld) 0.2 % Low 0.9-4.0 [facility] Comment on above: Performed By: #### 1 6329322, 6588093918, 5652236088, 1024670, 5718368 ####[facility] (DEFAULT)[address] [place] [address] 10623 Lymph Abs# 1.1 x10 Low 1.3-2.9 [facility] Comment on above: Performed By: #### 1 2066345, 6601145888, 7450989623, 7883654, 7643507 ####[facility] (DEFAULT)[address] [place] [address] 67962 Lymphocytes/100 WBC (Bld) 9 % Low 14-48 [facility] Comment on above: Performed By: #### 1 0172207, 6411164692, 5522991316, 0215934, 4318224 ####[facility] (DEFAULT)[address] [place] [address] 71080 [place] Abs# 0.4 x10 Normal 0.0-0.8 [facility] Comment on above: Performed By: #### 1 4743276, 3651251251, 2777004747, 8952437, 8227240 ####[facility] (DEFAULT)[address] [place] [address] 42980 Neut Abs# 11.1 x10 High 1.5-9.2 [facility] Comment on above: Performed By: #### 1 1492465, 1757993177, 4860618538, 3871153, 6568846 ####[facility] (DEFAULT)[address] [place] [address] 37586 Neutrophils/100 WBC (Bld) 87 % Normal 44-88 [facility] Comment on above: Performed By: #### 1 0893896, 5062525738, 8360225164, 1753131, 7629248 ####[facility] (DEFAULT)[address] [place] [address] CBC w/ Auto Diffon 3 Erythrocyte distribution width (RBC) [Ratio] 13.4 % Normal 11.5-15.0 [facility] Comment on above: Performed By: #### 1 5439029, 5435213401, 5137039497, 1293893, 9237103 ####[facility] (DEFAULT)[address] [place] [address] Hematocrit (Bld) [Volume fraction] 41.4 % Normal 34.8-51.9 [facility] Comment on above: Performed By: #### 1 8843892, 5601983126, 3792513564, 0402396, 7503898 ####[facility] (DEFAULT)[address] [place] [address] 90648 Hemoglobin (Bld) [Mass/Vol] 14.2 g/dL Normal 11.8-17.7 [facility] Comment on above: Performed By: #### 1 8971545, 5151029314, 5785720321, 4246203, 5064057 ####[facility] (DEFAULT)[address] [place] [address] 70861 Man Diff? Auto Invalid Interpretation Code [facility] Comment on above: Performed By: #### 1 3541587, 7987674551, 2892169828, 9143335, 7934768 ####[facility] (DEFAULT)[address] [place] [address] 02271 MCH (RBC) [Entitic mass] 30 pg Normal 24-34 [facility] Comment on above: Performed By: #### 1 0113224, 2273243418, 6539598446, 4401997, 3718453 ####[facility] (DEFAULT)[address] [place] [address] 15290 MCHC (RBC) [Mass/Vol] 34 g/dL Normal 26-37 [facility] Comment on above: Performed By: #### 1 3807969, 8905980534, 8764055658, 5973068, 8979090 ####[facility] (DEFAULT)[address] [place] [address] 68529 MCV (RBC) [Entitic vol] 88 fL Normal 81-100 [facility] Comment on above: Performed By: #### 1 6047577, 0476499655, 7306890832, 5375874, 5676599 ####[facility] (DEFAULT)[address] [place] [address] 11829 Platelet 182 x10 Normal 138-427 [facility] Comment on above: Performed By: #### 1 6133047, 7672711936, 4066723339, 5852930, 2016534 ####[facility] (DEFAULT)[address] [place] [address] 81379 Platelet mean volume (Bld) [Entitic vol] 8.5 fL Normal 6.3-10.2 [facility] Comment on above: Performed By: #### 1 1590658, 4601792852, 5873632702, 1934414, 0741520 ####[facility] (DEFAULT)[address] [place] [address] 73162 RBC 4.69 x10 Normal 3.70-5.30 [facility] Comment on above: Performed By: #### 1 2515991, 5738188374, 6946054645, 6659153, 5428637 ####[facility] (DEFAULT)[address] [place] [address] 95258 WBC 12.7 x10 High 3.5-10.5 [facility] Comment on above: Performed By: #### 1 8054974, 2013168327, 7039374909, 4580271, 3430768 ####[facility] (DEFAULT)[address] [place] [address] 87706 CMP Standardon 01-08-2023 eGFR Non AA 55 mL/min/1.73m2 Invalid Interpretation Code [facility] Comment on above: Performed By: #### 1 5835170, 6332718620, 4486034445, 2837900, 8631224 ####[facility] (DEFAULT)[address] [place] [address] 00433 eGFR AA >60 Invalid Interpretation Code [facility] Comment on above: Performed By: #### 1 2287369, 3572308471, 2922137809, 4071119, 0583204 ####[facility] (DEFAULT)[address] [place] [address] 54108 Albumin [Mass/Vol] 4.5 g/dL Normal 3.5-5.0 [facility] Comment on above: Performed By: #### 1 8245032, 1522153311, 8394345068, 1652667, 7702688 ####[facility] (DEFAULT)[address] [place] [address] 59593 Albumin/Globulin [Mass ratio] 1.5 {ratio} Normal 1.4-2.6 [facility] Comment on above: Performed By: #### 1 0546169, 4937206138, 9201789845, 9207635, 0893415 ####[facility] (DEFAULT)[address] [place] [address] 73200 Alk Phos 81 IU/L Normal 32-91 [facility] Comment on above: Performed By: #### 1 3191184, 6872704783, 8415634411, 6152699, 9308631 ####[facility] (DEFAULT)[address] [place] [address] 43087 ALT [Catalytic activity/Vol] 21.0 U/L Normal 17.0-63.0 [facility] Comment on above: Performed By: #### 1 6016801, 4839387570, 0377486430, 4954158, 1782426 ####[facility] (DEFAULT)[address] [place] [address] 89918 Anion gap [Moles/Vol] 16.6 mmol/L Normal 5.0-19.0 [facility] Comment on above: Performed By: #### 1 5451146, 4580869337, 3215458793, 1823255, 3180609 ####[facility] (DEFAULT)[address] [place] [address] 07469 AST [Catalytic activity/Vol] 23 U/L Normal 15-41 [facility] Comment on above: Performed By: #### 1 1849299, 6079757882, 8995090339, 3654083, 9647894 ####[facility] (DEFAULT)[address] [place] [address] 49114 Bili Total 0.9 mg/dL Normal 0.3-1.2 [facility] Comment on above: Performed By: #### 1 8290560, 8738196546, 2200076586, 8858807, 6776947 ####[facility] (DEFAULT)[address] [place] [address] 87427 Calcium [Mass/Vol] 9.6 mg/dL Normal 8.9-10.3 [facility] Comment on above: Performed By: #### 1 5127919, 7008038395, 0234370072, 0934070, 1875578 ####[facility] (DEFAULT)[address] [place] [address] 01233 Chloride [Moles/Vol] 103 mmol/L Normal 101-111 [facility] Comment on above: Performed By: #### 1 2078714, 0738326084, 0777031827, 1137868, 9950963 ####[facility] (DEFAULT)[address] [place] [address] 14275 CO2 [Moles/Vol] 26 mmol/L Normal 21-32 [facility] Comment on above: Performed By: #### 1 1018002, 1659734360, 1094604488, 4837243, 1744070 ####[facility] (DEFAULT)[address] [place] [address] 02918 Creatinine [Mass/Vol] 1.30 mg/dL Normal 0.90-1.30 [facility] Comment on above: Performed By: #### 1 6493261, 4667003659, 0282580636, 0969969, 3735449 ####[facility] (DEFAULT)[address] [place] [address] 30347 Globulin (S) [Mass/Vol] 2.9 g/dL Normal 1.5-4.3 [facility] Comment on above: Performed By: #### 1 8504425, 3646180191, 0464764876, 5157621, 1353122 ####[facility] (DEFAULT)[address] [place] [address] 06484 Glucose [Mass/Vol] 115.0 mg/dL Normal 74.0-118.0 [facility] Comment on above: Performed By: #### 1 4576324, 4854671774, 6127214472, 5914714, 0241884 ####[facility] (DEFAULT)[address] [place] [address] 20738 Osmolality 283 mOsm/L Invalid Interpretation Code [facility] Comment on above: Performed By: #### 1 3378298, 9526316533, 9304370058, 6441302, 6470378 ####[facility] (DEFAULT)[address] [place] [address] 83629 Potassium [Moles/Vol] 4.6 mmol/L Normal 3.6-5.1 [facility] Comment on above: Performed By: #### 1 5972683, 0300058643, 6790616899, 3347732, 0391408 ####[facility] (DEFAULT)[address] [place] [address] 11155 Protein [Mass/Vol] 7.4 g/dL Normal 6.5-8.1 [facility] Comment on above: Performed By: #### 1 3872577, 6788440636, 7643654910, 6335468, 9181549 ####[facility] (DEFAULT)[address] [place] [address] 01951 Sodium [Moles/Vol] 141.0 mmol/L Normal 136.0-144.0 [facility] Comment on above: Performed By: #### 1 6151404, 6726639072, 7239269633, 3292419, 3380666 ####[facility] (DEFAULT)[address] [place] [address] Urea nitrogen [Mass/Vol] 16 mg/dL Normal 8-26 [facility] Comment on above: Performed By: #### 1 5565792, 8586624444, 0609003406, 3772105, 2180596 ####[facility] (DEFAULT)[address] [place] [address] 97706 Urea nitrogen/Creatinine [Mass ratio] 12.3 mg/mg Normal 4.6-16.2 [facility] Comment on above: Performed By: #### 1 8596242, 8698535564, 9609683018, 9667206, 4504413 ####[facility] (DEFAULT)[address] [place] [address] Abdomen/Pelvis w/o Contra ston 01-08-2023 CT [...] MD 01/08/23 11:11 a Technologist: BAO Logan [facility] ED Clinical Summaryon 2022 ED Clinical Summary [facility] - Emergency Department [address] [place], [place] [id number] ED Clinical Summary PERSON INFORMATION Name: DARLEEN GOODMAN Age: 63 Years Sex: MALE : 1960 MRN: Acct#: Visit Reason: Urinary retention; Flank pain; Nausea and vomiting; VOMITING, ABD PAIN Arrival: 01/08/2023 09:11:18 Discharge: 01/08/2023 12:38:00 LOS: 000 03:27 Check In: 01/08/2023 09:11:18 Checkout:01/08/2023 12:38:00 Address: [address] [place] [address] PCP: WALDO MONTGOMERY MD PROVIDER INFORMATION Provider Role Assigned Unassigned Chino Moses ED Provider 01/08/2023 09:13:34 Ramon Ayon EXECUTIVE ADMIN Nurse 01/08/2023 09:14:56 VITALS INFORMATION Vital Sign [...] Home PATIENT EDUCATION INFORMATION Instructions: Kidney Stones, Kcxs-pe-Spll Follow-Up: With: Address: When: Roland Carrington [address] [place] [address] Business (1) Within 3 to 5 days With: Address: When: WALDO MONTGOMERY [address] [place] [address] [facility] (1) Within 3 to 5 days DIAGNOSIS: Ureteral calculus, right Patient Understands: Yes - 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 An IV was started saline bolus was [...] has access to a urologist in the [place] area and I recommended further follow-up with him. I will provide the patient Channing, and Flomax. I recommended that he strain his urine. Care instructions were discussed with the patient prior to discharge and he voiced understanding. Impression and Plan Diagnosis Ureteral calculus, right ([id number]-OA N20.1, Discharge, Medical) Plan Condition: Improved. Disposition: [...] given the following educational materials: Kidney Stones, Feqg-by-Qicc, Kidney Stones, Wyxd-ue-Azea. Follow up with: WALDO MONTGOMERY Within 3 to 5 days; Roland Carrington Within 3 to 5 days. Counseled: Patient, Regarding diagnosis, Regarding diagnostic results, Regarding treatment plan, Regarding prescription, Patient indicated understanding of instructions. [Electronically Signed on: 01/08/2023 15:13 EDT] __ Chino Moses MD [Verified on: 01/08/2023 15:13 EDT] __ Chino Moses MD Normal [facility] ED Patient Summaryon 023 ED Patient Summary [facility] - Emergency Department [address] [place] [address] PATIENT DISCHARGE INSTRUCTIONS Patient Information Name: DARLEEN GOODMAN Age: 63 Years Date of : 1960 Reason For Visit: Urinary retention; Flank pain; Nausea and vomiting; VOMITING, ABD PAIN Arrival Time: 01/08/2023 09:11:18 Primary Care Physician: WALDO MONTGOMERY MD Attending Physician: Handyside, Edward R Comment: Visit Diagnosis: Diagnoses This Visit Flank pain ([id number]) Nausea and vomiting ([id number]) Ureteral calculus, right (N20.1) Urinary retention ([id number]) The Pharmacy at [facility] is open Tuesday through Tuesday [...] alcohol and/or drug addiction problems; contact the [facility] 07/02 Crisis Hotline -Text 4HTYL to 241800. If you received any narcotics, sedation, or [...] legal documents With: Address: When: Roland Carrington [address] [place] [address] Business (1) Within 3 to 5 days With: Address: When: WALDO MONTGOMERY [address] [place], [place] [phone] Business (1) Within 3 to 5 days Medication Information: The exam and treatment you received today in the [facility] Emergency Department were for an urgent problem and are not intended as complete care. It is important for you to follow up with a doctor, nurse practitioner, or physician?s orthotic assistant for ongoing care. If your symptoms [...] so we can reach you if necessary. [facility] Emergency Department has provided you with a complete list of medications post discharge. 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 Any specific questions regarding your chronic medications and dosages should be discussed with your primary care physician(s) and/or pharmacist. New Medications [id number], [address] [place], [place] [id number], [phone] acetaminophen-hydro codone (acetaminophen-hydr ocodone 300 mg-5 mg [...] Visit Height/Length (more content not included)... Normal [facility] Extra Blueon 01-08-2023 Tube Collected Yes Invalid Interpretation Code [facility] Comment on above: Performed By: #### 1 [id number], [id number] ####[facility] (DEFAULT)[address] [place] [address] 28247 Lipaseon 01-08-2023 Lipase Level 33.0 IU/L Normal 22.0-51.0 [facility] Comment on above: Performed By: #### 1 2068053, 8533204475, 2659836069, 7529838, 4355509 ####[facility] (DEFAULT)[address] [place] [address] 87696 Progress Note - Nurseon 12-17 Progress Note - Nurse Patient arrives to ER with complaint of right sided flank pain. Rates pain 04/26. Believes he has a kidney stone [Electronically Signed on: 01/08/2023 09:51 EDT] __ Ramon Ayon RN [Verified on: 01/08/2023 09:51 EDT] __ Ramon Ayon RN Normal [facility] TnI HSon 01-08-2023 Troponin I High Sensitivity 5.0 pg/mL Normal <=20.0 [facility] Comment on above: Performed By: #### 1 5651038, 5727127054, 6282947989, 7883121, 9153029 ####[facility] (DEFAULT)[address] [place] [address] 16857 UA Gxipe0uz 01-08-2023 UA Bacteria Trace Normal [facility] Comment on above: Order Comment: Urina lysis Microscopic order added on by [employer] Expert Rules system. Performed By: #### 1 [id number], 2090588, 85612151 #### [facility] (DEFAULT) [address] [place] [address] UA RBC 5-10 Normal [facility] Comment on above: Order Comment: Urina lysis Microscopic order added on by [employer] Rules system. Performed By: #### 1 [id number], 1059948, [id number] #### [facility] (DEFAULT) [address] [place] [address] UA Squam Epi Few Normal [facility] Comment on above: Order Comment: Urina lysis Microscopic order added on by [employer] Expert Rules system. Performed By: #### 1 [id number], 8589370, 08293814 #### [facility] (DEFAULT) [address] [place] [address] UA WBC 3-5 Normal [facility] Comment on above: Order Comment: Urina lysis Microscopic order added on by [employer] Expert Rules system. Performed By: #### 1 [id number], 7124113, [id number] #### [facility] (DEFAULT) [address] [place] [address] UA w Culture if Ind Standard on 01-08-2023 Breakpoint UA Normal [facility] Comment on above: Performed By: #### 1 [id number], 4903823, 63882738 #### [facility] (DEFAULT) [address] [place] [address] Color (U) Yellow Normal [facility] Comment on above: Performed By: #### 1 [id number], 3117491, 12514331 #### [facility] (DEFAULT) [address] [place] [address] Culture? Indicated Invalid Interpretation Code [facility] Comment on above: Result Comment: Resu lt created by rule GL_MAGR_ADD_UA_CULT Result created by rule GL_MAGR_ADD_UA_CULT Result created by rule GL_MAGR_ADD_UA_CULT1 Result created by rule GL_MAGR_ADD_UA_CULT Performed By: #### 1 [id number], [id number], [id number] #### [facility] (DEFAULT) [address] [place] [address] Glucose (U) [Mass/Vol] Negative Normal [facility] Comment on above: Performed By: #### 1 [id number], [id number], [id number] #### [facility] (DEFAULT) [address] [place] [address] Ketones Ql (U) Negative Normal [facility] Comment on above: Performed By: #### 1 [id number], [id number], [id number] #### [facility] (DEFAULT) [address] [place] [address] Micro? Indicated Invalid Interpretation Code [facility] Comment on above: Result Comment: Resu lt created by rule GL_MAGR_ADD_UA_MICRO Performed By: #### 1 [id number], [id number], [id number] #### [facility] (DEFAULT) [address] [place] [address] UA Bilirubin Negative Normal [facility] Comment on above: Performed By: #### 1 [id number], [id number], [id number] #### [facility] (DEFAULT) [address] [place] [address] UA Blood MODERATE Abnormal NEGATIVE [facility] Comment on above: Performed By: #### 1 [id number], [id number], [id number] #### [facility] (DEFAULT) [address] [place] [address] UA Clarity CLEAR Normal CLEAR [facility] Comment on above: Performed By: #### 1 [id number], [id number], [id number] #### [facility] (DEFAULT) [address] [place] [address] UA Leuk Est Negative Normal NEGATIVE [facility] Comment on above: Performed By: #### 1 [id number], [id number], [id number] #### [facility] (DEFAULT) [address] [place] [address] UA Nitrite Negative Normal NEGATIVE [facility] Comment on above: Performed By: #### 1 [id number], [id number], [id number] #### [facility] (DEFAULT) [address] [place] [address] UA pH 7.0 Normal 5-8 [facility] Comment on above: Performed By: #### 1 [id number], [id number], [id number] #### [facility] (DEFAULT) [address] [place] [address] UA Protein TRACE Abnormal NEGATIVE [facility] Comment on above: Performed By: #### 1 [id number], [id number], [id number] #### [facility] (DEFAULT) [address] [place] [address] UA Spec Grav 1.025 Normal 1.001-1.035 [facility] Comment on above: Performed By: #### 1 [id number] #### [facility] (DEFAULT) [address] [place] [id number] UA Urobilinogen 0.2 mg/dL Normal 0.2-1.0 [facility] Comment on above: Performed By: #### 1 [id number] #### [facility] (DEFAULT) [address] [place] [id number] Urine Source Clean Catch Normal [facility] Comment on above: Performed By: #### 1 [id number] #### [facility] (DEFAULT) [address] [place] [id number] CBC AUTO DIFFon 10-21-2022 BASO # 0.0 103/ul Normal 0.0-0.1 [facility] Comment on above: Performed By: #### C BC #### [facility] [address] [place] [address] Dr. Irma Erazo Basophils/100 WBC (Bld) 0.2 % Normal 0.2-2.0 [facility] Comment on above: Performed By: #### C BC #### [facility] [address] [place] [address] Dr. Irma Erazo EO # 0.1 103/ul Normal 0.0-0.7 [facility] Comment on above: Performed By: #### C BC #### [facility] [address] [place] [address] Dr. Irma Erazo Eosinophils/100 WBC (Bld) 0.7 % Critically low 0.9-7.0 [facility] Comment on above: Performed By: #### C BC #### [facility] [address] [place] [address] Dr. Irma Erazo Erythrocyte distribution width (RBC) [Ratio] 13.5 % Normal 11.0-15.0 [facility] Comment on above: Performed By: #### C BC #### [facility] [address] [place] [address] Dr. Irma Erazo Hematocrit (Bld) [Volume fraction] 39.6 % Critically low 42.0-54.0 [facility] Comment on above: Performed By: #### C BC #### [facility] [address] [place] [address] Dr. Irma Erazo Hemoglobin (Bld) [Mass/Vol] 13.6 g/dL Critically low 14.0-18.0 [facility] Comment on above: Performed By: #### C BC #### [facility] [address] [place] [address] Dr. Irma Erazo IG # 0.04 10e3/ul Critically high 0.00-0.03 [facility] Comment on above: Performed By: #### C BC #### [facility] [address] [place] [address] Dr. Irma Erazo IG % 0.4 % Normal 0.0-0.5 [facility] Comment on above: Performed By: #### C BC #### [facility] [address] [place] [address] Dr. Irma Erazo LYMPH # 2.5 103/ul Normal 1.2-3.[address] [facility] Comment on above: Performed By: #### C BC #### [facility] [address] [place] [address] Dr. Irma Erazo Lymphocytes/100 WBC (Bld) 25.9 % Normal 20.5-60.0 [facility] Comment on above: Performed By: #### C BC #### [facility] [address] [place] [address] Dr. Irma Erazo MANUAL DIFF REQ NO Normal [facility] Comment on above: Performed By: #### C BC #### [facility] [address] [place] [address] Dr. Irma Erazo MCH (RBC) [Entitic mass] 30.2 pg Normal 25.9-34.0 [facility] Comment on above: Performed By: #### C BC #### [facility] [address] [place] [address] Dr. Irma Erazo MCHC (RBC) [Mass/Vol] 34.3 g/dL Normal 29.9-35.[address] [facility] Comment on above: Performed By: #### C BC #### [facility] [address] [place] [address] Dr. Irma Erazo MCV (RBC) [Entitic vol] 88.0 fL Normal 80.0-94.0 [facility] Comment on above: Performed By: #### C BC #### [facility] [address] [place] [address] Dr. Irma Erazo MONO # 0.7 103/ul Normal 0.3-0.[address] [facility] Comment on above: Performed By: #### C BC #### [facility] [address] [place] [address] Dr. Irma Erazo Monocytes/100 WBC (Bld) 7.1 % Normal 1.7-12.0 [facility] Comment on above: Performed By: #### C BC #### [facility] [address] [place] [address] Dr. Irma Erazo NEUT # 6.3 103/ul Normal 1.4-6.[address] [facility] Comment on above: Performed By: #### C BC #### [facility] [address] [place] [address] Dr. Irma Erazo Neutrophils/100 WBC (Bld) 65.7 % Normal 43.0-75.0 [facility] Comment on above: Performed By: #### C BC #### [facility] [address] [address] [address] Irma Erazo Platelet mean volume (Bld) [Entitic vol] 10.2 fL Normal 9.5-13.5 [facility] Comment on above: Performed By: #### C BC #### [facility] [address] [address] [address] Irma Erazo PLT 201 103/ul Normal 150-450 [facility] Comment on above: Performed By: #### C BC #### [facility] [address] [address] [address] Irma Erazo RBC 4.50 106/ul Critically low 4.70-6.10 [facility] Comment on above: Performed By: #### C BC #### [facility] [address] [place] [address] Dr. Irma Erazo WBC 9.6 103/ul Normal 4.0-11.0 [facility] Comment on above: Performed By: #### C BC #### [facility] [address] [address] [address] Irma Erazo PROF 14(COMP METB)on 023 Albumin [Mass/Vol] 4.2 g/dL Normal 3.4-5.0 [facility] Comment on above: Performed By: #### S EDR #### [facility] [address] [place] [address] Dr. Irma Erazo Albumin/Globulin [Mass ratio] 1.3 {ratio} Normal [facility] Comment on above: Performed By: #### S EDR #### [facility] [address] [place] [address] Dr. Irma Erazo ALP [Catalytic activity/Vol] 87 U/L Normal 46-[address] [facility] Comment on above: Performed By: #### S EDR #### [facility] [address] [place] [address] Dr. Irma Erazo ALT [Catalytic activity/Vol] 29 U/L Normal 16-63 [facility] Comment on above: Performed By: #### S EDR #### [facility] [address] [place] [address] Dr. Irma Erazo Anion gap [Moles/Vol] 9.8 mmol/L Normal [facility] Comment on above: Performed By: #### S EDR #### [facility] [address] [address] [address] Irma Erazo AST [Catalytic activity/Vol] 18 U/L Normal 15-37 [facility] Comment on above: Performed By: #### S EDR #### [facility] [address] [address] [address] Irma Erazo Bilirubin [Mass/Vol] 0.9 mg/dL Normal 0.2-1.0 [facility] Comment on above: Performed By: #### S EDR #### [facility] [address] [place] [address] Dr. Irma Erazo Calcium [Mass/Vol] 9.0 mg/dL Normal 8.5-10.1 [facility] Comment on above: Performed By: #### S EDR #### [facility] [address] [place] [address] Dr. Irma Erazo Chloride [Moles/Vol] 105 mmol/L Normal 98-107 [facility] Comment on above: Performed By: #### S EDR #### [facility] [address] [place] [address] Dr. Irma Erazo CO2 [Moles/Vol] 27.7 mmol/L Normal 21.0-32.0 [facility] Comment on above: Performed By: #### S EDR #### [facility] [address] [place] [address] Dr. Irma Erazo Creatinine [Mass/Vol] 1.22 mg/dL Normal 0.70-1.30 [facility] Comment on above: Performed By: #### S EDR #### [facility] [address] [place] [address] Dr. Irma Erazo EGFR-AF LUXEMBOURGER >60 Normal >=60 [facility] Comment on above: Performed By: #### S EDR #### [facility] [address] [place] [address] Dr. Irma Erazo EGFR-NON AF LUXEMBOURGER 60 mL/min/1.73m2 Normal >=60 [facility] Comment on above: Performed By: #### S EDR #### [facility] [address] [place] [address] Dr. Irma Erazo Globulin (S) [Mass/Vol] 3.3 g/dL Normal [facility] Comment on above: Performed By: #### S EDR #### [facility] [address] [address] [address] Irma Erazo Glucose [Mass/Vol] 116 mg/dL Critically high 74-106 [facility] Comment on above: Performed By: #### S EDR #### [facility] [address] [place] [address] Dr. Irma Erazo Potassium [Moles/Vol] 4.5 mmol/L Normal 3.5-5.1 [facility] Comment on above: Performed By: #### S EDR #### [facility] [address] [address] [address] Irma Erazo Protein [Mass/Vol] 7.5 g/dL Normal 6.4-8.[address] [facility] Comment on above: Performed By: #### S EDR #### [facility] [address] [place] [address] Dr. Irma Erazo Sodium [Moles/Vol] 138 mmol/L Normal 136-145 [facility] Comment on above: Performed By: #### S EDR #### [facility] [address] [address] [address] Irma Erazo Urea nitrogen [Mass/Vol] 20.0 mg/dL Critically high 7.0-18.0 [facility] Comment on above: Performed By: #### S EDR #### [facility] [address] [place] [address] Dr. Irma Erazo Urea nitrogen/Creatinine [Mass ratio] 16.4 mg/mg Normal [facility] Comment on above: Performed By: #### S EDR #### [facility] [address] [address] [address] Irma Erazo SED RATE [facility] 2022 SED RATE 6 mm/hr Normal <=20 [facility] Comment on above: Performed By: #### S EDR #### [facility] [address] [place] [address] Dr. Irma Erazo COVID/FLU/RSV RT-PCRon 07-16 SARS-CoV-2 (COVID-19) RNA LUCIEN+probe Ql (Unsp spec) Negative [employer] [facility] [employer] Other COVID/FLU/RSV RT-PCR Positive [employer] Other COVID/FLU/RSV RT-PCR Negative [employer] [facility] [employer] Other CBC AUTO DIFFon 06-21-2022 BASO # 0.1 103/ul Normal 0.0-0.1 [facility] Comment on above: Performed By: #### C BC #### [facility] [address] [place] [address] Dr. Irma Erazo Basophils/100 WBC (Bld) 0.6 % Normal 0.2-2.0 [facility] Comment on above: Performed By: #### C BC #### [facility] [address] [place] [address] Dr. Irma Erazo EO # 0.1 103/ul Normal 0.0-0.7 [facility] Comment on above: Performed By: #### C BC #### [facility] [address] [place] [address] Dr. Irma Erazo Eosinophils/100 WBC (Bld) 0.7 % Critically low 0.9-7.0 [facility] Comment on above: Performed By: #### C BC #### [facility] [address] [place] [address] Dr. Irma Erazo Erythrocyte distribution width (RBC) [Ratio] 13.4 % Normal 11.0-15.0 [facility] Comment on above: Performed By: #### C BC #### [facility] [address] [place] [address] Dr. Irma Erazo Hematocrit (Bld) [Volume fraction] 39.2 % Critically low 42.0-54.0 [facility] Comment on above: Performed By: #### C BC #### [facility] [address] [place] [address] Dr. Irma Erazo Hemoglobin (Bld) [Mass/Vol] 13.8 g/dL Critically low 14.0-18.0 [facility] Comment on above: Performed By: #### C BC #### [facility] [address] [place] [address] Dr. Irma Erazo IG # 0.03 10e3/ul Normal 0.00-0.03 [facility] Comment on above: Performed By: #### C BC #### [facility] [address] [place] [address] Dr. Irma Erazo IG % 0.3 % Normal 0.0-0.5 [facility] Comment on above: Performed By: #### C BC #### [facility] [address] [place] [address] Dr. Irma Erazo LYMPH # 2.4 103/ul Normal 1.2-3.8 [facility] Comment on above: Performed By: #### C BC #### [facility] [address] [place] [address] Dr. Irma Erazo Lymphocytes/100 WBC (Bld) 27.5 % Normal 20.5-60.0 [facility] Comment on above: Performed By: #### C BC #### [facility] [address] [place] [address] Dr. Irma Erazo MANUAL DIFF REQ NO Normal [facility] Comment on above: Performed By: #### C BC #### [facility] [address] [place] [address] Dr. Irma Erazo MCH (RBC) [Entitic mass] 30.6 pg Normal 25.9-34.0 [facility] Comment on above: Performed By: #### C BC #### [facility] [address] [place] [address] Dr. Irma Erazo MCHC (RBC) [Mass/Vol] 35.2 g/dL Normal 29.9-35.2 [facility] Comment on above: Performed By: #### C BC #### [facility] [address] [address] [address] Irma Erazo MCV (RBC) [Entitic vol] 86.9 fL Normal 80.0-94.0 [facility] Comment on above: Performed By: #### C BC #### [facility] [address] [address] [address] Irma Erazo MONO # 0.6 103/ul Normal 0.3-0.8 [facility] Comment on above: Performed By: #### C BC #### [facility] [address] [address] [address] Irma Erazo Monocytes/100 WBC (Bld) 7.2 % Normal 1.7-12.0 [facility] Comment on above: Performed By: #### C BC #### [facility] [address] [address] [address] Irma Erazo NEUT # 5.6 103/ul Normal 1.4-6.5 [facility] Comment on above: Performed By: #### C BC #### [facility] [address] [address] [address] Irma Erazo Neutrophils/100 WBC (Bld) 63.7 % Normal 43.0-75.0 [facility] Comment on above: Performed By: #### C BC #### [facility] [address] [address] [address] Irma Erazo Platelet mean volume (Bld) [Entitic vol] 10.0 fL Normal 9.5-13.[address] [facility] Comment on above: Performed By: #### C BC #### [facility] [address] [address] [address] Irma Erazo PLT 211 103/ul Normal 150-[address] [facility] Comment on above: Performed By: #### C BC #### [facility] [id number] Irma Erazo RBC 4.51 106/ul Critically low 4.70-6.10 [facility] Comment on above: Performed By: #### C BC #### [facility] [address] [place] [address] Dr. Irma Erazo WBC 8.8 103/ul Normal 4.0-11.0 [facility] Comment on above: Performed By: #### C BC #### [facility] [address] [place] [address] Dr. Irma Erazo PROF 14(COMP METB)on 022 Albumin [Mass/Vol] 4.0 g/dL Normal 3.4-5.0 [facility] Comment on above: Performed By: #### S EDR #### [facility] [address] [place] [address] Dr. Irma Erazo Albumin/Globulin [Mass ratio] 1.2 {ratio} Normal [facility] Comment on above: Performed By: #### S EDR #### [facility] [address] [place] [address] Dr. Irma Erazo ALP [Catalytic activity/Vol] 96 U/L Normal 46-116 [facility] Comment on above: Performed By: #### S EDR #### [facility] [address] [place] [address] Dr. Irma Erazo ALT [Catalytic activity/Vol] 22 U/L Normal 16-63 [facility] Comment on above: Performed By: #### S EDR #### [facility] [address] [place] [address] Dr. Irma Erazo Anion gap [Moles/Vol] 12.1 mmol/L Normal [facility] Comment on above: Performed By: #### S EDR #### [facility] [address] [place] [address] Dr. Irma Erazo AST [Catalytic activity/Vol] 15 U/L Normal 15-37 [facility] Comment on above: Performed By: #### S EDR #### [facility] [address] [place] [address] Dr. Irma Erazo Bilirubin [Mass/Vol] 0.3 mg/dL Normal 0.2-1.0 [facility] Comment on above: Performed By: #### S EDR #### [facility] [address] [address] [address] Irma Erazo Calcium [Mass/Vol] 8.7 mg/dL Normal 8.5-10.[address] [facility] Comment on above: Performed By: #### S EDR #### [facility] [address] [address] [address] Irma Erazo Chloride [Moles/Vol] 105 mmol/L Normal 98-[address] [facility] Comment on above: Performed By: #### S EDR #### [facility] [address] [address] [address] Irma Erazo CO2 [Moles/Vol] 26.2 mmol/L Normal 21.0-32.0 [facility] Comment on above: Performed By: #### S EDR #### [facility] [address] [address] [address] Irma Erazo Creatinine [Mass/Vol] 1.26 mg/dL Normal 0.70-1.[address] [facility] Comment on above: Performed By: #### S EDR #### [facility] [address] [address] [address] Irma Erazo EGFR-AF LUXEMBOURGER >60 Normal >=60 [facility] Comment on above: Performed By: #### S EDR #### [facility] [address] [address] [address] Irma Erazo EGFR-NON AF LUXEMBOURGER 58 mL/min/1.73m2 Critically low >=[address] [facility] Comment on above: Performed By: #### S EDR #### [facility] [address] [address] [address] Irma Erazo Globulin (S) [Mass/Vol] 3.3 g/dL Normal [facility] Comment on above: Performed By: #### S EDR #### [facility] [address] [address] [address] Irma Erazo Glucose [Mass/Vol] 93 mg/dL Normal 74-[address] [facility] Comment on above: Performed By: #### S EDR #### [facility] [address] [address] [address] Irma Erazo Potassium [Moles/Vol] 4.3 mmol/L Normal 3.5-5.1 [facility] Comment on above: Performed By: #### S EDR #### [facility] [address] [address] [address] Irma Erazo Protein [Mass/Vol] 7.3 g/dL Normal 6.4-8.2 [facility] Comment on above: Performed By: #### S EDR #### [facility] [address] [address] [address] Irma Erazo Sodium [Moles/Vol] 139 mmol/L Normal 136-[address] [facility] Comment on above: Performed By: #### S EDR #### [facility] [address] [place] [address] Dr. Irma Erazo Urea nitrogen [Mass/Vol] 17.0 mg/dL Normal 7.0-18.0 [facility] Comment on above: Performed By: #### S EDR #### [facility] [address] [place] [address] Dr. Irma Erazo Urea nitrogen/Creatinine [Mass ratio] 13.5 mg/mg Normal [facility] Comment on above: Performed By: #### S EDR #### [facility] [address] [place] [address] Dr. Irma Erazo SED RATE [facility] 2021 SED RATE 15 mm/hr Normal <=[address] [facility] Comment on above: Performed By: #### S EDR #### [facility] [address] [place] [address] Dr. Irma Erazo AMYLASEon 03-27-2022 Amylase [Catalytic activity/Vol] 72 U/L Normal 25-[address] [facility] Comment on above: Performed By: #### S EDR #### [facility] [address] [place] [address] Dr. Irma Erazo CBC AUTO DIFFon 03-27-2022 BASO # 0.0 103/ul Normal 0.0-0.1 [facility] Comment on above: Performed By: #### C BC #### [facility] [address] [place] [address] Dr. Irma Erazo Basophils/100 WBC (Bld) 0.2 % Normal 0.2-2.0 [facility] Comment on above: Performed By: #### C BC #### [facility] [address] [place] [address] Dr. Irma Erazo EO # 0.1 103/ul Normal 0.0-0.7 [facility] Comment on above: Performed By: #### C BC #### [facility] [address] [place] [address] Dr. Irma Erazo Eosinophils/100 WBC (Bld) 0.7 % Critically low 0.9-7.0 [facility] Comment on above: Performed By: #### C BC #### [facility] [address] [place] [address] Dr. Irma Erazo Erythrocyte distribution width (RBC) [Ratio] 13.1 % Normal 11.0-15.0 [facility] Comment on above: Performed By: #### C BC #### [facility] [address] [place] [address] Dr. Irma Erazo Hematocrit (Bld) [Volume fraction] 40.7 % Critically low 42.0-54.0 [facility] Comment on above: Performed By: #### C BC #### [facility] [address] [place] [address] Dr. Irma Erazo Hemoglobin (Bld) [Mass/Vol] 13.8 g/dL Critically low 14.0-18.0 [facility] Comment on above: Performed By: #### C BC #### [facility] [address] [place] [address] Dr. Irma Erazo IG # 0.04 10e3/ul Critically high 0.00-0.03 [facility] Comment on above: Performed By: #### C BC #### [facility] [address] [place] [address] Dr. Irma Erazo IG % 0.3 % Normal 0.0-0.5 [facility] Comment on above: Performed By: #### C BC #### [facility] [address] [address] [address] Irma Erazo LYMPH # 2.0 103/ul Normal 1.2-3.[address] [facility] Comment on above: Performed By: #### C BC #### [facility] [address] [place] [address] Dr. Irma Erazo Lymphocytes/100 WBC (Bld) 16.0 % Critically low 20.5-60.0 [facility] Comment on above: Performed By: #### C BC #### [facility] [address] [place] [address] Dr. Irma Erazo MANUAL DIFF REQ NO Normal [facility] Comment on above: Performed By: #### C BC #### [facility] [address] [place] [address] Dr. Irma Erazo MCH (RBC) [Entitic mass] 29.9 pg Normal 25.9-34.0 [facility] Comment on above: Performed By: #### C BC #### [facility] [address] [place] [address] Dr. Irma Erazo MCHC (RBC) [Mass/Vol] 33.9 g/dL Normal 29.9-35.2 [facility] Comment on above: Performed By: #### C BC #### [facility] [address] [place] [address] Dr. Irma Erazo MCV (RBC) [Entitic vol] 88.3 fL Normal 80.0-94.[address] [facility] Comment on above: Performed By: #### C BC #### [facility] [address] [place] [address] Dr. Irma Erazo MONO # 0.7 103/ul Normal 0.3-0.[address] [facility] Comment on above: Performed By: #### C BC #### [facility] [address] [place] [address] Dr. Irma Erazo Monocytes/100 WBC (Bld) 6.0 % Normal 1.7-12.[address] [facility] Comment on above: Performed By: #### C BC #### [facility] [address] [address] [address] Irma Erazo NEUT # 9.5 103/ul Critically high 1.4-6.5 [facility] Comment on above: Performed By: #### C BC #### [facility] [id number] Irma Erazo Neutrophils/100 WBC (Bld) 76.8 % Critically high 43.0-75.[address] [facility] Comment on above: Performed By: #### C BC #### [facility] [address] [place] [address] Dr. Irma Erazo Platelet mean volume (Bld) [Entitic vol] 9.8 fL Normal 9.5-13.[address] [facility] Comment on above: Performed By: #### C BC #### [facility] [address] [place] [address] Dr. Irma Erazo PLT 211 103/ul Normal 150-[address] [facility] Comment on above: Performed By: #### C BC #### [facility] [address] [place] [address] Dr. Irma Erazo RBC 4.61 106/ul Critically low 4.70-6.10 [facility] Comment on above: Performed By: #### C BC #### [facility] [address] [place], [place] [id number] Dr. Irma Erazo WBC 12.3 103/ul Critically high 4.0-11.0 [facility] Comment on above: Performed By: #### C BC #### [facility] [address] [place], [place] [id number] Dr. Irma Erazo CT FACIAL BONES W [...] KATIE ROMERO Date: 2022-03-27 05:[address] [facility] CULTURE BLOODon 03-27-2022 Microscopic examination of blood, culture Culture Observations: NO GROWTH AT 5 DAYS. Normal [facility] Comment on above: Performed By: #### S EDR #### [facility] [address] [place] [address] Dr. Irma Erazo Microscopic examination of blood, culture Culture Observations: NO GROWTH AT 5 DAYS. Normal [facility] Comment on above: Performed By: #### S EDR #### [facility] [address] [place] [address] Dr. Irma Erazo PROF 14(COMP METB)on 022 Albumin [Mass/Vol] 4.2 g/dL Normal 3.4-5.0 [facility] Comment on above: Performed By: #### C MP #### [facility] [address] [place] [address] Dr. Irma Erazo Albumin/Globulin [Mass ratio] 1.2 {ratio} Normal [facility] Comment on above: Performed By: #### C MP #### [facility] [address] [address] [address] Irma Erazo ALP [Catalytic activity/Vol] 110 U/L Normal 46-116 [facility] Comment on above: Performed By: #### C MP #### [facility] [address] [address] [address] Irma Erazo ALT [Catalytic activity/Vol] 31 U/L Normal 16-63 [facility] Comment on above: Performed By: #### C MP #### [facility] [address] [place] [address] Dr. Irma Erazo Anion gap [Moles/Vol] 9.7 mmol/L Normal [facility] Comment on above: Performed By: #### C MP #### [facility] [address] [place] [address] Dr. Irma Erazo AST [Catalytic activity/Vol] 17 U/L Normal 15-37 [facility] Comment on above: Performed By: #### C MP #### [facility] [address] [place] [address] Dr. Irma Erazo Bilirubin [Mass/Vol] 0.6 mg/dL Normal 0.2-1.0 [facility] Comment on above: Performed By: #### C MP #### [facility] [address] [place] [address] Dr. Irma Erazo Calcium [Mass/Vol] 8.8 mg/dL Normal 8.5-10.1 [facility] Comment on above: Performed By: #### C MP #### [facility] [address] [place] [address] Dr. Irma Erazo Chloride [Moles/Vol] 103 mmol/L Normal 98-107 [facility] Comment on above: Performed By: #### C MP #### [facility] [address] [place] [address] Dr. Irma Erazo CO2 [Moles/Vol] 25.4 mmol/L Normal 21.0-32.0 [facility] Comment on above: Performed By: #### C MP #### [facility] [address] [place] [address] Dr. Irma Erazo Creatinine [Mass/Vol] 1.29 mg/dL Normal 0.70-1.30 [facility] Comment on above: Performed By: #### C MP #### [facility] [address] [place] [address] Dr. Irma Erazo EGFR-AF LUXEMBOURGER >60 Normal >=60 [facility] Comment on above: Performed By: #### C MP #### [facility] [address] [address] [address] Irma Erazo EGFR-NON AF LUXEMBOURGER 56 mL/min/1.73m2 Critically low >=60 [facility] Comment on above: Performed By: #### C MP #### [facility] [address] [place] [address] Dr. Irma Erazo Globulin (S) [Mass/Vol] 3.4 g/dL Normal [facility] Comment on above: Performed By: #### C MP #### [facility] [address] [place] [address] Dr. Irma Erazo Glucose [Mass/Vol] 119 mg/dL Critically high 74-106 [facility] Comment on above: Performed By: #### C MP #### [facility] [address] [place] [address] Dr. Irma Erazo Potassium [Moles/Vol] 4.1 mmol/L Normal 3.5-5.1 [facility] Comment on above: Performed By: #### C MP #### [facility] [address] [place] [address] Dr. Irma Erazo Protein [Mass/Vol] 7.6 g/dL Normal 6.4-8.2 [facility] Comment on above: Performed By: #### C MP #### [facility] [address] [place] [address] Dr. Irma Erazo Sodium [Moles/Vol] 134 mmol/L Critically low 136-145 [facility] Comment on above: Performed By: #### C MP #### [facility] [address] [place] [address] Dr. Irma Erazo Urea nitrogen [Mass/Vol] 15.0 mg/dL Normal 7.0-18.0 [facility] Comment on above: Performed By: #### C MP #### [facility] [address] [place] [address] Dr. Irma Erazo Urea nitrogen/Creatinine [Mass ratio] 11.6 mg/mg Normal [facility] Comment on above: Performed By: #### C MP #### [facility] [address] [place] [address] Dr. Irma Erazo CBC AUTO DIFFon 02-19-2022 BASO # 0.0 103/ul Normal 0.0-0.1 [facility] Comment on above: Performed By: #### C BC #### [facility] [address] [place] [address] Dr. Irma Erazo Basophils/100 WBC (Bld) 0.3 % Normal 0.2-2.0 [facility] Comment on above: Performed By: #### C BC #### [facility] [address] [place] [address] Dr. Irma Erazo EO # 0.1 103/ul Normal 0.0-0.7 [facility] Comment on above: Performed By: #### C BC #### [facility] [address] [place] [address] Dr. Irma Erazo Eosinophils/100 WBC (Bld) 0.5 % Critically low 0.9-7.0 [facility] Comment on above: Performed By: #### C BC #### [facility] [address] [place] [address] Dr. Irma Erazo Erythrocyte distribution width (RBC) [Ratio] 13.2 % Normal 11.0-15.0 [facility] Comment on above: Performed By: #### C BC #### [facility] [address] [place] [address] Dr. Irma Erazo Hematocrit (Bld) [Volume fraction] 41.4 % Critically low 42.0-54.0 [facility] Comment on above: Performed By: #### C BC #### [facility] [address] [place] [address] Dr. Irma Erazo Hemoglobin (Bld) [Mass/Vol] 14.3 g/dL Normal 14.0-18.0 [facility] Comment on above: Performed By: #### C BC #### [facility] [address] [place] [address] Dr. Irma Erazo IG # 0.05 10e3/ul Critically high 0.00-0.03 [facility] Comment on above: Performed By: #### C BC #### [facility] [address] [place] [address] Dr. Irma Erazo IG % 0.4 % Normal 0.0-0.5 [facility] Comment on above: Performed By: #### C BC #### [facility] [address] [place] [address] Dr. Irma Erazo LYMPH # 2.4 103/ul Normal 1.2-3.8 [facility] Comment on above: Performed By: #### C BC #### [facility] [address] [place] [address] Dr. Irma Erazo Lymphocytes/100 WBC (Bld) 18.6 % Critically low 20.5-60.0 [facility] Comment on above: Performed By: #### C BC #### [facility] [address] [place] [address] Dr. Irma Erazo MANUAL DIFF REQ NO Normal [facility] Comment on above: Performed By: #### C BC #### [facility] [address] [place] [address] Dr. Irma Erazo MCH (RBC) [Entitic mass] 30.4 pg Normal 25.9-34.0 [facility] Comment on above: Performed By: #### C BC #### [facility] [address] [place] [address] Dr. Irma Erazo MCHC (RBC) [Mass/Vol] 34.5 g/dL Normal 29.9-35.2 [facility] Comment on above: Performed By: #### C BC #### [facility] [address] [place] [address] Dr. Irma Erazo MCV (RBC) [Entitic vol] 88.1 fL Normal 80.0-94.0 [facility] Comment on above: Performed By: #### C BC #### [facility] [address] [place] [address] Dr. Irma Erazo MONO # 1.2 103/ul Critically high 0.3-0.8 [facility] Comment on above: Performed By: #### C BC #### [facility] [address] [place] [address] Dr. Irma Erazo Monocytes/100 WBC (Bld) 9.3 % Normal 1.7-12.0 [facility] Comment on above: Performed By: #### C BC #### [facility] [address] [place] [address] Dr. Irma Erazo NEUT # 9.0 103/ul Critically high 1.4-6.5 [facility] Comment on above: Performed By: #### C BC #### [facility] [address] [place] [address] Dr. Irma Erazo Neutrophils/100 WBC (Bld) 70.9 % Normal 43.0-75.[address] [facility] Comment on above: Performed By: #### C BC #### [facility] [address] [place] [address] Dr. Irma Erazo Platelet mean volume (Bld) [Entitic vol] 9.6 fL Normal 9.5-13.[address] [facility] Comment on above: Performed By: #### C BC #### [facility] [address] [place] [address] Dr. Irma Erazo PLT 233 103/ul Normal 150-[address] [facility] Comment on above: Performed By: #### C BC #### [facility] [address] [place], [place] [id number] Dr. Irma Erazo RBC 4.70 106/ul Normal 4.70-6.[address] [facility] Comment on above: Performed By: #### C BC #### [facility] [address] [place] [address] Dr. Irma Erazo WBC 12.8 103/ul Critically high 4.0-11.0 [facility] Comment on above: Performed By: #### C BC #### [facility] [address] [address] [address] Irma Erazo PROF 14(COMP METB)on 022 Albumin [Mass/Vol] 3.8 g/dL Normal 3.4-5.0 [facility] Comment on above: Performed By: #### C MP #### [facility] [address] [address] [address] Irma Erazo Albumin/Globulin [Mass ratio] 1.0 {ratio} Normal [facility] Comment on above: Performed By: #### C MP #### [facility] [address] [address] [address] Irma Erazo ALP [Catalytic activity/Vol] 132 U/L Critically high 46-116 [facility] Comment on above: Performed By: #### C MP #### [facility] [address] [place] [address] Dr. Irma Erazo ALT [Catalytic activity/Vol] 26 U/L Normal 16-63 [facility] Comment on above: Performed By: #### C MP #### [facility] [address] [address] [address] Irma Erazo Anion gap [Moles/Vol] 12.2 mmol/L Normal [facility] Comment on above: Performed By: #### C MP #### [facility] [address] [place] [address] Dr. Irma Erazo AST [Catalytic activity/Vol] 16 U/L Normal 15-[address] [facility] Comment on above: Performed By: #### C MP #### [facility] [address] [place] [address] Dr. Irma Erazo Bilirubin [Mass/Vol] 0.7 mg/dL Normal 0.2-1.[address] [facility] Comment on above: Performed By: #### C MP #### [facility] [address] [place] [address] Dr. Irma Erazo Calcium [Mass/Vol] 9.1 mg/dL Normal 8.5-10.[address] [facility] Comment on above: Performed By: #### C MP #### [facility] [address] [address] [address] Irma Erazo Chloride [Moles/Vol] 102 mmol/L Normal 98-107 [facility] Comment on above: Performed By: #### C MP #### [facility] [address] [address] [address] Irma Erazo CO2 [Moles/Vol] 29.6 mmol/L Normal 21.0-32.0 [facility] Comment on above: Performed By: #### C MP #### [facility] [address] [address] [address] Irma Erazo Creatinine [Mass/Vol] 1.44 mg/dL Critically high 0.70-1.30 [facility] Comment on above: Performed By: #### C MP #### [facility] [address] [address] [address] Irma Erazo EGFR-AF LUXEMBOURGER 60 mL/min/1.73m2 Normal >=60 [facility] Comment on above: Performed By: #### C MP #### [facility] [address] [address] [address] Irma Erazo EGFR-NON AF LUXEMBOURGER 49 mL/min/1.73m2 Critically low >=60 [facility] Comment on above: Performed By: #### C MP #### [facility] [address] [address] [address] Irma Erazo Globulin (S) [Mass/Vol] 3.9 g/dL Normal [facility] Comment on above: Performed By: #### C MP #### [facility] [address] [address] [address] Irma Erazo Glucose [Mass/Vol] 81 mg/dL Normal 74-106 [facility] Comment on above: Performed By: #### C MP #### [facility] [address] [address] [address] Irma Erazo Potassium [Moles/Vol] 4.8 mmol/L Normal 3.5-5.1 [facility] Comment on above: Performed By: #### C MP #### [facility] [address] [address] [address] Irma Erazo Protein [Mass/Vol] 7.7 g/dL Normal 6.4-8.2 [facility] Comment on above: Performed By: #### C MP #### [facility] [address] [address] [address] Irma Erazo Sodium [Moles/Vol] 139 mmol/L Normal 136-[address] [facility] Comment on above: Performed By: #### C MP #### [facility] [address] [address] [address] Irma Erazo Urea nitrogen [Mass/Vol] 19.0 mg/dL Critically high 7.0-18.0 [facility] Comment on above: Performed By: #### C MP #### [facility] [address] [place] [address] Dr. Irma Erazo Urea nitrogen/Creatinine [Mass ratio] 13.2 mg/mg Normal [facility] Comment on above: Performed By: #### C MP #### [facility] [address] [place] [address] Dr. Irma Erazo SED RATE [facility] 2021 SED RATE 35 mm/hr Critically high <=20 [facility] Comment on above: Performed By: #### S EDR #### [facility] [address] [place] [address] Dr. Irma Erazo CBC AUTO DIFFon 12-18-2021 BASO # 0.0 103/ul Normal 0.0-0.1 [facility] Comment on above: Performed By: #### S EDR #### [facility] [address] [place] [address] Dr. Irma Erazo Basophils/100 WBC (Bld) 0.4 % Normal 0.2-2.0 [facility] Comment on above: Performed By: #### S EDR #### [facility] [address] [place] [address] Dr. Irma Erazo EO # 0.1 103/ul Normal 0.0-0.7 [facility] Comment on above: Performed By: #### S EDR #### [facility] [address] [place] [address] Dr. Irma Erazo Eosinophils/100 WBC (Bld) 1.3 % Normal 0.9-7.0 [facility] Comment on above: Performed By: #### S EDR #### [facility] [address] [place] [address] Dr. Irma Erazo Erythrocyte distribution width (RBC) [Ratio] 13.6 % Normal 11.0-15.0 [facility] Comment on above: Performed By: #### S EDR #### [facility] [address] [place] [address] Dr. Irma Erazo Hematocrit (Bld) [Volume fraction] 39.3 % Critically low 42.0-54.0 [facility] Comment on above: Performed By: #### S EDR #### [facility] [address] [place] [address] Dr. Irma Erazo Hemoglobin (Bld) [Mass/Vol] 13.5 g/dL Critically low 14.0-18.0 [facility] Comment on above: Performed By: #### S EDR #### [facility] [address] [place] [address] Dr. Irma Erazo IG # 0.01 10e3/ul Normal 0.00-0.03 [facility] Comment on above: Performed By: #### S EDR #### [facility] [address] [place] [address] Dr. Irma Erazo IG % 0.1 % Normal 0.0-0.[address] [facility] Comment on above: Performed By: #### S EDR #### [facility] [address] [place] [address] Dr. Irma Erazo LYMPH # 2.5 103/ul Normal 1.2-3.[address] [facility] Comment on above: Performed By: #### S EDR #### [facility] [address] [place] [address] Dr. Irma Erazo Lymphocytes/100 WBC (Bld) 31.1 % Normal 20.5-60.0 [facility] Comment on above: Performed By: #### S EDR #### [facility] [address] [address] [address] Irma Erazo MANUAL DIFF REQ NO Normal [facility] Comment on above: Performed By: #### S EDR #### [facility] [address] [place] [address] Dr. Irma Erazo MCH (RBC) [Entitic mass] 30.3 pg Normal 25.9-34.0 [facility] Comment on above: Performed By: #### S EDR #### [facility] [address] [place] [address] Dr. Irma Erazo MCHC (RBC) [Mass/Vol] 34.4 g/dL Normal 29.9-35.2 [facility] Comment on above: Performed By: #### S EDR #### [facility] [address] [place] [address] Dr. Irma Erazo MCV (RBC) [Entitic vol] 88.3 fL Normal 80.0-94.0 [facility] Comment on above: Performed By: #### S EDR #### [facility] [address] [place] [address] Dr. Irma Erazo MONO # 0.7 103/ul Normal 0.3-0.8 [facility] Comment on above: Performed By: #### S EDR #### [facility] [address] [place] [address] Dr. Irma Erazo Monocytes/100 WBC (Bld) 8.7 % Normal 1.7-12.0 [facility] Comment on above: Performed By: #### S EDR #### [facility] [address] [place] [address] Dr. Irma Erazo NEUT # 4.6 103/ul Normal 1.4-6.[address] [facility] Comment on above: Performed By: #### S EDR #### [facility] [address] [place] [address] Dr. Irma Erazo Neutrophils/100 WBC (Bld) 58.4 % Normal 43.0-75.0 [facility] Comment on above: Performed By: #### S EDR #### [facility] [address] [address] [address] Irma Erazo Platelet mean volume (Bld) [Entitic vol] 10.3 fL Normal 9.5-13.5 [facility] Comment on above: Performed By: #### S EDR #### [facility] [address] [address] [address] Irma Erazo PLT 175 103/ul Normal 150-450 [facility] Comment on above: Performed By: #### S EDR #### [facility] [address] [address] [address] Irma Erazo RBC 4.45 106/ul Critically low 4.70-6.10 [facility] Comment on above: Performed By: #### S EDR #### [facility] [address] [address] [address] Irma Erazo WBC 7.9 103/ul Normal 4.0-11.0 [facility] Comment on above: Performed By: #### S EDR #### [facility] [address] [place] [address] Dr. Irma Erazo PROF 14(COMP METB)on 022 Albumin [Mass/Vol] 4.2 g/dL Normal 3.4-5.0 [facility] Comment on above: Performed By: #### C MP #### [facility] [address] [place] [address] Dr. Irma Erazo Albumin/Globulin [Mass ratio] 1.3 {ratio} Normal [facility] Comment on above: Performed By: #### C MP #### [facility] [address] [place] [address] Dr. Irma Erazo ALP [Catalytic activity/Vol] 85 U/L Normal 46-116 [facility] Comment on above: Performed By: #### C MP #### [facility] [address] [place] [address] Dr. Irma Erazo ALT [Catalytic activity/Vol] 36 U/L Normal 16-63 [facility] Comment on above: Performed By: #### C MP #### [facility] [address] [address] [address] Irma Erazo Anion gap [Moles/Vol] 11.0 mmol/L Normal [facility] Comment on above: Performed By: #### C MP #### [facility] [address] [address] [address] Irma rEazo AST [Catalytic activity/Vol] 21 U/L Normal 15-37 [facility] Comment on above: Performed By: #### C MP #### [facility] [address] [address] [address] Irma Erazo Bilirubin [Mass/Vol] 0.8 mg/dL Normal 0.2-1.0 [facility] Comment on above: Performed By: #### C MP #### [facility] [address] [address] [address] Irma Erazo Calcium [Mass/Vol] 8.8 mg/dL Normal 8.5-10.1 [facility] Comment on above: Performed By: #### C MP #### [facility] [address] [address] [address] Irma Erazo Chloride [Moles/Vol] 103 mmol/L Normal 98-107 [facility] Comment on above: Performed By: #### C MP #### [facility] [address] [address] [address] Irma Erazo CO2 [Moles/Vol] 28.6 mmol/L Normal 21.0-32.0 [facility] Comment on above: Performed By: #### C MP #### [facility] [address] [address] [address] Irma Erazo Creatinine [Mass/Vol] 1.47 mg/dL Critically high 0.70-1.30 [facility] Comment on above: Performed By: #### C MP #### [facility] [address] [address] [address] Irma Erazo EGFR-AF LUXEMBOURGER 59 mL/min/1.73m2 Critically low >=[address] [facility] Comment on above: Performed By: #### C MP #### [facility] [address] [address] [address] Irma Erazo EGFR-NON AF LUXEMBOURGER 48 mL/min/1.73m2 Critically low >=[address] [facility] Comment on above: Performed By: #### C MP #### [facility] [address] [address] [address] Irma Erazo Globulin (S) [Mass/Vol] 3.2 g/dL Normal [facility] Comment on above: Performed By: #### C MP #### [facility] [address] [address] [address] Irma Erazo Glucose [Mass/Vol] 101 mg/dL Normal 74-[address] [facility] Comment on above: Performed By: #### C MP #### [facility] [address] [address] [address] Irma Erazo Potassium [Moles/Vol] 4.6 mmol/L Normal 3.5-5.1 [facility] Comment on above: Performed By: #### C MP #### [facility] [address] [address] [address] Irma Erazo Protein [Mass/Vol] 7.4 g/dL Normal 6.4-8.[address] [facility] Comment on above: Performed By: #### C MP #### [facility] [address] [address] [address] Irma Erazo Sodium [Moles/Vol] 138 mmol/L Normal 136-[address] [facility] Comment on above: Performed By: #### C MP #### [facility] [address] [address] [address] Irma Erazo Urea nitrogen [Mass/Vol] 20.0 mg/dL Critically high 7.0-18.0 [facility] Comment on above: Performed By: #### C MP #### [facility] [address] [address] [address] Irma Erazo Urea nitrogen/Creatinine [Mass ratio] 13.6 mg/mg Normal [facility] Comment on above: Performed By: #### C MP #### [facility] [address] [address] [address] Irma Erazo SED RATE [facility] 2021 SED RATE 2 mm/hr Normal <=[address] [facility] Comment on above: Performed By: #### S EDR #### [facility] [address] [place], [place] [address] Dr. Irma Erazo XR Abdomen 2 Viewson [...] by Alonzo Navas on 10/19/2021 0832 Normal [facility] Vital Signs Date Time Vital Sign Value Performing Clinician Facility 04-01-2025 15:08-0400 Body height 170.2 cm Yadira Hemmer PA Work Phone: [facility] 04-01-2025 15:08-0400 Body mass index (BMI) [Ratio] 28.41 kg/m2 Yadira Hemmer PA Work Phone: [facility] 04-01-2025 15:08-0400 Body weight 82.28 kg Yadira Hemmer PA Work Phone: [facility] 04-01-2025 15:08-0400 Diastolic blood pressure 78 mm[Hg] Yadira Hemmer PA Work Phone: [facility] 04-01-2025 15:08-0400 Heart rate 59 /min Yadira Hemmer PA Work Phone: [facility] 04-01-2025 15:08-0400 Respiratory rate 16 /min Yadira Hemmer PA Work Phone: [facility] 04-01-2025 15:08-0400 SaO2% (BldA) [Mass fraction] 97 % Yadira Hemmer PA Work Phone: [facility] 04-01-2025 15:08-0400 Systolic blood pressure 132 mm[Hg] Yadira GRIFFITHS Work Phone: [facility] 11-24-2023 14:29-0400 Body height 170.2 cm [facility] 2 [facility] 11-24-2023 14:29-0400 Body mass index (BMI) [Ratio] 28.82 kg/m2 [facility] 2 [facility] 11-24-2023 14:29-0400 Body weight 83.46 kg Pmh 2 [facility] 10-21-2022 15:30-0400 Body height 170.18 cm Shashank Head Other [facility] Other 10-21-2022 15:30-0400 Body mass index (BMI) [Ratio] 28.35 kg/m2 Shashank Head Other [facility] Other 10-21-2022 15:30-0400 Body weight 82.1 kg Shashank Head Other [facility] Other 10-21-2022 15:30-0400 Diastolic blood pressure 76 mm[Hg] Shashank Head Other [facility] Other 10-21-2022 15:30-0400 Systolic blood pressure 134 mm[Hg] Shashank Head Other [facility] Other 07-16-2022 16:00-0500 Body height 170.18 cm Cassi Willams Other [facility] Other 07-16-2022 16:00-0500 Body mass index (BMI) [Ratio] 28.19 kg/m2 Cassi Willams Other [facility] Other 07-16-2022 16:00-0500 Body temperature 97.8 [degF] Cassi Willams Other [facility] Other 07-16-2022 16:00-0500 Body weight 81.65 kg Cassi Willams Other [facility] Other 07-16-2022 16:00-0500 Respiratory rate 18 /min Cassi Willams Other [facility] Other 07-16-2022 16:00-0500 SaO2% (BldA) [Mass fraction] 98 % Cassi Willams Other [facility] Other 04-21-2022 16:30-0400 Body weight 81.65 kg Shashank Head Other [facility] Other 01-27-2022 16:00-0400 Body weight 84.82 kg Shashank Head Other [facility] Other Encounters Encounter Date Encounter Type Care Provider Facility Start: 04-12-2025 End: 04-12-2025 Clinisync Result Encounter Yadira GRIFFITHS Work Phone: [facility] External Department Unsolicited Start: 04-12-2025 End: 04-12-2025 Clinisync Result Encounter Yadira GRIFFITHS Work Phone: [facility] External Department Unsolicited Start: 04-12-2025 End: 04-12-2025 ambulatory YADIRA MIRELES Not Available Start: 04-01-2025 End: 04-01-2025 Patient encounter procedure Yadira GRIFFITHS Work Phone: [facility] [place] [facility] Comment on above: Medicare annual well ness visit, subsequent (Primary Dx); ACP (advance care planning); Restless legs syndrome (RLS); Benign essential hypertension ; Coronary artery disease involving andreafski coronary artery of andreafski heart without angina pectoris ; History of heart artery stent; Chronic kidney disease, stage 3a ([facility]-HCC); Myalgia; Mixed hyperlipidemia ; Anemia of chronic disease; Former smoker; 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 (M05.741); Screening for malignant neoplasm of prostate; Other problems related to lifestyle Start: 04-01-2025 End: 04-01-2025 ambulatory YADIRA MIRELES Not Available Start: 04-01-2025 End: 04-01-2025 Bamboo flowsheet Yadira Mireles PA [facility] Start: 04-01-2025 End: 04-01-2025 Bamboo flowsheet Yadira Mireles PA [facility] Start: 10-01-2024 End: 10-01-2024 Clinisync Result Encounter Generic External Data Provider [facility] External Department Unsolicited Start: 10-01-2024 End: 10-01-2024 Clinisync Result Encounter Generic External Data Provider [facility] External Department Unsolicited Start: 06-27-2024 End: 06-27-2024 ambulatory Shashank Head Facility:[facility] Start: 04-25-2024 End: 04-25-2024 Clinisync Result Encounter Generic External Data Provider [facility] External Department Unsolicited Start: 04-25-2024 End: 04-25-2024 Clinisync Result Encounter Generic External Data Provider [facility] External Department Unsolicited Start: 12-21-2023 End: 12-21-2023 Evaluation and management of inpatient PASQUALE Dunham SHEA [facility] Start: 12-21-2023 End: 12-21-2023 Evaluation and management of inpatient JEREMIAS LAU [facility] Start: 12-01-2023 End: 04-01-2025 Preoperative state Generic Provider [facility] Start: 11-24-2023 End: 11-24-2023 Patient encounter procedure Pm Pre-Admission Testing 2 [facility] - Pre Admit Comment on above: Preop examination (P rimary Dx); Hypertension, unspecified type; Stage 3a chronic kidney disease ([facility]-HCC); Coronary artery disease, unspecified vessel or lesion type, unspecified whether angina present, unspecified whether andreafski or transplanted heart Start: 11-24-2023 End: 11-24-2023 Preprocedural examination done [facility] 2 [facility] Start: 11-24-2023 End: 11-24-2023 ambulatory JEREMIAS [facility] Start: 11-24-2023 Encounter for other preprocedural examination [facility] Start: 11-22-2023 End: 04-01-2025 Patient encounter procedure Generic Provider [facility] Start: 01-08-2023 End: 01-08-2023 Emergency department patient visit MD Chino Moses Facility:[facility] Start: 10-21-2022 Patient encounter procedure Shashank Head [facility] Start: 10-21-2022 End: 10-22-[address] ROBBINS [facility] Other Start: 09-14-2022 End: 09-14-2022 ambulatory Shashank Head Other [facility] Other Start: 09-14-2022 Telephone encounter Shashank Head [facility] Start: 07-16-2022 End: 07-16-2022 ambulatory Cassi Willams Other [facility] Other Start: 07-16-2022 Office outpatient vi sit 25 minutes Cassi Willams [facility] [place] Start: 06-21-2022 End: 06-22-[address] SIDNEY CUNNINGHAM Facility:[facility] Start: 04-21-2022 End: 04-21-2022 ambulatory Shashank Head Other [facility] Other Start: 04-21-2022 Patient encounter procedure Shashank [facility] Start: 03-27-2022 End: 03-27-[address] WALDO MONTGOMERY Facility:[facility] Start: 02-19-2022 End: 02-20-[address] SIDNEY CUNNINGHAM Facility:[facility] Start: 02-11-2022 End: 02-11-2022 ambulatory Shashank Head Other [facility] Other Start: 02-11-2022 Telephone encounter Shashank Head [facility] Start: 01-27-2022 End: 01-27-2022 ambulatory Shashank Head Other [facility] Other Start: 01-27-2022 [facility] visit new patient Shashank RAYGOZA [facility] Start: 12-18-2021 End: 12-19-[address] SIDNEY CUNNINGHAM Facility:[facility] Procedures Date Procedure Procedure Detail Performing Clinician Start: 04-12-2025 US AORTA Yadira GRIFFITHS Work Phone: Start: 10-01-2024 ALL CBC WITH AUTO DIFF [...] Annual Wellness (AWV) Medicare Annual Wellness (AWV) [facility] Start: 04-01-2025 End: 04-01-2025 Patient encounter procedure 04/01/2025 3:00 PM EDT Office Visit ALISSON Painter [address] [place] [address] Yadira Mireles PA [address] [place] [address] Arrived [facility]OM[facility] Painter Comment on above: Arrived Start: 04-01-2025 End: 04-01-2026 CT Chest for screening WO contrast CT lung screening low dose Imaging Routine Former smoker Expected: 04/01/2025, Expires: 04/01/2026 [facility] Work Phone: Comment on above: Expected: 04/01/2025 , Expires: 04/01/2026 Start: 04-01-2025 End: 04-01-2026 US Abdominal Aorta for screening US abdomen aortic aneurysm screening Imaging Routine Medicare annual wellness visit, subsequent Former smoker Expected: 04/01/2025, Expires: 04/01/2026 [facility] Comment on above: Expected: 04/01/2025 , Expires: 04/01/2026 Start: 03-18-2025 Influenza vaccination Influenza Vacc ine (#1) [facility] Start: 11-23-2024 Adult BMI Screening Adult BMI Screen ing [facility] Start: 11-23-2024 Tobacco Screening Tobacco Screening [facility] Start: 11-21-2024 Medicare Annual Wellness (AWV) Medicare Annual Wellness (AWV) [facility] Start: 04-21-2024 Pneumococcal Vaccine : 65+ Years (3 of 3 - PCV20 or PCV21) Pneumococcal Vaccine: 65+ Years (3 of 3 - PCV20 or PCV21) [facility] Start: 04-21-2024 Pneumococcal Vaccine : 65+ Years (3 of 3 - PPSV23 or PCV20) Pneumococcal Vaccine: 65+ Years (3 of 3 - PPSV23 or PCV20) [facility] Start: 03-18-2024 Influenza vaccination [facility] Start: 12-21-2023 End: 12-21-2023 Admission to same day surgery center 12/21/2023 10:15 AM EDT - 12/21/2023 11:15 AM EDT Surgery [facility] [address] [place] [id number] Jeremias Lau, DO [address] [address] ARTHROSCOPIC MENISCECTOMY KNEE [80031 (CPT )] [facility] Comment on above: ARTHROSCOPIC MENISCE CTOMY KNEE [28093 (CPT )] Start: 12-21-2023 End: 12-21-2023 Arthrs knee w/meniscectomy med&lat w/shaving ARTHROSCOPIC MENISCECTOMY KNEE meniscal tear 12/21/2023 10:15 AM EDT [facility] Start: 12-21-2023 Subsequent hospital visit by physician 12/21/2023 10:15 AM EDT Hospital Encounter [facility] [address] [facility] [place] [address] Jeremias Lau, DO [address] [facility] [address] [place] [address] [facility] Start: 03-18-2023 COVID-19 Vaccine ( season) COVID-19 Vaccine ( season) [facility] Start: 2023 Fall Risk Screening Fall Risk Screen ing [facility] Start: 1977 DTaP,Tdap and Td Vaccines (1 - Tdap) DTaP,Tdap and Td Vaccines ( - Tdap) [facility] Start: 01-02-1976 Adult BMI Follow Up Plan Adult BMI Follow Up Plan [facility] Start: 1970 Depression Screening Depression Scre ening [facility] Start: 1958 Medicare Annual Wellness Visit Medicare Annual Wellness Visit [facility] Start: 1960 Screening for malign ant neoplasm of lung Lung Cancer Screening Shared Decision Making [facility] CBC W Auto Different ial panel - Blood CBC and differential Lab Routine Medicare annual wellness visit, subsequent Benign essential hypertension Coronary artery disease involving andreafski coronary artery of andreafski heart without angina pectoris Chronic kidney disease, stage 3a (CMS-HCC) Mixed hyperlipidemia Anemia of chronic disease Ordered: 04/01/2025 [facility] Comment on above: Ordered: 04/01/2025 Comprehensive metabo lic 2000 panel - Serum or Plasma Comprehensive metabolic panel Lab Routine Medicare annual wellness visit, subsequent Benign essential hypertension Coronary artery disease involving andreafski coronary artery of andreafski heart without angina pectoris Chronic kidney disease, stage 3a (CMS-HCC) Mixed hyperlipidemia Ordered: 04/01/2025 [facility] Comment on above: Ordered: 04/01/2025 HEPATITIS C AB W/RFL RNS, PCR W/RFL GENOTYPE,LIPA HEPATITIS C AB W/RFL RNS, PCR W/RFL GENOTYPE,LIPA Lab Routine Medicare annual wellness visit, subsequent Other problems related to lifestyle Ordered: 04/01/2025 [facility] Comment on above: Ordered: 04/01/2025 Lipid 1996 panel - Serum or Plasma Lipid panel Lab Routine Medicare annual wellness visit, subsequent Benign essential hypertension Coronary artery disease involving andreafski coronary artery of andreafski heart without angina pectoris Mixed hyperlipidemia Ordered: 04/01/2025 [facility] Comment on above: Ordered: 04/01/2025 Prostate specific Ag [Mass/volume] in Serum or Plasma PSA Lab Routine Medicare annual wellness visit, subsequent Screening for malignant neoplasm of prostate Ordered: 04/01/2025 [facility] Comment on above: Ordered: 04/01/2025 Immunizations Immunization Date Immunization Notes Care Provider [facility] 04-27-2024 influenza virus vacc ine, unspecified formulation Yadira GRIFFITHS Work Phone: [facility] 07-13-2023 zoster vaccine recombinant Generic Provider [facility] 05-03-2023 Influenza, Seasonal, Quadrivalent, Adjuvanted Generic Provider [facility] 05-03-2023 zoster vaccine recombinant Generic Provider [facility] 05-03-2023 influenza virus vacc ine, unspecified formulation [facility] 2 [facility] 05-05-2022 influenza, injectabl e, quadrivalent, preservative free Generic Provider [facility] 06-01-2021 influenza, injectabl e, quadrivalent, preservative free Generic Provider [facility] 03-25-2020 influenza, injectabl e, quadrivalent, preservative free Generic Provider [facility] 04-21-2019 influenza, injectabl e, quadrivalent, preservative free Generic Provider [facility] 04-21-2019 pneumococcal polysaccharide vaccine, 23 valent Generic Provider [facility] 05-11-2018 influenza, injectabl e, quadrivalent, preservative free Generic Provider [facility] 05-11-2018 seasonal influenza, intradermal, preservative free Generic Provider [facility] 04-30-2017 influenza, injectabl e, quadrivalent, preservative free Generic Provider [facility] 04-23-2016 influenza, injectabl e, madin carlos canine kidney, preservative free Generic Provider [facility] 04-23-2016 influenza, injectabl e, quadrivalent, preservative free Generic Provider [facility] 11-26-2015 pneumococcal conjuga te vaccine, 13 valent Generic Provider [facility] 04-23-2013 pneumococcal polysaccharide vaccine, 23 valent Generic Provider [facility] Payers Date Payer Category Payer Self-pay 2023 Medicare (Managed Care) [employer] [id number] 2023 Unknown [id number] 2023 Medicare [id number] [facility] [id number] [id number] 1958 Unknown [id number] 2.16.840.1.174560.3.579. 2.593 1958 Unknown [id number] 2.16.840.1.254011.3.579. 2.593 1958 Unknown [id number] 2.16.840.1.331262.3.579. 2.593 1958 Unknown [id number] 2.16.840.1.604664.3.579. 2.593 1958 Unknown [id number] 2.16.840.1.101896.3.579. 2.593 1958 Unknown [id number] 2.16.840.1.228838.3.579. 2.718 1958 Unknown [id number] 2.16.840.1.184588.3.579. 2.1286 1958 Unknown [id number] 2.16.840.1.654142.3.579. 2.1286 1958 Unknown [id number] 2.16.840.1.438027.3.579. 2.1286 1958 Unknown [id number] 2.16.840.1.109534.3.579. 2.1286 1958 Unknown [id number] 2.16.840.1.420739.3.579. 2.1286 1958 Unknown [id number] 2.16.840.1.147059.3.579. 2.1286 1958 Unknown [id number] 2.16.840.1.229865.3.579. 2.1286 1958 Unknown [id number] 2.16.840.1.056153.3.579. 2.1259 1958 Unknown [id number] 2.16.840.1.401357.3.579. 2.1259 [facility] [id number] 2.16.840.1.945772.19 Unknown [id number] 2.16.840.1.906752.3.579. 2.531 Social History Date Type Detail Facility Start: 11-15-2023 End: 04-01-2025 Sex Assigned At [facility] Start: 11-22-2023 End: 11-24-2023 Tobacco smoking status NHIS Ex-smoker [facility] Start: 04-27-1975 End: 09-08-2011 History of tobacco use Current smoker [facility] Start: 04-27-1975 End: 09-08-2011 History of tobacco use Cigarette Smoker [facility] Start: 11-15-2023 End: 11-22-2023 Cigarettes smoked current (pack per day) - Reported 2.5 [facility] Start: 11-22-2023 End: 11-24-2023 Tobacco use and exposure Smokeless tobacco non-user [facility] Start: 12-30-2023 End: 04-01-2025 Alcoholic beverage intake Lifetime non-drinker (finding) [facility] In a typical week, h ow many times do you talk on the telephone with family, friends, or neighbors? Patient declined [facility] Are you now , , , , never or living with a partner? [facility] How often to you hav e a drink containing alcohol? Never [facility] Do you feel stress - tense, restless, nervous, or anxious, or unable to sleep at night because your mind is troubled all the time - these days [OSQ] Very much [facility] Start: 1960 Sex assigned at Not on file P [employer] [facility] Functional Status Date Assessment Result Facility 04-01-2025 Patient Health Quest ionnaire 2 item (PHQ-2) [Reported] [facility] Clinical Notes 11-04-2021 to 04-01-2025 AYE Fong [...] at all Patient Health Questionnaire-9 Score: 0 Nuria Fall Risk History of Falling, Immediate or [...] by direct observation Three Word Registration: Banana, [place], Chair Clock Drawing: Normal Clock - 2 Three Word Recall: 2/3 words correct - 2 Total Score (0-5 Points): 4 Pain Assessment Pain Score: 2 Advance Care Planning Do you have a living will?: No (refuses living will paperwork) Do you have a medical power of assistant city attorney?: No Current Outpatient Medications on File [...] Name Age of Onset Osteoporosis Mother Celine Goodman Arthritis Mother Celine Goodman Hearing loss [...] a living will and durable power of assistant city attorney for healthcare. We discussed telling steiner [...] Lipid panel 5. Coronary artery disease involving andreafski coronary artery of andreafski heart without angina pectoris This is a [...] prescribed. 7. Chronic kidney disease, stage 3a (CMS-HCC) This is a chronic medical condition that [...] (around 04/01/2026) for Medicare Wellness Visit. AYE Rios-C documented in this encounter [facility] 11-24-2023 Instructions Carmela Galindo RN - 11/24/2023 2:15 PM EDT Preoperative Education Checklist- General Surgery date: 12/21/23 Surgery time: 1000 a.m. Arrival time: 0800 a.m. 1. Bring a photo ID and your insurance card with you the day of surgery. You will check in at the main lobby of the [facility]- registration desk is straight ahead as soon as you walk in. Tell them you are here for surgery. 2. If you have a Living Will/Durable Power of Cable Assembler for Health Care that is not on [...] after you have bathed. 5. NO nail estonian/acrylic on at least one finger. If you are having a hand, wrist or foot surgery then all nail estonian and artificial/acrylic nails must be removed from [...] please call the Preadmission Testing office at [phone], Mon.-Fri. 7 a.m.-3 p.m. Leave a voicemail [...] with your doctor. documented in this encounter [email or web address] 11-24-2023 Miscellaneous Notes Preoperative Education Checklist- General Surgery date: 12/21/23 Surgery time: 1000 a.m. Arrival time: 0800 a.m. 1. Bring a photo ID and your insurance card with you the day of surgery. You will check in at the main lobby of the [facility]- registration desk is straight ahead as soon as you walk in. Tell them you are here for surgery. 2. If you have a Living Will/Durable Power of Cable Assembler for Health Care that is not on [...] after you have bathed. 5. NO nail estonian/acrylic on at least one finger. If you are having a hand, wrist or foot surgery then all nail estonian and artificial/acrylic nails must be removed from [...] please call the Preadmission Testing office at [phone], Mon.-Fri. 7 a.m.-3 p.m. Leave a voicemail [...] Patient verbalized understanding. documented in this encounter [facility] 11-24-2023 Nurse Note Preoperative Education Checklist- General Surgery date: 12/21/23 Surgery time: 1000 a.m. Arrival time: 0800 a.m. 1. Bring a photo ID and your insurance card with you the day of surgery. You will check in at the main lobby of the [facility]- registration desk is straight ahead as soon as you walk in. Tell them you are here for surgery. 2. If you have a Living Will/Durable Power of Cable Assembler for Health Care that is not on [...] after you have bathed. 5. NO nail estonian/acrylic on at least one finger. If you are having a hand, wrist or foot surgery then all nail estonian and artificial/acrylic nails must be removed from [...] please call the Preadmission Testing office at [phone], Mon.-Fri. 7 a.m.-3 p.m. Leave a voicemail [...] to the follow-up appointment with your doctor. [facility] 11-24-2023 Nurse Note Hibiclens and surgical instructions reviewed. Patient verbalized understanding. [facility] 01-08-2023 Note Education Materials Urology Kidney Stones [...] these instructions at home: Medicines ? Take [id number] and prescription medicines only as told by [...] provider. Document Revised: 03/08/2022 Document Reviewed: 03/08/2022 [employer] Patient Education ? 2022 [employer]. [facility] 10-21-2022 Evaluation note Encounter Date Diagnosis Assessment Notes Oct, Dyspepsia (ICD-10 - K30) Oct, GERD (gastroesopha geal reflux disease) (ICD-10 - K21.9) Stop Pantoprazole Start Omeprazole 40mg twice daily, 30 min ac Follow up 3 months [facility] Other 02-28-2023 Evaluation note* Encounter Date Diagnosis Assessment Notes Treatment Notes Treatment Clinical Notes Aug, Dyspepsia (ICD-10 - K30) [facility] Other 12-30-2022 Evaluation note* Encounter Date Diagnosis [...] treatment plan. Patient left in stable condition [facility] Other 10-05-2022 Evaluation note* Encounter Date Diagnosis Assessment Notes Treatment Notes Treatment Clinical Notes Apr, Dyspepsia (ICD-10 - K30) PATIENT STATES HE IS DOING WELL AT THIS TIME. WE WILL CONTINUE ON THE MEDICATION AT THIS TIME. [facility] Other 07-13-2022 Evaluation note* Encounter Date Diagnosis Assessment Notes Treatment Notes Treatment Clinical Notes Jan, Abdominal pain (ICD-10 - R10.9) Jan, Bloating (ICD-10 - R14.0) WILL PROCEED WITH EGD AT THIS TIME. Jan, Abdominal fullness (ICD-10 - R19.8) IS NOT ABLE TO EAT A LOT DUE TO BLOATING FEELING. Jan, Early satiety (ICD-10 - R68.81) [facility] Other 04-20-2022 NoteHISTORY: Abdominal pain, bloating, constipation, diarrhea PROCEDURE: [employer] VCT 64. Following oral contrast administration, pre [...] signed by Alonzo Navas on 11/04/2021 [id number] [place] [facility] SpecialistEvaluation noteNo InformationNort Off & Away Other Evaluation note* Diagnosis Preop examination- Primary Unspecified pre-operative examination Hypertension, unspecified type Stage 3a chronic kidney disease (CMS-HCC) Coronary artery disease, unspecified vessel or lesion type, unspecified whether angina present, unspecified whether andreafski or transplanted heart Preop examination Unspecified pre-operative examination Hypertension, unspecified type Preop examination Unspecified pre-operative examination Hypertension, unspecified type Stage 3a chronic kidney disease (CMS-HCC) Coronary artery disease, unspecified vessel or lesion type, unspecified whether angina present, unspecified whether andreafski or transplanted heart documented in this encounter [facility] Diagnosis Routine general medical examination at health care facility- Primary Routine general medical examination at a health care facility Abnormal glucose tolerance test Impaired glucose tolerance test Benign essential hypertension Essential hypertension, benign Nocturia Medicare annual wellness visit, subsequent Hyperlipidemia, unspecified hyperlipidemia type Coronary artery disease without angina pectoris, unspecified vessel or lesion type, unspecified whether andreafski or transplanted heart Chronic kidney disease, stage [...] Essential hypertension, benign Coronary artery disease involving andreafski coronary artery of andreafski heart without angina pectoris History of heart [...] History colon resection Surgical History gall bladder [facility] Other History general Narrative - Reported* Type Description Date Medical History Hypertension Medical History myocardial infarction multiple Surgical History colon resection Surgical History gall bladder Surgical History heart stent Surgical History heart catheterization [facility] Other Reason for visit NarrativePATIENT HERE AT THE REQUEST OF DR. MONTGOMERY FOR EVALUATION & TREATMENT OF ABDOMINAL PAIN, Abdominalxray and CT obtained from [facility] and scanned in chart., PATIENT STATES THAT HE HAS HAD THIS FOR ALONG TIME AND SEEMS FROM TIME TO TAKE FOOD IN TO WHEN IT LEAVES NOT RIGHT. PATIENT DOES HAVE BLOATING, FEELS LIKE FOOD SITS IN ESOPHAGUS. PATIENT STOOLS ALTERNATE FROM HARD STOOLS TO DIARRHEA.[facility] Other Summary Purpose Family History No Family [...] ECG 12 lead Jeremias Lau DO [address] [place] [address] Referral ID Status Reason Start Date Expiration Date V isits Requested Visits Authorized [id number] Pending Review 11/21/2023 11/20/2024 1 1 Additional Source Comments (unrecognized sect ion and content) No Status Records FoundNo Status Records FoundNo Status Records FoundNo Status Records FoundNo Status Records FoundNo Status Records FoundNo Status Records Found INFORMATION SOURCE (unrecogn ized section and content) DATE CREATED AUTHOR 11/06/2021 [facility] dical Specialist DATE CREATED AUTHOR AUTHOR'S ORGANIZ ATION 10/30/2022 [facility] DATE CREATED AUTHOR AUTHOR'S ORGANIZ ATION 02/19/2023 [facility] DATE CREATED AUTHOR AUTHOR'S ORGANIZ ATION 12/22/2023 [facility] DATE CREATED AUTHOR AUTHOR'S ORGANIZ ATION 07/07/2024 [facility] DATE CREATED AUTHOR AUTHOR'S ORGANIZ ATION 04/07/2025 [facility] DATE CREATED AUTHOR AUTHOR'S ORGANIZ ATION 04/19/2025 [facility] dical Specialists EPIC REASON FOR VISIT (unrecogniz ed section and content) Reason Comments Medicare Annual Wellness Visit [facility] Care Teams (unrecognized sec tion and content) Eligibility Examiner Relationship Specialty Start Date End Date Waldo Montgomery MD [address] [place] [address] PCP - General Family Medicine 11/23/22 Waldo Montgomery MD [address] [place] [address] PCP - [employer] 08/18/23 Eligibility Examiner Relationship Specialty Start Date End Date Waldo Montgomery MD [address] [place] [address] PCP - General Family Medicine 11/24/23 Eligibility Examiner Relationship Specialty Start Date End Date Waldo Montgomery MD [address] [place] [address] PCP - General Family Medicine 11/23/22 Waldo Montgomery MD [address] [place] [address] PCP - Devoted 08/18/23 Eligibility Examiner Relationship Specialty Start Date End Date Waldo Montgomery MD [address] [place] [address] PCP - General Family Medicine 11/23/22 Waldo Montgomery MD [address] [place] [address] PCP - Devoted 08/18/23 Eligibility Examiner Relationship Specialty Start Date End Date Waldo Montgomery MD [address] [place] [address] PCP - General Family Medicine 11/23/22 Waldo Montgomery MD [address] [place] [address] PCP - Devoted 08/18/23 FOR RECORDS PERTAINING [...] BE BASED ON THE PRIMARY CLINICAL RECORDS. [facility] provides no warranty or guarantee of the accuracy or completeness of information in this document.
[2025-04-22 09:59] LABS: Hematocrit 40.5 % (42.0-54.0); Hemoglobin 13.8 g/dL (14.0-18.0); Immature Granulocytes Abs Auto 0.03 10^3/uL (0.00-0.03); Immature Granulocytes Pct Auto 0.3 % (0.0-0.5); Lymphocytes Absolute Auto 2.1 10^3/uL (1.2-3.8); Mean Corpuscular HGB Conc 34.1 g/dL (29.9-35.2); Mean Corpuscular Hemoglobin 29.9 pg (25.9-34.0); Mean Corpuscular Volume 87.9 fL (80.0-94.0); Platelet Count 222 10^3/uL (150-450); Red Blood Count 4.61 10^6/uL (4.70-6.10); White Blood Count 9.6 10^3/uL (4.0-11.0)
[2025-04-22 10:43] LABS: Alanine Aminotransferase 43 U/L (16-63); Albumin Globulin Ratio 1.1; Albumin Level 3.8 g/dL (3.4-5.0); Alkaline Phosphatase 103 U/L (46-116); Anion Gap 12.6; Aspartate Amino Transferase 23 U/L (15-37); Blood Urea Nitrogen 15.0 mg/dL (7.0-18.0); Calcium 8.7 mg/dL (8.5-10.1); Carbon Dioxide 25.8 mmol/L (21.0-32.0); Chloride 104 mmol/L (98-107); Estimated GFR (African America >60 (>=60 mL/min/1.73m^2); Estimated GFR (Non-African Ame >60 (>=60 mL/min/1.73m^2); Globulin 3.6 g/dL; Glucose 87 mg/dL (74-106); Potassium 5.4 mmol/L (3.5-5.1); Sodium 137 mmol/L (136-145); Total Protein 7.4 g/dL (6.4-8.2); Uric Acid 3.0 mg/dL (3.5-7.2)
== END 2025-04-22 09:32 | disposition home or self-care (01) ==
PROVIDERS: PCP Physician Assistant; Visit Provider Internal Medicine Rheumatology
DX: M10.9 Gout, unspecified (principal); M19.90 Unspecified osteoarthritis, unspecified site; Z51.81 Encounter for therapeutic drug level monitoring; Z79.899 Other long term (current) drug therapy
CPT/HCPCS: 36415; 80053; 84550; 85025; 85652